=== PATIENT | female | born 1975 | race American Indian/Alaskan Native ===

== ENCOUNTER 2018-01-22 17:11 | Emergency (ER) | payer OTHER ==
[2018-01-22 17:11] VITALS: BMI 31.7
[2018-01-22 17:34] VITALS: TEMP 98.1
--- NOTE | 2018-01-22 18:21 | ED PDOC ---
Arrival/HPI - General Chief Complaint: Cough, Cold, Congestion Time Seen by Provider: 01/22/18 17:33 Historian: Patient - History of Present Illness Narrative History of Present Illness (Text): 01/22/18 18:14 42yo female with PMHx of hypertension, anxiety and depression present with 5days history of yellowish productive cough. States she started having chest pain with the cough few days ago. Did not take any medication for her symptoms. States her finance was treated for URI last week. Denies fever, chills, SOB, diaphoresis, travel, any other complaint. Past Medical History - Provider Review Nursing Documentation Reviewed: Yes - Infectious Disease Hx of Infectious Diseases: None - Tetanus Immunization Tetanus Immunization: Unknown - Cardiac Hx Hypertension: Yes - Pulmonary Hx Respiratory Disorders: No - Neurological Hx Neurological Disorder: No - HEENT Hx HEENT Disorder: No - Renal Hx Renal Disorder: No - Endocrine/Metabolic Hx Endocrine Disorders: No - Hematological/Oncological Hx Blood Disorders: No - Integumentary Hx Dermatological Disorder: No - Musculoskeletal/Rheumatological Hx Musculoskeletal Disorders: No - Gastrointestinal Hx Gastrointestinal Disorders: No - Genitourinary/Gynecological Hx Genitourinary Disorders: No - Psychiatric Hx Psychophysiologic Disorder: Yes Hx Anxiety: Yes Hx Depression: Yes Hx Substance Use: No - Surgical History Hx Section: Yes (x3) Family/Social History - Physician Review Nursing Documentation Reviewed: Yes Family/Social History: Unknown Family HX Smoking Status: Current Some Days Smoker Hx Alcohol Use: Yes Hx Substance Use: No Allergies/Home Meds Allergies/Adverse Reactions: Allergies shellfisf Allergy (Uncoded 01/22/18 17:18) ANAPHYLAXIS Home Medications: Home Meds Medication Instructions Recorded Confirmed clonazePAM [Klonopin] 0.5 mg PO PRN PRN 12/14/15 01/22/18 Review of Systems - Physician Review All systems were reviewed & negative as marked: Yes - Review of Systems Constitutional: Normal Eyes: Normal ENT: Normal Respiratory: Cough, Sputum. absent: SOB, Wheezing Cardiovascular: Normal Gastrointestinal: Normal Genitourinary Female: Normal Musculoskeletal: Normal Skin: Normal Neurological: Normal Endocrine: Normal Hemo/Lymphatic: Normal Psychiatric: Normal Physical Exam Vital Signs Reviewed: Yes Vital Signs Temp Pulse Resp BP Pulse Ox 01/22/18 17:13 98.1 F 128 H 17 154/110 H 100 Temperature: Afebrile Blood Pressure: Hypertensive Pulse: Tachycardic Respiratory Rate: Normal Appearance: Positive for: Well-Appearing, Non-Toxic, Comfortable Pain Distress: None Mental Status: Positive for: Alert and Oriented X 3 - Systems Exam Head: Present: Atraumatic, Normocephalic Pupils: Present: PERRL Extroacular Muscles: Present: EOMI Conjunctiva: Present: Normal Mouth: Present: Moist Mucous Membranes Neck: Present: Normal Range of Motion Respiratory/Chest: Present: Clear to Auscultation, Good Air Exchange. No: Respiratory Distress, Accessory Muscle Use, Wheezes, Decreased Breath Sounds, Rales, Retracting, Rhonchi, Tachypneic Cardiovascular: Present: Regular Rate and Rhythm, Normal S1, S2. No: Murmurs Abdomen: Present: Normal Bowel Sounds. No: Tenderness, Distention, Peritoneal Signs Back: Present: Normal Inspection Upper Extremity: Present: Normal Inspection. No: Cyanosis, Edema Lower Extremity: Present: Normal Inspection. No: Edema Neurological: Present: GCS=15, CN II-XII Intact, Speech Normal Skin: Present: Warm, Dry, Normal Color. No: Rashes Psychiatric: Present: Alert, Oriented x 3, Normal Insight, Normal Concentration Medical Decision Making - Lab Interpretations Lab Results: 01/22/18 17:59 01/22/18 17:59 Lab Results 01/22/18 18:14: Urine Color Light yellow, Urine Appearance Clear, Urine pH 6.0, Ur Specific [place] <= 1.005, Urine Protein Negative, Urine Glucose (UA) Negative, Urine Ketones Negative, Urine Blood Negative, Urine Nitrate Negative, Urine Bilirubin Negative, Urine Urobilinogen 0.2, Ur Leukocyte Esterase Negative 01/22/18 17:59: Influenza Typ A,B (EIA) Negative for flu a/b 01/22/18 17:59: Sodium 141, Potassium 4.0, Chloride 101, Carbon Dioxide 25, Anion Gap 19, BUN 8, Creatinine 0.7, Est GFR ( Amer) > 60, Est GFR (Non- Af Amer) > 60, Random Glucose 115 H, Calcium 10.0, Magnesium 2.0, Total Bilirubin 1.8 H, AST 152 H, ALT 151 H, Alkaline Phosphatase 133 H, Lactate Dehydrogenase 694, Total Creatine Kinase 69, Troponin I < 0.01, NT-Pro-B Natriuret Pep 13.9, Total Protein 8.8 H, Albumin 4.3, Globulin 4.5, Albumin/ Globulin Ratio 1.0 L 01/22/18 17:59: PT 12.1, INR 1.06, APTT 27.6, D-Dimer, Quantitative < 200 01/22/18 17:59: WBC 8.2, RBC 3.76, Hgb 13.1, Hct 39.0, MCV 103.7, MCH 34.8, MCHC 33.6, RDW 12.3, Plt Count 202, MPV 10.3, Gran % 69.0 H, Lymph % (Auto) 23.4 , [place] % (Auto) 7.2 H, Eos % (Auto) 0.2 L, Baso % (Auto) 0.2, Gran # 5.64, Lymph # (Auto) 1.9, [place] # (Auto) 0.6, Eos # (Auto) 0.0, Baso # (Auto) 0.02 - RAD Interpretation Radiology Orders: 01/22/18 17:33 CHEST TWO VIEWS (PA/LAT) [RAD] Stat - Medication Orders Current Medication Orders: Azithromycin (Zithromax) 500 mg PO STAT STA PRN Reason: Protocol Stop: 01/22/18 19:18 Guaifenesin (Robitussin) 200 mg PO Q4H STA Stop: 01/22/18 19:18 Disposition/Present on Arrival - Present on Arrival Any Indicators Present on Arrival: No History of DVT/PE: No History of Uncontrolled Diabetes: No Urinary Catheter: No History of Decub. Ulcer: No History Surgical Site Infection Following: None - Disposition Have Diagnosis and Disposition been Completed?: Yes Diagnosis: URI (upper respiratory infection) Disposition: HOME/ ROUTINE Disposition Time: 19:20 Patient Plan: Discharge Condition: STABLE Discharge Instructions (ExitCare): Viral Upper Respiratory Infection, Adult (DC ) Additional Instructions: Follow up with your doctor Return to ED for any new symptoms Prescriptions: Albuterol HFA [Ventolin HFA 90 mcg/actuation (8 g)] 2 puff IH Q3BIRCP #1 puff Azithromycin [Zithromax] 250 mg PO DAILY #4 tab Benzonatate [Tessalon Perles] 100 mg PO TID #30 sgl Referrals: Yvonne RAMÍREZ,MD Kaley [Primary Care Provider] - Follow up with primary Forms: [facility] (Malay)
[2018-01-22 18:22] LABS: BASO # 0.02 K/mm3 (0.0-2.0); BASO % 0.2 % (0.0-3.0); EOS % 0.2 % (1.5-5.0); GRAN # 5.64 (1.4-6.5); HEMOGLOBIN 13.1 g/dL (12.0-16.0); LYMPH # 1.9 (1.2-3.4); LYMPH % 23.4 % (22.0-35.0); MEAN CELL VOLUME 103.7 fl (80.0-105.0); MEAN CORPUSCULAR HEMOGLOBIN 34.8 pg (25.0-35.0); MEAN CORPUSCULAR HGB CONC 33.6 g/dl (31.0-37.0); MEAN PLATELET VOLUME 10.3 fl (7.0-11.0); MONO # 0.6 (0.1-0.6); MONO % 7.2 % (1.0-6.0); RBC 3.76 10^6/uL (3.5-6.1); RED CELL DISTRIBUTION WIDTH 12.3 % (11.5-14.5); WHITE BLOOD COUNT 8.2 10^3/ul (4.5-11.0)
[2018-01-22 18:24] LABS: URINE BILIRUBIN NEGATIVE (NEGATIVE); URINE BLOOD NEGATIVE (NEGATIVE); URINE GLUCOSE (UA) NEGATIVE (NEGATIVE); URINE LEUKOCYTE ESTERASE NEGATIVE Leu/uL (NEGATIVE); URINE NITRATE NEGATIVE (NEGATIVE); URINE PROTEIN NEGATIVE mg/dL (<30 mg/dL); URINE UROBILINOGEN 0.2 E.U./dL (<1 E.U./dL)
[2018-01-22 18:26] LABS: URINE APPEARANCE CLEAR (CLEAR); URINE COLOR LIGHT YELLOW (YELLOW)
[2018-01-22 18:35] LABS: D DIMER < 200 ng/mL (0-243); INR 1.06 (0.93-1.08); PARTIAL THROMBOPLASTIN TIME 27.6 Seconds (25.1-36.5); PROTHROMBIN TIME 12.1 SECONDS (9.4-12.5)
[2018-01-22 18:42] LABS: ALBUMIN 4.3 g/dL (3.0-4.8); GFR AFRICAN-AMERICAN > 60; GFR NON-AFRICAN AMERICAN > 60
[2018-01-22 18:51] LABS: B-TYPE NATRIURETIC PEPTIDE 13.9 pg/mL (0-450); TROPONIN I < 0.01 ng/mL
[2018-01-22 19:10] LABS: ALT/SGPT 151 U/L (7-56); AST/SGOT 152 U/L (14-36); BLOOD UREA NITROGEN 8 mg/dL (7-21)
[2018-01-22] MEDS ORDERED: guaiFENesin 200 mg/10 ml Syrup UD PO STA (19:17)
[2018-01-22 19:38] VITALS: BP 145/87; PULSE 85; RESP 16; O2SAT 99
--- NOTE | 2018-01-23 08:42 | RAD ---
HISTORY: cough/chest pain COMPARISON: No prior. TECHNIQUE: Chest PA and lateral FINDINGS: LUNGS: No active pulmonary disease. PLEURA: No significant pleural effusion identified. No pneumothorax apparent. CARDIOVASCULAR: Normal. OSSEOUS STRUCTURES: No significant abnormalities. VISUALIZED UPPER ABDOMEN: Normal. OTHER FINDINGS: None. IMPRESSION: No active disease.
--- NOTE | 2018-01-23 17:22 | CARD ---
APPROVED REPORT EKG Measurement Heart [id number] ID [id number] <Conclusion> Sinus tachycardia Possible Left atrial enlargement Cannot rule out Anterior infarct, age undetermined ST & T wave abnormality, nonspecific Abnormal ECG
== END 2018-01-22 19:35 | disposition home or self-care (01) ==
LOC: ED 17:11
DX: J06.9 Acute upper respiratory infection, unspecified (principal); I10 Essential (primary) hypertension

== ENCOUNTER 2018-01-26 01:22 | Emergency (ER) | payer OTHER ==
[2018-01-26 01:24] VITALS: BMI 31.7
[2018-01-26 01:50] VITALS: TEMP 98.8; O2SAT 100
[2018-01-26] MEDS ORDERED: Sodium Chloride 0.9% 1,000 ML IV STA (02:03)
[2018-01-26 02:25] LABS: BASO # 0.01 K/mm3 (0.0-2.0); BASO % 0.1 % (0.0-3.0); GRAN # 6.49 (1.4-6.5); GRAN % 77.4 % (50.0-68.0); HEMOGLOBIN 12.9 g/dL (12.0-16.0); LYMPH # 1.2 (1.2-3.4); LYMPH % 14.4 % (22.0-35.0); MEAN CELL VOLUME 104.1 fl (80.0-105.0); MEAN CORPUSCULAR HEMOGLOBIN 35.2 pg (25.0-35.0); MEAN CORPUSCULAR HGB CONC 33.9 g/dl (31.0-37.0); MEAN PLATELET VOLUME 9.9 fl (7.0-11.0); MONO # 0.7 (0.1-0.6); MONO % 8.1 % (1.0-6.0); RBC 3.66 10^6/uL (3.5-6.1); RED CELL DISTRIBUTION WIDTH 12.1 % (11.5-14.5); WHITE BLOOD COUNT 8.4 10^3/ul (4.5-11.0)
[2018-01-26 02:33] LABS: ALB/GLOB RATIO 1.1 (1.1-1.8); ALBUMIN 4.7 g/dL (3.0-4.8); ALT/SGPT 104 U/L (7-56); AST/SGOT 86 U/L (14-36); BLOOD UREA NITROGEN 3 mg/dL (7-21); CALCIUM 10.5 mg/dL (8.4-10.5); GFR AFRICAN-AMERICAN > 60; GFR NON-AFRICAN AMERICAN > 60
[2018-01-26] MEDS ORDERED: Potassium Chloride 20 mEq ER Tab PO STA (02:41)
[2018-01-26 02:44] LABS: TROPONIN I < 0.01 ng/mL
--- NOTE | 2018-01-26 03:16 | ED PDOC ---
Arrival/HPI - General Chief Complaint: Chest Pain Time Seen by Provider: 01/26/18 01:44 Historian: Patient - History of Present Illness Narrative History of Present Illness (Text): 01/26/18 01:50 42 year old female, whose past medical history includes hypertension, anxiety, and depression, presents to the emergency department complaining of cough and sore throat for the past couple of weeks. Patient reports chest pain with cough. Positive for sick contact, but denies any recent travel. She reports she was here 3 days ago for the same symptoms. Patient also reports abdominal pain, but denies any fever, chills, shortness of breath, nausea, vomiting, diarrhea, urinary symptoms, back pain, neck pain, headache, dizziness, or any other complaints. PMD: Dr. Courtney Russell Time/Duration: Other (couple weeks) Symptom Onset: Gradual Symptom Course: Unchanged Activities at Onset: Light Context: Home Past Medical History - Provider Review Nursing Documentation Reviewed: Yes - Infectious Disease Hx of Infectious Diseases: None - Tetanus Immunization Tetanus Immunization: Unknown - Cardiac Hx Hypertension: Yes - Pulmonary Hx Respiratory Disorders: No - Neurological Hx Neurological Disorder: No - HEENT Hx HEENT Disorder: No - Renal Hx Renal Disorder: No - Endocrine/Metabolic Hx Endocrine Disorders: No - Hematological/Oncological Hx Blood Disorders: No - Integumentary Hx Dermatological Disorder: No - Musculoskeletal/Rheumatological Hx Musculoskeletal Disorders: No - Gastrointestinal Hx Gastrointestinal Disorders: No - Genitourinary/Gynecological Hx Genitourinary Disorders: No - Psychiatric Hx Psychophysiologic Disorder: Yes Hx Anxiety: Yes Hx Depression: Yes Hx Substance Use: No - Surgical History Hx Section: Yes (x3) Family/Social History - Physician Review Nursing Documentation Reviewed: Yes Family/Social History: No Known Family HX Smoking Status: Current Some Days Smoker Hx Alcohol Use: Yes Hx Substance Use: No Allergies/Home Meds Allergies/Adverse Reactions: Allergies shellfisf Allergy (Uncoded 01/22/18 17:18) ANAPHYLAXIS Home Medications: Home Meds Medication Instructions Recorded Confirmed clonazePAM [Klonopin] 0.5 mg PO PRN PRN 12/14/15 01/22/18 Review of Systems - Physician Review All systems were reviewed & negative as marked: Yes - Review of Systems Constitutional: absent: Fevers, Other (Chills) Respiratory: Cough. absent: SOB Cardiovascular: Other (Chest pain when coughing ) Gastrointestinal: Abdominal Pain. absent: Diarrhea, Nausea, Vomiting Genitourinary Female: absent: Dysuria, Frequency, Hematuria Musculoskeletal: absent: Back Pain, Neck Pain Neurological: absent: Headache, Dizziness Physical Exam Vital Signs Reviewed: Yes Vital Signs Temp Pulse Resp BP Pulse Ox 01/26/18 05:20 86 18 137/85 100 01/26/18 01:45 98.8 F 113 H 20 147/102 H 100 Temperature: Afebrile Blood Pressure: Normal Pulse: Tachycardic Respiratory Rate: Normal Appearance: Positive for: Well-Appearing, Non-Toxic, Comfortable Pain Distress: None Mental Status: Positive for: Alert and Oriented X 3 - Systems Exam Head: Present: Atraumatic, Normocephalic Pupils: Present: PERRL Extroacular Muscles: Present: EOMI Conjunctiva: Present: Normal Mouth: Present: Moist Mucous Membranes Neck: Present: Normal Range of Motion Respiratory/Chest: Present: Clear to Auscultation, Good Air Exchange. No: Respiratory Distress, Accessory Muscle Use Cardiovascular: Present: Regular Rate and Rhythm, Normal S1, S2. No: Murmurs Abdomen: Present: Tenderness (Epigastric tenderness ), Normal Bowel Sounds. No : Distention, Peritoneal Signs Back: Present: Normal Inspection Upper Extremity: Present: Normal Inspection. No: Cyanosis, Edema Lower Extremity: Present: Normal Inspection. No: Edema Neurological: Present: GCS=15, CN II-XII Intact, Speech Normal Skin: Present: Warm, Dry, Normal Color. No: Rashes Psychiatric: Present: Alert, Oriented x 3, Normal Insight, Normal Concentration Medical Decision Making ED Course and Treatment: 01/26/18 01:50 Impression: 42 year old female presents complaining of chest pain associated with the cough , sore throat, that began a few weeks ago. Pt also reports epigastric abdominal pain. Plan: -- CT Abd & Pelvis IV Contrast -- EKG -- Labs -- Chest X-ray -- Potassium Chloride, IV Fluids, Zofran Inj -- POC Urine Preg Test. -- Reassess and disposition Prior Visits: Notes and results from previous visits were reviewed. Patient was last seen in the emergency department on 01/22/18 presents complaining yellow productive cough that began 5 days ago and chest pains with the cough that began a few days ago. Patient was discharged Progress Notes: EKG shows Sinus tachycardia at 135 BPM. Interpreted by me. 01/26/18 03:53 CXR Impression: As read by me, NAD EXAM: CT Abdomen and Pelvis Without Intravenous Contrast Dictated and Authenticated by: Stephania Rader MD 01/26/2018 4:31 AM IMPRESSION: No acute findings. 01/26/18 04:53 On re-evaluation, patient feels better and is in no acute distress. I have discussed the results and plan with the patient, who expresses understanding. Patient in agreement with plan to be discharged home. Patient is stable for discharge. Patient was instructed to follow up with physician or return if symptoms worsen or new concerning symptoms arise. - Lab Interpretations Lab Results: 01/26/18 02:16 01/26/18 02:16 Lab Results 01/26/18 02:16: Sodium 142, Potassium 3.0 L, Chloride 102, Carbon Dioxide 24, Anion Gap 20, BUN 3 L, Creatinine 0.7, Est GFR ( Amer) > 60, Est GFR (Non -Af Amer) > 60, Random Glucose 131 H, Calcium 10.5, Magnesium 1.9, Total Bilirubin 2.0 H, AST 86 H D, ALT 104 H, Alkaline Phosphatase 102, Lactate Dehydrogenase 502, Total Creatine Kinase 55, Troponin I < 0.01, Total Protein 9.1 H, Albumin 4.7, Globulin 4.4, Albumin/Globulin Ratio 1.1 01/26/18 02:16: WBC 8.4, RBC 3.66, Hgb 12.9, Hct 38.1, MCV 104.1, MCH 35.2 H, MCHC 33.9, RDW 12.1, Plt Count 223, MPV 9.9, Gran % 77.4 H, Lymph % (Auto) 14.4 L, [place] % (Auto) 8.1 H, Eos % (Auto) 0.0 L, Baso % (Auto) 0.1, Gran # 6.49, Lymph # (Auto) 1.2, [place] # (Auto) 0.7 H, Eos # (Auto) 0.0, Baso # (Auto) 0.01 I have reviewed the lab results: Yes - RAD Interpretation Radiology Orders: 01/26/18 02:02 CHEST PORTABLE [RAD] Stat 01/26/18 03:20 ABD & PELVIS W/O PO OR IV CONT [CT] Stat - EKG Interpretation Interpreted by ED Physician: Yes Type: 12 lead EKG - Medication Orders Current Medication Orders: Discontinued Medications Sodium Chloride (Sodium Chloride 0.9%) 1,000 mls @ 999 mls/hr IV .Q1H1M STA Stop: 01/26/18 03:03 Last Admin: 01/26/18 02:10 Dose: 999 mls/hr eMAR Start Stop Document 01/26/18 02:10 RD (Rec: 01/26/18 02:22 RD [id number]) Intravenous Solution Start Date 01/26/18 Start Time 02:10 End Date 01/26/18 End time 03:10 Total Infusion Time 60 Potassium Chloride (Potassium Chloride 10 Meq/100 Ml) 10 meq in 100 mls @ 50 mls/hr IVPB ONCE ONE Stop: 01/26/18 04:40 Last Admin: 01/26/18 03:52 Dose: 50 mls/hr eMAR Start Stop Document 01/26/18 03:52 RD (Rec: 01/26/18 03:52 RD [id number]) Intravenous Solution Start Date 01/26/18 Start Time 03:52 End Date 01/26/18 End time 05:52 Total Infusion Time 120 Ondansetron HCl (Zofran Inj) 4 mg IVP STAT STA Stop: 01/26/18 02:04 Last Admin: 01/26/18 02:22 Dose: 4 mg IVP Administration Document 01/26/18 02:22 RD (Rec: 01/26/18 02:22 RD [id number]) Charges for Administration # of IVP Administrations 1 Potassium Chloride (K-Dur 20 Meq Er Tab) 40 meq PO STAT STA Stop: 01/26/18 02:42 Last Admin: 01/26/18 03:03 Dose: 40 meq - Scribe Statement The provider has reviewed the documentation as recorded by the Elaine Hernandez Provider Scribe Attestation: All medical record entries made by the Elaine were at my direction and personally dictated by me. I have reviewed the chart and agree that the record accurately reflects my personal performance of the history, physical exam, medical decision making, and the department course for this patient. I have also personally directed, reviewed, and agree with the discharge instructions and disposition. Disposition/Present on Arrival - Present on Arrival Any Indicators Present on Arrival: No History of DVT/PE: No History of Uncontrolled Diabetes: No Urinary Catheter: No History of Decub. Ulcer: No History Surgical Site Infection Following: None - Disposition Have Diagnosis and Disposition been Completed?: Yes Diagnosis: Upper respiratory disease, Hypokalemia Disposition: HOME/ ROUTINE Disposition Time: 04:30 Condition: IMPROVED Discharge Instructions (ExitCare): Hypokalemia (DC) Additional Instructions: Thank you for letting us take care of you today. The emergency medical care you received today was directed at your acute symptoms. If you were prescribed any medication, please fill it and take as directed. It may take several days for your symptoms to resolve. Return to the Emergency Department if your symptoms worsen, do not improve, or if you have any other problems. Please contact your doctor or call one of the physicians/clinics you have been referred to that are listed on the Patient Visit Information form that is included in your discharge packet. Bring any paperwork you were given at discharge with you along with any medications you are taking to your follow up visit. Our treatment cannot replace ongoing medical care by a primary care provider (PCP) outside of the emergency department. Thank you for allowing the [facility] team to be part of your care today. Follow up with your doctor in 2-3 days for re-evaluation and further management. Prescriptions: levoFLOXacin [Levaquin] 750 mg PO DAILY #5 tab Referrals: Yvonne RAMÍREZ,MD Kaley [Primary Care Provider] - Follow up with primary Forms: [facility] (Beninese)
--- NOTE | 2018-01-26 04:31 | CT ---
EXAM: CT Abdomen and Pelvis Without Intravenous Contrast EXAM DATE/TIME: 01/26/2018 3:20 AM CLINICAL HISTORY: 42 years old, female; Pain; Abdominal pain; Generalized; Additional info: Upper abdominal pain TECHNIQUE: Axial computed tomography images of the abdomen and pelvis without intravenous contrast. All CT scans at this facility use one or more dose reduction techniques, viz.: automated exposure control; ma/kV adjustment per patient size (including targeted exams where dose is matched to indication; i.e. head); or iterative reconstruction technique. Coronal and sagittal reformatted images were created and reviewed. COMPARISON: No relevant prior studies available. FINDINGS: The liver is prominent and is decreased in attenuation consistent with fatty infiltration. The gallbladder, spleen, and pancreas appear grossly normal on this non-contrast study. No perinephric stranding. No hydronephrosis. Hyperdense material within the gastric lumen. Presumably a small amount of oral contrast was administered. The bowel appears grossly normal. A normal appendix is identified coronal images 42 through 47. The uterus and ovaries appear grossly normal. Small calcifications in the deep right pelvis that likely represent phleboliths. No aortic aneurysm. IMPRESSION: No acute findings.
[2018-01-26 05:23] VITALS: BP 137/85; PULSE 86; RESP 18
--- NOTE | 2018-01-26 09:58 | RAD ---
HISTORY: Cough. COMPARISON: 01/22/2018 FINDINGS: LUNGS: No active pulmonary disease. PLEURA: No significant pleural effusion identified, no pneumothorax apparent. CARDIOVASCULAR: Normal. OSSEOUS STRUCTURES: No significant abnormalities. VISUALIZED UPPER ABDOMEN: Normal. OTHER FINDINGS: None. IMPRESSION: No active disease. No significant interval change compared to the prior examination(s).
--- NOTE | 2018-01-26 16:49 | CARD ---
APPROVED REPORT EKG Measurement Heart [id number] <Conclusion> Sinus tachycardia Left atrial enlargement Abnormal ECG
== END 2018-01-26 05:20 | disposition home or self-care (01) ==
LOC: ED 01:22
DX: J39.9 Disease of upper respiratory tract, unspecified (principal); E87.6 Hypokalemia; I10 Essential (primary) hypertension; F17.210 Nicotine dependence, cigarettes, uncomplicated
CPT/HCPCS: 71045; 74176; 80053; 82550; 83615; 83735; 84484; 85025; 93005; 96361; 96374; 99283; J2405; J3480; J7040

== ENCOUNTER 2018-02-09 23:22 | Emergency (ER) | payer OTHER ==
[2018-02-09 23:25] VITALS: BMI 29.5
[2018-02-09 23:34] VITALS: TEMP 97.6; O2SAT 100
--- NOTE | 2018-02-09 23:52 | ED PDOC ---
Arrival/HPI <Yohan Valentine - Last Filed: 02/10/18 00:47> - General Historian: Patient <Randee Parham - Last Filed: 02/12/18 00:45> - General Chief Complaint: Chest Pain Time Seen by Provider: 02/09/18 23:24 - History of Present Illness Narrative History of Present Illness (Text): 02/09/18 23:58 42yo female with PMhx of hypertension, anxiety and depression bib BLS with complaint of persistent cough, chest pain with cough and dyspepsia. PAtient has been seen here twice this month for same complaint. States she came back because she is still having productive cough and chest pain with the cough. Also report burning epigastric pain with dyspepsia for days now. She states she have not seen her PMD since coming to this ED. She denies fever, chills, SOB, diaphoresis, calf pain, sick contact, travel, nausea, vomiting, diarrhea, constipation, any other complaint. (Randee Parham A) Past Medical History - Provider Review Nursing Documentation Reviewed: Yes - Infectious Disease Hx of Infectious Diseases: None - Tetanus Immunization Tetanus Immunization: Unknown - Cardiac Hx Hypertension: Yes - Pulmonary Hx Respiratory Disorders: No - Neurological Hx Neurological Disorder: No - HEENT Hx HEENT Disorder: No - Renal Hx Renal Disorder: No - Endocrine/Metabolic Hx Endocrine Disorders: No - Hematological/Oncological Hx Blood Disorders: No - Integumentary Hx Dermatological Disorder: No - Musculoskeletal/Rheumatological Hx Musculoskeletal Disorders: No - Gastrointestinal Hx Gastrointestinal Disorders: No - Genitourinary/Gynecological Hx Genitourinary Disorders: No - Psychiatric Hx Psychophysiologic Disorder: Yes Hx Anxiety: Yes Hx Depression: Yes Hx Substance Use: No - Surgical History Hx Section: Yes (x3) - Anesthesia Hx Anesthesia: No Hx Anesthesia Reactions: No Hx Malignant Hyperthermia: No <Randee Parham A - Last Filed: 02/12/18 00:45> Family/Social History - Physician Review Nursing Documentation Reviewed: Yes Family/Social History: Unknown Family HX Smoking Status: Current Some Days Smoker Hx Alcohol Use: Yes Hx Substance Use: No <Randee Parham A - Last Filed: 02/12/18 00:45> Allergies/Home Meds <Yohan Valentine - Last Filed: 02/10/18 00:47> <Randee Parham A - Last Filed: 02/12/18 00:45> Allergies/Adverse Reactions: Allergies shellfisf Allergy (Uncoded 02/09/18 23:31) ANAPHYLAXIS Home Medications: Home Meds Medication Instructions Recorded Confirmed clonazePAM [Klonopin] 0.5 mg PO PRN PRN 12/14/15 02/09/18 Review of Systems - Physician Review All systems were reviewed & negative as marked: Yes - Review of Systems Constitutional: Normal Eyes: Normal ENT: Normal Respiratory: Cough, Sputum. absent: SOB, Wheezing Cardiovascular: Chest Pain Gastrointestinal: Abdominal Pain (Dyspepsia) Genitourinary Female: Normal Musculoskeletal: Normal Skin: Normal Neurological: Normal Endocrine: Normal Hemo/Lymphatic: Normal Psychiatric: Normal <Randee Parham A - Last Filed: 02/12/18 00:45> Physical Exam Vital Signs Reviewed: Yes Temperature: Afebrile Blood Pressure: Hypertensive Pulse: Tachycardic Respiratory Rate: Normal Appearance: Positive for: Well-Appearing, Non-Toxic, Comfortable Pain Distress: None Mental Status: Positive for: Alert and Oriented X 3 - Systems Exam Head: Present: Atraumatic, Normocephalic Pupils: Present: PERRL Extroacular Muscles: Present: EOMI Conjunctiva: Present: Normal Mouth: Present: Moist Mucous Membranes Neck: Present: Normal Range of Motion Respiratory/Chest: Present: Clear to Auscultation, Good Air Exchange, Tender to Palpation (Left sternal wall). No: Respiratory Distress, Accessory Muscle Use, Wheezes, Decreased Breath Sounds, Rales, Retracting, Rhonchi Cardiovascular: Present: Regular Rate and Rhythm, Normal S1, S2. No: Murmurs Abdomen: Present: Normal Bowel Sounds, Other (Soft). No: Tenderness, Distention , Peritoneal Signs, Rebound, Guarding, McBurney's Point Tender, Rovsing's Sign Present Back: Present: Normal Inspection Upper Extremity: Present: Normal Inspection. No: Cyanosis, Edema Lower Extremity: Present: Normal Inspection. No: Edema Neurological: Present: GCS=15, CN II-XII Intact, Speech Normal Skin: Present: Warm, Dry, Normal Color. No: Rashes Psychiatric: Present: Alert, Oriented x 3, Normal Insight, Normal Concentration <Randee Parham A - Last Filed: 02/12/18 00:45> Vital Signs Temp Pulse Resp BP Pulse Ox 02/10/18 02:28 105 H 19 135/92 H 100 02/10/18 00:38 109 H 144/98 H 02/09/18 23:34 97.6 F 02/09/18 23:33 121 H 21 172/119 H 100 Medical Decision Making <Yohan Valentine - Last Filed: 02/10/18 00:47> <Randee Parham - Last Filed: 02/12/18 00:45> ED Course and Treatment: 02/10/18 01:28 PT in ED for cough, chest pain with cough and dyspepsia. Pt was hypertensive and tachy on presentation. She have history of hypertension and she alleged that she is complaint with her antihypertensive. Notes that she took it this morning. Her BP improved in ED with medication. EKG Sinus tacty @ 121bpm. this is comparable to pt's previous EKG. No ST changes Her CE was again negative. Her chart from 01/22 and 01/26 was reviewed. Pt was in ED for same complaint and labs unchanged. she noted that her symptoms improved in ED all result was DW the pt. she was strongly advised to f/u with a Cemetery Laborer and a GI Pepcid, Augmentin, promethazine rx was given. (Randee Parham) - Lab Interpretations Lab Results: 02/10/18 00:05 02/10/18 00:30 Lab Results 02/10/18 01:04: Urine Color Yellow, Urine Appearance Clear, Urine pH 6.0, Ur Specific [place] <= 1.005, Urine Protein Negative, Urine Glucose (UA) Negative, Urine Ketones Negative, Urine Blood Moderate H, Urine Nitrate Negative, Urine Bilirubin Negative, Urine Urobilinogen 0.2, Ur Leukocyte Esterase Negative, Urine RBC 1 - 3, Urine WBC 0 - 2, Ur Epithelial Cells 1 - 3, Urine Bacteria Few 02/10/18 00:30: Sodium 140, Potassium 4.5, Chloride 103, Carbon Dioxide 25, Anion Gap 17, BUN 9, Creatinine 0.7, Est GFR ( Amer) > 60, Est GFR (Non- Af Amer) > 60, Random Glucose 87, Calcium 10.1, Magnesium 2.0, Total Bilirubin 0.8, AST 111 H D, ALT 68 H, Alkaline Phosphatase 83, Lactate Dehydrogenase 894 H , Total Creatine Kinase 75, Troponin I < 0.01, NT-Pro-B Natriuret Pep 21.4, Total Protein 9.1 H, Albumin 4.6, Globulin 4.5, Albumin/Globulin Ratio 1.0 L, Lipase 186 02/10/18 00:05: PT 11.3, INR 0.99, APTT 28.0, D-Dimer, Quantitative TNP 02/10/18 00:05: WBC 6.3 D, RBC 3.68, Hgb 12.8, Hct 37.6, MCV 102.2, MCH 34.8, MCHC 34.0, RDW 12.6, Plt Count 435, MPV 10.0, Gran % 58.1, Lymph % (Auto) 31.6, Archer % (Auto) 8.4 H, Eos % (Auto) 1.4 L, Baso % (Auto) 0.5, Gran # 3.68, Lymph # (Auto) 2.0, Archer # (Auto) 0.5, Eos # (Auto) 0.1, Baso # (Auto) 0.03 - RAD Interpretation Radiology Orders: 02/09/18 23:51 CHEST PORTABLE [RAD] Stat - Medication Orders Current Medication Orders: Discontinued Medications Amoxicillin/Clavulanate Potassium (Augmentin 875 Mg-125 Mg Tab) 1 tab PO STAT STA PRN Reason: Protocol Stop: 02/10/18 01:42 Last Admin: 02/10/18 02:04 Dose: 1 tab Famotidine (Pepcid) 20 mg IVP STAT STA Stop: 02/09/18 23:58 Last Admin: 02/10/18 00:36 Dose: 20 mg IVP Administration Document 02/10/18 00:36 RD (Rec: 02/10/18 00:39 RD [id number]) Charges for Administration # of IVP Administrations 1 Hydralazine HCl (Apresoline) 10 mg IVP STAT STA Stop: 02/09/18 23:57 Last Admin: 02/10/18 00:38 Dose: 10 mg IVP Administration Document 02/10/18 00:38 RD (Rec: 02/10/18 00:39 RD [id number]) Charges for Administration # of IVP Administrations 1 JAN Pulse and Blood Pressure Document 02/10/18 00:38 RD (Rec: 02/10/18 00:39 RD [id number]) Pulse Pulse Rate (60-90) 109 Blood Pressure Blood Pressure (100/60-150/90) 144/98 Promethazine HCl/Dextromethorphan (Phenergan Dm Syrup) 5 ml PO STAT STA Stop: 02/10/18 01:17 Last Admin: 02/10/18 02:04 Dose: 5 ml - PA / [employer] / Resident Statement / has reviewed & agrees with the documentation as recorded. <Yohan Valentine - Last Filed: 02/10/18 00:47> Disposition/Present on Arrival <Yohan Valentine - Last Filed: 02/10/18 00:47> - Present on Arrival Any Indicators Present on Arrival: No History of DVT/PE: No History of Uncontrolled Diabetes: No Urinary Catheter: No History of Decub. Ulcer: No History Surgical Site Infection Following: None - Disposition Have Diagnosis and Disposition been Completed?: Yes Disposition Time: 02:15 Patient Plan: Discharge <Randee Parham - Last Filed: 02/12/18 00:45> - Disposition Diagnosis: Cough, Chest pain in adult, GERD (gastroesophageal reflux disease) Disposition: HOME/ ROUTINE Condition: STABLE Discharge Instructions (ExitCare): Cough in Adults, Acid Reflux ( Gastroesophageal Reflux Disease), Adult (DC), Chest Pain (ED) Additional Instructions: Follow up with a Cemetery Laborer/Sleeping Car Porter Return to ED for new symptoms Prescriptions: Amoxicillin/Clavulanate [Augmentin 875 MG-125 MG] 1 tab PO BID #14 tab Famotidine [Pepcid] 40 mg PO DAILY #15 tab Promethazine [Phenergan Syrup] 6.25 mg PO Q6 #100 ml Referrals: Kalpana Tee MD [Staff Provider] - Follow up with primary Joni Sebastian DO [Staff Provider] - Follow up with primary Forms: [employer] (Samoan)
[2018-02-10 00:16] LABS: BASO # 0.03 K/mm3 (0.0-2.0); BASO % 0.5 % (0.0-3.0); EOS # 0.1 (0.0-0.7); EOS % 1.4 % (1.5-5.0); GRAN # 3.68 (1.4-6.5); GRAN % 58.1 % (50.0-68.0); HEMOGLOBIN 12.8 g/dL (12.0-16.0); LYMPH % 31.6 % (22.0-35.0); MEAN CELL VOLUME 102.2 fl (80.0-105.0); MEAN CORPUSCULAR HEMOGLOBIN 34.8 pg (25.0-35.0); MONO # 0.5 (0.1-0.6); MONO % 8.4 % (1.0-6.0); RBC 3.68 10^6/uL (3.5-6.1); RED CELL DISTRIBUTION WIDTH 12.6 % (11.5-14.5); WHITE BLOOD COUNT 6.3 10^3/ul (4.5-11.0)
[2018-02-10 00:54] LABS: ALBUMIN 4.6 g/dL (3.0-4.8); ALT/SGPT 68 U/L (7-56); AST/SGOT 111 U/L (14-36); BLOOD UREA NITROGEN 9 mg/dL (7-21); CALCIUM 10.1 mg/dL (8.4-10.5); GFR AFRICAN-AMERICAN > 60; GFR NON-AFRICAN AMERICAN > 60; LIPASE 186 U/L (23-300)
[2018-02-10 01:01] LABS: INR 0.99 (0.93-1.08); PROTHROMBIN TIME 11.3 SECONDS (9.4-12.5)
[2018-02-10 01:02] LABS: B-TYPE NATRIURETIC PEPTIDE 21.4 pg/mL (0-450); TROPONIN I < 0.01 ng/mL
[2018-02-10] MEDS ORDERED: Promethazine DM 6.25 mg-15 mg/5 ml Syrup PO STA (01:16)
[2018-02-10 01:21] LABS: URINE BILIRUBIN NEGATIVE (NEGATIVE); URINE BLOOD MODERATE (NEGATIVE); URINE GLUCOSE (UA) NEGATIVE (NEGATIVE); URINE LEUKOCYTE ESTERASE NEGATIVE Leu/uL (NEGATIVE); URINE PROTEIN NEGATIVE mg/dL (<30 mg/dL); URINE UROBILINOGEN 0.2 E.U./dL (<1 E.U./dL)
[2018-02-10 01:37] LABS: URINE APPEARANCE CLEAR (CLEAR); URINE COLOR YELLOW (YELLOW); URINE WBC 0 - 2 /hpf (0-6)
[2018-02-10 01:38] LABS: URINE BACTERIA FEW (NEG)
[2018-02-10] MEDS ORDERED: Amoxicillin-Clav 875-125 mg Tab PO STA (01:41)
[2018-02-10 02:30] VITALS: BP 135/92; PULSE 105; RESP 19
--- NOTE | 2018-02-10 09:42 | RAD ---
HISTORY: chest pain COMPARISON: Frontal chest radiograph 01/26/2018. FINDINGS: LUNGS: No active pulmonary disease. PLEURA: No significant pleural effusion identified, no pneumothorax apparent. CARDIOVASCULAR: Normal. OSSEOUS STRUCTURES: No significant abnormalities. VISUALIZED UPPER ABDOMEN: Normal. OTHER FINDINGS: None. IMPRESSION: No interval acute cardiopulmonary disease appreciated.
== END 2018-02-10 02:46 | disposition home or self-care (01) ==
LOC: ED 23:22
DX: R05 Cough (principal); R07.9 Chest pain, unspecified; K21.9 Gastro-esophageal reflux disease without esophagitis; I10 Essential (primary) hypertension; F17.210 Nicotine dependence, cigarettes, uncomplicated
CPT/HCPCS: 71045; 80053; 81001; 82550; 83615; 83690; 83735; 83880; 84484; 85025; 85610; 85730; 96374; 96375; 99284; J0360

== ENCOUNTER 2018-02-21 10:56 | Emergency (ER) | payer MEDICAID, OTHER ==
[2018-02-21 10:56] VITALS: BMI 29.5
[2018-02-21 11:05] VITALS: TEMP 98.6
[2018-02-21 11:14] VITALS: RESP 18; O2SAT 99
--- NOTE | 2018-02-21 12:18 | ED PDOC ---
Arrival/HPI - General Chief Complaint: Cough, Cold, Congestion Time Seen by Provider: 02/21/18 11:15 Historian: Patient - History of Present Illness Narrative History of Present Illness (Text): 02/21/18 12:12 A 42 year old female, whose past medical history includes hypertension on norvasc and anxiety on ativan, presents to the emergency department complaining of a cough for the past 3 months. Patient reports she was diagnosed with an upper respiratory infection 3 months ago and her cough as not improved since. Patient notes white thick sputum with cough, but denies any fever, chills, nausea, vomiting, abdominal pain, chest pain, shortness of breath or any other complaints. Patient reports she quit smoking 3 months ago. Time/Duration: Other (3 months) Symptom Course: Unchanged Past Medical History - Provider Review Nursing Documentation Reviewed: Yes - Infectious Disease Hx of Infectious Diseases: None - Tetanus Immunization Tetanus Immunization: Unknown - Cardiac Hx Cardiac Disorders: Yes Hx Hypertension: Yes - Pulmonary Hx Respiratory Disorders: Yes Other/Comment: URI - Neurological Hx Neurological Disorder: No - HEENT Hx HEENT Disorder: No - Renal Hx Renal Disorder: No - Endocrine/Metabolic Hx Endocrine Disorders: No - Hematological/Oncological Hx Blood Disorders: No - Integumentary Hx Dermatological Disorder: No - Musculoskeletal/Rheumatological Hx Musculoskeletal Disorders: No - Gastrointestinal Hx Gastrointestinal Disorders: No - Genitourinary/Gynecological Hx Genitourinary Disorders: No - Psychiatric Hx Psychophysiologic Disorder: Yes Hx Anxiety: Yes Hx Depression: Yes Hx Substance Use: No - Surgical History Hx Section: Yes (x3) Hx Tubal Ligation: Yes - Anesthesia Hx Anesthesia: No Hx Anesthesia Reactions: No Hx Malignant Hyperthermia: No Family/Social History - Physician Review Nursing Documentation Reviewed: Yes Family/Social History: No Known Family HX Smoking Status: Current Some Days Smoker Hx Alcohol Use: Yes Hx Substance Use: No Allergies/Home Meds Allergies/Adverse Reactions: Allergies shellfisf Allergy (Uncoded 02/21/18 11:00) ANAPHYLAXIS Home Medications: Home Meds Medication Instructions Recorded Confirmed LORazepam [Ativan] 1 mg PO Q6 PRN 02/21/18 02/21/18 Review of Systems - Physician Review All systems were reviewed & negative as marked: Yes - Review of Systems Constitutional: absent: Fevers, Night Sweats Respiratory: Cough, Sputum. absent: SOB Cardiovascular: absent: Chest Pain Gastrointestinal: absent: Abdominal Pain, Nausea, Vomiting Physical Exam Vital Signs Reviewed: Yes Vital Signs Temp Pulse Resp BP Pulse Ox 02/21/18 13:49 79 18 126/71 99 02/21/18 12:17 81 18 128/76 99 02/21/18 11:14 98.6 F 89 18 132/87 99 02/21/18 11:01 98.6 F 89 16 132/87 100 Temperature: Afebrile Blood Pressure: Normal Pulse: Regular Respiratory Rate: Normal Appearance: Positive for: Well-Appearing, Non-Toxic, Comfortable Pain Distress: None Mental Status: Positive for: Alert and Oriented X 3 - Systems Exam Head: Present: Atraumatic, Normocephalic Pupils: Present: PERRL Extroacular Muscles: Present: EOMI Conjunctiva: Present: Normal Mouth: Present: Moist Mucous Membranes Neck: Present: Normal Range of Motion Respiratory/Chest: Present: Clear to Auscultation, Good Air Exchange. No: Respiratory Distress, Accessory Muscle Use Cardiovascular: Present: Regular Rate and Rhythm, Normal S1, S2. No: Murmurs Abdomen: No: Tenderness, Distention, Peritoneal Signs Back: Present: Normal Inspection Upper Extremity: Present: Normal Inspection. No: Cyanosis, Edema Lower Extremity: Present: Normal Inspection. No: Edema Neurological: Present: GCS=15, CN II-XII Intact, Speech Normal Skin: Present: Warm, Dry, Normal Color. No: Rashes Psychiatric: Present: Alert, Oriented x 3, Normal Insight, Normal Concentration Medical Decision Making ED Course and Treatment: 02/21/18 12:12 Impression: A 42 year old female with a productive cough for 3 months Plan: -- Urine test -- Chest xray -- Reassess and disposition Progress Notes: Report Date : 02/21/2018 13:19:44 Procedure: Chest xray Dictator : Amarjit Odonnell MD IMPRESSION: No active disease. - RAD Interpretation Radiology Orders: 02/21/18 12:22 CXR [CHEST TWO VIEWS (PA/LAT)] [RAD] Stat - Scribe Statement The provider has reviewed the documentation as recorded by the Scribe Jenelle Feliciano Provider Scribe Attestation: All medical record entries made by the Scribe were at my direction and personally dictated by me. I have reviewed the chart and agree that the record accurately reflects my personal performance of the history, physical exam, medical decision making, and the department course for this patient. I have also personally directed, reviewed, and agree with the discharge instructions and disposition. Disposition/Present on Arrival - Present on Arrival Any Indicators Present on Arrival: No History of DVT/PE: No History of Uncontrolled Diabetes: No Urinary Catheter: No History of Decub. Ulcer: No History Surgical Site Infection Following: None - Disposition Have Diagnosis and Disposition been Completed?: Yes Diagnosis: Chronic coughing Disposition: HOME/ ROUTINE Disposition Time: 13:58 Patient Plan: Discharge Condition: GOOD Discharge Instructions (ExitCare): Cough in Adults Additional Instructions: Anesha - Sorry that you are going through this. Your CXR is normal. Follow up with your regular physician. Return to us if worse or new symptoms. Quoc- Dr. Juanito Contreras Forms: [employer] (Chinese)
--- NOTE | 2018-02-21 13:21 | RAD ---
HISTORY: Cough for three months COMPARISON: 02/10/2018 TECHNIQUE: Chest PA and lateral FINDINGS: LUNGS: No active pulmonary disease. PLEURA: No significant pleural effusion identified. No pneumothorax apparent. CARDIOVASCULAR: Normal. OSSEOUS STRUCTURES: No significant abnormalities. VISUALIZED UPPER ABDOMEN: Normal. OTHER FINDINGS: None. IMPRESSION: No active disease.
[2018-02-21 14:31] VITALS: BP 124/69; PULSE 75
== END 2018-02-21 14:31 | disposition home or self-care (01) ==
LOC: ED 10:56
DX: R05 Cough (principal); I10 Essential (primary) hypertension; F17.210 Nicotine dependence, cigarettes, uncomplicated

== ENCOUNTER 2018-03-04 01:43 | Inpatient (IN) | payer MEDICAID ==
[2018-03-04 02:03] VITALS: BMI 30.2
[2018-03-04 03:13] LABS: BASO # 0.02 K/mm3 (0.0-2.0); BASO % 0.2 % (0.0-3.0); EOS # 0.1 (0.0-0.7); EOS % 1.2 % (1.5-5.0); GRAN # 5.58 (1.4-6.5); GRAN % 60.6 % (50.0-68.0); HEMOGLOBIN 13.1 g/dL (12.0-16.0); LYMPH # 3.1 (1.2-3.4); LYMPH % 33.9 % (22.0-35.0); MEAN CELL VOLUME 101.9 fl (80.0-105.0); MEAN CORPUSCULAR HEMOGLOBIN 34.7 pg (25.0-35.0); MEAN CORPUSCULAR HGB CONC 34.1 g/dl (31.0-37.0); MEAN PLATELET VOLUME 9.5 fl (7.0-11.0); MONO # 0.4 (0.1-0.6); MONO % 4.1 % (1.0-6.0); RBC 3.77 10^6/uL (3.5-6.1); RED CELL DISTRIBUTION WIDTH 11.9 % (11.5-14.5); WHITE BLOOD COUNT 9.2 10^3/ul (4.5-11.0)
[2018-03-04 03:15] LABS: URINE BILIRUBIN NEGATIVE (NEGATIVE); URINE BLOOD TRACE-LYSED (NEGATIVE); URINE GLUCOSE (UA) NEGATIVE (NEGATIVE); URINE LEUKOCYTE ESTERASE NEGATIVE Leu/uL (NEGATIVE); URINE PROTEIN NEGATIVE mg/dL (<30 mg/dL); URINE UROBILINOGEN 0.2 E.U./dL (<1 E.U./dL)
[2018-03-04 03:23] LABS: ACETAMINOPHEN < 10.0 ug/ml (10.0-20.0); SALICYLATE < 1 mg/dL (2.0-20.0)
[2018-03-04 03:24] LABS: INR 0.99 (0.93-1.08); PARTIAL THROMBOPLASTIN TIME 29.4 Seconds (25.1-36.5); PROTHROMBIN TIME 11.3 SECONDS (9.4-12.5)
[2018-03-04 03:25] LABS: URINE APPEARANCE CLEAR (CLEAR); URINE COLOR YELLOW (YELLOW)
--- NOTE | 2018-03-04 03:25 | ED PDOC ---
Arrival/HPI <Alexis Mckeon - Last Filed: 03/04/18 04:59> - General Historian: Patient - History of Present Illness Time/Duration: 1-3 hours (nausea/vomiting), < week (eye pain), > month (anxiety) Symptom Course: Unchanged (anxiety), Improving (eye pain) Quality: Aching, Burning <Ross Ybarra - Last Filed: 03/04/18 06:40> - General Chief Complaint: Anxiety Time Seen by Provider: 03/04/18 01:58 - History of Present Illness Narrative History of Present Illness (Text): 03/04/18 03:39 42 yo F with PMH of hypertension, anxiety, depression, and alcohol abuse presents to emergency department complaining of bilateral eye pain for the past 2 days, and nausea and vomiting for the past 3 hours. Patient is also complaining of uncontrolled anxiety and depression, difficulty sleeping, and admits to thoughts of suicide (passive, "I sometimes wish I won't wake up"), she denies any specific plan, or prior attempt. She also admits to occasional shortness of breath. She denies chest pain, fever, chills, abdominal pain, dysruria, hematuria, diarrhea, constipation. She admits to drinking alcohol daily. When prompted, she reports 2 glasses of wine daily, sometimes more. Patient takes klonopin for her anxiety, but has not taken it for over one month. She was recently hospitalized at [facility] for "anxiety, depression, and alcohol" two weeks ago. Regarding her nausea, vomiting, and tachycardia, she denies recent illness, recent travel, recent immobilization, sick contacts, chest pain, leg pain/ swelling. Regarding her eye pain, she reports that it started two days ago in her right eye, then in her left eye, and has since been improving on its own. She denies vision changes, blurry vision, hearing loss, facial pain/pressure, headache. (Ross Ybarra) Past Medical History <Alexis Mckeon - Last Filed: 03/04/18 04:59> - Provider Review Nursing Documentation Reviewed: Yes - Travel History Have you recently traveled outside [place] w/in the past 3 mons?: No - Infectious Disease Hx of Infectious Diseases: None - Tetanus Immunization Tetanus Immunization: Unknown - Reproductive Currently : No - Cardiac Hx Cardiac Disorders: Yes Hx Hypertension: Yes - Pulmonary Hx Respiratory Disorders: No Other/Comment: URI - Neurological Hx Neurological Disorder: No - HEENT Hx HEENT Disorder: No - Renal Hx Renal Disorder: No - Endocrine/Metabolic Hx Endocrine Disorders: No - Hematological/Oncological Hx Blood Disorders: No - Integumentary Hx Dermatological Disorder: No - Musculoskeletal/Rheumatological Hx Musculoskeletal Disorders: No - Gastrointestinal Hx Gastrointestinal Disorders: No - Genitourinary/Gynecological Hx Genitourinary Disorders: No - Psychiatric Hx Psychophysiologic Disorder: Yes Hx Anxiety: Yes Hx Depression: Yes Hx Substance Use: Yes (alcohol) - Past Surgical History Past Surgical History: Non-Contributing - Surgical History Hx Section: Yes (x3) Hx Tubal Ligation: Yes - Anesthesia Hx Anesthesia: No Hx Anesthesia Reactions: No Hx Malignant Hyperthermia: No - Suicidal Assessment Suicidal Thoughts: Yes Plan: No Suicide Risk Precautions: Close Observation <Ross Ybarra - Last Filed: 03/04/18 06:40> - Patient History Narrative Patient History: Anxiety, depression, hypertension, alcohol use (Ross Ybarra) Family/Social History - Physician Review Nursing Documentation Reviewed: Yes <Alexis Mckeon - Last Filed: 03/04/18 04:59> Family/Social History: Unknown Family HX Smoking Status: Former Smoker Hx Alcohol Use: Yes Frequency of alcohol use: Daily Hx Substance Use: No <Ross Ybarra - Last Filed: 03/04/18 06:40> Allergies/Home Meds <Alexis Mckeon - Last Filed: 03/04/18 04:59> <Ross Ybarra - Last Filed: 03/04/18 06:40> Allergies/Adverse Reactions: Allergies shellfish derived Allergy (Verified 03/04/18 02:03) ANAPHYLAXIS Home Medications: Home Meds Medication Instructions Recorded Confirmed LORazepam [Ativan] 1 mg PO Q6 PRN 02/21/18 03/04/18 Review of Systems - Review of Systems Constitutional: Normal Eyes: Eye Pain (improving) ENT: Normal Respiratory: SOB Cardiovascular: Normal. absent: Chest Pain, Palpitations, Edema, Calf Pain, MUNIZ , Orthopnea Gastrointestinal: Normal Genitourinary Female: Normal Musculoskeletal: Normal Skin: Normal Neurological: Disequilibrium. absent: Headache, Dizziness, Focal Weakness Endocrine: Normal Hemo/Lymphatic: Normal Psychiatric: Anxiety, Depression, Suicidal Ideation <Ross Ybarra - Last Filed: 03/04/18 06:40> Physical Exam Vital Signs Reviewed: Yes Temperature: Afebrile Blood Pressure: Normal Pulse: Tachycardic Respiratory Rate: Normal Appearance: Positive for: Well-Appearing, Non-Toxic, Comfortable Pain Distress: None Mental Status: Positive for: Alert and Oriented X 3 - Systems Exam Head: Present: Atraumatic, Normocephalic Pupils: Present: PERRL Extroacular Muscles: Present: EOMI Conjunctiva: Present: Normal Mouth: Present: Moist Mucous Membranes Neck: Present: Normal Range of Motion Respiratory/Chest: Present: Clear to Auscultation, Good Air Exchange. No: Respiratory Distress, Accessory Muscle Use, Wheezes, Decreased Breath Sounds, Rales, Rhonchi Cardiovascular: Present: Regular Rate and Rhythm, Normal S1, S2, Tachycardic. No: Murmurs Abdomen: Present: Normal Bowel Sounds. No: Tenderness, Distention, Peritoneal Signs Upper Extremity: Present: Normal Inspection. No: Cyanosis, Edema Lower Extremity: Present: Normal Inspection. No: Edema, CALF TENDERNESS Neurological: Present: GCS=15, CN II-XII Intact, Speech Normal, Other (faint tremor with hands outstretched, symmetric. 5/5 strength in all four extremities. [id number] with mild tremor near end point) Skin: Present: Warm, Dry, Normal Color. No: Rashes Psychiatric: Present: Alert, Oriented x 3, Normal Insight, Normal Concentration , Anxious, Depressed Mood, Suicidal Ideation, Other (Tearful). No: Homicidal Ideation, Delusional, Hallucinations, Intoxicated, Lethargic <Tate,Alphonsekarram - Last Filed: 03/04/18 06:40> Vital Signs Temp Pulse Resp BP Pulse Ox 03/04/18 05:51 98.0 F 86 18 122/74 99 03/04/18 03:33 98.2 F 112 H 16 126/95 H 98 03/04/18 02:04 98.2 F 123 H 16 140/99 H 98 Medical Decision Making <Alexis Mckeon - Last Filed: 03/04/18 04:59> <AmineFaithram - Last Filed: 03/04/18 06:40> ED Course and Treatment: 03/04/18 04:56 42 year old female, with past medical history of anxiety and depression, presents to the emergency department for eye discomfort and alcohol intoxication. In agreement with resident's note, which includes further details in HPI, ROS, PE and MDM. Patient was seen in the emergency department today, came up with treatment and plan of care together. (Alexis Mckeon) 03/04/18 03:32 Impression: Tachycardia, Anxiety, depression, eye pain (improving), nausea/ vomiting, suicidal ideation, alcohol abuse Plan: -- Labs (CBC, CMP, TSH, Urinalysis, UDS, serum Alcohol, acetaminophen level, salicilate level, cardiac ISO, BNP, lipase) -- EKG -- CXR -- PES evaluation -- Reassess and disposition Prior Visits: Notes and results from previous visits were reviewed. Patient was last seen in the emergency department on 02/21 for cough Progress Notes: 03/04/18 04:35 -- Labs significant for transaminemia, better than baseline, elevated serum alcohol level, positive benzodiazepines on UDS, otherwise unremarkable -- Chest X-ray unremarkable, as read by me -- EKG similar to previous, no acute ST-T wave changes, as read by me -- Intermittent tachycardia; ordered 1L IVF -- Per PES evaluation, patient may require admission for depression; patient is agreeable 03/04/18 06:35 -- Tachycardia resolved after 1L IVF bolus, HR now in 80's -- Patient accepted by Dr. Hurley for admission to inpatient psych [facility]. Patient signed for voluntary admission for depression. -- Patient medically cleared for psychiatric admission (Ross Ybarra) - Lab Interpretations Lab Results: 03/04/18 02:56 03/04/18 02:56 Lab Results 03/04/18 02:59: Urine Color Yellow, Urine Appearance Clear, Urine pH 6.0, Ur Specific [place] 1.020, Urine Protein Negative, Urine Glucose (UA) Negative, Urine Ketones 15 H, Urine Blood Trace-lysed H, Urine Nitrate Negative, Urine Bilirubin Negative, Urine Urobilinogen 0.2, Ur Leukocyte Esterase Negative, Urine RBC 0 - 2, Urine WBC 0 - 2, Ur Epithelial Cells 1 - 3, Urine Bacteria Rare 03/04/18 02:59: Urine Opiates Screen Negative, Urine Methadone Screen Negative, Ur Barbiturates Screen Negative, Ur Phencyclidine Scrn Negative, Ur Amphetamines Screen Negative, U Benzodiazepines Scrn Positive, U Oth Cocaine Metabols Negative, U Cannabinoids Screen Negative 03/04/18 02:56: TSH 3rd Generation 0.99, Alcohol, Quantitative 122 H 03/04/18 02:56: Sodium 146, Potassium 4.0, Chloride 108 H, Carbon Dioxide 23, Anion Gap 20, BUN 19, Creatinine 1.0, Est GFR ( Amer) > 60, Est GFR (Non- Af Amer) > 60, Random Glucose 90, Calcium 9.7, Total Bilirubin 0.4, AST 69 H D, ALT 63 H, Alkaline Phosphatase 69, Lactate Dehydrogenase 607, Total Creatine Kinase 85, Troponin I < 0.01, NT-Pro-B Natriuret Pep < 11.1, Total Protein 8.0, Albumin 4.4, Globulin 3.6, Albumin/Globulin Ratio 1.2, Lipase 139 03/04/18 02:56: PT 11.3, INR 0.99, APTT 29.4 03/04/18 02:56: WBC 9.2 D, RBC 3.77, Hgb 13.1, Hct 38.4, MCV 101.9, MCH 34.7, MCHC 34.1, RDW 11.9, Plt Count 414, MPV 9.5, Gran % 60.6, Lymph % (Auto) 33.9, [place] % (Auto) 4.1, Eos % (Auto) 1.2 L, Baso % (Auto) 0.2, Gran # 5.58, Lymph # ( Auto) 3.1, [place] # (Auto) 0.4, Eos # (Auto) 0.1, Baso # (Auto) 0.02 03/04/18 02:55: Salicylates < 1 L, Acetaminophen < 10.0 L - RAD Interpretation Radiology Orders: 03/04/18 02:46 CHEST TWO VIEWS (PA/LAT) [RAD] Stat - Medication Orders Current Medication Orders: Sodium Chloride (Sodium Chloride 0.9%) 1,000 mls @ 200 mls/hr IV .Q5H MILAD Stop: 03/04/18 08:44 Last Admin: 03/04/18 03:57 Dose: 200 mls/hr eMAR Start Stop Document 03/04/18 03:57 RD (Rec: 03/04/18 03:57 RD [id number]) Intravenous Solution Start Date 03/04/18 Start Time 03:57 Discontinued Medications Ondansetron HCl (Zofran Odt) 4 mg PO STAT STA Stop: 03/04/18 04:58 Last Admin: 03/04/18 05:18 Dose: 4 mg - PA / INSTALLATION AND REPAIR TECHNICIAN / Resident Statement MD/DO has reviewed & agrees with the documentation as recorded. MD/DO has examined the patient and agrees with the treatment plan. - Scribe Statement The provider has reviewed the documentation as recorded by the Scribe <Alexis Mckeon - Last Filed: 03/04/18 04:59> <Ross Ybarra - Last Filed: 03/04/18 06:40> - Scribe Statement Snehal Rice. All medical record entries made by the Scribe were at my direction and personally dictated by me. I have reviewed the chart and agree that the record accurately reflects my personal performance of the history, physical exam, medical decision making, and the department course for this patient. I have also personally directed, reviewed, and agree with the discharge instructions and disposition. (Alexis Mckeon) Disposition/Present on Arrival <Alexis Mckeon - Last Filed: 03/04/18 04:59> - Present on Arrival Any Indicators Present on Arrival: No History of DVT/PE: No History of Uncontrolled Diabetes: No Urinary Catheter: No History of Decub. Ulcer: No History Surgical Site Infection Following: None - Disposition Have Diagnosis and Disposition been Completed?: Yes Disposition Time: 06:37 Patient Plan: Admission <Ross Ybarra - Last Filed: 03/04/18 06:40> - Disposition Diagnosis: Depression, Alcohol use Disposition: HOSPITALIZED Patient Problems: Current Active Problems Problem Status Onset Alcohol use Acute Depression Acute Suicidal ideation Acute Condition: STABLE Forms: [place] ([place]ronesian)
[2018-03-04 03:27] LABS: URINE BACTERIA RARE (NEG); URINE RBC 0 - 2 /hpf (0-2); URINE WBC 0 - 2 /hpf (0-6)
[2018-03-04] MEDS ORDERED: Sodium Chloride 0.9% 1,000 ML IV SCH (03:45)
[2018-03-04 03:47] LABS: BARBITURATES, UR NEGATIVE (NEGATIVE); BENZODIAZEPINES, UR POSITIVE (NEGATIVE); OPIATES, UR NEGATIVE (NEGATIVE); PHENCYCLIDINE, UR NEGATIVE (NEGATIVE)
[2018-03-04 03:47] LABS: ALB/GLOB RATIO 1.2 (1.1-1.8); ALBUMIN 4.4 g/dL (3.0-4.8); ALT/SGPT 63 U/L (7-56); AST/SGOT 69 U/L (14-36); BLOOD UREA NITROGEN 19 mg/dL (7-21); CALCIUM 9.7 mg/dL (8.4-10.5); GFR AFRICAN-AMERICAN > 60; GFR NON-AFRICAN AMERICAN > 60; LIPASE 139 U/L (23-300)
[2018-03-04 03:48] LABS: TROPONIN I < 0.01 ng/mL
[2018-03-04 04:01] LABS: B-TYPE NATRIURETIC PEPTIDE < 11.1 pg/mL (0-450)
[2018-03-04] MEDS ORDERED: Magnesium Hydroxide Susp 30 ml UD PO PRN (07:09)
[2018-03-04 08:07] LABS: GLUCOSE,FASTING 70 mg/dL (65-110)
[2018-03-04 08:16] LABS: HDL CHOLESTEROL 117 mg/dL (29-60)
[2018-03-04 08:18] LABS: LDL CHOLESTEROL 36 mg/dL (0-129)
--- NOTE | 2018-03-04 08:24 | RAD ---
HISTORY: COMPARISON: 02/21/2018. TECHNIQUE: Chest PA and lateral FINDINGS: LINES AND TUBES: None. LUNG AND PLEURA: The lungs are well inflated and clear. HEART AND MEDIASTINUM: The heart is not enlarged. The hilar and mediastinal contours are within normal limits. SKELETAL STRUCTURES: The bony structures are within normal limits for the patient's age. VISUALIZED UPPER ABDOMEN: Normal. OTHER FINDINGS: None. IMPRESSION: No active pulmonary disease.
--- NOTE | 2018-03-04 10:35 | PCM.BM ---
<Josse Pineda - Last Filed: 03/04/18 11:51> Treatment Plan Problems - Problems identified on initial assessmt Hopelessness Date Initiated: 03/04/18 Time Initiated: 10:34 Assessment reference: NA Status: Active Priority: 1 Worthlessness Date Initiated: 03/04/18 Time Initiated: 10:34 Assessment reference: NA Status: Active Priority: 2 Depressive Symptoms Date Initiated: 03/04/18 Time Initiated: 10:35 Assessment reference: NA Status: Active Priority: 3 Ineffective Coping Date Initiated: 03/04/18 Time Initiated: 10:35 Assessment reference: NA Status: Active Priority: 4 Knowledge Deficit: Alcohol Use Date Initiated: 03/04/18 Time Initiated: 10:35 Assessment reference: NA Status: Active Priority: 5 Treatment assets and liabiliti Patient Assests: cooperative, self-reliant, ADL independent, physically healthy , negotiates basic needs, cognitively intact Patient Liabilities: financial problems, substance abuse - Milieu Protocol Maintain good personal hygiene: daily Encourage regular showers, daily Remind patient to perform daily oral care, daily Assist patient to perform ADL's Conduct patient checks and document Observation sheet: Q15 minutes Maintain personal safety: every shift Educate patient to report safety concerns to staff, every shift Monitor environment for contraband/sharps Medication safety: Monitor for expected outcome, potential side effects: every shift, Assess barriers to learning: every shift, Assess readiness for medication education: every shift Discharge/Continuing Care - Education Needs Education Needs: Patient Medication, Patient Diagnosis/Disease Process, Patient Coping Skills, Patient Community resources - Discharge Discharge Criteria: Tolerates medication w/o severe side effects, Free of Suicidal thoughts, Normal sleep pattern, Ability to care for self, No longer exhibiting s/s of withdrawal, Reduction of target symptoms Discharge to:: Home <Mary Freeman - Last Filed: 03/04/18 15:12> - Diagnosis (1) MDD (major depressive disorder) Status: Acute Interventions: 03/04/18 15:12 Psychoeducation Psychopharmacology/adjustment of medications as needed/ monitoring possible side effects Evaluate pt on daily basis Compliance with medications and follow up appointments Suicide and homicide risk assessment and prevention Relapse prevention Reduction of symptoms Improve functional status Family involvement As outpatient: cognitive behavioral therapy (2) Alcohol use disorder Status: Acute Interventions: 03/04/18 15:12 Monitoring withdrawal symptoms Medical detoxification Pharmacotherapy for alcohol/benzos/opioid dependence Maintaining sobriety Relapse prevention Possible rehabilitation Motivational interviewing 12-step programs: AA meetings <Brigida Suh - Last Filed: 03/04/18 15:52>
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
[2018-03-04 18:27] VITALS: O2SAT 95
--- NOTE | 2018-03-04 18:59 | CP.PCM.PN ---
<DuaneTena - Last Filed: 03/04/18 21:15> Subjective - Date & Time of Evaluation Date of Evaluation: 03/04/18 Time of Evaluation: 18:50 - Subjective Subjective: PGY-[address] Napier CC: palpitation, 164/113, possible alcohol withdrawal Ms Granger, 42 yo AAF with PMH of hypertension, with not known past psychiatric history, and self reported history of alcohol use disorder, brought herself to the hospital at 3AM this morning looking for help for her depressive symptoms, inability to function. Pt drinks on daily basis. Pt used to drink 1/2 bottle of liquid every day. Last drink yesterday. In the emergency room blood alcohol level was 122. Per psych, patient was not able to contract for safety " I do not want to live anymore, I wish to be ". She was admitted to psych for major depressive disorder to r/o alcohol withdrawal. CIWA 8 at 4:30, then given librium at 4:36pm for the first time. CIWA 3 at 5: 30. CIWA 10 at 6:30pm Pt is seen walking on the hallway, so I accompany the pt to her room for examination Objective - Vital Signs/Intake and Output Vital Signs (last 24 hours): Temp Pulse Resp BP Pulse Ox 98.7 F 130 H 22 164/113 H 95 03/04/18 18:24 03/04/18 18:24 03/04/18 18:24 03/04/18 18:24 03/04/18 18:24 - Medications Medications: Current Medications Acetaminophen (Tylenol 325mg Tab) 325 mg PO Q6H PRN PRN Reason: Pain, Mild (1-3) Al Hydrox/Mg Hydrox/Simethicone (Maalox Plus 30 Ml) 30 ml PO DAILY PRN PRN Reason: Dyspepsia Amlodipine Besylate (Norvasc) 5 mg PO BID MILAD Last Admin: 03/04/18 15:54 Dose: 5 mg Chlordiazepoxide (Librium) 25 mg PO Q6H PRN; Protocol PRN Reason: Symptoms of alcohol withdrawl Last Admin: 03/04/18 16:36 Dose: 25 mg Clonazepam (Klonopin) 2 mg PO 0600,1400,2200 MILAD PRN Reason: Protocol Famotidine (Pepcid) 20 mg PO 1000,2200 MILAD Folic Acid (Folic Acid) 1 mg PO DAILY [facility] Magnesium Hydroxide (Milk Of Magnesia) 30 ml PO DAILY PRN PRN Reason: Constipation Mirtazapine (Remeron) 15 mg PO HS [facility] Multivitamins/Minerals (Therapeutic-M Tab) 1 tab PO 0800 MILAD Sertraline HCl (Zoloft) 50 mg PO DAILY [facility] Thiamine HCl (Vitamin B1 Tab) 100 mg PO DAILY [facility] - Labs Labs: PT 11.3 SECONDS (9.4-12.5) 03/04/18 02:56 INR 0.99 (0.93-1.08) 03/04/18 02:56 APTT 29.4 Seconds (25.1-36.5) 03/04/18 02:56 - Constitutional Appears: No Acute Distress - Head Exam Head Exam: ATRAUMATIC, NORMAL INSPECTION, NORMOCEPHALIC - Eye Exam Eye Exam: EOMI, Normal appearance, PERRL. absent: Scleral icterus Pupil Exam: NORMAL ACCOMODATION - ENT Exam ENT Exam: Mucous Membranes Moist - Neck Exam Additional comments: supple - Respiratory Exam Respiratory Exam: Clear to Ausculation Bilateral, NORMAL BREATHING PATTERN. absent: Rales, Rhonchi, Wheezes - Cardiovascular Exam Cardiovascular Exam: Tachycardia, +S1, +S2. absent: Murmur - GI/Abdominal Exam GI & Abdominal Exam: Soft. absent: Tenderness - Extremities Exam Extremities Exam: absent: Calf Tenderness, Pedal Edema - Neurological Exam Neurological Exam: Alert, Awake, Normal Gait, Oriented x3 Additional comments: Hand tremors - Psychiatric Exam Psychiatric exam: Normal Affect, Normal Mood - Skin Skin Exam: Dry, Warm Assessment and Plan - Assessment and Plan (Free Text) Plan: Alcohol withdrawal - Ativan 2mg PO stat - Contacted Dr Napier: Increase librium to 50q4 PRN - Continue CIWA q2h - If Sx not improve, may consider transfer to tele s/r/d/w Dr. Napier <Samantha Henry - Last Filed: 03/05/18 01:34> Objective - Vital Signs/Intake and Output Vital Signs (last 24 hours): Temp Pulse Resp BP Pulse Ox 98.7 F 107 H 22 128/91 H 95 03/04/18 18:24 03/04/18 23:05 03/04/18 18:24 03/04/18 23:05 03/04/18 18:24 - Medications Medications: Current Medications Acetaminophen (Tylenol 325mg Tab) 325 mg PO Q6H PRN PRN Reason: Pain, Mild (1-3) Al Hydrox/Mg Hydrox/Simethicone (Maalox Plus 30 Ml) 30 ml PO DAILY PRN PRN Reason: Dyspepsia Amlodipine Besylate (Norvasc) 5 mg PO BID [facility] Last Admin: 03/04/18 15:54 Dose: 5 mg Chlordiazepoxide (Librium) 50 mg PO Q4H PRN; Protocol PRN Reason: Symptoms of alcohol withdrawl Clonazepam (Klonopin) 2 mg PO 0600,1400,2200 [facility] PRN Reason: Protocol Last Admin: 03/04/18 22:02 Dose: 2 mg Famotidine (Pepcid) 20 mg PO 1000,2200 [facility] Last Admin: 03/04/18 21:03 Dose: 20 mg Folic Acid (Folic Acid) 1 mg PO DAILY [facility] Magnesium Hydroxide (Milk Of Magnesia) 30 ml PO DAILY PRN PRN Reason: Constipation Mirtazapine (Remeron) 15 mg PO HS [facility] Last Admin: 03/04/18 22:03 Dose: 15 mg Multivitamins/Minerals (Therapeutic-M Tab) 1 tab PO 0800 [facility] Sertraline HCl (Zoloft) 50 mg PO DAILY [facility] Thiamine HCl (Vitamin B1 Tab) 100 mg PO DAILY [facility] - Labs Labs: PT 11.3 SECONDS (9.4-12.5) 03/04/18 02:56 INR 0.99 (0.93-1.08) 03/04/18 02:56 APTT 29.4 Seconds (25.1-36.5) 03/04/18 02:56 Attending/Attestation - Attestation I have personally seen and examined this patient.: Yes I have fully participated in the care of the patient.: Yes I have reviewed all pertinent clinical information, including history, physical exam and plan: Yes Notes (Text): 03/05/18 01:31 Agree with 's note. Patient was seen when she was sitting on a chair in the day room. She was ordered to have Ativan 2 mg PO, Librium 75 mg PO and clonidine 0.1 mg PO , later on, ativan 2mg PO. Las BP was 128/91,HR 104/min, patient comfortable and sleeping.
--- NOTE | 2018-03-04 20:32 | CARD ---
APPROVED REPORT EKG Measurement Heart [id number] <Conclusion> Normal sinus rhythm with sinus arrhythmia Possible Left atrial enlargement Cannot rule out Anterior infarct, age undetermined Abnormal ECG
[2018-03-05 06:42] VITALS: RESP 20
[2018-03-05] MEDS: Multivitamin With Minerals Tab PO SCH (09:06)
--- NOTE | 2018-03-05 13:05 | PCM.PYCHPN ---
Psychiatric Progress Note - Psychiatric Progress Note Patient seen today, length of contact: 30min Patient Chief Complaint: "I was not well yesterday, but today I feel little better" Problems Identified/Issues Discussed: Suicide/ homicide prevention, past psychiatric h/o, current psychiatric symptoms , medical problems, risk/benefits and alternatives of medications, medications compliance, coping strategies, substance abuse h/o, relapse prevention, importance of follow up with psychiatrist and therapist, discharge plan. Medical Problems: Anxiety, depression, hypertension, alcohol use Diagnostic Results: 03/04/18 02:56 03/04/18 02:56 Lab Results 03/04/18 07:40: RPR Nonreactive 03/04/18 07:40: TSH 3rd Generation 1.67 03/04/18 07:40: Hemoglobin A1c 4.9 03/04/18 07:40: Fasting Glucose 70, Triglycerides 122, Cholesterol 166, LDL Cholesterol Direct 36, HDL Cholesterol 117 H 03/04/18 02:59: Urine Color Yellow, Urine Appearance Clear, Urine pH 6.0, Ur Specific [place] 1.020, Urine Protein Negative, Urine Glucose (UA) Negative, Urine Ketones 15 H, Urine Blood Trace-lysed H, Urine Nitrate Negative, Urine Bilirubin Negative, Urine Urobilinogen 0.2, Ur Leukocyte Esterase Negative, Urine RBC 0 - 2, Urine WBC 0 - 2, Ur Epithelial Cells 1 - 3, Urine Bacteria Rare 03/04/18 02:59: Urine Opiates Screen Negative, Urine Methadone Screen Negative, Ur Barbiturates Screen Negative, Ur Phencyclidine Scrn Negative, Ur Amphetamines Screen Negative, U Benzodiazepines Scrn Positive, U Oth Cocaine Metabols Negative, U Cannabinoids Screen Negative 03/04/18 02:56: TSH 3rd Generation 0.99, Alcohol, Quantitative 122 H 03/04/18 02:56: Sodium 146, Potassium 4.0, Chloride 108 H, Carbon Dioxide 23, Anion Gap 20, BUN 19, Creatinine 1.0, Est GFR ( Amer) > 60, Est GFR (Non- Af Amer) > 60, Random Glucose 90, Calcium 9.7, Total Bilirubin 0.4, AST 69 H D, ALT 63 H, Alkaline Phosphatase 69, Lactate Dehydrogenase 607, Total Creatine Kinase 85, Troponin I < 0.01, NT-Pro-B Natriuret Pep < 11.1, Total Protein 8.0, Albumin 4.4, Globulin 3.6, Albumin/Globulin Ratio 1.2, Lipase 139 03/04/18 02:56: PT 11.3, INR 0.99, APTT 29.4 03/04/18 02:56: WBC 9.2 D, RBC 3.77, Hgb 13.1, Hct 38.4, MCV 101.9, MCH 34.7, MCHC 34.1, RDW 11.9, Plt Count 414, MPV 9.5, Gran % 60.6, Lymph % (Auto) 33.9, [place] % (Auto) 4.1, Eos % (Auto) 1.2 L, Baso % (Auto) 0.2, Gran # 5.58, Lymph # ( Auto) 3.1, [place] # (Auto) 0.4, Eos # (Auto) 0.1, Baso # (Auto) 0.02 03/04/18 02:55: Salicylates < 1 L, Acetaminophen < 10.0 L Vital Signs Temp Pulse Resp BP Pulse Ox 03/05/18 09:06 83 116/86 03/05/18 06:41 98.0 F 83 20 116/86 03/04/18 23:05 107 H 128/91 H 03/04/18 22:03 119 H 142/104 H 03/04/18 21:45 119 H 142/104 H 03/04/18 21:09 127 H 160/105 H 03/04/18 20:20 127 H 160/105 H 03/04/18 18:24 98.7 F 130 H 22 164/113 H 95 03/04/18 15:54 96 H 134/100 H 03/04/18 15:00 98 H 134/100 H 03/04/18 08:20 16 03/04/18 08:17 98.9 F 95 H 16 120/83 100 03/04/18 05:51 98.0 F 86 18 122/74 99 03/04/18 03:33 98.2 F 112 H 16 126/95 H 98 03/04/18 02:04 98.2 F 123 H 16 140/99 H 98 DSM 5 Symptoms Update: Shortly patient is 42 year old -[place]oc[place] female, with not known past psychiatric history, self reported history of alcohol use disorder, patient brought herself to the hospital looking for help for her depressive symptoms, inability to function, patient also was drinking on daily basis, was withdrawing from the alcohol, in the emergency room blood alcohol level was 122 , patient was not able to contract for safety "I do not want to live anymore, I wish to be ", pt was losing weight, had no appetite, patient requires further evaluation and stabilization, patient does not have support in the community, patient had multiple losses in her life, 4 deaths in her family, patient requires further evaluation and stabilization, observation in acute psychiatric inpatient unit. as per nursing report, patient was not feeling well yesterday blood pressure was extremely elevated, patient was also tachycardia, required to have medical evaluation, patient got 75 mg of Librium stat yesterday as well as Ativan. Today patient presented with some improvement of her alcohol withdrawal symptoms , shakiness, vitals are better control. Patient reported that she had a good night sleep, reported that she likes Remeron, this gag writer offered patient to discontinue Zoloft because it is more anxiety provoking and patient was not feeling well yesterday on that medication , this gag writer educated patient about Prozac, risk, benefits, alternatives discussed with the patient, patient was willing to try this medication. Patient reported feeling hopeless and helpless, depressed, but physically had some improvement with the presentation. Patient has 3 year old son who is under care of his grandmother, social insurance analyst is aware, possible DYFS should be involved. pt was educated about Naltrexone, pt is willing to try this medication. so far patient had no behavioral issues, pleasant, started to go to groups. Patient tolerates medications well, no side effects observed or reported. Aims 0 , no EPS. Impression: Rule out major depressive disorder History of panic attacks Alcohol use disorder Alcohol withdrawal symptoms which are much better Medication Change: Yes (Zoloft discontinued, Prozac started, Librium increased) Medical Record Reviewed: Yes Consults ordered or reviewed: medical consult appreciated, please see notes for more detailed information. Mental Status Examination - Cognitive Function Orientation: Person, Place Memory: Intact Attention: Poor Concentration: Poor Association: WNL Fund of Knowledge: WNL - Mood Mood: Depressed, Anxious - Affect Affect: Flat - Formal Thought Process Formal Thought Process: No Impairment - Suicidal Ideation Suicidal Ideation: No - Homicidal Ideation Homicidal Ideation: No Goal/Treatment Plan - Goal/Treatment Plan Need for Continued Stay: Remain at risks for inpatient hospitalization, Severe depression anxiety, Discharge may exacerbated symptoms, Severe functional impairment Progress Toward Problem(s) and Goals/Treatment Plan: Milieu/structure/supportive therapy Medical consult appreciated, see medical team note for more detailed info SW consultation for discharge plan and social issues Med management multivitamins, thiamine, folic acid Vital signs need to be monitored Patient wants to be on Klonopin 1 mg 3 times a day scheduled for anxiety as well as possible alcohol withdrawal symptoms Librium 50 mg 4 times a day scheduled for alcohol withdrawals with a plan to taper that down Zoloft will be discontinued Prozac started 10 mg daily for depression and anxiety Remeron 15 mg at the nighttime for depression and insomnia Pepcid and Norvasc resumed Family involvement Follow up on labs Will monitor closely Pt was educated about risk/benefits and alternatives of medications, coping strategies (safety plan, suicide prevention), relapse prevention, importance of follow up with psychiatrist and therapist, stay away from drugs/alcohol/smoking Estimated Date of D/C: 03/08/18
[2018-03-05] MEDS: Alum-Mag Hydrox-Simethicone Susp (30 mL) PO PRN (20:22)
[2018-03-06] MEDS: Multivitamin With Minerals Tab PO SCH (09:27)
--- NOTE | 2018-03-06 14:43 | PCM.PYCHPN ---
Psychiatric Progress Note - Psychiatric Progress Note Patient seen today, length of contact: 30min Patient Chief Complaint: "at times I feel hopeless, I know that I am my worst enemy" Problems Identified/Issues Discussed: Suicide/ homicide prevention, past psychiatric h/o, current psychiatric symptoms , medical problems, risk/benefits and alternatives of medications, medications compliance, coping strategies, substance abuse h/o, relapse prevention, importance of follow up with psychiatrist and therapist, discharge plan. Medical Problems: Anxiety, depression, hypertension, alcohol use Diagnostic Results: 03/04/18 02:56 03/04/18 02:56 Lab Results 03/04/18 07:40: RPR Nonreactive 03/04/18 07:40: TSH 3rd Generation 1.67 03/04/18 07:40: Hemoglobin A1c 4.9 03/04/18 07:40: Fasting Glucose 70, Triglycerides 122, Cholesterol 166, LDL Cholesterol Direct 36, HDL Cholesterol 117 H 03/04/18 02:59: Urine Color Yellow, Urine Appearance Clear, Urine pH 6.0, Ur Specific [place] 1.020, Urine Protein Negative, Urine Glucose (UA) Negative, Urine Ketones 15 H, Urine Blood Trace-lysed H, Urine Nitrate Negative, Urine Bilirubin Negative, Urine Urobilinogen 0.2, Ur Leukocyte Esterase Negative, Urine RBC 0 - 2, Urine WBC 0 - 2, Ur Epithelial Cells 1 - 3, Urine Bacteria Rare 03/04/18 02:59: Urine Opiates Screen Negative, Urine Methadone Screen Negative, Ur Barbiturates Screen Negative, Ur Phencyclidine Scrn Negative, Ur Amphetamines Screen Negative, U Benzodiazepines Scrn Positive, U Oth Cocaine Metabols Negative, U Cannabinoids Screen Negative 03/04/18 02:56: TSH 3rd Generation 0.99, Alcohol, Quantitative 122 H 03/04/18 02:56: Sodium 146, Potassium 4.0, Chloride 108 H, Carbon Dioxide 23, Anion Gap 20, BUN 19, Creatinine 1.0, Est GFR ( Amer) > 60, Est GFR (Non- Af Amer) > 60, Random Glucose 90, Calcium 9.7, Total Bilirubin 0.4, AST 69 H D, ALT 63 H, Alkaline Phosphatase 69, Lactate Dehydrogenase 607, Total Creatine Kinase 85, Troponin I < 0.01, NT-Pro-B Natriuret Pep < 11.1, Total Protein 8.0, Albumin 4.4, Globulin 3.6, Albumin/Globulin Ratio 1.2, Lipase 139 03/04/18 02:56: PT 11.3, INR 0.99, APTT 29.4 03/04/18 02:56: WBC 9.2 D, RBC 3.77, Hgb 13.1, Hct 38.4, MCV 101.9, MCH 34.7, MCHC 34.1, RDW 11.9, Plt Count 414, MPV 9.5, Gran % 60.6, Lymph % (Auto) 33.9, [place] % (Auto) 4.1, Eos % (Auto) 1.2 L, Baso % (Auto) 0.2, Gran # 5.58, Lymph # ( Auto) 3.1, [place] # (Auto) 0.4, Eos # (Auto) 0.1, Baso # (Auto) 0.02 03/04/18 02:55: Salicylates < 1 L, Acetaminophen < 10.0 L Vital Signs Temp Pulse Resp BP Pulse Ox 03/05/18 09:06 83 116/86 03/05/18 06:41 98.0 F 83 20 116/86 03/04/18 23:05 107 H 128/91 H 03/04/18 22:03 119 H 142/104 H 03/04/18 21:45 119 H 142/104 H 03/04/18 21:09 127 H 160/105 H 03/04/18 20:20 127 H 160/105 H 03/04/18 18:24 98.7 F 130 H 22 164/113 H 95 03/04/18 15:54 96 H 134/100 H 03/04/18 15:00 98 H 134/100 H 03/04/18 08:20 16 03/04/18 08:17 98.9 F 95 H 16 120/83 100 03/04/18 05:51 98.0 F 86 18 122/74 99 03/04/18 03:33 98.2 F 112 H 16 126/95 H 98 03/04/18 02:04 98.2 F 123 H 16 140/99 H 98 DSM 5 Symptoms Update: Shortly patient is 42 year old -[place]ian female, with not known past psychiatric history, self reported history of alcohol use disorder, patient brought herself to the hospital looking for help for her depressive symptoms, inability to function, patient also was drinking on daily basis, was withdrawing from the alcohol, in the emergency room blood alcohol level was 122 , patient was not able to contract for safety "I do not want to live anymore, I wish to be ", pt was losing weight, had no appetite, patient requires further evaluation and stabilization, patient does not have support in the community, patient had multiple losses in her life, 4 deaths in her family, patient requires further evaluation and stabilization, observation in acute psychiatric inpatient unit. as per nursing report, patient is guarded, sincerely depressed. Withdrawal symptoms are better, vital signs are within normal limits, we will start tapering down Librium. Patient was seen in her room, patient presented to be depressed but was able to smile back to this designer writer, patient reported that she tolerates medications well , at times patient feels depressed as well as hopeless but has some future oriented plans. so far patient had no behavioral issues, pleasant, started to go to groups. Patient tolerates medications well, no side effects observed or reported. Aims 0 , no EPS. Impression: Rule out major depressive disorder History of panic attacks Alcohol use disorder Alcohol withdrawal symptoms which are much better Medication Change: Yes (librium decreased, prozac increased) Medical Record Reviewed: Yes Mental Status Examination - Cognitive Function Orientation: Person, Place Memory: Intact Attention: Poor Concentration: Poor Association: WNL Fund of Knowledge: WNL - Mood Mood: Depressed, Anxious - Affect Affect: Flat - Formal Thought Process Formal Thought Process: No Impairment - Suicidal Ideation Suicidal Ideation: No - Homicidal Ideation Homicidal Ideation: No Goal/Treatment Plan - Goal/Treatment Plan Need for Continued Stay: Remain at risks for inpatient hospitalization, Severe depression anxiety, Discharge may exacerbated symptoms, Severe functional impairment Progress Toward Problem(s) and Goals/Treatment Plan: Milieu/structure/supportive therapy Medical consult appreciated, see medical team note for more detailed info SW consultation for discharge plan and social issues Med management multivitamins, thiamine, folic acid Vital signs need to be monitored Patient wants to be on Klonopin 1 mg 3 times a day scheduled for anxiety as well as possible alcohol withdrawal symptoms Librium 50 mg 3 times a day scheduled for alcohol withdrawals with a plan to taper that down Prozac 20 mg daily for depression and anxiety Remeron 15 mg at the nighttime for depression and insomnia Pepcid and Norvasc resumed Family involvement Follow up on labs Will monitor closely Pt was educated about risk/benefits and alternatives of medications, coping strategies (safety plan, suicide prevention), relapse prevention, importance of follow up with psychiatrist and therapist, stay away from drugs/alcohol/smoking Estimated Date of D/C: 03/08/18
[2018-03-07] MEDS: Multivitamin With Minerals Tab PO SCH (09:05)
--- NOTE | 2018-03-07 13:47 | PCM.PYCHPN ---
Psychiatric Progress Note - Psychiatric Progress Note Patient seen today, length of contact: 30min Patient Chief Complaint: "I feel little better" Problems Identified/Issues Discussed: Suicide/ homicide prevention, past psychiatric h/o, current psychiatric symptoms , medical problems, risk/benefits and alternatives of medications, medications compliance, coping strategies, substance abuse h/o, relapse prevention, importance of follow up with psychiatrist and therapist, discharge plan. Medical Problems: Anxiety, depression, hypertension, alcohol use Diagnostic Results: 03/04/18 02:56 03/04/18 02:56 Lab Results 03/04/18 07:40: RPR Nonreactive 03/04/18 07:40: TSH 3rd Generation 1.67 03/04/18 07:40: Hemoglobin A1c 4.9 03/04/18 07:40: Fasting Glucose 70, Triglycerides 122, Cholesterol 166, LDL Cholesterol Direct 36, HDL Cholesterol 117 H 03/04/18 02:59: Urine Color Yellow, Urine Appearance Clear, Urine pH 6.0, Ur Specific [place] 1.020, Urine Protein Negative, Urine Glucose (UA) Negative, Urine Ketones 15 H, Urine Blood Trace-lysed H, Urine Nitrate Negative, Urine Bilirubin Negative, Urine Urobilinogen 0.2, Ur Leukocyte Esterase Negative, Urine RBC 0 - 2, Urine WBC 0 - 2, Ur Epithelial Cells 1 - 3, Urine Bacteria Rare 03/04/18 02:59: Urine Opiates Screen Negative, Urine Methadone Screen Negative, Ur Barbiturates Screen Negative, Ur Phencyclidine Scrn Negative, Ur Amphetamines Screen Negative, U Benzodiazepines Scrn Positive, U Oth Cocaine Metabols Negative, U Cannabinoids Screen Negative 03/04/18 02:56: TSH 3rd Generation 0.99, Alcohol, Quantitative 122 H 03/04/18 02:56: Sodium 146, Potassium 4.0, Chloride 108 H, Carbon Dioxide 23, Anion Gap 20, BUN 19, Creatinine 1.0, Est GFR ( Amer) > 60, Est GFR (Non- Af Amer) > 60, Random Glucose 90, Calcium 9.7, Total Bilirubin 0.4, AST 69 H D, ALT 63 H, Alkaline Phosphatase 69, Lactate Dehydrogenase 607, Total Creatine Kinase 85, Troponin I < 0.01, NT-Pro-B Natriuret Pep < 11.1, Total Protein 8.0, Albumin 4.4, Globulin 3.6, Albumin/Globulin Ratio 1.2, Lipase 139 03/04/18 02:56: PT 11.3, INR 0.99, APTT 29.4 03/04/18 02:56: WBC 9.2 D, RBC 3.77, Hgb 13.1, Hct 38.4, MCV 101.9, MCH 34.7, MCHC 34.1, RDW 11.9, Plt Count 414, MPV 9.5, Gran % 60.6, Lymph % (Auto) 33.9, [place] % (Auto) 4.1, Eos % (Auto) 1.2 L, Baso % (Auto) 0.2, Gran # 5.58, Lymph # ( Auto) 3.1, [place] # (Auto) 0.4, Eos # (Auto) 0.1, Baso # (Auto) 0.02 03/04/18 02:55: Salicylates < 1 L, Acetaminophen < 10.0 L Vital Signs Temp Pulse Resp BP Pulse Ox 03/05/18 09:06 83 116/86 03/05/18 06:41 98.0 F 83 20 116/86 03/04/18 23:05 107 H 128/91 H 03/04/18 22:03 119 H 142/104 H 03/04/18 21:45 119 H 142/104 H 03/04/18 21:09 127 H 160/105 H 03/04/18 20:20 127 H 160/105 H 03/04/18 18:24 98.7 F 130 H 22 164/113 H 95 03/04/18 15:54 96 H 134/100 H 03/04/18 15:00 98 H 134/100 H 03/04/18 08:20 16 03/04/18 08:17 98.9 F 95 H 16 120/83 100 03/04/18 05:51 98.0 F 86 18 122/74 99 03/04/18 03:33 98.2 F 112 H 16 126/95 H 98 03/04/18 02:04 98.2 F 123 H 16 140/99 H 98 DSM 5 Symptoms Update: Shortly patient is 42 year old -[place] female, with not known past psychiatric history, self reported history of alcohol use disorder, patient brought herself to the hospital looking for help for her depressive symptoms, inability to function, patient also was drinking on daily basis, was withdrawing from the alcohol, in the emergency room blood alcohol level was 122 , patient was not able to contract for safety "I do not want to live anymore, I wish to be ", pt was losing weight, had no appetite, patient requires further evaluation and stabilization, patient does not have support in the community, patient had multiple losses in her life, 4 deaths in her family, patient requires further evaluation and stabilization, observation in acute psychiatric inpatient unit. as per nursing report, patient is guarded, sincerely depressed. Withdrawal symptoms are better, vital signs are within normal limits, we'll decrease sleep. Further Patient was seen next to the nursing station, patient presented to be depressed but was able to smile back to this movie writer, patient reported that she tolerates medications well, at times patient feels depressed as well as hopeless but has some future oriented plans. so far patient had no behavioral issues, pleasant, started to go to groups. Patient tolerates medications well, no side effects observed or reported. Aims 0 , no EPS. Impression: Rule out major depressive disorder History of panic attacks Alcohol use disorder Alcohol withdrawal symptoms which are much better Medication Change: Yes (librium decreased, prozac increased) Medical Record Reviewed: Yes Mental Status Examination - Cognitive Function Orientation: Person, Place Memory: Intact Attention: Poor Concentration: Poor Association: WNL Fund of Knowledge: WNL - Mood Mood: Depressed ("I feel more hopeful), Anxious - Affect Affect: Flat - Formal Thought Process Formal Thought Process: No Impairment - Suicidal Ideation Suicidal Ideation: No - Homicidal Ideation Homicidal Ideation: No Goal/Treatment Plan - Goal/Treatment Plan Need for Continued Stay: Remain at risks for inpatient hospitalization, Severe depression anxiety, Discharge may exacerbated symptoms, Severe functional impairment Progress Toward Problem(s) and Goals/Treatment Plan: Milieu/structure/supportive therapy Medical consult appreciated, see medical team note for more detailed info SW consultation for discharge plan and social issues Med management multivitamins, thiamine, folic acid Vital signs need to be monitored Patient wants to be on Klonopin 1 mg 3 times a day scheduled for anxiety as well as possible alcohol withdrawal symptoms Librium 25mg 4 times a day scheduled for alcohol withdrawals with a plan to taper that down Prozac 30 mg daily for depression and anxiety Remeron 15 mg at the nighttime for depression and insomnia Pepcid and Norvasc resumed Family involvement Follow up on labs Will monitor closely Pt was educated about risk/benefits and alternatives of medications, coping strategies (safety plan, suicide prevention), relapse prevention, importance of follow up with psychiatrist and therapist, stay away from drugs/alcohol/smoking Estimated Date of D/C: 03/08/18
--- NOTE | 2018-03-08 08:12 | CP.PCM.CON ---
<Karen Childress - Last Filed: 03/08/18 13:48> History of Present Illness - History of Present Illness History of Present Illness: Internal Medicine Consult Note: Patient is a 42 year old female with past medical history of Hypertension, Anxiety/Depression presented to [facility] [place] for depressive symptoms and alcohol withdrawal. Patient states that she has been having worsening depression since her 21 year old son June 2017 due to drug overdose. Patient states that since the of her son she having been drinking 6 shots of vodka and a glass of wine everyday. Medicine was consulted for white plaque on the tongue. Patient states that she has had this for the past few months and it gets worse when she stops drinking. Admits to having intermittent non- productive cough. She denies any sore throat, dysphagia. She denies any recent steroid use, antibiotic use. States that she has been tested for HIV multiple times in the past and it has been negative. Patient is ammendable to being tested for HIV today. Denies suicidal, homicidal ideations. Denies headaches, dizziness, cp, palpitations, sob, abdominal pain, urinary symptoms, changes in bowel habits. Allergies: Shellfish Medications: Norvasc 5mg PO BID, Klonopin 0.5mg PO QID, Pepcid 20mg PO daily Medical History: Hypertension, Anxiety/Depression Surgical History: C section x 3 Social History: Former smoker, quit in November 2017, denies drug use; drinks 6 shots of vodka and wine daily Family History: Mother - Diabetes, Uterine cancer Past Patient History - Infectious Disease Hx of Infectious Diseases: None - Tetanus Immunizations Tetanus Immunization: Unknown - Past Social History Smoking Status: Former Smoker - CARDIAC Hx Cardiac Disorders: Yes Hx Hypertension: Yes - PULMONARY Hx Respiratory Disorders: No Other/Comment: URI - NEUROLOGICAL Hx Neurological Disorder: No - HEENT Hx HEENT Problems: No - RENAL Hx Chronic Kidney Disease: No - ENDOCRINE/METABOLIC Hx Endocrine Disorders: No - HEMATOLOGICAL/ONCOLOGICAL Hx Blood Disorders: No - INTEGUMENTARY Hx Dermatological Problems: No - MUSCULOSKELETAL/RHEUMATOLOGICAL Hx Musculoskeletal Disorders: No - GASTROINTESTINAL Hx Gastrointestinal Disorders: No - GENITOURINARY/GYNECOLOGICAL Hx Genitourinary Disorders: No - PSYCHIATRIC Hx Anxiety: Yes Hx Depression: Yes Hx Substance Use: Yes - SURGICAL HISTORY Hx Section: Yes (x3) Hx Tubal Ligation: Yes - ANESTHESIA Hx Anesthesia: No Hx Anesthesia Reactions: No Hx Malignant Hyperthermia: No Meds Allergies/Adverse Reactions: Allergies Allergy/AdvReac Type Severity Reaction Status Date / Time shellfish derived Allergy ANAPHYLAXIS Verified 03/04/18 02:03 - Medications Medications: Current Medications Acetaminophen (Tylenol 325mg Tab) 325 mg PO Q6H PRN PRN Reason: Pain, Mild (1-3) Last Admin: 03/06/18 09:31 Dose: 325 mg Al Hydrox/Mg Hydrox/Simethicone (Maalox Plus 30 Ml) 30 ml PO DAILY PRN PRN Reason: Dyspepsia Last Admin: 03/05/18 20:22 Dose: 30 ml Amlodipine Besylate (Norvasc) 5 mg PO BID [facility] Last Admin: 03/07/18 15:36 Dose: 5 mg Chlordiazepoxide (Librium) 25 mg PO QID [facility] PRN Reason: Protocol Last Admin: 03/07/18 22:29 Dose: 25 mg Clonazepam (Klonopin) 2 mg PO 0600,1400,2200 [facility] PRN Reason: Protocol Last Admin: 03/08/18 06:33 Dose: 2 mg Famotidine (Pepcid) 20 mg PO 1000,2200 [facility] Last Admin: 03/07/18 22:29 Dose: 20 mg Fluoxetine HCl (Prozac) 30 mg PO DAILY [facility] Folic Acid (Folic Acid) 1 mg PO DAILY [facility] Last Admin: 03/07/18 09:05 Dose: 1 mg Magnesium Hydroxide (Milk Of Magnesia) 30 ml PO DAILY PRN PRN Reason: Constipation Mirtazapine (Remeron) 15 mg PO HS [facility] Last Admin: 03/07/18 22:29 Dose: 15 mg Multivitamins/Minerals (Therapeutic-M Tab) 1 tab PO 0800 [facility] Last Admin: 03/07/18 09:05 Dose: 1 tab Thiamine HCl (Vitamin B1 Tab) 100 mg PO DAILY [facility] Last Admin: 03/07/18 09:04 Dose: 100 mg Physical Exam - Constitutional Appears: Well, No Acute Distress - Head Exam Head Exam: ATRAUMATIC, NORMAL INSPECTION, NORMOCEPHALIC - Eye Exam Eye Exam: EOMI, Normal appearance Pupil Exam: NORMAL ACCOMODATION - ENT Exam ENT Exam: Mucous Membranes Moist Additional comments: +White plaques on anterior aspect of tongue (not scrapable) No tonsilar exudates, no erythema, uvula midline - Respiratory Exam Respiratory Exam: Clear to Auscultation Bilateral, NORMAL BREATHING PATTERN. absent: Rales, Rhonchi, Wheezes - Cardiovascular Exam Cardiovascular Exam: REGULAR RHYTHM, +S1, +S2 - GI/Abdominal Exam GI & Abdominal Exam: Normal Bowel Sounds, Soft. absent: Guarding, Rebound, Rigid, Tenderness - Extremities Exam Extremities exam: Positive for: normal inspection - Back Exam Back exam: NORMAL INSPECTION - Neurological Exam Neurological exam: Alert, CN II-XII Intact, Normal Gait, Oriented x3 - Psychiatric Exam Psychiatric exam: Normal Affect, Normal Mood - Skin Skin Exam: Dry, Normal Color, Warm Results - Vital Signs Recent Vital Signs: Last Vital Signs Temp 97.4 F L 03/08/18 06:48 Pulse 65 03/08/18 06:48 Resp 20 03/08/18 06:48 BP 111/75 03/08/18 06:48 Pulse Ox 95 03/04/18 18:24 - Labs Result Diagrams: 03/04/18 02:56 03/04/18 02:56 Assessment & Plan - Assessment and Plan (Free Text) Assessment: Patient is a 42 year old female with past medication history of HTN, anxiety/ depression who presented with alcohol withdrawal/alcohol abuse and worsening depressive symptoms. Medicine was consulted for white plaque on the tongue. White plaque on tongue -Not scrapable, candidasis is not likely -Will send for HIV -Likely secondary to vitamin deficiency -Continue Multivitamins, Thiamine, Folic acids -Alcohol cessation advised Hypertension -BPs are stable -Continue Norvasc 5mg PO BID Alcohol Withdrawal/Alcohol abuse -Alcohol level on admission 122 -UTOX positive for benzodiazapine -Librium 25mg PO QID -Continue Librium taper -Continue multivitamins, thiamine, folate -Alcohol cessation advised as it can have assistant terminal manager negative effects on your health Depression/Anxiety -Management per Psych team Medicine will sign off at this time, please re-consult if needed Plan discussed with Dr Paulette Childress DO PGY-1 <Kalpana Caldwell - Last Filed: 03/09/18 13:01> Meds - Medications Medications: Current Medications Acetaminophen (Tylenol 325mg Tab) 325 mg PO Q6H PRN PRN Reason: Pain, Mild (1-3) Last Admin: 03/08/18 08:32 Dose: 325 mg Al Hydrox/Mg Hydrox/Simethicone (Maalox Plus 30 Ml) 30 ml PO DAILY PRN PRN Reason: Dyspepsia Last Admin: 03/08/18 20:38 Dose: 30 ml Amlodipine Besylate (Norvasc) 5 mg PO BID [facility] Last Admin: 03/09/18 08:58 Dose: 5 mg Chlordiazepoxide (Librium) 25 mg PO TID [facility] PRN Reason: Protocol Last Admin: 03/09/18 09:00 Dose: 25 mg Clonazepam (Klonopin) 2 mg PO 0900,1400,2200 [facility] PRN Reason: Protocol Last Admin: 03/09/18 09:01 Dose: 2 mg Famotidine (Pepcid) 20 mg PO 1000,2200 [facility] Last Admin: 03/09/18 09:01 Dose: 20 mg Fluoxetine HCl (Prozac) 40 mg PO DAILY [facility] Last Admin: 03/09/18 09:00 Dose: 40 mg Folic Acid (Folic Acid) 1 mg PO DAILY [facility] Last Admin: 03/09/18 09:01 Dose: 1 mg Magnesium Hydroxide (Milk Of Magnesia) 30 ml PO DAILY PRN PRN Reason: Constipation Mirtazapine (Remeron) 15 mg PO HS [facility] Last Admin: 03/08/18 22:39 Dose: 15 mg Multivitamins/Minerals (Therapeutic-M Tab) 1 tab PO 0800 [facility] Last Admin: 03/09/18 08:59 Dose: 1 tab Thiamine HCl (Vitamin B1 Tab) 100 mg PO DAILY [facility] Last Admin: 03/09/18 09:00 Dose: 100 mg Results - Vital Signs Recent Vital Signs: Last Vital Signs Temp 97.9 F 03/09/18 07:10 Pulse 82 03/09/18 08:58 Resp 20 03/09/18 07:10 BP 122/78 03/09/18 08:58 Pulse Ox 95 03/04/18 18:24 - Labs Result Diagrams: 03/04/18 02:56 03/04/18 02:56 Labs: Laboratory Results - last 24 hr 03/08/18 09:45 HIV 1&2 Ag/Ab, 4th Gen Nonreactive Attending/Attestation - Attestation I have personally seen and examined this patient.: Yes I have fully participated in the care of the patient.: Yes I have reviewed all pertinent clinical information: Yes Notes (Text): 03/09/18 13:00 Medical record note made by the resident after discussion with my direction and input after the patient was personally seen and examined by me. I have reviewed the chart and agree that the record accurately reflects by personal performance of the history, physical exam, data review, and medical decision- making, in the course for the patient. I have also personally directed the plan of care.
[2018-03-08] MEDS: Multivitamin With Minerals Tab PO SCH (08:34)
--- NOTE | 2018-03-08 17:03 | PCM.PYCHPN ---
Psychiatric Progress Note - Psychiatric Progress Note Patient seen today, length of contact: 30min Patient Chief Complaint: "I Want to know that I'm not alone" Problems Identified/Issues Discussed: Suicide/ homicide prevention, past psychiatric h/o, current psychiatric symptoms , medical problems, risk/benefits and alternatives of medications, medications compliance, coping strategies, substance abuse h/o, relapse prevention, importance of follow up with psychiatrist and therapist, discharge plan. Medical Problems: Anxiety, depression, hypertension, alcohol use Diagnostic Results: 03/04/18 02:56 03/04/18 02:56 Lab Results 03/04/18 07:40: RPR Nonreactive 03/04/18 07:40: TSH 3rd Generation 1.67 03/04/18 07:40: Hemoglobin A1c 4.9 03/04/18 07:40: Fasting Glucose 70, Triglycerides 122, Cholesterol 166, LDL Cholesterol Direct 36, HDL Cholesterol 117 H 03/04/18 02:59: Urine Color Yellow, Urine Appearance Clear, Urine pH 6.0, Ur Specific [place] 1.020, Urine Protein Negative, Urine Glucose (UA) Negative, Urine Ketones 15 H, Urine Blood Trace-lysed H, Urine Nitrate Negative, Urine Bilirubin Negative, Urine Urobilinogen 0.2, Ur Leukocyte Esterase Negative, Urine RBC 0 - 2, Urine WBC 0 - 2, Ur Epithelial Cells 1 - 3, Urine Bacteria Rare 03/04/18 02:59: Urine Opiates Screen Negative, Urine Methadone Screen Negative, Ur Barbiturates Screen Negative, Ur Phencyclidine Scrn Negative, Ur Amphetamines Screen Negative, U Benzodiazepines Scrn Positive, U Oth Cocaine Metabols Negative, U Cannabinoids Screen Negative 03/04/18 02:56: TSH 3rd Generation 0.99, Alcohol, Quantitative 122 H 03/04/18 02:56: Sodium 146, Potassium 4.0, Chloride 108 H, Carbon Dioxide 23, Anion Gap 20, BUN 19, Creatinine 1.0, Est GFR ( Amer) > 60, Est GFR (Non- Af Amer) > 60, Random Glucose 90, Calcium 9.7, Total Bilirubin 0.4, AST 69 H D, ALT 63 H, Alkaline Phosphatase 69, Lactate Dehydrogenase 607, Total Creatine Kinase 85, Troponin I < 0.01, NT-Pro-B Natriuret Pep < 11.1, Total Protein 8.0, Albumin 4.4, Globulin 3.6, Albumin/Globulin Ratio 1.2, Lipase 139 03/04/18 02:56: PT 11.3, INR 0.99, APTT 29.4 03/04/18 02:56: WBC 9.2 D, RBC 3.77, Hgb 13.1, Hct 38.4, MCV 101.9, MCH 34.7, MCHC 34.1, RDW 11.9, Plt Count 414, MPV 9.5, Gran % 60.6, Lymph % (Auto) 33.9, [place] % (Auto) 4.1, Eos % (Auto) 1.2 L, Baso % (Auto) 0.2, Gran # 5.58, Lymph # ( Auto) 3.1, [place] # (Auto) 0.4, Eos # (Auto) 0.1, Baso # (Auto) 0.02 03/04/18 02:55: Salicylates < 1 L, Acetaminophen < 10.0 L Vital Signs Temp Pulse Resp BP Pulse Ox 03/05/18 09:06 83 116/86 03/05/18 06:41 98.0 F 83 20 116/86 03/04/18 23:05 107 H 128/91 H 03/04/18 22:03 119 H 142/104 H 03/04/18 21:45 119 H 142/104 H 03/04/18 21:09 127 H 160/105 H 03/04/18 20:20 127 H 160/105 H 03/04/18 18:24 98.7 F 130 H 22 164/113 H 95 03/04/18 15:54 96 H 134/100 H 03/04/18 15:00 98 H 134/100 H 03/04/18 08:20 16 03/04/18 08:17 98.9 F 95 H 16 120/83 100 03/04/18 05:51 98.0 F 86 18 122/74 99 03/04/18 03:33 98.2 F 112 H 16 126/95 H 98 03/04/18 02:04 98.2 F 123 H 16 140/99 H 98 Temp Pulse Resp BP Pulse Ox 97.6 F 78 20 131/92 H 95 03/08/18 08:32 03/08/18 16:24 03/08/18 06:48 03/08/18 16:24 03/04/18 18:24 DSM 5 Symptoms Update: Shortly patient is 42 year old -[place] female, with not known past psychiatric history, self reported history of alcohol use disorder, patient brought herself to the hospital looking for help for her depressive symptoms, inability to function, patient also was drinking on daily basis, was withdrawing from the alcohol, in the emergency room blood alcohol level was 122 , patient was not able to contract for safety "I do not want to live anymore, I wish to be ", pt was losing weight, had no appetite, patient requires further evaluation and stabilization, patient does not have support in the community, patient had multiple losses in her life, 4 deaths in her family, patient requires further evaluation and stabilization, observation in acute psychiatric inpatient unit. as per nursing report, patient slowly is getting better, depression is improving. Withdrawal symptoms are better, vital signs are within normal limits, he shouldn 't is on tapering dose of Librium, tolerated well. Patient was seen next to the nursing station, patient presented to be less depressed, affective reactivity. patient reported that she tolerates medications well, at times patient feels depressed but denied feeling of hopelessness, patient wants to follow up with support group for mothers who lost the children, patient said "I want to know that I'm not alone". so far patient had no behavioral issues, pleasant, started to go to groups. Patient tolerates medications well, no side effects observed or reported. Aims 0 , no EPS. Impression: Rule out major depressive disorder History of panic attacks Alcohol use disorder Alcohol withdrawal symptoms which are much better Medication Change: Yes (librium decreased, prozac increased) Medical Record Reviewed: Yes Consults ordered or reviewed: medical consult appreciated, please see notes for more detailed information. patient was followed up by medical team today, HIV testing recommended, patient complain of the plaques on her tongue Mental Status Examination - Cognitive Function Orientation: Person, Place Memory: Intact Attention: Poor (some improvement) Concentration: Poor (some improvement) Association: WNL Fund of Knowledge: WNL - Mood Mood: Depressed ("I feel more hopeful), Anxious - Affect Affect: Constricted (but reactive) - Formal Thought Process Formal Thought Process: No Impairment - Suicidal Ideation Suicidal Ideation: No - Homicidal Ideation Homicidal Ideation: No Goal/Treatment Plan - Goal/Treatment Plan Need for Continued Stay: Remain at risks for inpatient hospitalization, Severe depression anxiety, Discharge may exacerbated symptoms, Severe functional impairment Progress Toward Problem(s) and Goals/Treatment Plan: Milieu/structure/supportive therapy Medical consult appreciated, see medical team note for more detailed info SW consultation for discharge plan and social issues Med management multivitamins, thiamine, folic acid Vital signs need to be monitored Patient wants to be on Klonopin 1 mg 3 times a day scheduled for anxiety as well as possible alcohol withdrawal symptoms Librium 25mg 3 times a day scheduled for alcohol withdrawals with a plan to taper that down over the weekend Prozac 40 mg daily for depression and anxiety Remeron 15 mg at the nighttime for depression and insomnia Pepcid and Norvasc resumed Family involvement Follow up on labs Will monitor closely Pt was educated about risk/benefits and alternatives of medications, coping strategies (safety plan, suicide prevention), relapse prevention, importance of follow up with psychiatrist and therapist, stay away from drugs/alcohol/smoking Estimated Date of D/C: 03/11/18
[2018-03-08] MEDS: Alum-Mag Hydrox-Simethicone Susp (30 mL) PO PRN (20:38)
[2018-03-09] MEDS: Multivitamin With Minerals Tab PO SCH (08:59)
--- NOTE | 2018-03-09 09:26 | PCM.PYCHPN ---
Psychiatric Progress Note - Psychiatric Progress Note Patient seen today, length of contact: 25 min Patient Chief Complaint: better Problems Identified/Issues Discussed: I reviewed assessment and recent notes. Patient has been improving slowly on the unit. Appears brighter and less depressed. Indicates her mood is good better. She is no longer hopeless. Affect still appears constricted. Patient has been oriented x3, visible and more engaged on the unit. Attending more groups. Compliant with medications and denies any discomfort, side effects or pain. Reports that she is sleeping well. There were no behavioral issues overnight Diagnostic Results: Rule out major depressive disorder History of panic attacks Alcohol use disorder Alcohol withdrawal symptoms which are much better Medication Change: No ( ) Medical Record Reviewed: Yes Mental Status Examination - Cognitive Function Orientation: Person, Place Memory: Intact Attention: WNL (some improvement) Concentration: Poor (some improvement) Association: WNL Fund of Knowledge: WNL - Mood Mood: Depressed (better), Anxious - Affect Affect: Constricted ( ) - Speech Speech: Appropriate - Formal Thought Process Formal Thought Process: No Impairment - Suicidal Ideation Suicidal Ideation: No - Homicidal Ideation Homicidal Ideation: No Goal/Treatment Plan - Goal/Treatment Plan Need for Continued Stay: Remain at risks for inpatient hospitalization, Severe depression anxiety, Discharge may exacerbated symptoms, Severe functional impairment Progress Toward Problem(s) and Goals/Treatment Plan: * c/w current tx and plan * Vitals reviewed and noted below; Selected Entries 03/09/18 03/09/18 07:10 08:58 Temperature 97.9 F Pulse Rate 80 82 Respiratory 20 Rate Blood Pressure 114/77 122/78 * No new weekend labs thus far Estimated Date of D/C: 03/11/18
[2018-03-10] MEDS: Multivitamin With Minerals Tab PO SCH (09:09)
--- NOTE | 2018-03-10 09:26 | PCM.PYCHPN ---
Psychiatric Progress Note - Psychiatric Progress Note Patient seen today, length of contact: 25 min Patient Chief Complaint: "good, better" Problems Identified/Issues Discussed: I reviewed assessment and recent notes. Patient has been improving slowly on the unit. Appears brighter and less depressed. Indicates her mood is good. She is no longer hopeless and feels the medications are really helping her. Affect is more related and reactive than yesterday. She smiles during our interaction. Patient has been oriented x3, visible, brighter and more engaged on the unit. Groomed, attending and participating in groups. Compliant with medications and denies any discomfort, side effects or pain. Reports that she is sleeping well. There were no behavioral issues over the weekend. Diagnostic Results: Rule out major depressive disorder History of panic attacks Alcohol use disorder Alcohol withdrawal symptoms which are much better Medication Change: No ( ) Medical Record Reviewed: Yes Mental Status Examination - Cognitive Function Orientation: Person, Place Memory: Intact Attention: WNL (some improvement) Concentration: Poor (some improvement) Association: WNL Fund of Knowledge: WNL - Mood Mood: Depressed (better), Anxious - Affect Affect: Constricted (more reactive and related today) - Speech Speech: Appropriate - Formal Thought Process Formal Thought Process: No Impairment - Suicidal Ideation Suicidal Ideation: No - Homicidal Ideation Homicidal Ideation: No Goal/Treatment Plan - Goal/Treatment Plan Need for Continued Stay: Remain at risks for inpatient hospitalization, Severe depression anxiety, Discharge may exacerbated symptoms, Severe functional impairment Progress Toward Problem(s) and Goals/Treatment Plan: * c/w current tx and plan * Vitals reviewed and noted below: 03/10/18 07:43 Temperature 97.3 F L Pulse Rate 63 Respiratory 20 Rate Blood Pressure 110/76 * No new weekend labs Estimated Date of D/C: 03/11/18
[2018-03-11 07:27] VITALS: BP 101/62; PULSE 71; TEMP 97.5
[2018-03-11] MEDS: Multivitamin With Minerals Tab PO SCH (09:01)
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
== END 2018-03-11 16:18 | disposition home or self-care (01) | DRG 426 ==
LOC: ED 01:43 → ERH 06:40 → PSYC 07:08
PROVIDERS: ADMIT Psychiatry & Neurology Psychiatry; ATTEND Psychiatry & Neurology Psychiatry
DX: F32.9 Major depressive disorder, single episode, unspecified (principal); F10.239 Alcohol dependence with withdrawal, unspecified; I10 Essential (primary) hypertension; Y90.6 Blood alcohol level of 120-199 mg/100 ml; R45.851 Suicidal ideations; F41.0 Panic disorder [episodic paroxysmal anxiety]; H57.13 Ocular pain, bilateral; E56.9 Vitamin deficiency, unspecified; Z87.891 Personal history of nicotine dependence

== ENCOUNTER 2018-03-17 12:29 | Emergency (ER) | payer MEDICAID ==
[2018-03-17 12:30] VITALS: BMI 30.2
--- NOTE | 2018-03-17 13:06 | ED PDOC ---
Arrival/HPI - General Chief Complaint: ENT Problem Time Seen by Provider: 03/17/18 12:51 Historian: Patient - History of Present Illness Narrative History of Present Illness (Text): 03/17/18 13:03 42 year old female present to the Emergency Department complaining of bilateral ear pain and right lower tooth pain that began last night. Patient states she is on Naltrexone and is unsure on whether or not she can take Tylenol/Motrin. Patient denies any fever, chills, chest pain, shortness of breath, nausea, vomiting, diarrhea, urinary symptoms, back pain, neck pain, headache, dizziness , or any other complaints. Time/Duration: Other (less than 1 day) Symptom Onset: Gradual Symptom Course: Unchanged Context: Home Past Medical History - Provider Review Nursing Documentation Reviewed: Yes - Infectious Disease Hx of Infectious Diseases: None - Tetanus Immunization Tetanus Immunization: Unknown - Reproductive Menopause: No - Cardiac Hx Cardiac Disorders: Yes Hx Hypertension: Yes - Pulmonary Hx Respiratory Disorders: No Other/Comment: URI - Neurological Hx Neurological Disorder: No - HEENT Hx HEENT Disorder: No - Renal Hx Renal Disorder: No - Endocrine/Metabolic Hx Endocrine Disorders: No - Hematological/Oncological Hx Blood Disorders: No - Integumentary Hx Dermatological Disorder: No - Musculoskeletal/Rheumatological Hx Musculoskeletal Disorders: No - Gastrointestinal Hx Gastrointestinal Disorders: No - Genitourinary/Gynecological Hx Genitourinary Disorders: No - Psychiatric Hx Anxiety: Yes Hx Depression: Yes Hx Substance Use: Yes - Past Surgical History Past Surgical History: Non-Contributing - Surgical History Hx Section: Yes (x3) Hx Tubal Ligation: Yes - Anesthesia Hx Anesthesia: No Hx Anesthesia Reactions: No Hx Malignant Hyperthermia: No Family/Social History - Physician Review Nursing Documentation Reviewed: Yes Family/Social History: Unknown Family HX Smoking Status: Former Smoker Hx Alcohol Use: Yes Hx Substance Use: Yes Allergies/Home Meds Allergies/Adverse Reactions: Allergies shellfish derived Allergy (Verified 03/11/18 05:05) ANAPHYLAXIS Review of Systems - Physician Review All systems were reviewed & negative as marked: Yes - Review of Systems Constitutional: absent: Fevers, Night Sweats ENT: Other (ear pain, dental pain) Respiratory: absent: SOB Cardiovascular: absent: Chest Pain Gastrointestinal: absent: Diarrhea, Nausea, Vomiting Genitourinary Female: absent: Dysuria Musculoskeletal: absent: Back Pain, Neck Pain Neurological: absent: Headache, Dizziness Physical Exam Vital Signs Reviewed: Yes Vital Signs Temp Pulse Resp BP Pulse Ox 03/17/18 12:41 98.9 F 80 16 124/86 99 Temperature: Afebrile Blood Pressure: Normal Pulse: Regular Respiratory Rate: Normal Appearance: Positive for: Well-Appearing, Non-Toxic, Comfortable Pain Distress: None Mental Status: Positive for: Alert and Oriented X 3 - Systems Exam Head: Present: Atraumatic, Normocephalic Pupils: Present: PERRL Extroacular Muscles: Present: EOMI Conjunctiva: Present: Normal Ears: Present: Other (Otitis Externa on left, Otitis Media on right) Mouth: Present: Other (significant dental decay without abscess) Neck: Present: Normal Range of Motion Respiratory/Chest: Present: Clear to Auscultation, Good Air Exchange. No: Respiratory Distress, Accessory Muscle Use Cardiovascular: Present: Regular Rate and Rhythm, Normal S1, S2. No: Murmurs Abdomen: No: Tenderness, Distention, Peritoneal Signs Back: Present: Normal Inspection Upper Extremity: Present: Normal Inspection. No: Cyanosis, Edema Lower Extremity: Present: Normal Inspection. No: Edema Neurological: Present: GCS=15, CN II-XII Intact, Speech Normal Skin: Present: Warm, Dry, Normal Color. No: Rashes Psychiatric: Present: Alert, Oriented x 3, Normal Insight, Normal Concentration Medical Decision Making ED Course and Treatment: 03/17/18 13:10 Impression: 42 year old female presents to the Emergency Department complaining of bilateral ear pain and dental pain. Plan: -- Amoxicillin, Ciprodex Otic, Ibuprofen -- Reassess and disposition Progress Notes: - Medication Orders Current Medication Orders: Ciprofloxacin/Dexamethasone (Ciprodex Otic) 3 drop BID MILAD Discontinued Medications Amoxicillin (Amoxil 500 Mg Cap) 500 mg PO STAT STA PRN Reason: Protocol Stop: 03/17/18 13:06 Ibuprofen (Motrin Tab) 800 mg PO STAT STA Stop: 03/17/18 13:06 - Scribe Statement The provider has reviewed the documentation as recorded by the Sherrellibrussel Hong Provider Scribe Attestation: All medical record entries made by the Scribe were at my direction and personally dictated by me. I have reviewed the chart and agree that the record accurately reflects my personal performance of the history, physical exam, medical decision making, and the department course for this patient. I have also personally directed, reviewed, and agree with the discharge instructions and disposition. Disposition/Present on Arrival - Present on Arrival Any Indicators Present on Arrival: No History of DVT/PE: No History of Uncontrolled Diabetes: No Urinary Catheter: No History of Decub. Ulcer: No History Surgical Site Infection Following: None - Disposition Have Diagnosis and Disposition been Completed?: Yes Diagnosis: Otitis media, Otitis externa, Dental decay Disposition: HOME/ ROUTINE Disposition Time: 13:20 Patient Plan: Discharge Condition: GOOD Discharge Instructions (ExitCare): Ear Infections (Otitis Media) (DC), Outer Ear Infection (DC), Tooth Decay, Adult (DC), Dental Pain (DC) Additional Instructions: [facility] in [place] can help you with your teeth. Call them tomorrow. Return to us if problems. Follow up you ear infections with your regular doctor later next week. [place]- Dr. Juanito Contreras Prescriptions: Amoxicillin 500 mg PO TID #30 tablet Ciprofloxacin/Hydrocortisone [Cipro Hc Otic Suspension] 10 drop BID #10 ml Ibuprofen [Motrin Tab] 800 mg PO TID #30 tab Forms: [employer] (Greek)
[2018-03-17 13:54] VITALS: BP 138/78; PULSE 68; RESP 18; TEMP 98.7; O2SAT 97
[2018-03-17] MEDS ORDERED: Ciprofloxacin/Dexamethasone OTIC SUSP AS SCH (18:00)
== END 2018-03-17 14:05 | disposition home or self-care (01) ==
LOC: ED 12:29
DX: H60.93 Unspecified otitis externa, bilateral (principal); H66.93 Otitis media, unspecified, bilateral; K02.9 Dental caries, unspecified; I10 Essential (primary) hypertension; Z87.891 Personal history of nicotine dependence

== ENCOUNTER 2018-05-23 11:35 | Emergency (ER) | payer MEDICAID ==
[2018-05-23 11:35] VITALS: BMI 30.2
[2018-05-23 12:41] VITALS: TEMP 98.8; O2SAT 99
[2018-05-23] MEDS ORDERED: Sodium Chloride 0.9% 1,000 ML IV STA (13:39)
--- NOTE | 2018-05-23 13:42 | ED PDOC ---
Arrival/HPI - General Chief Complaint: GI Problem Time Seen by Provider: 05/23/18 13:35 Historian: Patient - History of Present Illness Narrative History of Present Illness (Text): 05/23/18 13:39 43 year old female, whose past medical history includes depression, anxiety, and hypertension, who presents to the emergency department complaining of nausea and diarrhea since yesterday. Patient notes associated epigastric pain. Patient's LMP was 05/08/2018, normal flow and time. Patient denies any fever, chills, chest pain, shortness of breath, vomiting, back pain, neck pain, headache, dizziness, or any other complaints. Time/Duration: 24 hours Symptom Onset: Gradual Symptom Course: Unchanged Activities at Onset: Light Context: Home Past Medical History - Provider Review Nursing Documentation Reviewed: Yes - Infectious Disease Hx of Infectious Diseases: None - Tetanus Immunization Tetanus Immunization: Unknown - Reproductive Menopause: No - Cardiac Hx Cardiac Disorders: Yes Hx Hypertension: Yes - Pulmonary Hx Respiratory Disorders: No Other/Comment: URI - Neurological Hx Neurological Disorder: No - HEENT Hx HEENT Disorder: No - Renal Hx Renal Disorder: No - Endocrine/Metabolic Hx Endocrine Disorders: No - Hematological/Oncological Hx Blood Disorders: No - Integumentary Hx Dermatological Disorder: No - Musculoskeletal/Rheumatological Hx Musculoskeletal Disorders: No - Gastrointestinal Hx Gastrointestinal Disorders: No - Genitourinary/Gynecological Hx Genitourinary Disorders: No - Psychiatric Hx Anxiety: Yes Hx Depression: Yes Hx Substance Use: Yes - Past Surgical History Past Surgical History: Non-Contributing - Surgical History Hx Section: Yes (x3) Hx Tubal Ligation: Yes - Anesthesia Hx Anesthesia: No Hx Anesthesia Reactions: No Hx Malignant Hyperthermia: No Family/Social History - Physician Review Nursing Documentation Reviewed: Yes Family/Social History: Unknown Family HX Smoking Status: Former Smoker Hx Alcohol Use: Yes Hx Substance Use: Yes Allergies/Home Meds Allergies/Adverse Reactions: Allergies shellfish derived Allergy (Verified 03/11/18 05:05) ANAPHYLAXIS Review of Systems - Physician Review All systems were reviewed & negative as marked: Yes - Review of Systems Constitutional: Normal Eyes: Normal ENT: Normal Respiratory: Normal. absent: SOB, Cough Cardiovascular: Normal. absent: Chest Pain Gastrointestinal: Abdominal Pain (epigastric pain), Diarrhea, Nausea. absent: Vomiting Genitourinary Female: Normal. absent: Dysuria, Frequency, Hematuria Musculoskeletal: Normal. absent: Back Pain, Neck Pain Skin: Normal. absent: Rash Neurological: Normal. absent: Headache, Dizziness Endocrine: Normal Hemo/Lymphatic: Normal Psychiatric: Normal Physical Exam - Physical Exam Narrative Physical Exam (Text): 05/23/18 13:43 Constitutional: No acute distress. Head: Normocephalic. Atraumatic. Eyes: PERRL. ENT: Moist mucous membranes. Neck: Supple. Cardiovascular: Regular rate. Chest: No tenderness. Respiratory: Clear to auscultation bilaterally. GI: Epigastric tenderness. No rebound. No guarding. Back: No CVA tenderness. Musculoskeletal: No tenderness or swelling of extremities. Skin: No rash. Neurologic: Alert, no focal deficit. Vital Signs Reviewed: Yes Vital Signs Temp Pulse Resp BP Pulse Ox 05/23/18 12:38 98.8 F 98 H 16 134/85 99 Temperature: Afebrile Blood Pressure: Normal Pulse: Regular Respiratory Rate: Normal Appearance: Positive for: Well-Appearing, Non-Toxic, Comfortable Pain Distress: None Mental Status: Positive for: Alert and Oriented X 3 Medical Decision Making ED Course and Treatment: 05/23/18 13:43 Impression: 43 year old female presents to the emergency department complaining of nausea and diarrhea. Plan: -- Labs -- Urine Culture -- Urinalysis -- Zofran -- Sodium Chloride -- Reassess and disposition Progress Notes: - Lab Interpretations Lab Results: 05/23/18 14:53 05/23/18 14:53 Lab Results 05/23/18 14:53: Sodium 145, Potassium 4.6, Chloride 107, Carbon Dioxide 25, Anion Gap 17, BUN 14, Creatinine 0.7, Est GFR ( Amer) > 60, Est GFR (Non- Af Amer) > 60, Random Glucose 104, Calcium 9.2, Total Bilirubin 0.6, AST 32, ALT 27, Alkaline Phosphatase 62, Total Protein 8.2, Albumin 4.5, Globulin 3.6, Albumin/Globulin Ratio 1.2, Lipase 44 05/23/18 14:53: Urine Color Yellow, Urine Appearance Clear, Urine pH 6.5, Ur Specific [place] 1.020, Urine Protein Negative, Urine Glucose (UA) Negative, Urine Ketones Negative, Urine Blood Negative, Urine Nitrate Negative, Urine Bilirubin Negative, Urine Urobilinogen 0.2, Ur Leukocyte Esterase Negative, Urine HCG, Qual Negative 05/23/18 14:53: WBC 7.2 D, RBC 3.86, Hgb 12.2, Hct 36.7, MCV 95.1 D, MCH 31.6 , MCHC 33.2, RDW 12.4, Plt Count 351, MPV 8.7, Gran % 72.6 H, Lymph % (Auto) 21.8 L, [place] % (Auto) 5.1, Eos % (Auto) 0.1 L, Baso % (Auto) 0.4, Gran # 5.23, Lymph # (Auto) 1.6, [place] # (Auto) 0.4, Eos # (Auto) 0.0, Baso # (Auto) 0.03 - Medication Orders Current Medication Orders: Discontinued Medications Sodium Chloride (Sodium Chloride 0.9%) 1,000 mls @ 999 mls/hr IV .Q1H1M STA Stop: 05/23/18 14:39 Last Admin: 05/23/18 14:35 Dose: 999 mls/hr eMAR Start Stop Document 05/23/18 14:35 EQ (Rec: 05/23/18 14:35 EQ [id number]) Intravenous Solution Start Date 05/23/18 Start Time 14:35 Ondansetron HCl (Zofran Inj) 8 mg IVP STAT STA Stop: 05/23/18 13:40 Last Admin: 05/23/18 14:35 Dose: 8 mg IVP Administration Document 05/23/18 14:35 EQ (Rec: 05/23/18 14:35 EQ [id number]) Charges for Administration # of IVP Administrations 1 - Scribe Statement The provider has reviewed the documentation as recorded by the Scribe Autumn Muniz All medical record entries made by the Scribe were at my direction and personally dictated by me. I have reviewed the chart and agree that the record accurately reflects my personal performance of the history, physical exam, medical decision making, and the department course for this patient. I have also personally directed, reviewed, and agree with the discharge instructions and disposition. Disposition/Present on Arrival - Present on Arrival Any Indicators Present on Arrival: No History of DVT/PE: No History of Uncontrolled Diabetes: No Urinary Catheter: No History of Decub. Ulcer: No History Surgical Site Infection Following: None - Disposition Have Diagnosis and Disposition been Completed?: Yes Diagnosis: Nausea, Diarrhea Disposition: HOME/ ROUTINE Disposition Time: 15:14 Patient Plan: Discharge Condition: STABLE Discharge Instructions (ExitCare): Viral Gastroenteritis, Adult (DC) Prescriptions: Ondansetron ODT [Zofran ODT] 4 mg PO Q8 #12 odt Forms: [facility] (Khmer), WORK NOTE
[2018-05-23 15:01] LABS: BASO # 0.03 K/mm3 (0.0-2.0); BASO % 0.4 % (0.0-3.0); EOS % 0.1 % (1.5-5.0); GRAN # 5.23 (1.4-6.5); GRAN % 72.6 % (50.0-68.0); HEMOGLOBIN 12.2 g/dL (12.0-16.0); LYMPH # 1.6 (1.2-3.4); LYMPH % 21.8 % (22.0-35.0); MEAN CELL VOLUME 95.1 fl (80.0-105.0); MEAN CORPUSCULAR HEMOGLOBIN 31.6 pg (25.0-35.0); MEAN CORPUSCULAR HGB CONC 33.2 g/dl (31.0-37.0); MEAN PLATELET VOLUME 8.7 fl (7.0-11.0); MONO # 0.4 (0.1-0.6); MONO % 5.1 % (1.0-6.0); RBC 3.86 10^6/uL (3.5-6.1); RED CELL DISTRIBUTION WIDTH 12.4 % (11.5-14.5); WHITE BLOOD COUNT 7.2 10^3/ul (4.5-11.0)
[2018-05-23 15:10] LABS: HCG,QUALITATIVE URINE NEGATIVE (NEGATIVE); PH,URINE 6.5 (4.7-8.0); URINE APPEARANCE CLEAR (CLEAR); URINE BILIRUBIN NEGATIVE (NEGATIVE); URINE BLOOD NEGATIVE (NEGATIVE); URINE COLOR YELLOW (YELLOW); URINE GLUCOSE (UA) NEGATIVE (NEGATIVE); URINE LEUKOCYTE ESTERASE NEGATIVE Leu/uL (NEGATIVE); URINE PROTEIN NEGATIVE mg/dL (<30 mg/dL); URINE UROBILINOGEN 0.2 E.U./dL (<1 E.U./dL)
[2018-05-23 15:13] LABS: ALB/GLOB RATIO 1.2 (1.1-1.8); ALBUMIN 4.5 g/dL (3.0-4.8); ALT/SGPT 27 U/L (7-56); AST/SGOT 32 U/L (14-36); BLOOD UREA NITROGEN 14 mg/dL (7-21); CALCIUM 9.2 mg/dL (8.4-10.5); GFR AFRICAN-AMERICAN > 60; GFR NON-AFRICAN AMERICAN > 60; LIPASE 44 U/L (23-300)
[2018-05-23 16:35] VITALS: BP 117/65; PULSE 67; RESP 18
== END 2018-05-23 16:02 | disposition home or self-care (01) ==
LOC: ED 11:35
DX: R11.0 Nausea (principal); R19.7 Diarrhea, unspecified; I10 Essential (primary) hypertension; Z87.891 Personal history of nicotine dependence
CPT/HCPCS: 80053; 81003; 83690; 84703; 85025; 87086; 96374; 99284; J2405; J7030

== ENCOUNTER 2018-06-06 02:40 | Inpatient (IN) | payer MEDICAID ==
[2018-06-06 02:53] VITALS: BMI 32.5
--- NOTE | 2018-06-06 03:53 | ED PDOC ---
Arrival/HPI - General Chief Complaint: Anxiety Time Seen by Provider: 06/06/18 03:06 Historian: Patient - History of Present Illness Narrative History of Present Illness (Text): 06/06/18 03:15 Soumya Granger is a 43 year old female, with history of depression and alcohol abuse disorder, who was brought in to the Emergency Department by EMS for depression. Patient notes her son about a year ago and she has been feeling depressed. Patient presented to Emergency Department on 03/04/18 for depression and possible suicidal ideation and was admitted to the [facility] for further psychiatric treatment. Patient denies suicidal ideation, homicidal ideation, back pain, neck pain, chest pain, nausea, vomiting, diarrhea , fevers, chills, or any other complaints. Time/Duration: Prior to Arrival Symptom Onset: Sudden Symptom Course: Unchanged Activities at Onset: Light Context: Street Past Medical History - Provider Review Nursing Documentation Reviewed: Yes - Travel History Have you recently traveled outside [place] w/in the past 3 mons?: No - Infectious Disease Hx of Infectious Diseases: None - Tetanus Immunization Tetanus Immunization: Unknown - Cardiac Hx Cardiac Disorders: Yes Hx Hypertension: Yes - Pulmonary Hx Respiratory Disorders: No Other/Comment: URI - Neurological Hx Neurological Disorder: No - HEENT Hx HEENT Disorder: No - Renal Hx Renal Disorder: No - Endocrine/Metabolic Hx Endocrine Disorders: No - Hematological/Oncological Hx Blood Disorders: No - Integumentary Hx Dermatological Disorder: No - Musculoskeletal/Rheumatological Hx Musculoskeletal Disorders: No - Gastrointestinal Hx Gastrointestinal Disorders: No - Genitourinary/Gynecological Hx Genitourinary Disorders: No - Psychiatric Hx Psychophysiologic Disorder: Yes Hx Anxiety: Yes Hx Depression: Yes Hx Substance Use: Yes - Past Surgical History Past Surgical History: Non-Contributing - Surgical History Hx Section: Yes (x3) Hx Tubal Ligation: Yes - Anesthesia Hx Anesthesia: No Hx Anesthesia Reactions: No Hx Malignant Hyperthermia: No Family/Social History - Physician Review Nursing Documentation Reviewed: Yes Family/Social History: Unknown Family HX Smoking Status: Former Smoker Hx Alcohol Use: Yes Frequency of alcohol use: Socially Hx Substance Use: Yes Allergies/Home Meds Allergies/Adverse Reactions: Allergies shellfish derived Allergy (Verified 06/06/18 02:57) ANAPHYLAXIS Home Medications: Home Meds Medication Instructions Recorded Confirmed Clonazepam [Klonopin] 1 mg PO TID 06/06/18 06/06/18 Review of Systems - Physician Review All systems were reviewed & negative as marked: Yes - Review of Systems Constitutional: Normal. absent: Fevers Eyes: Normal ENT: Normal Respiratory: Normal. absent: SOB, Cough Cardiovascular: Normal Gastrointestinal: Normal. absent: Diarrhea, Nausea, Vomiting Genitourinary Female: Normal Musculoskeletal: Normal Skin: Normal Neurological: Normal Endocrine: Normal Psychiatric: Depression. absent: Suicidal Ideation Physical Exam Vital Signs Reviewed: Yes Vital Signs Temp Pulse Resp BP Pulse Ox 06/06/18 05:33 85 18 97 06/06/18 02:52 97.7 F 112 H 17 137/87 96 Temperature: Afebrile Blood Pressure: Normal Pulse: Tachycardic Respiratory Rate: Normal Appearance: Positive for: Well-Appearing, Non-Toxic Mental Status: Positive for: Alert and Oriented X 3 - Systems Exam Head: Present: Atraumatic, Normocephalic Pupils: Present: PERRL Extroacular Muscles: Present: EOMI Conjunctiva: Present: Normal Mouth: Present: Moist Mucous Membranes Neck: Present: Normal Range of Motion Respiratory/Chest: Present: Clear to Auscultation, Good Air Exchange. No: Respiratory Distress, Accessory Muscle Use Cardiovascular: Present: Regular Rate and Rhythm, Normal S1, S2. No: Murmurs Back: Present: Normal Inspection Upper Extremity: Present: Normal Inspection. No: Cyanosis, Edema Lower Extremity: Present: Normal Inspection. No: Edema Neurological: Present: GCS=15, CN II-XII Intact, Speech Normal Skin: Present: Warm, Dry, Normal Color. No: Rashes Psychiatric: Present: Alert, Oriented x 3. No: Normal Affect (flat affect) Medical Decision Making ED Course and Treatment: 06/06/18 03:15 Impression: Soumya Granger is a 43 year old female brought in to the emergency room via EMS for depression. Plan: -- EKG -- Labs -- POC Urine test -- Urinalysis -- Reassess and disposition Prior Visits: Notes and results from previous visits were reviewed. Progress Notes: 06/06/18 05:40 EKG reviewed and shows: Normal sinus rhythm at [address] bpm[address] Non-specific ST/T-wave changes. - Lab Interpretations Lab Results: 06/06/18 05:17 Lab Results 06/06/18 05:17: Alcohol, Quantitative 153 H 06/06/18 05:17: Salicylates < 1 L, Acetaminophen < 10.0 L 06/06/18 05:17: WBC 10.8 D, RBC 3.63, Hgb 11.5 L, Hct 34.1 L, MCV 93.9, MCH 31.7, MCHC 33.7, RDW 12.8, Plt Count 296, MPV 8.9, Gran % 80.8 H, Lymph % (Auto ) 14.2 L, [place] % (Auto) 4.5, Eos % (Auto) 0.3 L, Baso % (Auto) 0.2, Gran # 8.70 H, Lymph # (Auto) 1.5, [place] # (Auto) 0.5, Eos # (Auto) 0.0, Baso # (Auto) 0.02 I have reviewed the lab results: Yes - Scribe Statement The provider has reviewed the documentation as recorded by the Scribe Leatha Stone, under the training of Val Xiong. All medical record entries made by the Scribe were at my direction and personally dictated by me. I have reviewed the chart and agree that the record accurately reflects my personal performance of the history, physical exam, medical decision making, and the department course for this patient. I have also personally directed, reviewed, and agree with the discharge instructions and disposition. Disposition/Present on Arrival - Present on Arrival History of DVT/PE: No History of Uncontrolled Diabetes: No Urinary Catheter: No History of Decub. Ulcer: No History Surgical Site Infection Following: None - Disposition Forms: [employer] ([place])
[2018-06-06 05:26] LABS: BASO # 0.02 K/mm3 (0.0-2.0); BASO % 0.2 % (0.0-3.0); EOS % 0.3 % (1.5-5.0); GRAN # 8.7 (1.4-6.5); GRAN % 80.8 % (50.0-68.0); HEMOGLOBIN 11.5 g/dL (12.0-16.0); LYMPH # 1.5 (1.2-3.4); LYMPH % 14.2 % (22.0-35.0); MEAN CELL VOLUME 93.9 fl (80.0-105.0); MEAN CORPUSCULAR HEMOGLOBIN 31.7 pg (25.0-35.0); MEAN CORPUSCULAR HGB CONC 33.7 g/dl (31.0-37.0); MEAN PLATELET VOLUME 8.9 fl (7.0-11.0); MONO # 0.5 (0.1-0.6); MONO % 4.5 % (1.0-6.0); RBC 3.63 10^6/uL (3.5-6.1); RED CELL DISTRIBUTION WIDTH 12.8 % (11.5-14.5)
[2018-06-06 05:32] LABS: WHITE BLOOD COUNT 10.8 10^3/ul (4.5-11.0)
[2018-06-06 05:35] LABS: ACETAMINOPHEN < 10.0 ug/ml (10.0-20.0); SALICYLATE < 1 mg/dL (2.0-20.0)
[2018-06-06 05:49] LABS: ALB/GLOB RATIO 1.2 (1.1-1.8); ALBUMIN 4.3 g/dL (3.0-4.8); ALT/SGPT 30 U/L (7-56); AST/SGOT 34 U/L (14-36); BLOOD UREA NITROGEN 16 mg/dL (7-21); CALCIUM 8.7 mg/dL (8.4-10.5); GFR AFRICAN-AMERICAN > 60; GFR NON-AFRICAN AMERICAN > 60
[2018-06-06 06:46] LABS: URINE BILIRUBIN NEGATIVE (NEGATIVE); URINE BLOOD NEGATIVE (NEGATIVE); URINE GLUCOSE (UA) NEGATIVE (NEGATIVE); URINE LEUKOCYTE ESTERASE NEGATIVE Leu/uL (NEGATIVE); URINE PROTEIN NEGATIVE mg/dL (<30 mg/dL); URINE UROBILINOGEN 0.2 E.U./dL (<1 E.U./dL)
[2018-06-06 07:03] LABS: URINE APPEARANCE CLEAR (CLEAR); URINE COLOR STRAW (YELLOW)
[2018-06-06 07:04] LABS: BENZODIAZEPINES, UR NEGATIVE (NEGATIVE)
[2018-06-06 07:15] LABS: BARBITURATES, UR NEGATIVE (NEGATIVE); OPIATES, UR NEGATIVE (NEGATIVE); PHENCYCLIDINE, UR NEGATIVE (NEGATIVE)
--- NOTE | 2018-06-06 09:39 | CARD ---
APPROVED REPORT Date of service: 06/06/2018 EKG Measurement Heart [id number] <Conclusion> Normal sinus rhythm Possible Left atrial enlargement Borderline ECG
[2018-06-06 10:01] VITALS: O2SAT 98
[2018-06-06] MEDS: Multivitamin Therapeutic Tab PO SCH (12:23)
--- NOTE | 2018-06-06 14:23 | CON ---
DATE: 06/06/2018 HISTORY OF PRESENT ILLNESS: Shortly, the patient is a 43-year-old female with reported history of depression, anxiety, alcohol use disorder. Patient was brought in for evaluation of depressive symptoms. Patient was arguing with her boyfriend, also patient was observed crying outside and police was involved. Police brought patient for evaluation for depressive symptoms. Patient has multiple losses in her life. Five family members were murdered over the past year. Patient's son's anniversary is coming this month and patient was feeling very hopeless, depressed, and guilty. Patient reported that even though she was going to work, she had difficulty to perform, also patient reported that she complies with medication, but still she feels that she might benefit from further evaluation and stabilization and medication management. PHYSICAL EXAMINATION: VITAL SIGNS: Reviewed. Temperature 98.8, pulse 75, blood pressure is 112/72, respirations 16, oxygen saturation 97. MEDICATIONS: Reviewed. There is nothing was given to her. LABORATORY DATA: Labs reviewed. Hematology: Hemoglobin and hematocrit 11.5 and 34.1 respectively. Chemistry reviewed. Urinalysis is reviewed. Alcohol level was 153 at the time of evaluation. Patient reported that she relapsed on alcohol after about 6 weeks of sobriety. Patient reported that she has psychiatrist in the community at [facility], but she would prefer to have psychiatrist here in [place]. MENTAL STATUS EXAMINATION: The patient presented to be sleepy, when she wakes up, she started to cry immediately, flat affect, low volume, underproductive speech. Patient described her mood to be depressed and hopeless. Thought process seems to be goal directed. Thought content; patient denied visual, auditory, or tactile hallucinations. Denied paranoid ideation. Patient denied thoughts of harming herself or others, but functionality is questionable. Patient has a young child, who is under care of her [id number]. At the present moment, patient's son is under her mother-in -law's supervision. Insight and judgment seems to limited. Impulses are well controlled. IMPRESSION: Major depressive disorder, history of posttraumatic stress disorder, alcohol use disorder, recent relapse. PLAN: We will confirm medications from patient's pharmacy. We will observe patient for possible suicidal ideation. Medications will be adjusted. Possible alcohol withdrawal symptoms will be addressed, multivitamins, thiamin, and folic acid. Patient signed consent for voluntary admission. We will see patient in upstairs in the psychiatric inpatient unit. Mary Freeman MD
--- NOTE | 2018-06-06 15:27 | PCM.BM ---
<Baljit Kulkarni - Last Filed: 06/06/18 15:24> Treatment Plan Problems - Problems identified on initial assessmt Hopelessness/Helplessness Date Initiated: 06/06/18 Time Initiated: 12:00 Assessment reference: NA Status: Active Priority: 1 Ineffective coping skill Date Initiated: 06/06/18 Time Initiated: 12:00 Assessment reference: NA Status: Active Priority: 2 Altered sleep pattern Date Initiated: 06/06/18 Time Initiated: 12:00 Assessment reference: NA Status: Active Priority: 3 Alcohol use Date Initiated: 06/06/18 Time Initiated: 12:00 Assessment reference: NA Status: Active Treatment assets and liabiliti Patient Assests: cooperative, educated, insightful, self-reliant, ADL independent, physically healthy, negotiates basic needs, cognitively intact - Milieu Protocol Maintain good personal hygiene: every shift Encourage regular showers, every shift Remind patient to perform daily oral care, every shift Assist patient to perform ADL's Conduct patient checks and document Observation sheet: Q15 minutes Maintain personal safety: every shift Educate patient to report safety concerns to staff, every shift Monitor environment for contraband/sharps Medication safety: Monitor for expected outcome, potential side effects: every shift, Assess barriers to learning: every shift, Assess readiness for medication education: every shift Discharge/Continuing Care - Education Needs Education Needs: Patient Medication, Patient Diagnosis/Disease Process, Patient Coping Skills, Patient Placement options, Patient Community resources, Patient Activities of Daily Living, Patient Nutrition, Patient Health Practices/Safety, Patient Personal Hygiene/Grooming, Patient Aftercare Safety Plan - Discharge Discharge Criteria: Tolerates medication w/o severe side effects, Normal sleep pattern, Reduction of target symptoms Discharge to:: Home <Brigida Suh - Last Filed: 06/07/18 16:15> Family Contact - Outside Agency [facility] [place] [facility] Care involvment: Information-sharing Agency contact name: [facility] Agency contact number: [phone] <Mary Freeman - Last Filed: 06/10/18 09:04> - Diagnosis (1) Alcohol use disorder Status: Chronic Interventions: 06/07/18 09:15 Monitoring withdrawal symptoms Medical detoxification Pharmacotherapy for alcohol/benzos/opioid dependence Maintaining sobriety Relapse prevention Possible rehabilitation Motivational interviewing 12-step programs: AA meetings (2) MDD (major depressive disorder) Status: Chronic Interventions: 06/07/18 09:15 Psychoeducation Psychopharmacology/adjustment of medications as needed/ monitoring possible side effects Evaluate pt on daily basis Compliance with medications and follow up appointments Suicide and homicide risk assessment and prevention Relapse prevention Reduction of symptoms Improve functional status Family involvement As outpatient: cognitive behavioral therapy <Dorcas Argueta Y - Last Filed: 06/10/18 11:59> Family Contact Family involvement: Famliy/SO not involved
[2018-06-06] MEDS ORDERED: Alum-Mag Hydrox-Simethicone Susp (30 mL) PO PRN (19:26)
[2018-06-06] MEDS ORDERED: Magnesium Hydroxide Susp 30 ml UD PO PRN (19:26)
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
[2018-06-07 08:12] LABS: GLUCOSE,FASTING 95 mg/dL (65-110); HDL CHOLESTEROL 93 mg/dL (29-60)
[2018-06-07 08:23] LABS: LDL CHOLESTEROL 41 mg/dL (0-129)
[2018-06-07 08:26] LABS: FREE T4 0.96 ng/dL (0.78-2.19)
[2018-06-07] MEDS: Multivitamin Therapeutic Tab PO SCH (09:00)
--- NOTE | 2018-06-07 17:06 | CP.PCM.CON ---
<Won Allen - Last Filed: 06/07/18 17:06> History of Present Illness - History of Present Illness History of Present Illness: CC: LE swelling HPI: Ms. Granger is a 43 year old female with history of depression and alcohol abuse disorder, who was brought in to the Emergency Department by EMS for depression. Medicine was consulted for lower extremities edema. Patient states that she had mild swelling of her lower extremities yesterday but has now resolved. Patient denies fevers, chills, headaches, shortness of breath, chest pain, nausea, vomiting, diarrhea, or urinary symptoms. 12 point ROS negative except as indicated in HPI Past medical history: depression, alcohol abuse, hypertension Surgical history: 3 x and tubal ligation Allergies: shellfish Social history: denies smoking, denies drug use, used to drink half a bottle of wine and vodka shots everyday Family history: mother had DM-2, HTN, endometrial cancer. Father had depression and heart disease. Review of Systems - Review of Systems Review of Systems: 12 point ROS negative except as indicated in HPI Past Patient History - Infectious Disease Hx of Infectious Diseases: None - Tetanus Immunizations Tetanus Immunization: Unknown - Past Social History Smoking Status: Former Smoker - CARDIAC Hx Cardiac Disorders: Yes Hx Hypertension: Yes - PULMONARY Hx Respiratory Disorders: No Other/Comment: URI - NEUROLOGICAL Hx Neurological Disorder: No - HEENT Hx HEENT Problems: No - RENAL Hx Chronic Kidney Disease: No - ENDOCRINE/METABOLIC Hx Endocrine Disorders: No - HEMATOLOGICAL/ONCOLOGICAL Hx Blood Disorders: No - INTEGUMENTARY Hx Dermatological Problems: No - MUSCULOSKELETAL/RHEUMATOLOGICAL Hx Musculoskeletal Disorders: No - GASTROINTESTINAL Hx Gastrointestinal Disorders: No - GENITOURINARY/GYNECOLOGICAL Hx Genitourinary Disorders: No - PSYCHIATRIC Hx Psychophysiologic Disorder: No Hx Anxiety: No Hx Bipolar Disorder: No Hx Depression: Yes Hx Emotional Abuse: No Hx Schizophrenia: No Hx Sexual Abuse: No Hx Substance Use: No - SURGICAL HISTORY Hx Surgeries: Yes Hx Section: Yes (x3) Hx Tubal Ligation: Yes - ANESTHESIA Hx Anesthesia: Yes Hx Anesthesia Reactions: No Hx Malignant Hyperthermia: No Meds Allergies/Adverse Reactions: Allergies Allergy/AdvReac Type Severity Reaction Status Date / Time shellfish derived Allergy ANAPHYLAXIS Verified 06/06/18 11:11 - Medications Medications: Current Medications Acetaminophen (Tylenol 325mg Tab) 650 mg PO Q6H PRN PRN Reason: Pain, moderate (4-7) Al Hydrox/Mg Hydrox/Simethicone (Maalox Plus 30 Ml) 30 ml PO DAILY PRN PRN Reason: Indigestion / Heartburn Amlodipine Besylate (Norvasc) 10 mg PO DAILY [facility] Last Admin: 06/07/18 08:59 Dose: 10 mg Chlordiazepoxide (Librium) 25 mg PO TID [facility] PRN Reason: Protocol Last Admin: 06/07/18 13:03 Dose: 25 mg Chlordiazepoxide (Librium) 25 mg PO QID PRN; Protocol PRN Reason: alcohol withdrawals Clonazepam (Klonopin) 1 mg PO BID [facility] PRN Reason: Protocol Last Admin: 06/07/18 09:00 Dose: 1 mg Fluoxetine HCl (Prozac) 40 mg PO DAILY [facility] Last Admin: 06/07/18 08:59 Dose: 40 mg Folic Acid (Folic Acid) 1 mg PO DAILY [facility] Last Admin: 06/07/18 08:59 Dose: 1 mg Magnesium Hydroxide (Milk Of Magnesia) 30 ml PO DAILY PRN PRN Reason: Constipation Mirtazapine (Remeron) 15 mg PO HS [facility] Last Admin: 06/06/18 22:14 Dose: 15 mg Multivitamins (Thera Tab) 1 tab PO 0800 [facility] Last Admin: 06/07/18 09:00 Dose: 1 tab Thiamine HCl (Vitamin B1 Tab) 100 mg PO DAILY [facility] Last Admin: 06/07/18 08:59 Dose: 100 mg Physical Exam - Constitutional Appears: No Acute Distress - Head Exam Head Exam: ATRAUMATIC, NORMAL INSPECTION - Eye Exam Eye Exam: Normal appearance - ENT Exam ENT Exam: Mucous Membranes Moist - Respiratory Exam Respiratory Exam: Clear to Auscultation Bilateral. absent: Rales, Rhonchi, Wheezes - Cardiovascular Exam Cardiovascular Exam: REGULAR RHYTHM, +S1, +S2. absent: Gallop, Rubs, Systolic Murmur - GI/Abdominal Exam GI & Abdominal Exam: Normal Bowel Sounds, Soft. absent: Tenderness - Extremities Exam Extremities exam: Negative for: calf tenderness, pedal edema - Neurological Exam Neurological exam: Alert, Oriented x3 - Psychiatric Exam Psychiatric exam: Normal Affect, Normal Mood - Skin Skin Exam: Dry, Normal Color, Warm Results - Vital Signs Recent Vital Signs: Last Vital Signs Temp 97.7 F 06/07/18 07:18 Pulse 82 06/07/18 15:55 Resp 20 06/07/18 07:18 BP 122/83 06/07/18 15:55 Pulse Ox 98 06/06/18 10:03 - Labs Result Diagrams: 06/06/18 05:17 06/06/18 05:17 Labs: Laboratory Results - last 24 hr 06/07/18 06/07/18 06/07/18 07:30 07:30 07:30 Fasting Glucose 95 Triglycerides 76 Cholesterol 150 LDL Cholesterol Direct 41 HDL Cholesterol 93 H Free T4 0.96 TSH 3rd Generation 2.35 RPR Nonreactive Assessment & Plan - Assessment and Plan (Free Text) Assessment: Ms. Granger is a 43 year old female with history of depression and alcohol abuse disorder, who was brought in to the Emergency Department by EMS for depression. Medicine was consulted for lower extremities edema. Plan: Lower extremity edema - patient is currently asymptomatic - patient is on amlodipine and was instructed to follow up with PMD to possibly switching her medication - patient has an appointment to see her PMD on Sunday History of psychiatric illnesses - management as per psych Patient case reviewed with and plan approved by attending physician, Dr. Bowie. - Date & Time Date: 06/07/18 Time: 17:06 <Mary Jane Bowie R - Last Filed: 06/08/18 11:29> Meds - Medications Medications: Current Medications Acetaminophen (Tylenol 325mg Tab) 650 mg PO Q6H PRN PRN Reason: Pain, moderate (4-7) Al Hydrox/Mg Hydrox/Simethicone (Maalox Plus 30 Ml) 30 ml PO DAILY PRN PRN Reason: Indigestion / Heartburn Amlodipine Besylate (Norvasc) 10 mg PO DAILY [facility] Last Admin: 06/08/18 09:07 Dose: 10 mg Chlordiazepoxide (Librium) 25 mg PO QID PRN; Protocol PRN Reason: alcohol withdrawals Chlordiazepoxide (Librium) 25 mg PO BID [facility] PRN Reason: Protocol Clonazepam (Klonopin) 1 mg PO BID [facility] PRN Reason: Protocol Last Admin: 06/08/18 09:08 Dose: 1 mg Fluoxetine HCl (Prozac) 40 mg PO DAILY [facility] Last Admin: 06/08/18 09:07 Dose: 40 mg Folic Acid (Folic Acid) 1 mg PO DAILY [facility] Last Admin: 06/08/18 09:08 Dose: 1 mg Magnesium Hydroxide (Milk Of Magnesia) 30 ml PO DAILY PRN PRN Reason: Constipation Mirtazapine (Remeron) 15 mg PO HS [facility] Last Admin: 06/07/18 22:26 Dose: 15 mg Multivitamins (Thera Tab) 1 tab PO 0800 [facility] Last Admin: 06/08/18 09:07 Dose: 1 tab Thiamine HCl (Vitamin B1 Tab) 100 mg PO DAILY [facility] Last Admin: 06/08/18 09:07 Dose: 100 mg Results - Vital Signs Recent Vital Signs: Last Vital Signs Temp 97.7 F 06/08/18 07:23 Pulse 58 L 06/08/18 07:23 Resp 20 06/08/18 07:23 BP 114/64 06/08/18 09:07 Pulse Ox 98 06/06/18 10:03 - Labs Result Diagrams: 06/06/18 05:17 06/06/18 05:17 Labs: Laboratory Results - last 24 hr 06/07/18 07:30 RPR Nonreactive Attending/Attestation - Attestation I have personally seen and examined this patient.: Yes I have fully participated in the care of the patient.: Yes I have reviewed all pertinent clinical information: Yes Notes (Text): Patient seen and examined by me at 12:00PM with resident 06/07/18. Case including HPI, physical exam, and physical assessment and plan discussed with resident. Agree with above with following additions/corrections. Patient is a 43-year-old female past medical history significant for depression , alcohol abuse, and hypertension that was admitted for depression. We are consulted for lower extremity edema. Patient states that she had some swelling in her lower extremities below the ankles yesterday. She states that her Norvasc was recently increased. Swelling has resolved. Patient states that she gets this from time to time. No associated pain. No fevers or chills. Patient denies headaches or dizziness. No chest pain or shortness of breath. No dysuria. No neck pain or back pain. No nausea, abdominal pain, or vomiting. 14 point review of systems reviewed by me. See above HPI. All other review of systems negative. Physical exam: Gen: Awake and alert sitting up in bed in no acute distress HEENT: Normocephalic atraumatic. Extraocular muscles intact, pupils equal reactive. No scleral icterus. Oropharynx is pink and moist, no pharyngeal erythema or exudate appreciated. Neck is supple. Hearing grossly intact. Ears and nose externally unremarkable. Cardiovascular: Normal rhythm, normal S1-S2. No murmurs, rubs, or gallops appreciated Pulmonary: Normal respiratory effort. No rhonchi, rales or wheezing appreciated. Gastrointestinal: Soft, nontender, nondistended, positive bowel sounds all 4 quadrants, no guarding Musculoskeletal: Normal range of motion all extremities, no calf tenderness, no CVA tenderness, no edema appreciated Vascular: 2+ peripheral pulses upper and lower extremities Central nervous system: AAO 3. Cranial nerves 2 -12 grossly intact. Dermatologic: Skin warm and dry. Assessment and plan: Patient is a 43-year-old female past medical history significant for depression, alcohol abuse, and hypertension that was admitted for depression. We are consulted for lower extremity edema. 1. Lower extremity edema. Resolved. Patient was advised to follow-up with her primary care doctor for possible change of amlodipine if edema continues to occur. 2. Hypertension. Continue amlodipine 3. History of alcohol abuse. Patient counseled on remaining off alcohol. Continue folic acid, thiamine, and multivitamin. Care as per primary team 4. Depression. Care as per primary team Case was discussed in detail with the patient, psychiatrist resident regarding current diagnosis and treatment plan. Thank you for allowing us to participate in the care of your patient. Patient's edema resolved. We will sign off. Please reconsult if needed.
[2018-06-08] MEDS: Multivitamin Therapeutic Tab PO SCH (09:07)
[2018-06-09 07:05] VITALS: BP 120/80; PULSE 70; RESP 19; TEMP 97.4
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
[2018-06-09] MEDS: Multivitamin Therapeutic Tab PO SCH (10:04)
== END 2018-06-09 14:24 | disposition home or self-care (01) | DRG 426 ==
LOC: ED 02:40 → ERH 09:22 → PSYC 10:19
PROVIDERS: ADMIT Psychiatry & Neurology Psychiatry; ATTEND Psychiatry & Neurology Psychiatry
DX: F32.9 Major depressive disorder, single episode, unspecified (principal); F10.239 Alcohol dependence with withdrawal, unspecified; I10 Essential (primary) hypertension; F43.10 Post-traumatic stress disorder, unspecified; R60.0 Localized edema; Y90.6 Blood alcohol level of 120-199 mg/100 ml; Z87.891 Personal history of nicotine dependence; Z63.4 Disappearance and death of family member

== ENCOUNTER 2018-06-28 12:49 | Emergency (ER) | payer MEDICAID ==
[2018-06-28 13:03] VITALS: BMI 33.7
[2018-06-28 13:11] VITALS: RESP 18; O2SAT 100
--- NOTE | 2018-06-28 13:12 | ED PDOC ---
Arrival/HPI - General Time Seen by Provider: 06/28/18 12:50 Historian: Patient - History of Present Illness Narrative History of Present Illness (Text): 06/28/18 13:10 43 year old female, whose PMH includes hypertension and depression, who presents to the emergency department complaining of feeling fatigue and nauseous since prior to arrival. Patient states she was too tired she could not go to work and decided to come her for further evaluation. Patient denies fever , shortness of breath, chest pain, headache, dizziness, or other complaints. Time/Duration: Prior to Arrival Symptom Onset: Sudden Symptom Course: Unchanged Context: Home Past Medical History - Provider Review Nursing Documentation Reviewed: Yes - Infectious Disease Hx of Infectious Diseases: None - Tetanus Immunization Tetanus Immunization: Unknown - Cardiac Hx Cardiac Disorders: Yes Hx Hypertension: Yes - Pulmonary Hx Respiratory Disorders: No Other/Comment: URI - Neurological Hx Neurological Disorder: No - HEENT Hx HEENT Disorder: No - Renal Hx Renal Disorder: No - Endocrine/Metabolic Hx Endocrine Disorders: No - Hematological/Oncological Hx Blood Disorders: No - Integumentary Hx Dermatological Disorder: No - Musculoskeletal/Rheumatological Hx Musculoskeletal Disorders: No - Gastrointestinal Hx Gastrointestinal Disorders: No - Genitourinary/Gynecological Hx Genitourinary Disorders: No - Psychiatric Hx Psychophysiologic Disorder: Yes Hx Anxiety: Yes Hx Depression: Yes Hx Substance Use: Yes - Past Surgical History Past Surgical History: Non-Contributing - Surgical History Hx Section: Yes (x3) Hx Tubal Ligation: Yes - Anesthesia Hx Anesthesia: No Hx Anesthesia Reactions: No Hx Malignant Hyperthermia: No Family/Social History - Physician Review Nursing Documentation Reviewed: Yes Family/Social History: Unknown Family HX Smoking Status: Former Smoker Hx Alcohol Use: Yes Hx Substance Use: Yes Allergies/Home Meds Allergies/Adverse Reactions: Allergies shellfish derived Allergy (Verified 06/28/18 13:11) ANAPHYLAXIS Review of Systems - Physician Review All systems were reviewed & negative as marked: Yes - Review of Systems Constitutional: Fatigue. absent: Fevers Respiratory: absent: SOB Cardiovascular: absent: Chest Pain Gastrointestinal: Nausea Physical Exam Vital Signs Reviewed: Yes Vital Signs Temp Pulse Resp BP Pulse Ox 06/28/18 14:50 98.2 F 84 18 120/83 100 06/28/18 13:03 98.7 F 86 18 125/86 100 Temperature: Afebrile Blood Pressure: Normal Pulse: Regular Respiratory Rate: Normal Appearance: Positive for: Well-Appearing, Non-Toxic, Comfortable Pain Distress: None Mental Status: Positive for: Alert and Oriented X 3 - Systems Exam Head: Present: Atraumatic, Normocephalic Pupils: Present: PERRL Extroacular Muscles: Present: EOMI Conjunctiva: Present: Normal Respiratory/Chest: Present: Clear to Auscultation, Good Air Exchange. No: Respiratory Distress, Accessory Muscle Use, Wheezes, Decreased Breath Sounds, Rales, Retracting, Rhonchi Cardiovascular: Present: Regular Rate and Rhythm, Normal S1, S2. No: Murmurs Abdomen: Present: Normal Bowel Sounds. No: Tenderness, Distention, Peritoneal Signs, Rebound, Guarding Neurological: Present: GCS=15, CN II-XII Intact, Speech Normal Skin: Present: Warm, Dry, Normal Color. No: Rashes Psychiatric: Present: Alert, Oriented x 3, Normal Insight, Normal Concentration Medical Decision Making ED Course and Treatment: Impression: 43 year old female with unremarkable physical exam complaining of fatigue and nausea. r/o metaboic infectious etiology Plan: -- EKG -- Labs -- Urinalysis -- Reassess and disposition Progress Notes: 06/28/18 14:11 EKG: Ordered, reviewed, and independently interpreted the EKG. Rate : 67 BPM Rhythm : NSR Interpretation : No ST-segment elevations or depressions, no T-wave inversions, normal intervals. Comparison : No previous EKG for comparison. 06/28/18 16:18 labs neg. no ekg changes no cp, no other complaints. advise outpt fu - Lab Interpretations Lab Results: 06/28/18 13:25 06/28/18 13:25 Lab Results 06/28/18 13:25: Urine Color Yellow, Urine Appearance Sl cloudy, Urine pH 7.5, Ur Specific [place] 1.010, Urine Protein Negative, Urine Glucose (UA) Negative, Urine Ketones Negative, Urine Blood Negative, Urine Nitrate Negative, Urine Bilirubin Negative, Urine Urobilinogen 0.2, Ur Leukocyte Esterase Negative, Urine HCG, Qual Negative 06/28/18 13:25: Sodium 140, Potassium 4.5, Chloride 104, Carbon Dioxide 26, Anion Gap 14, BUN 15, Creatinine 0.7, Est GFR ( Amer) > 60, Est GFR (Non- Af Amer) > 60, Random Glucose 89, Calcium 8.9, Total Bilirubin 0.9, AST 33, ALT 16, Alkaline Phosphatase 67, Total Protein 7.8, Albumin 4.1, Globulin 3.6, Albumin/Globulin Ratio 1.1 06/28/18 13:25: PT 11.6, INR 1.02, APTT 29.0 06/28/18 13:25: WBC 7.5 D, RBC 3.76, Hgb 12.0, Hct 35.8 L, MCV 95.2, MCH 31.9, MCHC 33.5, RDW 13.2, Plt Count 340, MPV 9.0, Gran % 67.6, Lymph % (Auto) 24.1, [place] % (Auto) 6.7 H, Eos % (Auto) 1.2 L, Baso % (Auto) 0.4, Gran # 5.06, Lymph # (Auto) 1.8, [place] # (Auto) 0.5, Eos # (Auto) 0.1, Baso # (Auto) 0.03 I have reviewed the lab results: Yes - Scribe Statement The provider has reviewed the documentation as recorded by the Elaine Jackson Provider Scribe Attestation: All medical record entries made by the Scribe were at my direction and personally dictated by me. I have reviewed the chart and agree that the record accurately reflects my personal performance of the history, physical exam, medical decision making, and the department course for this patient. I have also personally directed, reviewed, and agree with the discharge instructions and disposition. Disposition/Present on Arrival - Present on Arrival Any Indicators Present on Arrival: No History of DVT/PE: No History of Uncontrolled Diabetes: No Urinary Catheter: No History Surgical Site Infection Following: None - Disposition Have Diagnosis and Disposition been Completed?: Yes Diagnosis: Tired Disposition: HOME/ ROUTINE Disposition Time: 02:00 Condition: STABLE Discharge Instructions (ExitCare): Fatigue (DC) Additional Instructions: follow up in clinic. return to er with worsening symptoms or concerns. Referrals: [employer] [Outside] - Follow up with primary [facility] [Outside] - [facility] - Follow up with primary Forms: [employer] ([place]), WORK NOTE
[2018-06-28 13:48] LABS: BASO # 0.03 K/mm3 (0.0-2.0); BASO % 0.4 % (0.0-3.0); EOS # 0.1 (0.0-0.7); EOS % 1.2 % (1.5-5.0); GRAN # 5.06 (1.4-6.5); GRAN % 67.6 % (50.0-68.0); LYMPH # 1.8 (1.2-3.4); LYMPH % 24.1 % (22.0-35.0); MEAN CELL VOLUME 95.2 fl (80.0-105.0); MEAN CORPUSCULAR HEMOGLOBIN 31.9 pg (25.0-35.0); MEAN CORPUSCULAR HGB CONC 33.5 g/dl (31.0-37.0); MONO # 0.5 (0.1-0.6); MONO % 6.7 % (1.0-6.0); PH,URINE 7.5 (4.7-8.0); RBC 3.76 10^6/uL (3.5-6.1); RED CELL DISTRIBUTION WIDTH 13.2 % (11.5-14.5); URINE BILIRUBIN NEGATIVE (NEGATIVE); URINE BLOOD NEGATIVE (NEGATIVE); URINE GLUCOSE (UA) NEGATIVE (NEGATIVE); URINE LEUKOCYTE ESTERASE NEGATIVE Leu/uL (NEGATIVE); URINE PROTEIN NEGATIVE mg/dL (<30 mg/dL); URINE UROBILINOGEN 0.2 E.U./dL (<1 E.U./dL); WHITE BLOOD COUNT 7.5 10^3/ul (4.5-11.0)
[2018-06-28 13:50] LABS: URINE APPEARANCE SL CLOUDY (CLEAR); URINE COLOR YELLOW (YELLOW)
[2018-06-28 13:51] LABS: HCG,QUALITATIVE URINE NEGATIVE (NEGATIVE)
[2018-06-28 13:56] LABS: INR 1.02; PROTHROMBIN TIME 11.6 SECONDS (9.4-12.5)
[2018-06-28 14:04] LABS: ALB/GLOB RATIO 1.1 (1.1-1.8); ALBUMIN 4.1 g/dL (3.0-4.8); ALT/SGPT 16 U/L (7-56); AST/SGOT 33 U/L (14-36); BLOOD UREA NITROGEN 15 mg/dL (7-21); CALCIUM 8.9 mg/dL (8.4-10.5); GFR AFRICAN-AMERICAN > 60; GFR NON-AFRICAN AMERICAN > 60
--- NOTE | 2018-06-28 14:41 | CARD ---
APPROVED REPORT Date of service: 06/28/2018 EKG Measurement Heart [id number] <Conclusion> Normal sinus rhythm Cannot rule out Anterior infarct, age undetermined Abnormal ECG
[2018-06-28 15:43] VITALS: BP 120/83; PULSE 84; TEMP 98.2
== END 2018-06-28 14:50 | disposition home or self-care (01) ==
LOC: ED 12:49
DX: R53.83 Other fatigue (principal); I10 Essential (primary) hypertension; Z87.891 Personal history of nicotine dependence

== ENCOUNTER 2018-07-07 20:10 | Emergency (ER) | payer MEDICAID ==
[2018-07-07 20:10] VITALS: BMI 33.7
== END 2018-07-07 21:40 | disposition left against medical advice (07) ==
LOC: ED 20:10
DX: Z02.89 Encounter for other administrative examinations (principal); T14.90XA Injury, unspecified, initial encounter

== ENCOUNTER 2018-08-20 17:00 | Emergency (ER) | payer MEDICAID ==
[2018-08-20 18:01] VITALS: BP 125/88; PULSE 72; RESP 17; TEMP 98.3; O2SAT 100; BMI 33.5
--- NOTE | 2018-08-20 18:12 | ED PDOC ---
Arrival/HPI - General Time Seen by Provider: 08/20/18 18:03 Historian: Patient - History of Present Illness Narrative History of Present Illness (Text): 08/20/18 18:09 Patient is a 43-year-old female with past medical history of hypertension complains of 5 day history of sore throat, dry cough, headache, nausea and L upper chest pain, worse with movement and with palpation. Otherwise: (-) fever, (-) chills, (-) SOB, (-) dyspnea, (-) hemoptysis, (-) upper back pain, (-) associated with exertion, (-) diaphoresis, (-) travel, (-) recent prolonged immobility, (-) leg pain / swelling, (-) smoke, (-) OCP use. PMD Yvonne Past Medical History - Infectious Disease Hx of Infectious Diseases: None - Tetanus Immunization Tetanus Immunization: Unknown - Cardiac Hx Cardiac Disorders: Yes Hx Hypertension: Yes - Pulmonary Hx Respiratory Disorders: No Other/Comment: URI - Neurological Hx Neurological Disorder: No - HEENT Hx HEENT Disorder: No - Renal Hx Renal Disorder: No - Endocrine/Metabolic Hx Endocrine Disorders: No - Hematological/Oncological Hx Blood Disorders: No - Integumentary Hx Dermatological Disorder: No - Musculoskeletal/Rheumatological Hx Musculoskeletal Disorders: No - Gastrointestinal Hx Gastrointestinal Disorders: No - Genitourinary/Gynecological Hx Genitourinary Disorders: No - Psychiatric Hx Psychophysiologic Disorder: Yes Hx Anxiety: Yes Hx Depression: Yes Hx Substance Use: Yes - Past Surgical History Past Surgical History: Non-Contributing - Surgical History Hx Section: Yes (x3) Hx Tubal Ligation: Yes - Anesthesia Hx Anesthesia: No Hx Anesthesia Reactions: No Hx Malignant Hyperthermia: No Family/Social History Family/Social History: No Known Family HX Smoking Status: Former Smoker Hx Alcohol Use: Yes Hx Substance Use: Yes Allergies/Home Meds Allergies/Adverse Reactions: Allergies shellfish derived Allergy (Verified 06/28/18 13:11) ANAPHYLAXIS Review of Systems - Review of Systems Constitutional: absent: Fatigue, Fevers ENT: Sore Throat. absent: Rhinorrhea, Sinus Congestion Respiratory: Cough. absent: SOB, Sputum, Wheezing Cardiovascular: Chest Pain. absent: Palpitations Gastrointestinal: Nausea. absent: Abdominal Pain, Diarrhea, Vomiting Genitourinary Female: absent: Dysuria, Frequency, Hematuria Musculoskeletal: absent: Arthralgias, Back Pain, Neck Pain Skin: absent: Rash, Pruritis, Skin Lesions Neurological: absent: Headache, Dizziness Physical Exam Vital Signs Temp Pulse Resp BP Pulse Ox 08/20/18 18:01 98.3 F 72 17 125/88 100 Temperature: Afebrile Blood Pressure: Normal Pulse: Regular Respiratory Rate: Normal Appearance: Positive for: Well-Appearing, Non-Toxic, Comfortable Pain Distress: None Mental Status: Positive for: Alert and Oriented X 3 - Systems Exam Head: Present: Atraumatic, Normocephalic Pupils: Present: PERRL Extroacular Muscles: Present: EOMI Conjunctiva: Present: Normal Ears: Present: Normal, NORMAL TM, Normal Canal. No: Erythema Mouth: Present: Moist Mucous Membranes Neck: Present: Normal Range of Motion. No: Meningeal Signs, Lymphadenopathy Respiratory/Chest: Present: Clear to Auscultation, Good Air Exchange, Tender to Palpation (+tenderness to palpation to the L upper chest). No: Respiratory Distress, Accessory Muscle Use Cardiovascular: Present: Regular Rate and Rhythm, Normal S1, S2. No: Murmurs Abdomen: No: Tenderness, Distention, Peritoneal Signs Back: Present: Normal Inspection Upper Extremity: Present: Normal Inspection. No: Cyanosis, Edema Lower Extremity: Present: Normal Inspection. No: Edema Neurological: Present: GCS=15, CN II-XII Intact, Speech Normal, Motor Func Grossly Intact, Normal Sensory Function Skin: Present: Warm, Dry, Normal Color. No: Rashes Psychiatric: Present: Alert, Oriented x 3, Normal Insight, Normal Concentration Medical Decision Making ED Course and Treatment: 08/20/18 18:11 Plan : - EKG - CXR EKG : NSR at 62 bpm, (-) acute ST changes, as read by PA. CXR : NAD, as read by PA. Diagnostic results d/w the patient. Dx of viral illness with musculoskeletal chest pain d/w the patient. Advised to follow up with primary care physician in 1-2 days without fail. Advised to take medication as prescribed. Return to the emergency room at any time for any new or worsening symptoms. Patient states she fully agrees with and understands discharge instructions. States that she agrees with the plan and disposition. Verbalized and repeated discharge instructions and plan. I have given the patient opportunity to ask any additional questions. - RAD Interpretation Radiology Orders: 08/20/18 18:03 CHEST TWO VIEWS (PA/LAT) [RAD] Stat - PA / [employer] / Resident Statement MD/DO has reviewed & agrees with the documentation as recorded. Disposition/Present on Arrival - Present on Arrival Any Indicators Present on Arrival: No History of DVT/PE: No History of Uncontrolled Diabetes: No Urinary Catheter: No History Surgical Site Infection Following: None - Disposition Have Diagnosis and Disposition been Completed?: Yes Diagnosis: Viral upper respiratory illness, Musculoskeletal chest pain Disposition: HOME/ ROUTINE Disposition Time: 18:30 Patient Plan: Discharge Patient Problems: Current Active Problems Problem Status Onset Viral upper respiratory illness Acute Musculoskeletal chest pain Acute Condition: STABLE Discharge Instructions (ExitCare): Viral Upper Respiratory Infection, Adult (DC), Costochondritis (DC) Additional Instructions: Thank you for letting us take care of you today. You were treated for viral illness, musculoskeletal chest pain. The emergency medical care you received today was directed at your acute symptoms. If you were prescribed any medication, please fill it and take as directed. It may take several days for your symptoms to resolve. Return to the Emergency Department if your symptoms worsen, do not improve, or if you have any other problems. Please contact your doctor in 2 days for re-evaluation and follow up. Bring any paperwork you were given at discharge with you along with any medications you are taking to your follow up visit. Our treatment cannot replace ongoing medical care by a primary care provider (PCP) outside of the emergency department. Thank you for allowing the [facility] team to be part of your care today. If you had an X-Ray : A Radiologist will review the ED reading if any change in treatment is needed we will contact you. Prescriptions: Guaifenesin [Adult Tussin Chest Congestion] 200 mg PO Q6H PRN #200 ml PRN Reason: Cough Naproxen 500 mg PO BID PRN #20 tablet PRN Reason: Pain, Moderate (4-7) Referrals: Yvonne RAMÍREZ,MD Kaley [Primary Care Provider] - Follow up with primary Forms: WORK NOTE
--- NOTE | 2018-08-20 18:54 | RAD ---
HISTORY: pain COMPARISON: Chest x-ray performed 03/04/18 TECHNIQUE: Chest PA and lateral FINDINGS: LUNGS: No focal consolidation. Please note that chest x-ray has limited sensitivity for the detection of pulmonary masses. PLEURA: No significant pleural effusion identified. No definite pneumothorax . CARDIOVASCULAR: The cardiomediastinal silhouette appears within normal limits of size. OSSEOUS STRUCTURES: Degenerative changes. VISUALIZED UPPER ABDOMEN: Unremarkable. OTHER FINDINGS: None. IMPRESSION: No focal consolidation, significant pleural effusion, or definite pneumothorax identified.
--- NOTE | 2018-08-21 16:41 | CARD ---
APPROVED REPORT Date of service: 08/20/2018 EKG Measurement Heart [id number] <Conclusion> Normal sinus rhythm Normal ECG
== END 2018-08-20 18:40 | disposition home or self-care (01) ==
LOC: ED 17:00
DX: B34.9 Viral infection, unspecified (principal); R07.89 Other chest pain

== ENCOUNTER 2018-09-11 22:54 | Inpatient (IN) | payer MEDICAID ==
[2018-09-11 23:02] VITALS: BMI 32.9
--- NOTE | 2018-09-11 23:31 | ED PDOC ---
Arrival/HPI - General Chief Complaint: Psychiatric Evaluation Time Seen by Provider: 09/11/18 23:12 Historian: Patient - History of Present Illness Narrative History of Present Illness (Text): 09/11/18 23:29 Soumya Granger is a 43 year old female, whose past medical history includes depression, alcohol abuse, and hypertension, who presents to the Emergency department brought in for depression. As per triage, patient reported she has been feeling depressed but upon questioning patient refuses to answer any questions. When asked is she does not want to talk, patient nodded yes. Patient admits to drinking alcohol tonight. Patient denies any chest pain, shortness of breath, abdominal pain, back pain, headache, dizziness, or any other complaints. Symptom Onset: Gradual Symptom Course: Unchanged Activities at Onset: Light Context: Home Past Medical History - Provider Review Nursing Documentation Reviewed: Yes - Infectious Disease Hx of Infectious Diseases: None - Tetanus Immunization Tetanus Immunization: Unknown - Cardiac Hx Cardiac Disorders: Yes Hx Hypertension: Yes - Pulmonary Hx Respiratory Disorders: No Other/Comment: URI - Neurological Hx Neurological Disorder: No - HEENT Hx HEENT Disorder: No - Renal Hx Renal Disorder: No - Endocrine/Metabolic Hx Endocrine Disorders: No - Hematological/Oncological Hx Blood Disorders: No - Integumentary Hx Dermatological Disorder: No - Musculoskeletal/Rheumatological Hx Musculoskeletal Disorders: No - Gastrointestinal Hx Gastrointestinal Disorders: No - Genitourinary/Gynecological Hx Genitourinary Disorders: No - Psychiatric Hx Psychophysiologic Disorder: Yes Hx Anxiety: Yes Hx Depression: Yes Hx Substance Use: Yes - Past Surgical History Past Surgical History: Non-Contributing - Surgical History Hx Section: Yes (x3) Hx Tubal Ligation: Yes - Anesthesia Hx Anesthesia: No Hx Anesthesia Reactions: No Hx Malignant Hyperthermia: No Family/Social History - Physician Review Nursing Documentation Reviewed: Yes Family/Social History: Unknown Family HX Smoking Status: Former Smoker Hx Alcohol Use: Yes Frequency of alcohol use: Socially Hx Substance Use: Yes Allergies/Home Meds Allergies/Adverse Reactions: Allergies shellfish derived Allergy (Verified 09/12/18 15:14) ANAPHYLAXIS Home Medications: Home Meds Medication Instructions Recorded Confirmed Unobtainable 09/12/18 09/12/18 Review of Systems - Physician Review All systems were reviewed & negative as marked: Yes - Review of Systems Constitutional: Normal. absent: Fevers Eyes: Normal ENT: Normal Respiratory: Normal. absent: SOB, Cough Cardiovascular: Normal. absent: Chest Pain Gastrointestinal: Normal. absent: Abdominal Pain, Diarrhea, Nausea, Vomiting Genitourinary Female: Normal. absent: Dysuria, Frequency, Hematuria, Urine Output Changes Musculoskeletal: Normal. absent: Back Pain, Neck Pain Skin: Normal. absent: Rash Neurological: Normal. absent: Headache, Dizziness Endocrine: Normal Hemo/Lymphatic: Normal Psychiatric: Depression Physical Exam Vital Signs Reviewed: Yes Vital Signs Temp Pulse Resp BP Pulse Ox 09/11/18 23:04 98.9 F 100 H 20 134/78 100 Temperature: Afebrile Blood Pressure: Normal Pulse: Regular Respiratory Rate: Normal Appearance: Positive for: Well-Appearing, Non-Toxic, Comfortable Pain Distress: None Mental Status: Positive for: other (Alert, refusing to answer questions) - Systems Exam Head: Present: Atraumatic, Normocephalic Pupils: Present: PERRL Extroacular Muscles: Present: EOMI Conjunctiva: Present: Normal Mouth: Present: Moist Mucous Membranes Neck: Present: Normal Range of Motion Respiratory/Chest: Present: Clear to Auscultation, Good Air Exchange. No: Respiratory Distress, Accessory Muscle Use Cardiovascular: Present: Regular Rate and Rhythm, Normal S1, S2. No: Murmurs Abdomen: No: Tenderness, Distention, Peritoneal Signs Back: Present: Normal Inspection Upper Extremity: Present: Normal Inspection. No: Cyanosis, Edema Lower Extremity: Present: Normal Inspection. No: Edema Neurological: Present: GCS=15, CN II-XII Intact, Speech Normal Skin: Present: Warm, Dry, Normal Color. No: Rashes Psychiatric: Present: Alert, Other (Refusing to answer questions) Medical Decision Making ED Course and Treatment: 09/11/18 23:29 Impression: 43 year old female complaining of depression. Plan: -- EKG -- Labs, alcohol level -- Urinalysis, urine drug screen -- Reassess and disposition Prior Visits: Notes and results from previous visits were reviewed. Progress Notes: 09/12/18 05:27 Pt seen and evaluated by LAILA Allred, who discussed case with psychiatrist immersion metal cleaner. Pt will be admitted to [facility] for depression under Dr. Miguel ferguson's service. 09/12/18 05:32 Reviewed EKG, NSR at [address]-segment elevations or depressions, no T-wave inversions, normal intervals. - Lab Interpretations I have reviewed the lab results: Yes - EKG Interpretation Interpreted by ED Physician: Yes Type: 12 lead EKG - Scribe Statement The provider has reviewed the documentation as recorded by the Elaine Xiong Provider Scribe Attestation: All medical record entries made by the Scribe were at my direction and personally dictated by me. I have reviewed the chart and agree that the record accurately reflects my personal performance of the history, physical exam, medical decision making, and the department course for this patient. I have also personally directed, reviewed, and agree with the discharge instructions and disposition. Disposition/Present on Arrival - Present on Arrival Any Indicators Present on Arrival: No History of DVT/PE: No History of Uncontrolled Diabetes: No Urinary Catheter: No History of Decub. Ulcer: No History Surgical Site Infection Following: None - Disposition Have Diagnosis and Disposition been Completed?: Yes Diagnosis: Depression, Alcohol use Disposition: HOSPITALIZED Disposition Time: 05:30 Condition: GOOD
[2018-09-12 01:34] LABS: BASO # 0.02 K/mm3 (0.0-2.0); BASO % 0.4 % (0.0-3.0); EOS % 0.4 % (1.5-5.0); GRAN # 2.28 (1.4-6.5); GRAN % 48.8 % (50.0-68.0); HEMOGLOBIN 12.3 g/dL (12.0-16.0); LYMPH % 42.9 % (22.0-35.0); MEAN CORPUSCULAR HEMOGLOBIN 33.1 pg (25.0-35.0); MEAN CORPUSCULAR HGB CONC 33.4 g/dl (31.0-37.0); MEAN PLATELET VOLUME 9.2 fl (7.0-11.0); MONO # 0.4 (0.1-0.6); MONO % 7.5 % (1.0-6.0); RBC 3.72 10^6/uL (3.5-6.1); RED CELL DISTRIBUTION WIDTH 13.2 % (11.5-14.5); WHITE BLOOD COUNT 4.7 10^3/ul (4.5-11.0)
[2018-09-12 01:35] LABS: MEAN CELL VOLUME 98.9 fl (80.0-105.0)
[2018-09-12 01:38] LABS: PH,URINE 6.5 (4.7-8.0); URINE BILIRUBIN NEGATIVE (NEGATIVE); URINE BLOOD NEGATIVE (NEGATIVE); URINE GLUCOSE (UA) NEGATIVE (NEGATIVE); URINE LEUKOCYTE ESTERASE NEGATIVE Leu/uL (NEGATIVE); URINE PROTEIN NEGATIVE mg/dL (<30 mg/dL); URINE UROBILINOGEN 0.2 E.U./dL (<1 E.U./dL)
[2018-09-12 01:40] LABS: ACETAMINOPHEN < 10.0 ug/ml (10.0-20.0); SALICYLATE < 1 mg/dL (2.0-20.0); URINE APPEARANCE CLEAR (CLEAR); URINE COLOR YELLOW (YELLOW)
[2018-09-12 01:46] LABS: BLOOD UREA NITROGEN 13 mg/dL (7-21); CALCIUM 8.6 mg/dL (8.4-10.5); GFR NON-AFRICAN AMERICAN > 60
[2018-09-12 01:51] LABS: BARBITURATES, UR NEGATIVE (NEGATIVE); BENZODIAZEPINES, UR NEGATIVE (NEGATIVE); OPIATES, UR NEGATIVE (NEGATIVE); PHENCYCLIDINE, UR NEGATIVE (NEGATIVE)
[2018-09-12 01:52] LABS: ALB/GLOB RATIO 0.9 (1.1-1.8); ALBUMIN 3.5 g/dL (3.0-4.8); ALT/SGPT 90 U/L (7-56); AST/SGOT 94 U/L (14-36)
[2018-09-12 08:50] VITALS: O2SAT 99
--- NOTE | 2018-09-12 11:02 | CARD ---
APPROVED REPORT Date of service: 09/12/2018 EKG Measurement Heart [id number] <Conclusion> Normal sinus rhythm Normal ECG No change
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
--- NOTE | 2018-09-12 15:39 | PCM.BM ---
<Svetlana Crenshaw - Last Filed: 09/12/18 15:35> Treatment Plan Problems - Problems identified on initial assessmt high risk:suicide Date Initiated: 09/12/18 Time Initiated: 15:36 Assessment reference: NA Status: Active hopelessness/helplessness Date Initiated: 09/12/18 Time Initiated: 15:37 Assessment reference: NA Status: Active feelings of worthlessness Date Initiated: 09/12/18 Time Initiated: 15:39 Assessment reference: NA Status: Active ineffective coping Date Initiated: 09/12/18 Time Initiated: 15:43 Assessment reference: NA Status: Active altered sleep patern Date Initiated: 09/12/18 Time Initiated: 15:45 Assessment reference: NA Status: Active Treatment assets and liabiliti Patient Assests: cooperative, educated, insightful, self-reliant, ADL independent, physically healthy, negotiates basic needs, cognitively intact Patient Liabilities: relationship conflicts - Milieu Protocol Maintain good personal hygiene: every shift Encourage regular showers, every shift Remind patient to perform daily oral care, every shift Assist patient to perform ADL's Conduct patient checks and document Observation sheet: Q15 minutes Maintain personal safety: every shift Educate patient to report safety concerns to staff, every shift Monitor environment for contraband/sharps Medication safety: Monitor for expected outcome, potential side effects: every shift, Assess barriers to learning: every shift, Assess readiness for medication education: every shift Milieu Narrative: Prozac 40 mg daily for depression Remeron 15 mg qhs for depression, sleep, appetite Ativan 2mg po qid scheduled and PRN for withdrawal symptoms Folic acid, thiamine, multivitamin daily for chronic alcohol use Medicine consult will be called, pt was on Amlodipine 10 mg daily Milieu and group therapy SW consult for social issues and discharge planning [place] [facility] [place] Pt was educated about risk/benefits and alternatives of medications, coping strategies (safety plan, suicide prevention), relapse prevention, importance of follow up with psychiatrist and therapist, stay away from drugs/alcohol/smoking. Discharge/Continuing Care - Education Needs Education Needs: Patient Medication, Patient Diagnosis/Disease Process, Patient Coping Skills, Patient Community resources, Patient Personal Hygiene/Grooming - Discharge Discharge Criteria: Tolerates medication w/o severe side effects, Free of Suicidal thoughts, Free of Homicidal thoughts, Normal sleep pattern, Ability to care for self - Treatment Team Participation Patient/Family/SO Statement: Prozac 40 mg daily for depression Remeron 15 mg qhs for depression, sleep, appetite Ativan 2mg po qid scheduled and PRN for withdrawal symptoms Folic acid, thiamine, multivitamin daily for chronic alcohol use Medicine consult will be called, pt was on Amlodipine 10 mg daily Milieu and group therapy SW consult for social issues and discharge planning Outpatient follow[place]up at [facility] [place] Pt was educated about risk/benefits and alternatives of medications, coping strategies (safety plan, suicide prevention), relapse prevention, importance of follow up with psychiatrist and therapist, stay away from drugs/alcohol/smoking. <Dorcas Argueta - Last Filed: 09/13/18 15:22> Family Contact Family involvement: Family/SO is involved Family contact: Patient agrees to contact <Brigida Suh - Last Filed: 09/13/18 16:25>
[2018-09-13 07:08] VITALS: RESP 20
[2018-09-13] MEDS ORDERED: Magnesium Hydroxide Susp 30 ml UD PO PRN (08:20)
[2018-09-13] MEDS ORDERED: Alum-Mag Hydrox-Simethicone Susp (30 mL) PO PRN (08:23)
[2018-09-13] MEDS: Multivitamin Therapeutic Tab PO SCH (13:29)
--- NOTE | 2018-09-13 15:24 | PCM.PYCHPN ---
Psychiatric Progress Note - Psychiatric Progress Note Patient seen today, length of contact: 30min Patient Chief Complaint: "I feel little bit better, I think that I want to have a referral to grief counseling" Problems Identified/Issues Discussed: Suicide/ homicide prevention, past psychiatric h/o, current psychiatric symptoms, medical problems, risk/benefits and alternatives of medications, medications compliance, coping strategies, substance abuse h/o, relapse preven tion, importance of follow up with psychiatrist and therapist, discharge plan. Medical Problems: history of hypertension, alcohol withdrawal symptoms much better Diagnostic Results: 09/12/18 01:00 09/12/18 01:00 Lab Results 09/12/18 01:00: Alcohol, Quantitative 190 H 09/12/18 01:00: Salicylates < 1 L, Acetaminophen < 10.0 L 09/12/18 01:00: Urine Opiates Screen Negative, Urine Methadone Screen Negative, Ur Barbiturates Screen Negative, Ur Phencyclidine Scrn Negative, Ur Amphetamines Screen Negative, U Benzodiazepines Scrn Negative, U Oth Cocaine Metabols Negative, U Cannabinoids Screen Negative 09/12/18 01:00: Sodium 142, Potassium 4.3, Chloride 111 H, Carbon Dioxide 23, Anion Gap 13, BUN 13, Creatinine 0.8, Est GFR ( Amer) > 60, Est GFR (Non- Af Amer) > 60, Random Glucose 99, Calcium 8.6, Magnesium 2.1, Total Bilirubin 1.2, AST 94 H D, ALT 90 H, Alkaline Phosphatase 77, Total Protein 7.4, Albumin 3.5, Globulin 4.0, Albumin/Globulin Ratio 0.9 L 09/12/18 01:00: Urine Color Yellow, Urine Appearance Clear, Urine pH 6.5, Ur Specific [place] <= 1.005, Urine Protein Negative, Urine Glucose (UA) Negative, Urine Ketones Negative, Urine Blood Negative, Urine Nitrate Negative, Urine Bilirubin Negative, Urine Urobilinogen 0.2, Ur Leukocyte Esterase Negative 09/12/18 01:00: WBC 4.7 D, RBC 3.72, Hgb 12.3, Hct 36.8, MCV 98.9 D, MCH 33.1, MCHC 33.4, RDW 13.2, Plt Count 282, MPV 9.2, Gran % 48.8 L, Lymph % (Auto) 42.9 H, [place] % (Auto) 7.5 H, Eos % (Auto) 0.4 L, Baso % (Auto) 0.4, Gran # 2.28, Lymph # (Auto) 2.0, Bell # (Auto) 0.4, Eos # (Auto) 0.0, Baso # (Auto) 0.02 Vital Signs Temp Pulse Pulse Resp BP Pulse Ox 09/13/18 07:07 97.9 F 72 20 126/82 09/12/18 16:00 105 H 124/78 09/12/18 13:58 88 17 09/12/18 08:57 98.8 F 78 18 123/80 99 09/12/18 07:45 73 18 119/77 99 09/12/18 06:58 62 18 123/87 100 09/12/18 04:02 86 18 132/70 99 09/12/18 01:15 88 18 130/76 99 09/11/18 23:04 98.9 F 100 H 20 134/78 100 DSM 5 Symptoms Update: Soumya Granger is a 43 yo female with a history of depression and alcohol abuse with two prior psych hospitalizations who brought herself to the hospital looking for help for her depression/suicidal ideation to join her diseased son, pt lost her job, was drinking daily, pt was not able to function, despite being compliant with medications and follow up appointments with at [facility] pt requires further evaluation and stabilization, meds adjustment. patient was seen today at the treatment team meeting, patient presented with some improvement with her hygiene, shakes are better, patient was tearful, was receptive for supportive therapy. patient was to have referral for grief counseling, patient reported that she was feeling hopeless, helpless, worthless, blaming herself for the loss of her son. As per staff patient isnot aggressive or agitated, pleasant, willing to get better has episodes of crying. pt denied v/a/t hallucinations, denied paranoia, pt does not appear to be psychotic. so far patient tolerates medications well, no side effects observed or reported, aims 0, no EPS. DSM 5 Diagnosis: MDD Bereavement/grief r/o persistent complex bereavement disorder r/o trauma/stressor-related disorder unspecified r/o alcohol use disorder r/o adjustment disorder r/o bipolar disorder Medication Change: Yes (Ativan was started, multivitamins thiamine and folic acid) Medical Record Reviewed: Yes Consults ordered or reviewed: patient was seen by medical team and the emergency room, no acute issues Mental Status Examination - Cognitive Function Orientation: Person, Place, Situation Memory: Intact Attention: Poor (some improvement) Concentration: Poor (ssome improvement) Association: WNL Fund of Knowledge: WNL - Mood Mood: Depressed, Anxious - Affect Affect: Flat - Formal Thought Process Formal Thought Process: No Impairment - Suicidal Ideation Suicidal Ideation: No - Homicidal Ideation Homicidal Ideation: No Goal/Treatment Plan - Goal/Treatment Plan Need for Continued Stay: Remain at risks for inpatient hospitalization, Severe depression anxiety, Discharge may exacerbated symptoms, Severe functional impairment Progress Toward Problem(s) and Goals/Treatment Plan: Prozac 40 mg daily for depression Remeron 15 mg qhs for depression, sleep, appetite Ativan 2mg po qid scheduled and PRN for withdrawal symptoms, patient had episodes of Ps 105, will continue ativan. Folic acid, thiamine, multivitamin daily for chronic alcohol use Medical consult would be considered, pt was on Amlodipine 10 mg daily,so far pt is doing well Milieu and group therapy SW consult for social issues and discharge planning [place] [facility] [place] Pt was educated about risk/benefits and alternatives of medications, coping strategies (safety plan, suicide prevention), relapse prevention, importance of follow up with psychiatrist and therapist, stay away from drugs/alcohol/smoking. Estimated Date of D/C: 09/18/18
--- NOTE | 2018-09-13 15:24 | PCM.BM ---
Treatment Plan Problems - Problems identified on initial assessmt high risk:suicide Date Initiated: 09/12/18 Time Initiated: 15:36 Assessment reference: NA Status: Active hopelessness/helplessness Date Initiated: 09/12/18 Time Initiated: 15:37 Assessment reference: NA Status: Active feelings of worthlessness Date Initiated: 09/12/18 Time Initiated: 15:39 Assessment reference: NA Status: Active ineffective coping Date Initiated: 09/12/18 Time Initiated: 15:43 Assessment reference: NA Status: Active altered sleep patern Date Initiated: 09/12/18 Time Initiated: 15:45 Assessment reference: NA Status: Active Treatment assets and liabiliti Patient Assests: cooperative, educated, insightful, self-reliant, ADL independent, physically healthy, negotiates basic needs, cognitively intact - Diagnosis (1) Alcohol use Status: Acute Interventions: 09/12/18 12:24 Monitoring withdrawal symptoms Medical detoxification Pharmacotherapy for alcohol/benzos/opioid dependence Maintaining sobriety Relapse prevention Possible rehabilitation Motivational interviewing 12-step programs: AA meetings (2) MDD (major depressive disorder) Status: Chronic Interventions: 09/12/18 12:24 Psychoeducation Psychopharmacology/adjustment of medications as needed/ monitoring possible side effects Evaluate pt on daily basis Compliance with medications and follow up appointments Suicide and homicide risk assessment and prevention Relapse prevention Reduction of symptoms Improve functional status Family involvement As outpatient: cognitive behavioral therapy - Milieu Protocol Milieu Narrative: Prozac 40 mg daily for depression Remeron 15 mg qhs for depression, sleep, appetite Ativan 2mg po qid scheduled and PRN for withdrawal symptoms Folic acid, thiamine, multivitamin daily for chronic alcohol use Medicine consult will be called, pt was on Amlodipine 10 mg daily Milieu and group therapy SW consult for social issues and discharge planning [place] [facility] [place] Pt was educated about risk/benefits and alternatives of medications, coping strategies (safety plan, suicide prevention), relapse prevention, importance of follow up with psychiatrist and therapist, stay away from drugs/alcohol/smoking. Discharge/Continuing Care - Treatment Team Participation Patient/Family/SO Statement: Prozac 40 mg daily for depression Remeron 15 mg qhs for depression, sleep, appetite Ativan 2mg po qid scheduled and PRN for withdrawal symptoms Folic acid, thiamine, multivitamin daily for chronic alcohol use Medicine consult will be called, pt was on Amlodipine 10 mg daily Milieu and group therapy SW consult for social issues and discharge planning [place] [facility] Pt was educated about risk/benefits and alternatives of medications, coping strategies (safety plan, suicide prevention), relapse prevention, importance of follow up with psychiatrist and therapist, stay away from drugs/alcohol/smoking.
[2018-09-14] MEDS: Multivitamin Therapeutic Tab PO SCH (08:25)
--- NOTE | 2018-09-14 09:37 | PCM.PYCHPN ---
Psychiatric Progress Note - Psychiatric Progress Note Patient seen today, length of contact: 30min Problems Identified/Issues Discussed: I reviewed assessment and recent notes. I met with patient at bedside. She is known to me from the outpatient clinic. Apparently depression has been worsening and patient was drinking daily [employer]. Presently she still reports depression without much improvement on the unit. Affect is constricted without much reactivity. Patient still feels hopeless. Denies perceptual disturbance. Patient has been visible but still demonstrates minimal interaction with other patients. Seems motivated for improvement and compliant with medications as well as staff requests. There were no behavioral issues overnight. Diagnostic Results: MDD Bereavement/grief r/o persistent complex bereavement disorder r/o trauma/stressor-related disorder unspecified r/o alcohol use disorder r/o adjustment disorder r/o bipolar disorder Medication Change: Yes (ativan decreased) Medical Record Reviewed: Yes Mental Status Examination - Cognitive Function Orientation: Person, Place, Situation Memory: Intact Attention: Poor (some improvement) Concentration: Poor (ssome improvement) Association: WNL Fund of Knowledge: WNL - Mood Mood: Depressed, Anxious - Affect Affect: Flat - Formal Thought Process Formal Thought Process: No Impairment - Suicidal Ideation Suicidal Ideation: No - Homicidal Ideation Homicidal Ideation: No Goal/Treatment Plan - Goal/Treatment Plan Need for Continued Stay: Remain at risks for inpatient hospitalization, Severe depression anxiety, Discharge may exacerbated symptoms, Severe functional impairment Progress Toward Problem(s) and Goals/Treatment Plan: * c/w current treatment and plan * No new weekend lab results thus far * Ativan decreased from 2 mg q6 to 2 mg q8, plan to taper as tolerated. * Vitals reviewed and noted below: Selected Entries 09/13/18 09/13/18 07:07 16:41 Temperature 97.9 F Pulse Rate 72 82 Respiratory 20 Rate Blood Pressure 126/82 142/92 H Estimated Date of D/C: 09/18/18
[2018-09-14] MEDS ORDERED: Influenza Vaccine 60 mcg/0.5 mL SYR (4YR UP) IM ONE (13:04)
[2018-09-14] MEDS ORDERED: Home Med 1 UNIT SC PRN ×2 (15:24→15:36)
[2018-09-14] MEDS ORDERED: Alum-Mag Hydrox-Simethicone Susp (30 mL) PO ONE (15:38)
--- NOTE | 2018-09-14 17:07 | CP.PCM.CON ---
<Neftali Vincent - Last Filed: 09/14/18 17:15> History of Present Illness - History of Present Illness History of Present Illness: Neftali Vincent DO, PGY-1 Hospitalist Consult Note for Dr. Krista Bowie Ms. Granger is a 43 yo F with PMH of HTN who presented to ED with depressive symptoms requesting psychiatric evaluation. She was subsequently admitted to psychiatric unit for monitoring/treatment. Currently she offers no complaints and states she is normally compliant with BP medicines. She states that she has a long history of depression that has been refractory to treatment, but that her BP is normally well controlled. She denies fever/chills, CP, SOB, nausea/vomiting, STALLWORTH, or blurred vision. PMH: HTN, anxiety, depression PSH: c/s x 2 All: shellfish Home medications: Lisinopril 2.5 daily, Prozac 40, Remeron 30, klonopin 1 as needed, buspar (cannot recall dose) Fam Hx: mother is alive and has HTN, DM2 father is alive and has had pacemaker placed Soc Hx: denies tobacco, illicit drug use, reports drinking 2 glasses of wine every other day Review of Systems - Constitutional Constitutional: absent: Chills, Fever - EENT Eyes: absent: Change in Vision - Cardiovascular Cardiovascular: absent: Chest Pain, Dyspnea - Respiratory Respiratory: absent: Cough, Dyspnea - Gastrointestinal Gastrointestinal: absent: Abdominal Pain, Nausea, Vomiting - Genitourinary Genitourinary: absent: Change in Urinary Stream - Musculoskeletal Musculoskeletal: absent: Numbness Past Patient History - Infectious Disease Hx of Infectious Diseases: None - Tetanus Immunizations Tetanus Immunization: Unknown - Past Social History Smoking Status: Former Smoker - CARDIAC Hx Cardiac Disorders: Yes Hx Hypertension: Yes - PULMONARY Hx Respiratory Disorders: No Other/Comment: URI - NEUROLOGICAL Hx Neurological Disorder: No - HEENT Hx HEENT Problems: No - RENAL Hx Chronic Kidney Disease: No - ENDOCRINE/METABOLIC Hx Endocrine Disorders: No - HEMATOLOGICAL/ONCOLOGICAL Hx Blood Disorders: No - INTEGUMENTARY Hx Dermatological Problems: No - MUSCULOSKELETAL/RHEUMATOLOGICAL Hx Musculoskeletal Disorders: No - GASTROINTESTINAL Hx Gastrointestinal Disorders: No - GENITOURINARY/GYNECOLOGICAL Hx Genitourinary Disorders: No - PSYCHIATRIC Hx Substance Use: No - SURGICAL HISTORY Hx Section: Yes (x3) Hx Tubal Ligation: Yes - ANESTHESIA Hx Anesthesia: No Hx Anesthesia Reactions: No Hx Malignant Hyperthermia: No Meds Allergies/Adverse Reactions: Allergies Allergy/AdvReac Type Severity Reaction Status Date / Time shellfish derived Allergy ANAPHYLAXIS Verified 09/12/18 15:14 - Medications Medications: Current Medications Acetaminophen (Tylenol 325mg Tab) 650 mg PO Q6H PRN PRN Reason: Pain, moderate (4-7) Last Admin: 09/14/18 08:25 Dose: 650 mg Fluoxetine HCl (Prozac) 40 mg PO DAILY [facility] Last Admin: 09/14/18 08:24 Dose: 40 mg Folic Acid (Folic Acid) 1 mg PO DAILY [facility] Last Admin: 09/14/18 08:25 Dose: 1 mg Lorazepam (Ativan) 2 mg PO Q8 [facility]; Protocol Last Admin: 09/14/18 13:14 Dose: 2 mg Magnesium Hydroxide (Milk Of Magnesia) 30 ml PO DAILY PRN PRN Reason: Constipation Last Admin: 09/14/18 08:25 Dose: 30 ml Mirtazapine (Remeron) 30 mg PO HS [facility] Last Admin: 09/13/18 21:45 Dose: 30 mg Multivitamins (Thera Tab) 1 tab PO 0800 [facility] Last Admin: 09/14/18 08:25 Dose: 1 tab Thiamine HCl (Vitamin B1 Tab) 100 mg PO DAILY [facility] Last Admin: 09/14/18 08:25 Dose: 100 mg Physical Exam - Constitutional Appears: Non-toxic, No Acute Distress - Head Exam Head Exam: ATRAUMATIC, NORMOCEPHALIC - Eye Exam Eye Exam: EOMI, Normal appearance, PERRL - ENT Exam ENT Exam: Mucous Membranes Moist - Neck Exam Neck exam: Positive for: Full Rom, Normal Inspection - Respiratory Exam Respiratory Exam: Clear to Auscultation Bilateral, NORMAL BREATHING PATTERN. absent: Rales, Rhonchi, Wheezes - Cardiovascular Exam Cardiovascular Exam: REGULAR RHYTHM, RRR, +S1, +S2. absent: Diastolic murmur, Gallop, Rubs, Systolic Murmur - GI/Abdominal Exam GI & Abdominal Exam: Normal Bowel Sounds, Soft. absent: Guarding, Tenderness - Extremities Exam Extremities exam: Positive for: normal inspection. Negative for: pedal edema - Back Exam Back exam: NORMAL INSPECTION - Neurological Exam Neurological exam: Alert, Oriented x3 - Psychiatric Exam Psychiatric exam: Depressed - Skin Skin Exam: Dry, Intact, Warm Results - Vital Signs Recent Vital Signs: Last Vital Signs Temp 98.0 F 09/14/18 07:12 Pulse 82 09/14/18 16:00 Resp 20 09/14/18 07:12 BP 129/91 H 09/14/18 16:00 Pulse Ox 99 09/12/18 08:57 - Labs Result Diagrams: 09/12/18 01:00 09/12/18 01:00 Assessment & Plan - Assessment and Plan (Free Text) Assessment: 43 year old female with PMH of HTN, anxiety, and depression admitted to psychiatry [facility] for treatment of depression requesting medical clearance. Plan: 1. Hx HTN BP currently well controlled while in hospital Continue home lisinopril 2.5 mg Patient is otherwise asymptomatic Medically clear for psychiatric treatment Thank you for the opportunity to participate in the care of Ms. Granger. Please re-consult as needed. Case and plan reviewed and discussed with my attending Dr. Krista Vincent, Resident PGY-1 Pager: [phone] <Mary Jane Bowie R - Last Filed: 09/17/18 11:24> Meds - Medications Medications: Current Medications Acetaminophen (Tylenol 325mg Tab) 650 mg PO Q6H PRN PRN Reason: Pain, moderate (4-7) Last Admin: 09/16/18 21:39 Dose: 650 mg Fluoxetine HCl (Prozac) 40 mg PO DAILY [facility] Last Admin: 09/17/18 09:15 Dose: 40 mg Folic Acid (Folic Acid) 1 mg PO DAILY [facility] Last Admin: 09/17/18 09:21 Dose: 1 mg Lisinopril (Zestril) 2.5 mg PO DAILY [facility] Lorazepam (Ativan) 1 mg PO Q8 [facility]; Protocol Last Admin: 09/17/18 06:20 Dose: 1 mg Magnesium Hydroxide (Milk Of Magnesia) 30 ml PO DAILY PRN PRN Reason: Constipation Last Admin: 09/14/18 08:25 Dose: 30 ml Mirtazapine (Remeron) 15 mg PO HS [facility] Last Admin: 09/16/18 21:39 Dose: 15 mg Multivitamins (Thera Tab) 1 tab PO 0800 [facility] Last Admin: 09/17/18 09:15 Dose: 1 tab Naltrexone HCl (Revia) 50 mg PO DAILY [facility] Last Admin: 09/17/18 09:21 Dose: 50 mg Thiamine HCl (Vitamin B1 Tab) 100 mg PO DAILY [facility] Last Admin: 09/17/18 09:22 Dose: 100 mg Results - Vital Signs Recent Vital Signs: Last Vital Signs Temp 97.9 F 09/17/18 07:21 Pulse 78 09/17/18 07:21 Resp 20 09/17/18 07:21 BP 128/89 09/17/18 07:21 Pulse Ox 99 09/12/18 08:57 - Labs Result Diagrams: 09/12/18 01:00 09/12/18 01:00 Attending/Attestation - Attestation I have personally seen and examined this patient.: Yes I have fully participated in the care of the patient.: Yes I have reviewed all pertinent clinical information: Yes Notes (Text): Patient seen and examined by me with resident at 11:45AM with resident 09/14/18. Case including HPI, physical exam, andassessment and plan discussed with resident. Agree with above with following additions/corrections. Patient is a 43 year old female with past medical history significant for hypertension, depression, and anxiety that presented to the hospital with worsening depression. We are consulted for history of hypertension. Patient states she is feeling ok. Patient states that she used to take Norvasc. However, she was getting edema in her legs and she was switched to Lisinopril. Patient believes she takes Lisinopril 2.5mg daily. She denies any headaches or dizziness. No change in vision. No chest pain or shortness of breath. No nausea, vomiting, or abdominal pain. No dysuria. No diarrhea or constipation. No fevers or chills. Patient denies any suicidal ideations. 12 point review of systems reviewed by me. See above HPI, all other systems are negative. Physical exam: General: Awake and alert sitting up in bed in no distress HEENT: Normocephalic atraumatic. Extraocular muscles intact. Pupils equal and reactive. No scleral icterus. Oropharynx is pink and moist. No pharyngeal erythema or exudate appreciated. Neck is supple.Hearing grossly intact. Cardiovascular: Normal rhythm. Normal S1, S2. No murmurs, rubs, or gallops appreciated Pulmonary: Normal respiratory effort. No rhonchi, rales, or wheezing appreciated Gastrointestinal: Soft, nondistended.Nontender. Positive bowel sounds all 4 quadrants, no guarding. Musculoskeletal: Moves all extremities, no calf tenderness. No edema appreciated Central nervous system: AAOx3. CN2-12 grossly intact. 5/5 muscle strength all extremities Dermatologic: Skin warm and dry. Assessment and plan: Patient is a 43 year old female with past medical history significant for hypertension, depression, and anxiety that presented to the hospital with worsening depression. We are consulted for history of hypertension. 1. Hypertension. Will restart patients Lisinopril with hold parameters. 2. Depression and possible suicidal ideations. Care as per primary team. Thank you for allowing us to participate in the care of your patient. We'll sign off. Please reconsult if needed.
[2018-09-15] MEDS ORDERED: Home Med 1 UNIT PO SCH (08:00)
[2018-09-15] MEDS: Multivitamin Therapeutic Tab PO SCH (08:24)
--- NOTE | 2018-09-15 10:06 | PCM.PYCHPN ---
Psychiatric Progress Note - Psychiatric Progress Note Patient seen today, length of contact: 30min Problems Identified/Issues Discussed: I reviewed recent notes and met with patient at bedside. She is known to me from the outpatient clinic. Apparently depression has been worsening and patient was drinking [employer]. Presently she still reports depression without much improvement on the unit. Affect is constricted though she is friendlier and more reactive during my visit this morning. Patient denies any recent stressors causing this decompensation, indicates she has periods of intense grief and sadness related to the of her son. Her affect is constricted and appropriate in consideration of though content. She continues to deny perceptual disturbance. Patient indicates she didn't sleep well last night. Feels the higher dose of remeron was less effective for sleep "it took me 4 hours to get to sleep!" and requests that dose be reduced back down to 15 mg. Patient has been visible but still demonstrates minimal interaction with other patients. Seems motivated for improvement and compliant with medications as well as staff requests. There were no behavioral issues over the weekend. Diagnostic Results: MDD Bereavement/grief r/o persistent complex bereavement disorder r/o trauma/stressor-related disorder unspecified r/o alcohol use disorder r/o adjustment disorder r/o bipolar disorder Medication Change: Yes (reduced remeron) Medical Record Reviewed: Yes Mental Status Examination - Cognitive Function Orientation: Person, Place, Situation Memory: Intact Attention: Poor (some improvement) Concentration: Poor (ssome improvement) Association: WNL Fund of Knowledge: WNL - Mood Mood: Depressed, Anxious - Affect Affect: Flat - Formal Thought Process Formal Thought Process: No Impairment - Suicidal Ideation Suicidal Ideation: No - Homicidal Ideation Homicidal Ideation: No Goal/Treatment Plan - Goal/Treatment Plan Need for Continued Stay: Remain at risks for inpatient hospitalization, Severe depression anxiety, Discharge may exacerbated symptoms, Severe functional impairment Progress Toward Problem(s) and Goals/Treatment Plan: * c/w current treatment and plan * Appreciate f/u by Dr. Vincent on 09/14/18~Medically clear for psychiatric treatment * No new weekend lab results thus far * Ativan decreased from 2 mg q6 to 2 mg q8 on 09/14/18, plan to taper as tolerated. * Remeron decreased to 15 mg on 09/15/18 per patient request * Vitals reviewed and noted below: 09/14/18 09/14/18 07:12 16:00 Temperature 98.0 F Pulse Rate 65 82 Respiratory 20 Rate Blood Pressure 100/62 129/91 H Estimated Date of D/C: 09/18/18
[2018-09-16] MEDS: Multivitamin Therapeutic Tab PO SCH (08:47)
--- NOTE | 2018-09-16 16:23 | PCM.PYCHPN ---
Psychiatric Progress Note - Psychiatric Progress Note Patient seen today, length of contact: 30min Patient Chief Complaint: "I feel little bit better." Problems Identified/Issues Discussed: Suicide/ homicide prevention, past psychiatric h/o, current psychiatric symptoms, medical problems, risk/benefits and alternatives of medications, medications compliance, coping strategies, substance abuse h/o, relapse prevention, importance of follow up with psychiatrist and therapist, discharge plan. Medical Problems: history of hypertension, alcohol withdrawal symptoms much better Diagnostic Results: 09/12/18 01:00 09/12/18 01:00 Lab Results 09/12/18 01:00: Alcohol, Quantitative 190 H 09/12/18 01:00: Salicylates < 1 L, Acetaminophen < 10.0 L 09/12/18 01:00: Urine Opiates Screen Negative, Urine Methadone Screen Negative, Ur Barbiturates Screen Negative, Ur Phencyclidine Scrn Negative, Ur Amphetamines Screen Negative, U Benzodiazepines Scrn Negative, U Oth Cocaine Metabols Negative, U Cannabinoids Screen Negative 09/12/18 01:00: Sodium 142, Potassium 4.3, Chloride 111 H, Carbon Dioxide 23, Anion Gap 13, BUN 13, Creatinine 0.8, Est GFR ( Amer) > 60, Est GFR (Non- Af Amer) > 60, Random Glucose 99, Calcium 8.6, Magnesium 2.1, Total Bilirubin 1.2, AST 94 H D, ALT 90 H, Alkaline Phosphatase 77, Total Protein 7.4, Albumin 3.5, Globulin 4.0, Albumin/Globulin Ratio 0.9 L 09/12/18 01:00: Urine Color Yellow, Urine Appearance Clear, Urine pH 6.5, Ur Specific [place] <= 1.005, Urine Protein Negative, Urine Glucose (UA) Negative, Urine Ketones Negative, Urine Blood Negative, Urine Nitrate Negative, Urine Bilirubin Negative, Urine Urobilinogen 0.2, Ur Leukocyte Esterase Negative 09/12/18 01:00: WBC 4.7 D, RBC 3.72, Hgb 12.3, Hct 36.8, MCV 98.9 D, MCH 33.1, MCHC 33.4, RDW 13.2, Plt Count 282, MPV 9.2, Gran % 48.8 L, Lymph % (Auto) 42.9 H, [place] % (Auto) 7.5 H, Eos % (Auto) 0.4 L, Baso % (Auto) 0.4, Gran # 2.28, Lymph # (Auto) 2.0, [place] # (Auto) 0.4, Eos # (Auto) 0.0, Baso # (Auto) 0.02 Vital Signs Temp Pulse Pulse Resp BP Pulse Ox 09/13/18 07:07 97.9 F 72 20 126/82 09/12/18 16:00 105 H 124/78 09/12/18 13:58 88 17 09/12/18 08:57 98.8 F 78 18 123/80 99 09/12/18 07:45 73 18 119/77 99 09/12/18 06:58 62 18 123/87 100 09/12/18 04:02 86 18 132/70 99 09/12/18 01:15 88 18 130/76 99 09/11/18 23:04 98.9 F 100 H 20 134/78 100 DSM 5 Symptoms Update: Soumya Granger is a 43 yo female with a history of depression and alcohol abuse with two prior psych hospitalizations who brought herself to the hospital looking for help for her depression/suicidal ideation to join her diseased son, pt lost her job, was drinking daily, pt was not able to function, despite being compliant with medications and follow up appointments with at [facility] pt requires further evaluation and stabilization, meds adjustment. patient was seen today at the treatment team meeting, patient presented with some improvement with her hygiene, shakes are better, patient was not tearful today patient reports that that she has future plans to stop drinking, patient reported that she wants to follow up with bereavement counseling, patient wants to go to [facility] for follow up treatment. patient is willing to try naltrexone for alcohol cravings Risk, benefits, alternatives discussed with the patient As per staff patient is not aggressive or agitated, pleasant, willing to get better has episodes of crying. pt denied v/a/t hallucinations, denied paranoia, pt does not appear to be psychotic. so far patient tolerates medications well, no side effects observed or reported, aims 0, no EPS. DSM 5 Diagnosis: MDD Bereavement/grief r/o persistent complex bereavement disorder r/o trauma/stressor-related disorder unspecified r/o alcohol use disorder r/o adjustment disorder r/o bipolar disorder Medication Change: Yes (ecreased Ativan) Medical Record Reviewed: Yes Mental Status Examination - Cognitive Function Orientation: Person, Place, Situation Memory: Intact Attention: Poor (some improvement) Concentration: Poor (ssome improvement) Association: WNL Fund of Knowledge: WNL - Mood Mood: Depressed, Anxious - Affect Affect: Flat - Formal Thought Process Formal Thought Process: No Impairment - Suicidal Ideation Suicidal Ideation: No - Homicidal Ideation Homicidal Ideation: No Goal/Treatment Plan - Goal/Treatment Plan Need for Continued Stay: Remain at risks for inpatient hospitalization, Severe depression anxiety, Discharge may exacerbated symptoms, Severe functional impairment Progress Toward Problem(s) and Goals/Treatment Plan: Prozac 40 mg daily for depression Remeron 15 mg qhs for depression, sleep, appetite Ativan 1mg po tid scheduled and PRN for withdrawal symptoms Folic acid, thiamine, multivitamin daily for chronic alcohol use naltrexone grams daily for alcohol cravings Medicine consult will be called, pt was on Amlodipine 10 mg daily Milieu and group therapy SW consult for social issues and discharge planning [place] [facility] [place] Pt was educated about risk/benefits and alternatives of medications, coping strategies (safety plan, suicide prevention), relapse prevention, importance of follow up with psychiatrist and therapist, stay away from drugs/alcohol/smoking. Estimated Date of D/C: 09/18/18
[2018-09-17 07:22] VITALS: BP 128/89; PULSE 78; TEMP 97.9
[2018-09-17] MEDS: Multivitamin Therapeutic Tab PO SCH (09:15)
--- NOTE | 2018-09-17 16:49 | PCM.PYCHDC ---
Mental Status Examination - Mental Status Examination Orientation: Person, Place, Situation, Time Memory: Intact Mood: Neutral Affect: Constricted (But more reactive and mood congruent) Speech: Appropriate Attention: WNL Concentration: WNL Association: WNL Fund of Knowledge: WNL Formal Thought Process: No Impairment Description of patient's judgement and insight: Pt has improved insight into mental and medical illness, pt was compliant with medications and unit rules and regulations, pt was going to groups, was calm, cooperative, socially appropriate, no behavioral incidents, no agitation, no aggression. Psychotic Thoughts and Behaviors: Pt denied v/a/t hallucinations, denied paranoid ideations, pt does not appear to be psychotic, and thought process is goal directed. Suicidal Ideation: No Current Homicidal Ideation?: No Plan: pt adamantly denied thoughts of harming self or others denied intent or plan. Discharge Summary - Discharge Note Reason for Hospitalization: pt was admitted to the psychiatric inpatient unit for evaluation and sta bilization of worsening of depression/possible suicidal ideation, inability to function. Psychiatric History (includes Medical, Family, Personal Hx): see HPI Laboratory Data: 09/12/18 01:00 09/12/18 01:00 Lab Results 09/12/18 01:00: Alcohol, Quantitative 190 H 09/12/18 01:00: Salicylates < 1 L, Acetaminophen < 10.0 L 09/12/18 01:00: Urine Opiates Screen Negative, Urine Methadone Screen Negative, Ur Barbiturates Screen Negative, Ur Phencyclidine Scrn Negative, Ur Amphetamines Screen Negative, U Benzodiazepines Scrn Negative, U Oth Cocaine Metabols Negative, U Cannabinoids Screen Negative 09/12/18 01:00: Sodium 142, Potassium 4.3, Chloride 111 H, Carbon Dioxide 23, Anion Gap 13, BUN 13, Creatinine 0.8, Est GFR ( Amer) > 60, Est GFR (Non- Af Amer) > 60, Random Glucose 99, Calcium 8.6, Magnesium 2.1, Total Bilirubin 1.2, AST 94 H D, ALT 90 H, Alkaline Phosphatase 77, Total Protein 7.4, Albumin 3.5, Globulin 4.0, Albumin/Globulin Ratio 0.9 L 09/12/18 01:00: Urine Color Yellow, Urine Appearance Clear, Urine pH 6.5, Ur Specific Shelton <= 1.005, Urine Protein Negative, Urine Glucose (UA) Negative, Urine Ketones Negative, Urine Blood Negative, Urine Nitrate Negative, Urine Bilirubin Negative, Urine Urobilinogen 0.2, Ur Leukocyte Esterase Negative 09/12/18 01:00: WBC 4.7 D, RBC 3.72, Hgb 12.3, Hct 36.8, MCV 98.9 D, MCH 33.1, MCHC 33.4, RDW 13.2, Plt Count 282, MPV 9.2, Gran % 48.8 L, Lymph % (Auto) 42.9 H, [place] % (Auto) 7.5 H, Eos % (Auto) 0.4 L, Baso % (Auto) 0.4, Gran # 2.28, Lymph # (Auto) 2.0, [place] # (Auto) 0.4, Eos # (Auto) 0.0, Baso # (Auto) 0.02 Vital Signs Temp Pulse Pulse Resp BP Pulse Ox 09/17/18 07:21 97.9 F 78 20 128/89 09/16/18 15:17 81 112/77 09/16/18 06:56 97.7 F 67 20 99/59 L 09/15/18 16:00 87 126/87 09/15/18 07:00 98.1 F 78 20 101/59 L 09/14/18 16:00 82 129/91 H 09/14/18 07:12 98.0 F 65 20 100/62 09/13/18 16:41 82 142/92 H 09/13/18 07:07 97.9 F 72 20 126/82 09/12/18 16:00 105 H 124/78 09/12/18 13:58 88 17 09/12/18 08:57 98.8 F 78 18 123/80 99 09/12/18 07:45 73 18 119/77 99 09/12/18 06:58 62 18 123/87 100 09/12/18 04:02 86 18 132/70 99 09/12/18 01:15 88 18 130/76 99 09/11/18 23:04 98.9 F 100 H 20 134/78 100 Consultations:: List each consultation separately and include: 1. Reason for request. 2. Findings. 3. Follow-up Consultations: patient was seen by medical team and the emergency room, no acute issues Summary of Hospital Course include:: 1. Description of specific treatment plan utilized for patients during their course of treatmen. 2. Summarize the time- course for resolution of acute symptoms and/or regressed behaviors. 3. Describe issues identified and worked on during hospitalization. 4. Describe medication utilized. 5. Describe medical problems identified and treated. 6. Reassessment of suicide risk Summary of Hospital Course: Soumya Granger is a 43 yo female with a history of depression and alcohol abuse with two prior psych hospitalizations who brought herself to the hospital looking for help for her depression/suicidal ideation to join her diseased son, pt lost her job, was drinking daily, pt was not able to function, despite being compliant with medications and follow up appointments with at [facility] pt required further evaluation and stabilization, meds adjustment. at the time of admission patient presented to be depressed, please see notes for more detailed information 09/12/18 01:00 09/12/18 01:00 Lab Results 09/12/18 01:00: Alcohol, Quantitative 190 H 09/12/18 01:00: Salicylates < 1 L, Acetaminophen < 10.0 L 09/12/18 01:00: Urine Opiates Screen Negative, Urine Methadone Screen Negative, Ur Barbiturates Screen Negative, Ur Phencyclidine Scrn Negative, Ur Amphetamines Screen Negative, U Benzodiazepines Scrn Negative, U Oth Cocaine Metabols Negative, U Cannabinoids Screen Negative 09/12/18 01:00: Sodium 142, Potassium 4.3, Chloride 111 H, Carbon Dioxide 23, Anion Gap 13, BUN 13, Creatinine 0.8, Est GFR ( Amer) > 60, Est GFR (Non- Af Amer) > 60, Random Glucose 99, Calcium 8.6, Magnesium 2.1, Total Bilirubin 1.2, AST 94 H D, ALT 90 H, Alkaline Phosphatase 77, Total Protein 7.4, Albumin 3.5, Globulin 4.0, Albumin/Globulin Ratio 0.9 L 09/12/18 01:00: Urine Color Yellow, Urine Appearance Clear, Urine pH 6.5, Ur Specific Shelton <= 1.005, Urine Protein Negative, Urine Glucose (UA) Negative, Urine Ketones Negative, Urine Blood Negative, Urine Nitrate Negative, Urine Bilirubin Negative, Urine Urobilinogen 0.2, Ur Leukocyte Esterase Negative 09/12/18 01:00: WBC 4.7 D, RBC 3.72, Hgb 12.3, Hct 36.8, MCV 98.9 D, MCH 33.1, MCHC 33.4, RDW 13.2, Plt Count 282, MPV 9.2, Gran % 48.8 L, Lymph % (Auto) 42.9 H, [place] % (Auto) 7.5 H, Eos % (Auto) 0.4 L, Baso % (Auto) 0.4, Gran # 2.28, Lymph # (Auto) 2.0, [place] # (Auto) 0.4, Eos # (Auto) 0.0, Baso # (Auto) 0.02 Vital Signs Temp Pulse Resp BP Pulse Ox 09/12/18 08:57 98.8 F 78 18 123/80 99 09/12/18 07:45 73 18 119/77 99 09/12/18 06:58 62 18 123/87 100 09/12/18 04:02 86 18 132/70 99 09/12/18 01:15 88 18 130/76 99 09/11/18 23:04 98.9 F 100 H 20 134/78 100 patient was stabilized on the following medications: Prozac 40 mg daily for depression Remeron 15 mg qhs for depression, sleep, appetite Ativan was tapered down Folic acid, thiamine, multivitamin daily for chronic alcohol use naltrexone 50mg daily for alcohol cravings patient tolerated medications well, no side effects observed or reported,Aims 0, no EPS. Patient improved significantly, patient wanted to have grief counseling services after discharge, nephrology social worker provided information about outpatient clinics. Patient wanted to be followed up at [facility] IOP program. Over the course of this hospitalization pt was attending groups, pt also had medication management, had therapeutic milieu. Overall pt improved , pt's affect became brighter, pt was less depressed, has realistic future oriented plans, pt also does not appear to be psychotic, or anxious, pt was socially appropriate, no behavioral issues, pts insight improved as well and soon pt deemed to be ready for discharge. At the time of the discharge pt denied been depressed "I still feel sad because I miss my son", denied thoughts of harming self or others, denied psychotic symptoms, and pt does not appeared to be psychotic, denied been anxious, pt is not in imminent danger to self or others, pt will be f/u with grieving employee counselor ing and IOP at [facility], information about follow up appointment, time and address provided to the pt, it is patient responsibility to follow up with outpatient clinic, PMD as well as specialists (see note for more detailed information). In case pt will need to obtain results of studies pending at discharge pt was provided with contact information of Psychiatric Inpatient unit [phone] as well as Medical Record Department [phone]. Naltrexone prescribed Counseling about alcohol cessation provided AA meetings as well as smoking cessation treatment program information was provided by the pt was provided with prescriptions for all of medications (please see medication reconciliation form) Pt was educated about safety plan in case of worsening of symptoms or in case of suicidal or homicidal ideation call 911 or go to the nearest ER, also was educated to take meds as prescribed and stay away from drugs, pt verbalized understanding. - Diagnosis (1) Alcohol use Status: Chronic Priority: High (2) MDD (major depressive disorder) Status: Chronic Priority: High - Final Diagnosis (DSM 5) Condition upon Discharge: GOOD Disposition: HOME/ ROUTINE Follow-up Treatment Plan: n case pt will need to obtain results of studies pending at discharge pt was provided with contact information of Psychiatric Inpatient unit [phone] as well as Medical Record Department [phone]. Naltrexone prescribed Counseling about alcohol cessation provided AA meetings as well as smoking cessation treatment program information was provided by the pt was provided with prescriptions for all of medications (please see medication reconciliation form) Pt was educated about safety plan in case of worsening of symptoms or in case of suicidal or homicidal ideation call 911 or go to the nearest ER, also was educated to take meds as prescribed and stay away from drugs, pt verbalized understanding. Prescriptions/Medication Reconciliation: Fluoxetine HCl [Prozac] 40 mg PO DAILY #14 cap Folic Acid 1 mg PO DAILY #14 tab Mirtazapine [Remeron Soltab] 15 mg PO HS #14 odt Multivitamin Therapeutic Tab [Thera Tab] 1 tab PO 0800 #14 tab Naltrexone [Revia] 50 mg PO DAILY #14 tab Thiamine [Vitamin B1 Tab] 100 mg PO DAILY #14 tab - Smoking Cessation Smoking Cessation Medication prescribed: No Reason for not providing: atient denied smoking - Antipsychotic Medications Pt discharged on 2 or more routine antipsychotic medications: No
== END 2018-09-17 13:44 | disposition home or self-care (01) | DRG 426 ==
LOC: ED 22:54 → ERH 09-12 05:26 → PSYC 09-12 09:47
PROVIDERS: ADMIT Psychiatry & Neurology Psychiatry; ATTEND Psychiatry & Neurology Psychiatry
DX: F32.9 Major depressive disorder, single episode, unspecified (principal); F10.239 Alcohol dependence with withdrawal, unspecified; Y90.6 Blood alcohol level of 120-199 mg/100 ml; I10 Essential (primary) hypertension; F41.9 Anxiety disorder, unspecified; Z63.4 Disappearance and death of family member; Z23 Encounter for immunization

== ENCOUNTER 2018-09-18 22:19 | Inpatient (IN) | payer MEDICAID ==
[2018-09-18 22:33] VITALS: BMI 33.6
--- NOTE | 2018-09-18 23:49 | ED PDOC ---
Arrival/HPI - General Chief Complaint: Anxiety Time Seen by Provider: 09/18/18 23:09 Historian: Patient - History of Present Illness Narrative History of Present Illness (Text): 09/18/18 23:49 Soumya Granger is a 43 year old female, whose past medical history includes depression, alcohol abuse, and hypertension, who presents to the Emergency department complaining of depression. Patient states she has been feeling depression and reports it has been 7 days since she last had an alcoholic drink. Patient reports she has also been experiencing palpitations and dizziness. Patient notes she was recently discharged from [facility] yesterday. Patient denies any suicidal ideation, homicidal ideation, fever, chills, cough, shortness of breath, abdominal pain, or any other complaint. Symptom Onset: Gradual Symptom Course: Unchanged Activities at Onset: Light Context: Home Past Medical History - Provider Review Nursing Documentation Reviewed: Yes - Infectious Disease Hx of Infectious Diseases: None - Tetanus Immunization Tetanus Immunization: Unknown - Reproductive Menopause: No - Cardiac Hx Cardiac Disorders: Yes Hx Hypertension: Yes - Pulmonary Hx Respiratory Disorders: No Other/Comment: URI - Neurological Hx Neurological Disorder: No - HEENT Hx HEENT Disorder: No - Renal Hx Renal Disorder: No - Endocrine/Metabolic Hx Endocrine Disorders: No - Hematological/Oncological Hx Blood Disorders: No - Integumentary Hx Dermatological Disorder: No - Musculoskeletal/Rheumatological Hx Musculoskeletal Disorders: No - Gastrointestinal Hx Gastrointestinal Disorders: No - Genitourinary/Gynecological Hx Genitourinary Disorders: No - Psychiatric Hx Substance Use: No - Past Surgical History Past Surgical History: Non-Contributing - Surgical History Hx Section: Yes (x3) Hx Tubal Ligation: Yes - Anesthesia Hx Anesthesia: No Hx Anesthesia Reactions: No Hx Malignant Hyperthermia: No Family/Social History - Physician Review Nursing Documentation Reviewed: Yes Family/Social History: Unknown Family HX Smoking Status: Former Smoker Hx Alcohol Use: Yes Hx Substance Use: No Allergies/Home Meds Allergies/Adverse Reactions: Allergies shellfish derived Allergy (Mild, Verified 09/18/18 22:40) ANAPHYLAXIS Review of Systems - Physician Review All systems were reviewed & negative as marked: Yes - Review of Systems Constitutional: Normal. absent: Fevers Eyes: Normal ENT: Normal Respiratory: Normal. absent: SOB, Cough Cardiovascular: Normal, Palpitations Gastrointestinal: Normal. absent: Abdominal Pain, Diarrhea, Nausea, Vomiting Genitourinary Female: Normal Musculoskeletal: Normal. absent: Back Pain, Neck Pain Skin: Normal Neurological: Dizziness. absent: Headache Endocrine: Normal Hemo/Lymphatic: Normal Psychiatric: Depression. absent: Suicidal Ideation Physical Exam Vital Signs Reviewed: Yes Vital Signs Temp Pulse Resp BP Pulse Ox 09/18/18 22:33 98.0 F 97 H 18 157/110 H 97 Temperature: Afebrile Blood Pressure: Hypertensive Pulse: Tachycardic Respiratory Rate: Normal Appearance: Positive for: Well-Appearing, Non-Toxic, Comfortable Pain Distress: None Mental Status: Positive for: Alert and Oriented X 3 - Systems Exam Head: Present: Atraumatic, Normocephalic Pupils: Present: PERRL Extroacular Muscles: Present: EOMI Conjunctiva: Present: Normal Mouth: Present: Moist Mucous Membranes Neck: Present: Normal Range of Motion Respiratory/Chest: Present: Clear to Auscultation, Good Air Exchange. No: Respiratory Distress, Accessory Muscle Use Cardiovascular: Present: Regular Rate and Rhythm, Normal S1, S2. No: Murmurs Abdomen: No: Tenderness, Distention, Peritoneal Signs Back: Present: Normal Inspection Upper Extremity: Present: Normal Inspection. No: Cyanosis, Edema Lower Extremity: Present: Normal Inspection. No: Edema Neurological: Present: GCS=15, CN II-XII Intact, Speech Normal Skin: Present: Warm, Dry, Normal Color. No: Rashes Psychiatric: Present: Alert, Oriented x 3, Depressed Mood. No: Normal Affect (flat affect) Medical Decision Making ED Course and Treatment: 09/18/18 23:49 Impression: 43 year old female who presents to the ED complaining of depression. Plan: -- EKG -- Labs, alcohol level -- Chest X-ray -- Urine drug screen -- reassess and disposition Progress notes: Reviewed EKG, NSR at [address] bpm[address] Non-specific ST/T wave changes. 09/19/18 01:35 Chest X-ray reviewed, shows no acute processes. 09/19/18 03:36 Pt seen and evaluated by LAILA Allred, who discussed case with psychiatrist web operations lead. Pt to be admitted to Behavioral [facility] for depression under Dr. Mike agarwal's service. Pt agreeable with plan. 09/19/18 04:[address] reviewed, shows: FINDINGS: Normal size of the ventricles and extra-axial spaces for the patient's age. Nor mal white matter tracts of the supratentorial brain. Normal basal ganglia and thalami. Normal brainstem. Normal cerebellum. There is no demonstrated extra-axial, intraparenchymal, or intraventricular hemorrhage. There are no findings of an acute ischemic infarction. Normal calvarium. There is no demonstrated fracture. Normal soft tissue structures. Normal visualized paranasal sinuses. IMPRESSION: Normal unenhanced CT scan of the brain. Electronically signed on Sep 19, 2018 4:00:33 AM EDT by: Malinda Rivera M.D., Certified by ABR, MSK, Neuroradiology - Lab Interpretations I have reviewed the lab results: Yes - RAD Interpretation Area Relief Pilot: ED Physician - EKG Interpretation Interpreted by ED Physician: Yes Type: 12 lead EKG - Scribe Statement The provider has reviewed the documentation as recorded by the Scribe La Nena Dietrich training with Val Xiong All medical record entries made by the Scribe were at my direction and personally dictated by me. I have reviewed the chart and agree that the record accurately reflects my personal performance of the history, physical exam, medical decision making, and the department course for this patient. I have also personally directed, reviewed, and agree with the discharge instructions and disposition. Disposition/Present on Arrival - Present on Arrival Any Indicators Present on Arrival: No History of DVT/PE: No History of Uncontrolled Diabetes: No Urinary Catheter: No History of Decub. Ulcer: No History Surgical Site Infection Following: None - Disposition Have Diagnosis and Disposition been Completed?: Yes Diagnosis: Depression Disposition: HOSPITALIZED Disposition Time: 03:41 Patient Plan: Admission Patient Problems: Current Active Problems Problem Status Onset Depression Acute Condition: STABLE
[2018-09-19 00:53] LABS: HEMOGLOBIN 11.6 g/dL (12.0-16.0); MEAN CORPUSCULAR HEMOGLOBIN 34.2 pg (25.0-35.0); MEAN CORPUSCULAR HGB CONC 33.2 g/dl (31.0-37.0); MEAN PLATELET VOLUME 9.5 fl (7.0-11.0); RBC 3.39 10^6/uL (3.5-6.1); RED CELL DISTRIBUTION WIDTH 13.2 % (11.5-14.5); WHITE BLOOD COUNT 9.6 10^3/uL (4.5-11.0)
[2018-09-19 00:58] LABS: ALB/GLOB RATIO 1.1 (1.1-1.8); ALBUMIN 4.1 g/dL (3.0-4.8); ALT/SGPT 107 U/L (7-56); AST/SGOT 68 U/L (14-36); BLOOD UREA NITROGEN 9 mg/dL (7-21); CALCIUM 9.5 mg/dL (8.4-10.5); GFR NON-AFRICAN AMERICAN > 60; MEAN CELL VOLUME 102.9 fl (80.0-105.0)
[2018-09-19 02:41] LABS: BARBITURATES, UR NEGATIVE (NEGATIVE); BENZODIAZEPINES, UR POSITIVE (NEGATIVE); OPIATES, UR NEGATIVE (NEGATIVE); PHENCYCLIDINE, UR NEGATIVE (NEGATIVE)
[2018-09-19 04:07] VITALS: O2SAT 98
--- NOTE | 2018-09-19 06:00 | PCM.BM ---
<Alejandro Oseguera O - Last Filed: 09/19/18 05:57> Treatment Plan Problems - Problems identified on initial assessmt hopelesness Date Initiated: 09/19/18 Time Initiated: 05:50 Assessment reference: NA Status: Active Altered sleep patter Date Initiated: 09/19/18 Time Initiated: 05:50 Assessment reference: NA Status: Active Ineffective coping Date Initiated: 09/19/18 Time Initiated: 05:55 Assessment reference: NA Status: Active Treatment assets and liabiliti Patient Assests: cooperative, educated, insightful, self-reliant, ADL independent, physically healthy, negotiates basic needs, cognitively intact Patient Liabilities: poor support system, substance abuse - Milieu Protocol Maintain good personal hygiene: daily Encourage regular showers, daily Remind patient to perform daily oral care, daily Assist patient to perform ADL's Maintain personal safety: daily Educate patient to report safety concerns to staff, daily Monitor environment for contraband/sharps Medication safety: Monitor for expected outcome, potential side effects: daily, Assess barriers to learning: daily, Assess readiness for medication education: daily Family Contact Family involvement: Family/SO is involved Family contact: Family has been contacted by patient Family contact name: Vidya [phone] Family contacted how many times per week?: 2 - Goals for Treatment Patient goals for treatment: I want to get better Discharge/Continuing Care - Education Needs Education Needs: Patient Medication, Patient Coping Skills, Patient Anger Management skills - Discharge Discharge Criteria: Normal sleep pattern, Ability to care for self <Dorcas Arugeta Y - Last Filed: 09/20/18 13:57> Family Contact Family contact: Patient agrees to contact
--- NOTE | 2018-09-19 07:21 | RAD ---
Date of service: 09/18/2018 HISTORY: medical clearance COMPARISON: 08/20/2018 FINDINGS: LUNGS: No active pulmonary disease. PLEURA: No significant pleural effusion identified, no pneumothorax apparent. CARDIOVASCULAR: No aortic atherosclerotic calcification present. Normal cardiac size. No pulmonary vascular congestion. OSSEOUS STRUCTURES: No significant abnormalities. VISUALIZED UPPER ABDOMEN: Normal. OTHER FINDINGS: None. IMPRESSION: No active disease.
--- NOTE | 2018-09-19 07:50 | CT ---
Date of service: 09/19/2018 PROCEDURE: CT HEAD WITHOUT CONTRAST. HISTORY: headache COMPARISON: None available. TECHNIQUE: Axial computed tomography images were obtained through the head/brain without intravenous contrast. Radiation dose: Total exam DLP = 833.02 mGy-cm. This CT exam was performed using one or more of the following dose reduction techniques: Automated exposure control, adjustment of the mA and/or kV according to patient size, and/or use of iterative reconstruction technique. FINDINGS: HEMORRHAGE: No intracranial hemorrhage. BRAIN: No mass effect or edema. No atrophy or chronic microvascular ischemic changes. VENTRICLES: Unremarkable. No hydrocephalus. CALVARIUM: Unremarkable. PARANASAL SINUSES: Unremarkable as visualized. No significant inflammatory changes. MASTOID AIR CELLS: Unremarkable as visualized. No inflammatory changes. OTHER FINDINGS: The report concurs with the preliminary [facility] report IMPRESSION: No acute findings
[2018-09-19 08:05] LABS: GLUCOSE,FASTING 96 mg/dL (65-110); HDL CHOLESTEROL 81 mg/dL (29-60)
[2018-09-19 08:15] LABS: LDL CHOLESTEROL 79 mg/dL (0-129)
--- NOTE | 2018-09-19 13:49 | PCM.PYCHPN ---
Psychiatric Progress Note - Psychiatric Progress Note Patient seen today, length of contact: 35min Patient Chief Complaint: "I don't know what have happened, I was feeling very anxious, I came to the hospital for help, I was not able to sleep, my heart was pounding, my blood pressure went up" Problems Identified/Issues Discussed: Suicide/ homicide prevention, past psychiatric h/o, current psychiatric symptoms, medical problems, risk/benefits and alternatives of medications, medications compliance, coping strategies, substance abuse h/o, relapse prevention, importance of follow up with psychiatrist and therapist, discharge plan. Medical Problems: h/o HTN h/o withdrawal from alcohol Diagnostic Results: 09/18/18 23:55 09/18/18 23:55 Lab Results 09/19/18 07:30: TSH 3rd Generation 1.04 09/19/18 07:30: Fasting Glucose 96, Triglycerides 47, Cholesterol 177, LDL Cholesterol Direct 79, HDL Cholesterol 81 H 09/19/18 01:30: Urine Opiates Screen Negative, Urine Methadone Screen Negative, Ur Barbiturates Screen Negative, Ur Phencyclidine Scrn Negative, Ur Amphetamines Screen Negative, U Benzodiazepines Scrn Positive H, U Oth Cocaine Metabols Negative, U Cannabinoids Screen Negative 09/18/18 23:55: WBC 9.6, RBC 3.39 L, Hgb 11.6 L, Hct 34.9 L, MCV 102.9 D, MCH 34.2, MCHC 33.2, RDW 13.2, Plt Count 287, MPV 9.5 09/18/18 23:55: Alcohol, Quantitative < 10 09/18/18 23:55: Sodium 139, Potassium 3.7, Chloride 104, Carbon Dioxide 25, Anion Gap 13, BUN 9, Creatinine 0.7, Est GFR ( Amer) > 60, Est GFR (Non- Af Amer) > 60, Random Glucose 128 H, Calcium 9.5, Total Bilirubin 0.5, AST 68 H D, ALT 107 H, Alkaline Phosphatase 79, Total Protein 7.9, Albumin 4.1, Globulin 3.8, Albumin/Globulin Ratio 1.1 Vital Signs Temp Pulse Resp BP Pulse Ox 09/19/18 07:18 97.9 F 68 20 136/99 H 09/19/18 06:09 18 09/19/18 04:07 68 18 136/88 98 09/19/18 01:05 96 H 15 147/99 H 95 09/18/18 22:33 98.0 F 97 H 18 157/110 H 97 DSM 5 Symptoms Update: Refer to the Psychiatric Assess & History-Initial dated 09/12/18 for this H & P. Reviewed, no changes shortly pt is Soumya Granger is a 43 yo female with a history of depression and alcohol abuse with recent psych admission psychiatric inpatient unit, pt was discharged 09/17/18, last admission pt was here for depression/suicidal ideation to join her diseased son, multiple stressors, pt lost her job, was drinking daily, pt was not able to function, prior to discharge pt presented very well, pt was not depressed, not anxious, pt also did not express any thoughts of harming self or others, pt had future oriented plans to to go to [facility] [place] outpatient [place], pt also wanted to have grieving therapy/counseling. pt came 09/18/18 to ED, complaining of uncontrolled anxiety, heart palpitation, inability to sleep, please see ED notes for more detailed information. pt is very familiar to this specification writer from two previous psychiatric admissions. most recent was 09/12/18. pt was seen in her room, presented to be tearful, disengaged, said that yesterday she was not feeling well, tried to take left over of klonopin "usually I take once a day 1mg", pt said she took two doses "it was not helpful", pt was weaned off from the benzos last admission, pt tolerated it well. pt reported that she tried to relax, tried to sleep, but "my blood pressure was going up, I had anxiety, I had a heart palpitations, I knew that something is not right", pt said that the rushed into the hospital. pt denied drinking alcohol, reported being compliant with meds. pt said that she does not feel good, did not sleep last night in the hospital, pt denied any thoughts of harming self or others. pt denied any hallucinations, denied paranoid ideation, denied visual hallucinations, pt does not appeared to be psychotic. As per staff patient is not aggressive or agitated, pleasant, willing to get better has episodes of crying. klonopin resumed, stat dose was given 2mg, all meds resumed. DSM 5 Diagnosis: possible withdrawals from benzos, pt was weaned off from benzos, most likely it was fast for the pt MDD Bereavement/grief r/o persistent complex bereavement disorder r/o trauma/stressor-related disorder unspecified r/o alcohol use disorder r/o adjustment disorder r/o bipolar disorder Medication Change: Yes (kloonopin resumed) Medical Record Reviewed: Yes Consults ordered or reviewed: medical consult Mental Status Examination - Cognitive Function Orientation: Person, Place Memory: Intact Attention: Poor Concentration: Poor Association: WNL Fund of Knowledge: WNL - Mood Mood: Depressed, Anxious - Affect Affect: Constricted (and tearful) - Speech Speech: Soft (underproductive) - Formal Thought Process Formal Thought Process: No Impairment - Suicidal Ideation Suicidal Ideation: No - Homicidal Ideation Homicidal Ideation: No Goal/Treatment Plan - Goal/Treatment Plan Need for Continued Stay: Remain at risks for inpatient hospitalization, Severe depression anxiety, Discharge may exacerbated symptoms, Failed transitioning, Severe functional impairment Progress Toward Problem(s) and Goals/Treatment Plan: Milieu/structure/supportive therapy Medical consult appreciated, see medical team note for more detailed info consultation for discharge plan and social issues Prozac 40 mg daily for depression Remeron 15 mg qhs for depression, sleep, appetite Ativan 1mg po tid scheduled and PRN for withdrawal symptoms Folic acid, thiamine, multivitamin daily for chronic alcohol use naltrexone 50mg daily for alcohol cravings Medicine consult will be called Milieu and group therapy SW consult for social issues and discharge planning Pt was educated about risk/benefits and alternatives of medications, coping strategies (safety plan, suicide prevention), relapse prevention, importance of follow up with psychiatrist and therapist, stay away from drugs/alcohol/smoking. Estimated Date of D/C: 09/23/18 - Smoking Cessation Smoking Cessation Initiated: No Reason for not providing: pt denied smoking
[2018-09-19] MEDS: Multivitamin With Minerals Tab PO SCH (14:03)
--- NOTE | 2018-09-19 19:06 | CARD ---
APPROVED REPORT Date of service: 09/19/2018 EKG Measurement Heart [id number] <Conclusion> Normal sinus rhythm Minimal voltage criteria for LVH, may be normal variant Borderline ECG
[2018-09-20] MEDS: Multivitamin With Minerals Tab PO SCH (08:57)
--- NOTE | 2018-09-20 13:16 | PCM.PYCHPN ---
Psychiatric Progress Note - Psychiatric Progress Note Patient seen today, length of contact: 30min Patient Chief Complaint: "I feel little better...." Problems Identified/Issues Discussed: Suicide/ homicide prevention, past psychiatric h/o, current psychiatric symptoms, medical problems, risk/benefits and alternatives of medications, medications compliance, coping strategies, substance abuse h/o, relapse prevention, importance of follow up with psychiatrist and therapist, discharge plan. Medical Problems: h/o HTN h/o withdrawal from alcohol Diagnostic Results: 09/18/18 23:55 09/18/18 23:55 Lab Results 09/19/18 07:30: TSH 3rd Generation 1.04 09/19/18 07:30: Fasting Glucose 96, Triglycerides 47, Cholesterol 177, LDL Cholesterol Direct 79, HDL Cholesterol 81 H 09/19/18 01:30: Urine Opiates Screen Negative, Urine Methadone Screen Negative, Ur Barbiturates Screen Negative, Ur Phencyclidine Scrn Negative, Ur Amphetamines Screen Negative, U Benzodiazepines Scrn Positive H, U Oth Cocaine Metabols Negative, U Cannabinoids Screen Negative 09/18/18 23:55: WBC 9.6, RBC 3.39 L, Hgb 11.6 L, Hct 34.9 L, MCV 102.9 D, MCH 34.2, MCHC 33.2, RDW 13.2, Plt Count 287, MPV 9.5 09/18/18 23:55: Alcohol, Quantitative < 10 09/18/18 23:55: Sodium 139, Potassium 3.7, Chloride 104, Carbon Dioxide 25, Anion Gap 13, BUN 9, Creatinine 0.7, Est GFR ( Amer) > 60, Est GFR (Non- Af Amer) > 60, Random Glucose 128 H, Calcium 9.5, Total Bilirubin 0.5, AST 68 H D, ALT 107 H, Alkaline Phosphatase 79, Total Protein 7.9, Albumin 4.1, Globulin 3.8, Albumin/Globulin Ratio 1.1 Vital Signs Temp Pulse Resp BP Pulse Ox 09/19/18 07:18 97.9 F 68 20 136/99 H 09/19/18 06:09 18 09/19/18 04:07 68 18 136/88 98 09/19/18 01:05 96 H 15 147/99 H 95 09/18/18 22:33 98.0 F 97 H 18 157/110 H 97 Temp Pulse Resp BP Pulse Ox 97.9 F 77 18 131/94 H 98 09/20/18 07:03 09/20/18 09:20 09/20/18 09:20 09/20/18 09:20 09/19/18 04:07 DSM 5 Symptoms Update: shortly pt is Soumya Granger is a 43 yo female with a history of depression and alcohol abuse with recent psych admission psychiatric inpatient unit, pt was discharged 09/17/18, last admission pt was here for depression/suicidal ideation to join her diseased son, multiple stressors, pt lost her job, was drinking daily, pt was not able to function, prior to discharge pt presented very well, pt was not depressed, not anxious, pt also did not express any thoughts of harming self or others, pt had future oriented plans to to go to [facility] [place] outpatient program, pt also wanted to have grieving therapy/counseling. pt came 09/18/18 to ED, complaining of uncontrolled anxiety, heart palpitation, inability to sleep, please see ED notes for more detailed information. pt was seen at the treatment team meeting, pt was minimizing all of the symptoms, pt said that she feels "little better", still presented with poor pe rsonal hygiene, no eye contact, smiling anxiously, tremolos. pt reported that she slept well last night. as per RN report pt was tearful last night, reported to feel depressed, anxious, was not participating in unit activities. pt denied any thoughts of harming self or others. pt denied any hallucinations, denied paranoid ideation, denied visual hallucinations, pt does not appeared to be psychotic. As per staff patient is not aggressive or agitated, pleasant, willing to get better has episodes of crying. klonopin will be decreased today 1mg po tid. patient tolerates medications well, no side effects observed or reported, aims 0, no EPS. DSM 5 Diagnosis: possible withdrawals from benzos, pt was weaned off from benzos, most likely it was fast for the pt MDD Bereavement/grief r/o persistent complex bereavement disorder r/o trauma/stressor-related disorder unspecified r/o alcohol use disorder r/o adjustment disorder r/o bipolar disorder Medication Change: Yes (Klonopin decreased) Medical Record Reviewed: Yes Consults ordered or reviewed: medical consult was called for HTN Mental Status Examination - Cognitive Function Orientation: Person, Place Memory: Intact Attention: Poor Concentration: Poor Association: WNL Fund of Knowledge: WNL - Mood Mood: Depressed, Anxious - Affect Affect: Constricted (and tearful) - Speech Speech: Soft (underproductive) - Formal Thought Process Formal Thought Process: No Impairment - Suicidal Ideation Suicidal Ideation: No - Homicidal Ideation Homicidal Ideation: No Goal/Treatment Plan - Goal/Treatment Plan Need for Continued Stay: Remain at risks for inpatient hospitalization, Severe depression anxiety, Discharge may exacerbated symptoms, Failed transitioning, Severe functional impairment Progress Toward Problem(s) and Goals/Treatment Plan: Milieu/structure/supportive therapy Medical consult appreciated, see medical team note for more detailed info SW consultation for discharge plan and social issues Prozac 40 mg daily for depression Remeron 15 mg qhs for depression, sleep, appetite correction to my previous note, not ativan was given but Klonopin stat dose 2mg yesterday klonopin was started 2mg po bid, today 1mg po tid for anxiety Folic acid, thiamine, multivitamin daily for chronic alcohol use naltrexone 50mg daily for alcohol cravings Medicine consult called Milieu and group therapy SW consult for social issues and discharge planning Pt was educated about risk/benefits and alternatives of medications, coping strategies (safety plan, suicide prevention), relapse prevention, importance of follow up with psychiatrist and therapist, stay away from drugs/alcohol/smoking. Estimated Date of D/C: 09/23/18
[2018-09-21] MEDS: Magnesium Hydroxide Susp 30 ml UD PO PRN (03:06)
[2018-09-21 07:30] VITALS: RESP 20
[2018-09-21] MEDS: Multivitamin With Minerals Tab PO SCH (08:40)
--- NOTE | 2018-09-21 09:22 | PCM.PYCHPN ---
Psychiatric Progress Note - Psychiatric Progress Note Patient seen today, length of contact: 30min Problems Identified/Issues Discussed: I reviewed recent notes and met with patient at bedside. She is known to me from the outpatient clinic and recent psychiatric admission on the unit. She was d rinking prior to that admission in context of intense grief and sadness over her son's however alcohol didn't appear to contribute to her re-admission recently. Patient reports that she has been depressed and anxious. Her affect is constricted and appropriate in consideration of though content.Thus far she is tolerating medications however would prefer klonopin to be provided 2/1 schedule instead of 1 mg TID. Sleep has been good with combination of klonopin and remeron. She continues to deny any perceptual disturbance. Patient has been visible at times on the unit but demonstrates minimal interaction with other patients/groups. There were no behavioral issues overnight. Diagnostic Results: possible withdrawals from benzos, pt was weaned off from benzos, most likely it was fast for the pt MDD Bereavement/grief r/o persistent complex bereavement disorder r/o trauma/stressor-related disorder unspecified r/o alcohol use disorder r/o adjustment disorder r/o bipolar disorder Medication Change: Yes (Klonopin changed to 2/1 from 1 tid) Medical Record Reviewed: Yes Mental Status Examination - Cognitive Function Orientation: Person, Place Memory: Intact Attention: Poor Concentration: Poor Association: WNL Fund of Knowledge: WNL - Mood Mood: Depressed, Anxious - Affect Affect: Constricted (and tearful) - Speech Speech: Soft (underproductive) - Formal Thought Process Formal Thought Process: No Impairment - Suicidal Ideation Suicidal Ideation: No - Homicidal Ideation Homicidal Ideation: No Goal/Treatment Plan - Goal/Treatment Plan Need for Continued Stay: Remain at risks for inpatient hospitalization, Severe depression anxiety, Discharge may exacerbated symptoms, Failed transitioning, Severe functional impairment Progress Toward Problem(s) and Goals/Treatment Plan: * c/w current tx and plan * No new weekend lab results noted thus far * Vitals reviewed and noted below: Selected Entries 09/20/18 09/20/18 09/20/18 07:03 09:20 16:00 Temperature 97.9 F Pulse Rate 72 77 66 Respiratory 20 18 Rate Blood Pressure 95/63 L 131/94 H 101/68 * c/w Prozac 40 mg daily, remeron 15 mg HS and naltrexone 50 mg daily. * Will change klonopin from 1 mg po tid to 2 mg po AM and 1 mg HS per patient preference. Will also continue klonopin 1 mg po bid prn. * Plan to c/w klonopin taper, as patient tolerates. Estimated Date of D/C: 09/23/18
--- NOTE | 2018-09-21 10:05 | CP.PCM.CON ---
<Anatoly Christine - Last Filed: 09/21/18 10:02> History of Present Illness - History of Present Illness History of Present Illness: 43 year old female with past medical history of depression, anxiety, and hypertension presented to the hospital for worsening depression. Patient was recently discharged from the behavioral health unit. Patient states she has no homicidal or suicidal ideation. Patient states she is feeling well with no complaints at this time. Patient denies chest pain, shortness of breath, nausea, vomiting, diarrhea, fever, chills, dysuria. PMH: HTN, anxiety, depression PSH: c/s x 2 Allergies: shellfish Medications: Reviewed, As per MAR Family Hx: HTN, DM2 Social Hx: denies tobacco or illicit drug use. Admits to drinking wine daily Review of Systems - Review of Systems Review of Systems: 12 point ROS as per HPI, otherwise negative Past Patient History - Infectious Disease Hx of Infectious Diseases: None - Tetanus Immunizations Tetanus Immunization: Unknown - Past Social History Smoking Status: Former Smoker - CARDIAC Hx Cardiac Disorders: Yes Hx Hypertension: Yes - PULMONARY Hx Respiratory Disorders: No Other/Comment: URI - NEUROLOGICAL Hx Neurological Disorder: No - HEENT Hx HEENT Problems: No - RENAL Hx Chronic Kidney Disease: No - ENDOCRINE/METABOLIC Hx Endocrine Disorders: No - HEMATOLOGICAL/ONCOLOGICAL Hx Blood Disorders: No - INTEGUMENTARY Hx Dermatological Problems: No - MUSCULOSKELETAL/RHEUMATOLOGICAL Hx Musculoskeletal Disorders: No - GASTROINTESTINAL Hx Gastrointestinal Disorders: No - GENITOURINARY/GYNECOLOGICAL Hx Genitourinary Disorders: No - PSYCHIATRIC Hx Depression: Yes Hx Substance Use: No - SURGICAL HISTORY Hx Section: Yes (x3) Hx Tubal Ligation: Yes - ANESTHESIA Hx Anesthesia: No Hx Anesthesia Reactions: No Hx Malignant Hyperthermia: No Meds Allergies/Adverse Reactions: Allergies Allergy/AdvReac Type Severity Reaction Status Date / Time shellfish derived Allergy Mild ANAPHYLAXIS Verified 09/19/18 05:37 - Medications Medications: Current Medications Acetaminophen (Tylenol 325mg Tab) 650 mg PO Q4 PRN PRN Reason: Pain, moderate (4-7) Last Admin: 09/21/18 03:07 Dose: 650 mg Al Hydrox/Mg Hydrox/Simethicone (Maalox Plus 30 Ml) 30 ml PO DAILY PRN PRN Reason: Upset Stomach Clonazepam (Klonopin) 1 mg PO BID PRN; Protocol PRN Reason: Anxiety Last Admin: 09/20/18 22:35 Dose: 1 mg Clonazepam (Klonopin) 2 mg PO QAM [facility]; Protocol Clonazepam (Klonopin) 1 mg PO HS [facility]; Protocol Fluoxetine HCl (Prozac) 40 mg PO DAILY [facility] Last Admin: 09/21/18 08:40 Dose: 40 mg Folic Acid (Folic Acid) 1 mg PO DAILY [facility] Last Admin: 09/21/18 08:41 Dose: 1 mg Magnesium Hydroxide (Milk Of Magnesia) 30 ml PO DAILY PRN PRN Reason: Constipation Last Admin: 09/21/18 03:06 Dose: 30 ml Mirtazapine (Remeron) 15 mg PO HS [facility] Last Admin: 09/20/18 21:38 Dose: 15 mg Multivitamins/Minerals (Therapeutic-M Tab) 1 tab PO DAILY [facility] Last Admin: 09/21/18 08:40 Dose: 1 tab Naltrexone HCl (Revia) 50 mg PO DAILY [facility] Last Admin: 09/21/18 08:40 Dose: 50 mg Thiamine HCl (Vitamin B1 Tab) 100 mg PO DAILY [facility] Last Admin: 09/21/18 08:40 Dose: 100 mg Physical Exam - Constitutional Appears: Non-toxic, No Acute Distress - Head Exam Head Exam: ATRAUMATIC, NORMAL INSPECTION, NORMOCEPHALIC - Eye Exam Eye Exam: EOMI, Normal appearance - ENT Exam ENT Exam: Mucous Membranes Moist, Normal Exam - Respiratory Exam Respiratory Exam: Clear to Auscultation Bilateral, NORMAL BREATHING PATTERN - Cardiovascular Exam Cardiovascular Exam: RRR, +S1, +S2 - GI/Abdominal Exam GI & Abdominal Exam: Normal Bowel Sounds, Soft. absent: Tenderness - Extremities Exam Extremities exam: Positive for: normal inspection. Negative for: calf tenderness, pedal edema - Neurological Exam Neurological exam: Alert, CN II-XII Intact, Oriented x3 - Psychiatric Exam Psychiatric exam: Depressed, Normal Affect - Skin Skin Exam: Intact, Normal Color, Warm Results - Vital Signs Recent Vital Signs: Last Vital Signs Temp 97.9 F 09/21/18 07:29 Pulse 72 09/21/18 07:29 Resp 20 09/21/18 07:29 BP 99/68 L 09/21/18 07:29 Pulse Ox 98 09/19/18 04:07 - Labs Result Diagrams: 09/18/18 23:55 09/18/18 23:55 Assessment & Plan - Assessment and Plan (Free Text) Plan: 43 year old female with past medical history of depression, anxiety, and hypertension presents with worsening depression to psychiatry unit. Medicine consulted for hypertension. Patient is currently normotensive and no further medications will be added at this time. 1. Depression/Anxiety Management as per psychiatry 2. Hx of hypertension Normotensive No additional medications needed 3. Alcohol use Counseled on alcohol cessation Emmett, PGY-3 <Kalpana Caldwell - Last Filed: 09/21/18 13:01> Meds - Medications Medications: Current Medications Acetaminophen (Tylenol 325mg Tab) 650 mg PO Q4 PRN PRN Reason: Pain, moderate (4-7) Last Admin: 09/21/18 03:07 Dose: 650 mg Al Hydrox/Mg Hydrox/Simethicone (Maalox Plus 30 Ml) 30 ml PO DAILY PRN PRN Reason: Upset Stomach Clonazepam (Klonopin) 1 mg PO BID PRN; Protocol PRN Reason: Anxiety Last Admin: 09/20/18 22:35 Dose: 1 mg Clonazepam (Klonopin) 2 mg PO QAM [facility]; Protocol Last Admin: 09/21/18 10:35 Dose: 2 mg Clonazepam (Klonopin) 1 mg PO HS [facility]; Protocol Fluoxetine HCl (Prozac) 40 mg PO DAILY [facility] Last Admin: 09/21/18 08:40 Dose: 40 mg Folic Acid (Folic Acid) 1 mg PO DAILY [facility] Last Admin: 09/21/18 08:41 Dose: 1 mg Magnesium Hydroxide (Milk Of Magnesia) 30 ml PO DAILY PRN PRN Reason: Constipation Last Admin: 09/21/18 03:06 Dose: 30 ml Mirtazapine (Remeron) 15 mg PO HS [facility] Last Admin: 09/20/18 21:38 Dose: 15 mg Multivitamins/Minerals (Therapeutic-M Tab) 1 tab PO DAILY [facility] Last Admin: 09/21/18 08:40 Dose: 1 tab Naltrexone HCl (Revia) 50 mg PO DAILY [facility] Last Admin: 09/21/18 08:40 Dose: 50 mg Thiamine HCl (Vitamin B1 Tab) 100 mg PO DAILY [facility] Last Admin: 09/21/18 08:40 Dose: 100 mg Results - Vital Signs Recent Vital Signs: Last Vital Signs Temp 97.9 F 09/21/18 07:29 Pulse 72 09/21/18 07:29 Resp 20 09/21/18 07:29 BP 99/68 L 09/21/18 07:29 Pulse Ox 98 09/19/18 04:07 - Labs Result Diagrams: 09/18/18 23:55 09/18/18 23:55 Attending/Attestation - Attestation I have personally seen and examined this patient.: Yes I have fully participated in the care of the patient.: Yes I have reviewed all pertinent clinical information: Yes Notes (Text): 09/21/18 13:00 Medical record note made by the resident after discussion with my direction and input after the patient was personally seen and examined by me. I have reviewed the chart and agree that the record accurately reflects by personal performance of the history, physical exam, data review, and medical decision-making, in the course for the patient. I have also personally directed the plan of care. Patient is Normo tensive with out any medication.She was not taking any medication at home. No need for any hypertensive medication at this time. There is no active medical issue at this time.We will sign off. Please call us back if any question. Management plan was discussed in detail with patient. Education was provided.
[2018-09-21] MEDS: Alum-Mag Hydrox-Simethicone Susp (30 mL) PO PRN (17:56)
[2018-09-22] MEDS: Magnesium Hydroxide Susp 30 ml UD PO PRN (00:32)
[2018-09-22] MEDS: Alum-Mag Hydrox-Simethicone Susp (30 mL) PO PRN ×2 (09:00→22:00)
[2018-09-22] MEDS: Multivitamin With Minerals Tab PO SCH (09:01)
--- NOTE | 2018-09-22 09:27 | PCM.PYCHPN ---
Psychiatric Progress Note - Psychiatric Progress Note Patient seen today, length of contact: 30min Problems Identified/Issues Discussed: I reviewed recent notes and met with patient at bedside. She is known to me from the outpatient clinic and recent psychiatric admission on the unit. She was d rinking prior to that admission in context of intense grief and sadness over her son's however alcohol didn't appear to contribute to her recent re- admission. Patient reports that she has been depressed and anxious however has been feeling better over the weekend. Anxiety is improved on the klonopin 2/ schedule (changed from 1 mg TID) yesterday. Sleep has been good with combination of klonopin and remeron. She continues to deny any SI or HI or perceptual disturbance. She denies any new pain but still has abdominal discomfort (unchanged) over the weekend. She seems a little brighter this morning and in NAD. Reported +BM overnight. Patient is future oriented and reports plan to f/u with this provider this coming Sunday. Patient has been more visible on the unit and participated in group therapy on Sunday. There were no behavioral issues over the weekend. Diagnostic Results: possible withdrawals from benzos, pt was weaned off from benzos, most likely it was fast for the pt MDD Bereavement/grief r/o persistent complex bereavement disorder r/o trauma/stressor-related disorder unspecified r/o alcohol use disorder r/o adjustment disorder r/o bipolar disorder Medication Change: Yes (Klonopin changed to 2/ from 1 tid) Medical Record Reviewed: Yes Mental Status Examination - Cognitive Function Orientation: Person, Place Memory: Intact Attention: Poor Concentration: Poor Association: WNL Fund of Knowledge: WNL - Mood Mood: Depressed, Anxious - Affect Affect: Constricted (brighter but still flat/constricted affect) - Speech Speech: Soft (underproductive) - Formal Thought Process Formal Thought Process: No Impairment - Suicidal Ideation Suicidal Ideation: No - Homicidal Ideation Homicidal Ideation: No Goal/Treatment Plan - Goal/Treatment Plan Need for Continued Stay: Remain at risks for inpatient hospitalization, Severe depression anxiety, Discharge may exacerbated symptoms, Failed transitioning, Severe functional impairment Progress Toward Problem(s) and Goals/Treatment Plan: * c/w current tx and plan * Appreciate f/u by Dr. Caldwell/Dr. Christine on 09/21/18~no active issues at this time, signed off * No new weekend lab results noted thus far * Vitals reviewed and noted below: Selected Entries 09/21/18 09/21/18 07:29 15:44 Temperature 97.9 F Pulse Rate 72 72 Respiratory 20 Rate Blood Pressure 99/68 L 120/80 * c/w Prozac 40 mg daily, remeron 15 mg HS and naltrexone 50 mg daily. * Changed klonopin from 1 mg po tid to 2 mg po AM and 1 mg HS on 09/21/18 per patient preference. Will also continue klonopin 1 mg po bid prn. * c/w slow klonopin taper, as patient tolerates. Estimated Date of D/C: 09/23/18
[2018-09-23 07:11] VITALS: BP 112/74; PULSE 75; TEMP 97.8
[2018-09-23 08:56] LABS: HEPATITIS B SURFACE AG Negative (NEGATIVE)
[2018-09-23 09:02] LABS: HEPATITIS A IGM NEGATIVE (NEGATIVE); HEPATITIS B CORE AB NEGATIVE (NEGATIVE)
[2018-09-23 09:14] LABS: HEPATITIS C ANTIBODY NEGATIVE (NEGATIVE)
[2018-09-23] MEDS: Multivitamin With Minerals Tab PO SCH (09:23)
--- NOTE | 2018-09-24 14:12 | PCM.PYCHDC ---
Mental Status Examination - Mental Status Examination Orientation: Person, Place, Situation, Time Memory: Intact Mood: Neutral Affect: Constricted (eactive and mood congruent) Speech: Appropriate Attention: WNL Concentration: WNL Association: WNL Fund of Knowledge: WNL Formal Thought Process: No Impairment Description of patient's judgement and insight: Pt has improved insight into mental and medical illness, pt was compliant with medications and unit rules and regulations, pt was going to groups, was calm, cooperative, socially appropriate, no behavioral incidents, no agitation, no aggression. Psychotic Thoughts and Behaviors: Pt denied v/a/t hallucinations, denied paranoid ideations, pt does not appear to be psychotic, and thought process is goal directed. Suicidal Ideation: No Current Homicidal Ideation?: No Plan: pt adamantly denied thoughts of harming self or others denied intent or plan. Discharge Summary - Discharge Note Reason for Hospitalization: worsening of anxiety inability to function please see admission note for more detailed information Psychiatric History (includes Medical, Family, Personal Hx): history of depression and anxiety, alcohol use disorder Laboratory Data: 09/18/18 23:55 09/18/18 23:55 Lab Results 09/21/18 11:30: Hepatitis A IgM Ab Negative, Hep Bs Antigen Negative, Hep B Core IgM Ab Negative, Hepatitis C Antibody Negative 09/19/18 07:30: RPR Nonreactive 09/19/18 07:30: TSH 3rd Generation 1.04 09/19/18 07:30: Fasting Glucose 96, Triglycerides 47, Cholesterol 177, LDL Cholesterol Direct 79, HDL Cholesterol 81 H 09/19/18 01:30: Urine Opiates Screen Negative, Urine Methadone Screen Negative, Ur Barbiturates Screen Negative, Ur Phencyclidine Scrn Negative, Ur Amphetamines Screen Negative, U Benzodiazepines Scrn Positive H, U Oth Cocaine Metabols Negative, U Cannabinoids Screen Negative 09/18/18 23:55: WBC 9.6, RBC 3.39 L, Hgb 11.6 L, Hct 34.9 L, MCV 102.9 D, MCH 34.2, MCHC 33.2, RDW 13.2, Plt Count 287, MPV 9.5 09/18/18 23:55: Alcohol, Quantitative < 10 09/18/18 23:55: Sodium 139, Potassium 3.7, Chloride 104, Carbon Dioxide 25, Anion Gap 13, BUN 9, Creatinine 0.7, Est GFR ( Amer) > 60, Est GFR (Non- Af Amer) > 60, Random Glucose 128 H, Calcium 9.5, Total Bilirubin 0.5, AST 68 H D, ALT 107 H, Alkaline Phosphatase 79, Total Protein 7.9, Albumin 4.1, Globulin 3.8, Albumin/Globulin Ratio 1.1 Vital Signs Temp Pulse Resp BP Pulse Ox 09/23/18 07:10 97.8 F 75 20 112/74 09/22/18 16:17 83 118/73 09/22/18 07:16 97.6 F 75 20 103/63 09/21/18 15:44 72 120/80 09/21/18 07:29 97.9 F 72 20 99/68 L 09/20/18 16:00 66 101/68 09/20/18 09:20 77 18 131/94 H 09/20/18 07:03 97.9 F 72 20 95/63 L 09/19/18 16:00 82 121/81 09/19/18 07:18 97.9 F 68 20 136/99 H 09/19/18 06:09 18 09/19/18 04:07 68 18 136/88 98 09/19/18 01:05 96 H 15 147/99 H 95 09/18/18 22:33 98.0 F 97 H 18 157/110 H 97 Consultations:: List each consultation separately and include: 1. Reason for request. 2. Findings. 3. Follow-up Consultations: medical consult was called for HTN please see notes for more detailed information Summary of Hospital Course include:: 1. Description of specific treatment plan utilized for patients during their course of treatmen. 2. Summarize the time-c ourse for resolution of acute symptoms and/or regressed behaviors. 3. Describe issues identified and worked on during hospitalization. 4. Describe medication utilized. 5. Describe medical problems identified and treated. 6. Reassessment of suicide risk Summary of Hospital Course: shortly pt is Soumya Granger is a 43 yo female with a history of depression and alcohol abuse with recent psych admission psychiatric inpatient unit, pt was discharged 09/17/18, last admission pt was here for depression/suicidal ideation to join her diseased son, multiple stressors, pt lost her job, was drinking daily, pt was not able to function, prior to discharge pt presented very well, pt was not depressed, not anxious, pt also did not express any thoughts of harming self or others, pt had future oriented plans [place] [facility] [place], pt also wanted to have grieving therapy/counseling. pt came 09/18/18 to ED, complaining of uncontrolled anxiety, heart palpitation, inability to sleep, please see ED notes for more detailed information. 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 most recent was 09/12/18. patient presented to be shaky, depressed, tearful, poor hygiene, please see admission note for more detailed information. Over the course of this hospitalization Klonopin was resumed 2 mg twice a day for anxiety and possible withdrawal symptoms. All other medications were continued.. Patient was stabilized on the following medications: Prozac 40 mg daily for depression Remeron 15 mg qhs for depression, sleep, appetite klonopin was started 2mg po bid, but was tapered down 1mg po tid for anxiety Folic acid, thiamine, multivitamin daily for chronic alcohol use naltrexone 50mg daily for alcohol cravings patient tolerated medications well, no side effects observed or reported, aims 0, no EPS. Over the course of this hospitalization pt was attending groups, pt also had medication management, had therapeutic milieu. Overall pt improved significantly, pt's affect became brighter, pt was less depressed, has realistic future oriented plans to apply for job, to have grieving counseling, pt was socially appropriate, no behavioral issues, pts insight improved as well and soon pt deemed to be ready for discharge. At the time of the discharge pt denied been depressed, denied thoughts of harming self or others, denied psychotic symptoms, and pt does not appeared to be psychotic, denied been anxious, pt is not in imminent danger to self or others, pt was referred to 's office, AA, NA meetings, grieving counseling, information about follow up appointment, time and address provided to the pt, it is patient responsibility to follow up with outpatient clinic, PMD as well as specialists (see note for more detailed information). In case pt will need to obtain results of studies pending at discharge pt was provided with contact information of Psychiatric Inpatient unit [phone] as well as Medical Record Department [phone]. Naltrexone treatment Counseling about alcohol cessation provided AA meetings treatment programs information was provided by the pt was discharged from the unit less than 3 days ago, pt had all of the prescriptions at home Pt was educated about safety plan in case of worsening of symptoms or in case of suicidal or homicidal ideation call 911 or go to the nearest ER, also was educated to take meds as prescribed and stay away from drugs, pt verbalized understanding. - Diagnosis (1) Benzodiazepine withdrawal Status: Acute Priority: Medium (2) MDD (major depressive disorder) Status: Chronic Priority: High - Final Diagnosis (DSM 5) Condition upon Discharge: IMPROVED Disposition: HOME/ ROUTINE Follow-up Treatment Plan: At the time of the discharge pt denied been depressed, denied thoughts of harming self or others, denied psychotic symptoms, and pt does not appeared to be psychotic, denied been anxious, pt is not in imminent danger to self or others, pt was referred to 's office, AA, NA meetings, grieving counseling, information about follow up appointment, time and address provided to the pt, it is patient responsibility to follow up with outpatient clinic, PMD as well as specialists (see note for more detailed information). In case pt will need to obtain results of studies pending at discharge pt was provided with contact information of Psychiatric Inpatient unit [phone] as well as Medical Record Department [phone]. Naltrexone treatment Counseling about alcohol cessation provided AA meetings treatment programs information was provided by the pt was discharged from the unit less than 3 days ago, pt had all of the prescri ptions at home Pt was educated about safety plan in case of worsening of symptoms or in case of suicidal or homicidal ideation call 911 or go to the nearest ER, also was educated to take meds as prescribed and stay away from drugs, pt verbalized understanding. Prescriptions/Medication Reconciliation: clonazePAM [Klonopin] 1 mg PO BID #30 tab - Smoking Cessation Smoking Cessation Medication prescribed: No Reason for not providing: denies smoking - Antipsychotic Medications Pt discharged on 2 or more routine antipsychotic medications: No
== END 2018-09-23 15:56 | disposition home or self-care (01) | DRG 754 ==
LOC: ED 22:19 → ERH 09-19 03:41 → PSYC 09-19 04:49
PROVIDERS: ADMIT Psychiatry & Neurology Psychiatry; ATTEND Psychiatry & Neurology Psychiatry
DX: F32.9 Major depressive disorder, single episode, unspecified (principal); I10 Essential (primary) hypertension; F41.9 Anxiety disorder, unspecified; F10.10 Alcohol abuse, uncomplicated; Z87.891 Personal history of nicotine dependence; Z63.4 Disappearance and death of family member

== ENCOUNTER 2018-10-26 07:22 | Emergency (ER) | payer MEDICAID ==
[2018-10-26 07:34] VITALS: BMI 34.0
[2018-10-26 07:39] VITALS: TEMP 98
[2018-10-26] MEDS ORDERED: Sodium Chloride 0.9% 1,000 ML IV STA (07:55)
--- NOTE | 2018-10-26 07:59 | ED PDOC ---
Arrival/HPI - General Historian: Patient - History of Present Illness Narrative History of Present Illness (Text): 10/26/18 07:56 43 y o female Past medical history of Hypertension, anxiety, and depression, presents to the emergency department complaining of palpitations. States she felt her heart was racing and it suddenly woke her from sleep several hrs prior this am. Denies any inciting incidents prior to onset of symptoms or recent stressors at home. States she has had palpitations like this in the past but not like this in a while. States that she also had 4 watery diarrhea episodes this am, non-bloody. Also admits to associated dizziness earlier this am also. Also admits to an episode of heartburn earlier this am with nausea. Denies fever or chills. Denies hx sick contacts or recent URI. Denies headaches, chest pain, son, vomiting, constipation, urinary complaints, or other symptoms. Past medical history: Hypertension, anxiety, and depression PSurgHx: C/s x 3 Allergies: shellfish Home meds: Hypertension med (pt unsure of name or dosage), Prozac, Klonipin Fam hx: Heart disease and Diabetes Soc hx: former smoker 1/2 ppd x 18 y (quit Nov 2017); denies EtOH or illicit drug use PMD: Dr. Gamino ([place]) Psych: Dr. Hurley Time/Duration: 1-3 hours Symptom Onset: Sudden Symptom Course: Unchanged Quality: Other (Feels like heart is racing) Severity Level: Moderate Activities at Onset: Sleeping Context: Home <Lyle Soto - Last Filed: 10/26/18 09:12> <Yuniel Elizabeth - Last Filed: 10/26/18 10:19> - General Chief Complaint: Palpitations Time Seen by Provider: 10/26/18 07:25 Past Medical History - Provider Review Nursing Documentation Reviewed: Yes - Travel History Have you recently traveled outside [place] w/in the past 3 mons?: No - Infectious Disease Hx of Infectious Diseases: None - Tetanus Immunization Tetanus Immunization: Unknown - Cardiac Hx Cardiac Disorders: Yes Hx Hypertension: Yes - Pulmonary Hx Respiratory Disorders: No Other/Comment: URI - Neurological Hx Neurological Disorder: No - HEENT Hx HEENT Disorder: No - Renal Hx Renal Disorder: No - Endocrine/Metabolic Hx Endocrine Disorders: No - Hematological/Oncological Hx Blood Disorders: No - Integumentary Hx Dermatological Disorder: No - Musculoskeletal/Rheumatological Hx Musculoskeletal Disorders: No - Gastrointestinal Hx Gastrointestinal Disorders: No - Genitourinary/Gynecological Hx Genitourinary Disorders: No - Psychiatric Hx Depression: Yes Hx Substance Use: No - Past Surgical History Past Surgical History: Non-Contributing - Surgical History Hx Section: Yes (x3) Hx Tubal Ligation: Yes - Anesthesia Hx Anesthesia: No Hx Anesthesia Reactions: No Hx Malignant Hyperthermia: No <Lyle Soto - Last Filed: 10/26/18 09:12> Family/Social History - Physician Review Nursing Documentation Reviewed: Yes Family/Social History: Diabetes, CAD/[place] Smoking Status: Former Smoker Hx Alcohol Use: Yes Hx Substance Use: No <Lyle Soto - Last Filed: 10/26/18 09:12> Allergies/Home Meds <Lyle Soto - Last Filed: 10/26/18 09:12> <Yuniel Elizabeth - Last Filed: 10/26/18 10:19> Allergies/Adverse Reactions: Allergies shellfish derived Allergy (Mild, Verified 09/19/18 05:37) ANAPHYLAXIS Review of Systems - Physician Review All systems were reviewed & negative as marked: Yes - Review of Systems Constitutional: absent: Fatigue, Weight Change, Fevers, Night Sweats Eyes: absent: Vision Changes ENT: absent: Tinnitus Respiratory: absent: SOB, Cough, Wheezing Cardiovascular: Palpitations. absent: Chest Pain, Edema, Calf Pain, MUNIZ Gastrointestinal: Nausea. absent: Abdominal Pain, Stool Changes, Constipation, Diarrhea, Vomiting Genitourinary Female: absent: Dysuria, Frequency, Urine Output Changes Musculoskeletal: absent: Arthralgias, Back Pain, Myalgias Skin: absent: Rash Neurological: Dizziness. absent: Headache Endocrine: absent: Diaphoresis Hemo/Lymphatic: absent: Adenopathy Psychiatric: absent: Anxiety, Depression <Lyle Soto - Last Filed: 10/26/18 09:12> Physical Exam Vital Signs Reviewed: Yes Vital Signs Temp Pulse Resp BP Pulse Ox 10/26/18 07:22 98.0 F 129 H 18 136/96 H 100 Temperature: Afebrile Blood Pressure: Hypertensive Pulse: Tachycardic Respiratory Rate: Normal Appearance: Positive for: Well-Appearing, Non-Toxic, Comfortable Pain Distress: None Mental Status: Positive for: Alert and Oriented X 3 - Systems Exam Head: Present: Atraumatic, Normocephalic Pupils: Present: PERRL Extroacular Muscles: Present: EOMI Conjunctiva: Present: Normal Mouth: Present: Moist Mucous Membranes Neck: Present: Normal Range of Motion. No: MIDLINE TENDERNESS, JVD, Lymphadenopathy Respiratory/Chest: Present: Clear to Auscultation, Good Air Exchange. No: Respiratory Distress, Accessory Muscle Use, Wheezes, Rales, Rhonchi Cardiovascular: Present: Normal S1, S2, Tachycardic. No: Murmurs, Rub, Gallop Abdomen: Present: Tenderness (Mild tenderness to palpation in LUQ and RUQ ), Normal Bowel Sounds. No: Distention, Peritoneal Signs, Rebound, Guarding, Mass/Organomegaly Upper Extremity: Present: Normal Inspection, Normal ROM, NORMAL PULSES, Neurovascularly Intact, Capillary Refill < 2s, Norm 2-Pt Discrimination. No: Cyanosis, Edema, Temperature Abnormalties Lower Extremity: Present: Normal Inspection, NORMAL PULSES, Normal ROM, Neurovascularly Intact, Capillary Refill < 2 s. No: Edema, CALF TENDERNESS Neurological: Present: GCS=15, CN II-XII Intact, Speech Normal, Motor Func Grossly Intact, Normal Sensory Function, Normal Cerebellar Funct, Norm Deep Tendon Reflexes, Gait Normal Skin: Present: Warm, Dry, Normal Color. No: Rashes Psychiatric: Present: Alert, Oriented x 3, Normal Insight, Normal Concentration <Lyle Soto - Last Filed: 10/26/18 09:12> Vital Signs Temp Pulse Resp BP Pulse Ox 10/26/18 07:22 98.0 F 129 H 18 136/96 H 100 <Yuniel Elizabeth - Last Filed: 10/26/18 10:19> Medical Decision Making ED Course and Treatment: 10/26/18 08:08 43 y o female Past medical history Hypertension, Anxiety, and depression, presents with palpitations x several hrs. R/o cardiac etiology. Likely 2/2 to viral gastroenteritis, volume depletion. Plan: -EKG -IVF -Labs Will continue to monitor. 10/26/18 09:06 Reassessed pt. States she is feeling better and wants to go home at this time. NSR at rate of 82 on rhythm strip. No further diarrhea episodes since being monitored in the emergency department. Mg 1.5, repleted with 400 mg Mag Oxide PO. Pt to follow-up with her PMD within 2-3 days of ER discharge. Given script for Pepcid 20 mg bid to take for heartburn symptoms. Instructed pt to call her PMD or report to her nearest emergency department if her symptoms recur or worsen. - EKG Interpretation EKG Interpretation (Text): 10/26/18 08:09 Sinus tachycardia at 121 bpm, no acute St-T wave changes appreciated. Interpreted by ED Physician: Yes Type: 12 lead EKG Comparison: Different from prev. EKG (Prior EKG on 09/19/18 in normal sinus rhythm) <Lyle Soto - Last Filed: 10/26/18 09:12> ED Course and Treatment: 10/26/18 08:29 Soumya Castro is a 43 year old female who presents to the emergency department with a complaint of palpitations. Patient has a history of hypertension, anxiety, and depression. In agreement with resident note, which includes further HPI details. Patient was seen and evaluated with resident, came up with plan and treatment together. EKG: Ordered, reviewed, and independently interpreted the EKG. Rate : 121 BPM Rhythm : Sinus Tachycardia Interpretation : No ST elevations. 10/26/18 10:19 On reevaluation, patient feels much better and is tolerating PO fluids. She will follow up with her PMD. She was advised to return to the ED if symptoms worsen or any other concern. - Medication Orders Current Medication Orders: Sodium Chloride (Sodium Chloride 0.9%) 1,000 mls @ 999 mls/hr IV .Q1H1M STA Stop: 10/26/18 08:55 Last Admin: 10/26/18 08:13 Dose: 999 mls/hr eMAR Start Stop Document 10/26/18 08:13 SRE (Rec: 10/26/18 08:14 SRE [id number]) Intravenous Solution Start Date 10/26/18 Start Time 08:13 End Date 10/26/18 End time 09:15 Total Infusion Time 62 Discontinued Medications Famotidine (Pepcid) 20 mg PO STAT STA Stop: 10/26/18 08:00 Last Admin: 10/26/18 08:14 Dose: 20 mg <Yuniel Elizabeth - Last Filed: 10/26/18 10:19> - Scribe Statement The provider has reviewed the documentation as recorded by the Scribe Chrissy Bocanegra Provider Scribe Attestation: All medical record entries made by the Scribe were at my direction and personally dictated by me. I have reviewed the chart and agree that the record accurately reflects my personal performance of the history, physical exam, medical decision making, and the department course for this patient. I have also personally directed, reviewed, and agree with the discharge instructions and disposition. <Yuniel Elizabeth - Last Filed: 10/26/18 10:19> Disposition/Present on Arrival - Present on Arrival Any Indicators Present on Arrival: No History of DVT/PE: No History of Uncontrolled Diabetes: No Urinary Catheter: No History of Decub. Ulcer: No History Surgical Site Infection Following: None - Disposition Have Diagnosis and Disposition been Completed?: Yes Disposition Time: 09:10 Patient Plan: Discharge <Lyle Soto - Last Filed: 10/26/18 09:12> <Yuniel Elizabeth - Last Filed: 10/26/18 10:19> - Disposition Diagnosis: Viral gastroenteritis Disposition: HOME/ ROUTINE Condition: IMPROVED Discharge Instructions (ExitCare): Viral Gastroenteritis, Adult (DC) Print Language: HEBREW Additional Instructions: Please follow up with your primary care physician within 2-3 days of discharge. Please hydrate with plenty of fluids and adhere to BRAT diet and advance home diet as tolerated. Can take Pepcid twice daily for heartburn symptoms. Should your symptoms recur or worsen, please call your primary care physician or report to your nearest emergency department. SOUMYA CASTRO, thank you for letting us take care of you today. Your provider was Yuniel Elizabeth DO and you were treated for RAPID HEARTBEAT. The emergency medical care you received today was directed at your acute symptoms. If you were prescribed any medication, please fill it and take as directed. It may take several days for your symptoms to resolve. Return to the Emergency Department if your symptoms worsen, do not improve, or if you have any other problems. Please contact your doctor or call one of the physicians/clinics you have been referred to that are listed on the Patient Visit Information form that is in cluded in your discharge packet. Bring any paperwork you were given at discharge with you along with any medications you are taking to your follow up visit. Our treatment cannot replace ongoing medical care by a primary care provider outside of the emergency department. Thank you for allowing the [facility] team to be part of your care today. Prescriptions: Famotidine [Pepcid] 20 mg PO BID #28 tab Referrals: Yvonne RAMÍREZ,MD Kaley [Family Provider] - Follow up with primary Forms: [employer] (Romanian)
[2018-10-26 08:33] LABS: ALB/GLOB RATIO 1.2 (1.1-1.8); ALBUMIN 4.4 g/dL (3.0-4.8); ALT/SGPT 32 U/L (7-56); AST/SGOT 39 U/L (14-36); BASO # 0.03 K/mm3 (0.0-2.0); BASO % 0.3 % (0.0-3.0); BLOOD UREA NITROGEN 26 mg/dL (7-21); CALCIUM 9.5 mg/dL (8.4-10.5); EOS # 0.1 (0.0-0.7); EOS % 1.5 % (1.5-5.0); GFR NON-AFRICAN AMERICAN > 60; GRAN # 5.66 (1.4-6.5); GRAN % 63.6 % (50.0-68.0); HEMOGLOBIN 11.8 g/dL (12.0-16.0); LYMPH # 2.5 (1.2-3.4); LYMPH % 28.3 % (22.0-35.0); MEAN CELL VOLUME 99.2 fl (80.0-105.0); MEAN CORPUSCULAR HEMOGLOBIN 32.5 pg (25.0-35.0); MEAN CORPUSCULAR HGB CONC 32.8 g/dl (31.0-37.0); MONO # 0.6 (0.1-0.6); MONO % 6.3 % (1.0-6.0); RBC 3.63 10^6/uL (3.5-6.1); RED CELL DISTRIBUTION WIDTH 12.4 % (11.5-14.5); WHITE BLOOD COUNT 8.9 10^3/uL (4.5-11.0)
[2018-10-26] MEDS ORDERED: Magnesium Oxide 400 mg Tab UD PO STA (08:37)
[2018-10-26 08:51] VITALS: BP 162/81; PULSE 80; RESP 17; O2SAT 99
--- NOTE | 2018-10-26 15:40 | CARD ---
APPROVED REPORT Date of service: 10/26/2018 EKG Measurement Heart [id number] <Conclusion> Sinus tachycardia Possible Left atrial enlargement
== END 2018-10-26 09:17 | disposition home or self-care (01) ==
LOC: ED 07:22
DX: A08.4 Viral intestinal infection, unspecified (principal); I10 Essential (primary) hypertension; F41.9 Anxiety disorder, unspecified; Z87.891 Personal history of nicotine dependence
CPT/HCPCS: 80053; 83735; 85025; 93005; 96360; 99284; J7030

== ENCOUNTER 2018-11-29 12:35 | Emergency (ER) | payer MEDICAID ==
[2018-11-29 12:36] VITALS: BMI 34.0
[2018-11-29 12:55] VITALS: RESP 18; TEMP 98.5
--- NOTE | 2018-11-29 13:39 | ED PDOC ---
Arrival/HPI - General Chief Complaint: Flu-like Symptoms Time Seen by Provider: 11/29/18 13:00 Historian: Patient - History of Present Illness Narrative History of Present Illness (Text): 11/29/18 13:39 43 year old female, with past medical history of hypertension, anxiety, and depression, presents to emergency department complaining of generalized myalgias, sore throat, and cough since earlier today. Patient reports associated nausea and vomiting for the past 2-3 days. Patient states she has received a flu shot this season. Patient denies any recent sick contact. Patient denies any fevers, chills, headache, dizziness, chest pain, shortness of breath, abdominal pain, diarrhea, back pain, neck pain, or any other complaints. Time/Duration: Other (earlier today) Symptom Onset: Gradual Symptom Course: Unchanged Activities at Onset: Light Context: Home Past Medical History - Provider Review Nursing Documentation Reviewed: Yes - Infectious Disease Hx of Infectious Diseases: None - Tetanus Immunization Tetanus Immunization: Unknown - Cardiac Hx Cardiac Disorders: Yes Hx Hypertension: Yes - Pulmonary Hx Respiratory Disorders: No Other/Comment: URI - Neurological Hx Neurological Disorder: No - HEENT Hx HEENT Disorder: No - Renal Hx Renal Disorder: No - Endocrine/Metabolic Hx Endocrine Disorders: No - Hematological/Oncological Hx Blood Disorders: No - Integumentary Hx Dermatological Disorder: No - Musculoskeletal/Rheumatological Hx Musculoskeletal Disorders: No - Gastrointestinal Hx Gastrointestinal Disorders: No - Genitourinary/Gynecological Hx Genitourinary Disorders: No - Psychiatric Hx Depression: Yes Hx Substance Use: No - Past Surgical History Past Surgical History: Non-Contributing - Surgical History Hx Section: Yes (x3) Hx Tubal Ligation: Yes - Anesthesia Hx Anesthesia: No Hx Anesthesia Reactions: No Hx Malignant Hyperthermia: No Family/Social History - Physician Review Nursing Documentation Reviewed: Yes Family/Social History: Unknown Family HX Smoking Status: Former Smoker Hx Alcohol Use: Yes Hx Substance Use: No Allergies/Home Meds Allergies/Adverse Reactions: Allergies shellfish derived Allergy (Mild, Verified 09/19/18 05:37) ANAPHYLAXIS Review of Systems - Physician Review All systems were reviewed & negative as marked: Yes - Review of Systems Constitutional: absent: Fevers ENT: Sore Throat Respiratory: Cough. absent: SOB Cardiovascular: absent: Chest Pain Gastrointestinal: Nausea, Vomiting. absent: Abdominal Pain Genitourinary Female: absent: Frequency, Hematuria, Urine Output Changes Musculoskeletal: absent: Back Pain, Neck Pain, Myalgias (generalized) Skin: absent: Rash Neurological: absent: Headache, Dizziness Physical Exam Vital Signs Reviewed: Yes Vital Signs Temp Pulse Resp BP Pulse Ox 11/29/18 12:36 98.5 F 82 18 139/92 H 98 Temperature: Afebrile Blood Pressure: Normal Pulse: Regular Respiratory Rate: Normal Appearance: Positive for: Well-Appearing, Non-Toxic, Comfortable Pain Distress: None Mental Status: Positive for: Alert and Oriented X 3 - Systems Exam Head: Present: Atraumatic, Normocephalic Pupils: Present: PERRL Extroacular Muscles: Present: EOMI Conjunctiva: Present: Normal Mouth: Present: Moist Mucous Membranes Neck: Present: Normal Range of Motion Respiratory/Chest: Present: Clear to Auscultation, Good Air Exchange. No: Respiratory Distress, Accessory Muscle Use Cardiovascular: Present: Regular Rate and Rhythm, Normal S1, S2. No: Murmurs Abdomen: No: Tenderness, Distention, Peritoneal Signs Upper Extremity: Present: Normal Inspection. No: Cyanosis, Edema Lower Extremity: Present: Normal Inspection. No: Edema Neurological: Present: GCS=15, CN II-XII Intact, Speech Normal Skin: Present: Warm, Dry, Normal Color. No: Rashes Psychiatric: Present: Alert, Oriented x 3, Normal Insight, Normal Concentration Medical Decision Making ED Course and Treatment: 11/29/18 14:18 Impression: 43 year old female presents to emergency department complaining of generalized myalgias, sore throat, and a cough since earlier today. Differential Diagnosis included but are not limited to: -- influenza -- pneumonia -- bronchitis Plan: -- Labs -- Chest X-ray -- Robitussin -- Urinalysis -- Reassess and disposition Prior Visits: Notes and results from previous visits were reviewed. Progress Notes: - RAD Interpretation Narrative RAD Interpretations (Text): 11/29/18 14:49 Chest X-ray, reviewed by radiologist: IMPRESSION: No active disease. Arcgis Developer: Radiologist - Scribe Statement The provider has reviewed the documentation as recorded by the Scribe Gualberto Kyle All medical record entries made by the Scribe were at my direction and personally dictated by me. I have reviewed the chart and agree that the record accurately reflects my personal performance of the history, physical exam, medical decision making, and the department course for this patient. I have also personally directed, reviewed, and agree with the discharge instructions and di sposition. Disposition/Present on Arrival - Present on Arrival Any Indicators Present on Arrival: No History of DVT/PE: No History of Uncontrolled Diabetes: No Urinary Catheter: No History of Decub. Ulcer: No History Surgical Site Infection Following: None - Disposition Have Diagnosis and Disposition been Completed?: Yes Diagnosis: Viral pharyngitis Disposition: HOME/ ROUTINE Disposition Time: 16:02 Patient Plan: Discharge Condition: STABLE Discharge Instructions (ExitCare): Sore Throat, Adult (DC), Viral Upper Respiratory Infection, Adult (DC) Print Language: BRAZILIAN Additional Instructions: All medical record entries made by the Scribe were at my direction and personally dictated by me. I have reviewed the chart and agree that the record accurately reflects my personal performance of the history, physical exam, medical decision making, and the department course for this patient. I have also personally directed, reviewed, and agree with the discharge instructions and disposition. Please see your PCP in 3-5 days Prescriptions: guaiFENesin [guaifENESIN] 200 mg PO Q6H #2 [facility] [place] Referrals: Adrianna Yang MD [Medical Doctor] - Follow up with primary [facility] [place] [Outside] - Follow up with primary Forms: [facility] (Armenian), WORK NOTE
[2018-11-29] MEDS ORDERED: guaiFENesin 200 mg/10 ml Syrup UD PO STA (13:46)
--- NOTE | 2018-11-29 14:30 | RAD ---
Date of service: 11/29/2018 HISTORY: sob COMPARISON: 09/18/2018 FINDINGS: LUNGS: No active pulmonary disease. PLEURA: No significant pleural effusion identified, no pneumothorax apparent. CARDIOVASCULAR: No aortic atherosclerotic calcification present. Normal cardiac size. No pulmonary vascular congestion. OSSEOUS STRUCTURES: No significant abnormalities. VISUALIZED UPPER ABDOMEN: Normal. OTHER FINDINGS: None. IMPRESSION: No active disease.
[2018-11-29 14:59] LABS: BASO # 0.02 K/mm3 (0.0-2.0); BASO % 0.3 % (0.0-3.0); EOS % 0.2 % (1.5-5.0); GRAN # 3.15 (1.4-6.5); GRAN % 50.2 % (50.0-68.0); HEMOGLOBIN 12.2 g/dL (12.0-16.0); LYMPH # 2.5 (1.2-3.4); LYMPH % 39.4 % (22.0-35.0); MEAN CELL VOLUME 97.8 fl (80.0-105.0); MEAN CORPUSCULAR HEMOGLOBIN 33.2 pg (25.0-35.0); MEAN CORPUSCULAR HGB CONC 33.9 g/dl (31.0-37.0); MEAN PLATELET VOLUME 9.8 fl (7.0-11.0); MONO # 0.6 (0.1-0.6); MONO % 9.9 % (1.0-6.0); RBC 3.68 10^6/uL (3.5-6.1); WHITE BLOOD COUNT 6.3 10^3/uL (4.5-11.0)
[2018-11-29 15:02] LABS: PH,URINE 5.5 (4.7-8.0); URINE BILIRUBIN NEGATIVE (NEGATIVE); URINE BLOOD TRACE-INTACT (NEGATIVE); URINE GLUCOSE (UA) NEGATIVE (NEGATIVE); URINE LEUKOCYTE ESTERASE NEGATIVE Leu/uL (NEGATIVE); URINE PROTEIN NEGATIVE mg/dL (<30 mg/dL); VENOUS BLOOD GAS BASE EXCESS 6.1 mmol/L (0.0-2.0); VENOUS BLOOD GAS PO2 45 mm/Hg (30-55); VENOUS BLOOD PH 7.42 (7.32-7.43)
[2018-11-29 15:06] LABS: URINE APPEARANCE CLEAR (CLEAR); URINE COLOR YELLOW (YELLOW)
[2018-11-29 15:08] LABS: URINE BACTERIA MOD /hpf; URINE EPITHELIAL CELLS MANY /hpf (0-5)
[2018-11-29 15:24] LABS: ALB/GLOB RATIO 0.9 (1.1-1.8); ALBUMIN 3.4 g/dL (3.0-4.8); BLOOD UREA NITROGEN 16 mg/dL (7-21); CALCIUM 8.7 mg/dL (8.4-10.5); GFR NON-AFRICAN AMERICAN > 60
[2018-11-29 15:33] LABS: ALT/SGPT 150 U/L (7-56); AST/SGOT 165 U/L (14-36)
[2018-11-29 16:18] VITALS: BP 128/80; PULSE 83; O2SAT 100
== END 2018-11-29 16:10 | disposition home or self-care (01) ==
LOC: ED 12:35
DX: J02.9 Acute pharyngitis, unspecified (principal); I10 Essential (primary) hypertension; Z87.891 Personal history of nicotine dependence
CPT/HCPCS: 71045; 80053; 81001; 81025; 82803; 83735; 85025; 87804; 96374; 99283; J2405

== ENCOUNTER 2018-12-04 16:34 | Inpatient (IN) | payer MEDICAID ==
[2018-12-04 17:09] VITALS: BMI 34.3
[2018-12-04 18:39] LABS: BASO # 0.01 K/mm3 (0.0-2.0); BASO % 0.3 % (0.0-3.0); GRAN # 1.97 (1.4-6.5); GRAN % 49.5 % (50.0-68.0); HEMOGLOBIN 12.6 g/dL (12.0-16.0); LYMPH # 1.5 (1.2-3.4); LYMPH % 36.8 % (22.0-35.0); MEAN CELL VOLUME 99.7 fl (80.0-105.0); MEAN CORPUSCULAR HEMOGLOBIN 36.6 pg (25.0-35.0); MEAN CORPUSCULAR HGB CONC 36.7 g/dl (31.0-37.0); MEAN PLATELET VOLUME 10.4 fl (7.0-11.0); MONO # 0.5 (0.1-0.6); MONO % 13.4 % (1.0-6.0); RBC 3.44 10^6/uL (3.5-6.1); RED CELL DISTRIBUTION WIDTH 14.9 % (11.5-14.5)
[2018-12-04 18:45] LABS: ACETAMINOPHEN < 10.0 ug/ml (10.0-20.0); SALICYLATE < 1 mg/dL (2.0-20.0)
[2018-12-04 18:55] LABS: BENZODIAZEPINES, UR NEGATIVE (NEGATIVE)
--- NOTE | 2018-12-04 18:55 | ED PDOC ---
Arrival/HPI - General Chief Complaint: Psychiatric Evaluation Time Seen by Provider: 12/04/18 16:36 Historian: Patient - History of Present Illness Narrative History of Present Illness (Text): 12/04/18 18:52 43-year-old female with a history of depression presents today with depression and suicidal ideation. Patient states that she just wants to go to sleep and . Patient admits to drinking today. Patient states his been about 1 year since her son has and she wants to join him. She denies headache dizziness or weakness no chest pain or shortness of breath. She denies abdominal pain. She denies back pain. Patient states that time she's been making herself vomit. No other complaints Past Medical History - Provider Review Nursing Documentation Reviewed: Yes - Travel History Have you recently traveled outside [place] w/in the past 3 mons?: No - Infectious Disease Hx of Infectious Diseases: None - Tetanus Immunization Tetanus Immunization: Unknown - Cardiac Hx Cardiac Disorders: Yes Hx Hypertension: Yes - Pulmonary Hx Respiratory Disorders: No Other/Comment: URI - Neurological Hx Neurological Disorder: No - HEENT Hx HEENT Disorder: No - Renal Hx Renal Disorder: No - Endocrine/Metabolic Hx Endocrine Disorders: No - Hematological/Oncological Hx Blood Disorders: No - Integumentary Hx Dermatological Disorder: No - Musculoskeletal/Rheumatological Hx Musculoskeletal Disorders: No - Gastrointestinal Hx Gastrointestinal Disorders: No - Genitourinary/Gynecological Hx Genitourinary Disorders: No - Psychiatric Hx Psychophysiologic Disorder: Yes Hx Depression: Yes Hx Substance Use: No - Past Surgical History Past Surgical History: Non-Contributing - Surgical History Hx Section: Yes (x3) Hx Tubal Ligation: Yes - Anesthesia Hx Anesthesia: No Hx Anesthesia Reactions: No Hx Malignant Hyperthermia: No Family/Social History - Physician Review Nursing Documentation Reviewed: Yes Family/Social History: Unknown Family HX Smoking Status: Former Smoker Hx Alcohol Use: Yes Hx Substance Use: No Allergies/Home Meds Allergies/Adverse Reactions: Allergies shellfish derived Allergy (Mild, Verified 09/19/18 05:37) ANAPHYLAXIS Review of Systems - Review of Systems Constitutional: absent: Fatigue, Fevers Respiratory: absent: SOB, Cough Cardiovascular: absent: Chest Pain, Palpitations Gastrointestinal: absent: Abdominal Pain, Constipation, Diarrhea, Nausea Genitourinary Female: absent: Dysuria, Frequency, Hematuria Musculoskeletal: absent: Arthralgias, Back Pain, Neck Pain Skin: absent: Rash, Pruritis Neurological: absent: Headache, Dizziness Psychiatric: absent: Anxiety, Depression Physical Exam Vital Signs Reviewed: Yes Vital Signs Temp Pulse Resp BP Pulse Ox 12/04/18 17:09 97.8 F 77 19 142/93 H 100 Temperature: Afebrile Blood Pressure: Hypertensive Pulse: Regular Respiratory Rate: Normal Appearance: Positive for: Well-Appearing, Non-Toxic, Comfortable Pain Distress: None Mental Status: Positive for: Alert and Oriented X 3, other (intoxicated) - Systems Exam Head: Present: Atraumatic Mouth: Present: Moist Mucous Membranes Neck: Present: Normal Range of Motion Respiratory/Chest: Present: Clear to Auscultation, Good Air Exchange. No: Respiratory Distress, Accessory Muscle Use Cardiovascular: Present: Regular Rate and Rhythm, Normal S1, S2. No: Murmurs Abdomen: No: Tenderness, Distention, Rebound, Guarding Upper Extremity: Present: Normal ROM Lower Extremity: Present: Normal ROM Neurological: Present: GCS=15, Speech Normal Skin: Present: Warm, Dry, Normal Color Psychiatric: Present: Alert, Oriented x 3, Intoxicated Medical Decision Making ED Course and Treatment: 12/04/18 18:55 Patient is nontoxic well-appearing in no distress vital signs are stable. pt with depression and SI. pt placed on 1:1 for SI precautions. CBC WNL CMP: PENDING Tylenol WNL Salicylate WNL Alcohol level: 175 Urine drug screen: Negative UA; + blood cxr: On 11/29/18 no active disease ekg sinus rhythm with fusion complexes a 69 bpm normal axis no ST elevations 12/04/18 19:37 pt resting comfortably ; no distress. case signed out to dr. saenz pending sobriety, medical clearance, PES evaluation and disposition. Disposition/Present on Arrival - Present on Arrival Any Indicators Present on Arrival: No History of DVT/PE: No History of Uncontrolled Diabetes: No Urinary Catheter: No History of Decub. Ulcer: No History Surgical Site Infection Following: None - Disposition Have Diagnosis and Disposition been Completed?: Yes Diagnosis: Alcohol use, Depression Disposition Time: 18:59 Patient Problems: Current Active Problems Problem Status Onset Depression Acute Alcohol use Chronic Forms: [facility] (Urdu)
[2018-12-04 18:56] LABS: URINE BILIRUBIN NEGATIVE (NEGATIVE); URINE BLOOD LARGE (NEGATIVE); URINE GLUCOSE (UA) NEGATIVE (NEGATIVE); URINE LEUKOCYTE ESTERASE NEGATIVE Leu/uL (NEGATIVE); URINE PROTEIN NEGATIVE mg/dL (<30 mg/dL); URINE UROBILINOGEN 0.2 E.U./dL (<1 E.U./dL)
[2018-12-04 19:01] LABS: BARBITURATES, UR NEGATIVE (NEGATIVE); OPIATES, UR NEGATIVE (NEGATIVE); PHENCYCLIDINE, UR NEGATIVE (NEGATIVE)
[2018-12-04 19:06] LABS: URINE APPEARANCE CLEAR (CLEAR); URINE COLOR LIGHT YELLOW (YELLOW)
[2018-12-04 19:49] LABS: URINE BACTERIA MOD /hpf
[2018-12-04] MEDS ORDERED: Magnesium Hydroxide Susp 30 ml UD PO PRN (20:46)
[2018-12-04 21:25] VITALS: O2SAT 98
[2018-12-04] MEDS ORDERED: Alum-Mag Hydrox-Simethicone Susp (30 mL) PO PRN (22:25)
[2018-12-04 22:49] VITALS: RESP 20
--- NOTE | 2018-12-04 23:17 | PCM.BM ---
Treatment Plan Problems - Problems identified on initial assessmt INEFFECTIVE COPING Date Initiated: 12/04/18 Time Initiated: 21:45 Assessment reference: NA Status: Active Priority: 1 SUICIDAL IDEATION Date Initiated: 12/04/18 Time Initiated: 21:45 Assessment reference: NA Status: Active Priority: 2 KNOWLEDGE DEFICIT: ALCOHOL USE Date Initiated: 12/04/18 Time Initiated: 21:45 Assessment reference: NA Status: Active Priority: 3 Treatment assets and liabiliti Patient Assests: cooperative, educated, insightful, self-reliant, ADL independent, physically healthy, negotiates basic needs, cognitively intact Patient Liabilities: financial problems, substance abuse, medical problems - Milieu Protocol Maintain good personal hygiene: every other day Encourage regular showers, every shift Remind patient to perform daily oral care, every shift Assist patient to perform ADL's Maintain personal safety: every shift Educate patient to report safety concerns to staff, every shift Monitor environment for contraband/sharps Medication safety: Monitor for expected outcome, potential side effects: every shift, Assess barriers to learning: every shift, Assess readiness for medication education: every shift Family Contact Family involvement: Family/SO is involved Family contact: Patient agrees to contact Discharge/Continuing Care - Education Needs Education Needs: Patient Medication, Patient Diagnosis/Disease Process, Patient Coping Skills, Patient Nutrition, Patient Health Practices/Safety - Discharge Discharge Criteria: Tolerates medication w/o severe side effects, Free of Suicidal thoughts, Free of agitation, Normal sleep pattern, Ability to care for self
[2018-12-05 07:17] VITALS: BP 134/93; PULSE 64; TEMP 98.3
[2018-12-05 08:11] LABS: ALB/GLOB RATIO 0.8 (1.1-1.8); ALBUMIN 3.4 g/dL (3.0-4.8); ALT/SGPT 147 U/L (7-56); AST/SGOT 253 U/L (14-36); BLOOD UREA NITROGEN 13 mg/dL (7-21); CALCIUM 7.9 mg/dL (8.4-10.5); GFR NON-AFRICAN AMERICAN > 60; GLUCOSE,FASTING 76 mg/dL (65-110); HDL CHOLESTEROL 19 mg/dL (29-60)
[2018-12-05 08:21] LABS: LDL CHOLESTEROL < 30 mg/dL (0-129)
[2018-12-05 08:37] LABS: BASO # 0.02 K/mm3 (0.0-2.0); BASO % 0.4 % (0.0-3.0); EOS # 0.1 (0.0-0.7); EOS % 1.3 % (1.5-5.0); GRAN # 1.27 (1.4-6.5); GRAN % 23.7 % (50.0-68.0); HEMOGLOBIN 12.4 g/dL (12.0-16.0); LYMPH # 3.5 (1.2-3.4); LYMPH % 65.1 % (22.0-35.0); MEAN CELL VOLUME 99.7 fl (80.0-105.0); MEAN CORPUSCULAR HEMOGLOBIN 36.7 pg (25.0-35.0); MEAN CORPUSCULAR HGB CONC 36.8 g/dl (31.0-37.0); MEAN PLATELET VOLUME 11.5 fl (7.0-11.0); MONO # 0.5 (0.1-0.6); MONO % 9.5 % (1.0-6.0); RBC 3.38 10^6/uL (3.5-6.1); RED CELL DISTRIBUTION WIDTH 14.9 % (11.5-14.5); WHITE BLOOD COUNT 5.4 10^3/uL (4.5-11.0)
[2018-12-05] MEDS ORDERED: Multivitamin With Minerals Tab PO SCH (09:00)
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
--- NOTE | 2018-12-05 14:09 | CP.PCM.CON ---
<Tom Varma - Last Filed: 12/05/18 15:26> History of Present Illness - History of Present Illness History of Present Illness: Hospitalist Service Consult Note Tom Varma, PGY-3 Consulted for Medical Management of psych patient This is a 43yo F with PMH of HTN, depression, and anxiety, who presented to [facility] with complaint of depression and suicidal ideation (wants to fall a sleep and never wake up). Reports depression due to loss of a child approx 1 yr ago. She was admitted to the psych unit, and the medicine team called for medical management. At time of exam, patient was resting comfortable in bed in the Psych unit. Confirms hx of HTN, reports previously on Norvasc but developed LE edema from it, so was placed on Lisinopril 3 months ago, which she tolerated well. Current complaints are dry cough x3 weeks, mild abdominal pain/discomfort, and intermittent episodes of nausea/emesis daily for approx 1 month. Denies any specific triggering or exacerbating factors for the emesis, and is able to tolerate PO intake (food and fluids) daily, although she admits she has poor appetite due to her depression; denies bilious or bloody emesis. Admits to excessive alcohol intake, 5+ shots of liquor daily for at least the last 4 weeks, and admits to shakiness/tremors when she doesn't drink. Denies ever having seizures with drinking or after not drinking alcohol for at least a day. Denies fevers, chills, chest pain, shortness of breath, headache, vision changes , dizziness, lightheadedness, emesis since admission, dysuria, hematuria, diarrhea, focal or generalized weakness. Admits to intermittent nausea since admission, abdominal discomfort, and continued depression. Not currently tremulous on exam, but has gotten 2 doses of Ativan (2mg PO) since admission, so it may be masking the symptoms. 12-system ROS reviewed and negative, except as above. PMH: as above PSH: denies Fam Hx: DM (Mother, one brother and one sister), Unspecified cardiac conditions (Mother and Father), unspecified gynecological cancer (Mother) Soc Hx: admits tobacco (1/2 ppd for 3-4 months, last smoked 1-2 weeks prior), alcohol (5+ shots of liquor/day for 4+ weeks); denies illicits/IVDA PMD: Dr. Russell Review of Systems - Review of Systems All systems: reviewed and no additional remarkable complaints except (as per HPI) Past Patient History - Infectious Disease Hx of Infectious Diseases: None - Tetanus Immunizations Tetanus Immunization: Unknown - Past Social History Smoking Status: Former Smoker - CARDIAC Hx Cardiac Disorders: Yes Hx Hypertension: Yes - PULMONARY Hx Respiratory Disorders: No Other/Comment: URI - NEUROLOGICAL Hx Neurological Disorder: No - HEENT Hx HEENT Problems: No - RENAL Hx Chronic Kidney Disease: No - ENDOCRINE/METABOLIC Hx Endocrine Disorders: No - HEMATOLOGICAL/ONCOLOGICAL Hx Blood Disorders: No - INTEGUMENTARY Hx Dermatological Problems: No - MUSCULOSKELETAL/RHEUMATOLOGICAL Hx Musculoskeletal Disorders: No - GASTROINTESTINAL Hx Gastrointestinal Disorders: No - GENITOURINARY/GYNECOLOGICAL Hx Genitourinary Disorders: No - PSYCHIATRIC Hx Psychophysiologic Disorder: Yes Hx Depression: Yes Hx Physical Abuse: No Hx Sexual Abuse: No Hx Substance Use: No - SURGICAL HISTORY Hx Section: Yes (x3) Hx Tubal Ligation: Yes - ANESTHESIA Hx Anesthesia: No Hx Anesthesia Reactions: No Hx Malignant Hyperthermia: No Meds Allergies/Adverse Reactions: Allergies Allergy/AdvReac Type Severity Reaction Status Date / Time shellfish derived Allergy Mild ANAPHYLAXIS Verified 12/04/18 23:08 - Medications Medications: Current Medications Acetaminophen (Tylenol 325mg Tab) 650 mg PO Q4H PRN PRN Reason: Pain, Mild (1-3) Last Admin: 12/05/18 06:41 Dose: 650 mg Al Hydrox/Mg Hydrox/Simethicone (Maalox Plus 30 Ml) 30 ml PO DAILY PRN PRN Reason: Upset Stomach Famotidine (Pepcid) 20 mg PO 0730 [facility] Last Admin: 12/05/18 06:42 Dose: 20 mg Fluoxetine HCl (Prozac) 40 mg PO DAILY [facility] Last Admin: 12/05/18 09:51 Dose: 40 mg Folic Acid (Folic Acid) 1 mg PO DAILY [facility] Last Admin: 12/05/18 09:54 Dose: 1 mg Gabapentin (Neurontin) 300 mg PO TID [facility]; Protocol Lorazepam (Ativan) 2 mg PO Q6H PRN; Protocol PRN Reason: Anxiety Last Admin: 12/05/18 10:20 Dose: 2 mg Lorazepam (Ativan) 2 mg PO QID [facility]; Protocol Last Admin: 12/05/18 13:52 Dose: Not Given Magnesium Hydroxide (Milk Of Magnesia) 30 ml PO DAILY PRN PRN Reason: Constipation Multivitamins/Minerals (Therapeutic-M Tab) 1 tab PO DAILY [facility] Last Admin: 12/05/18 09:50 Dose: 1 tab Thiamine HCl (Vitamin B1 Tab) 100 mg PO DAILY [facility] Last Admin: 12/05/18 09:50 Dose: 100 mg Zaleplon (Sonata) 5 mg PO HS PRN PRN Reason: Insomnia Last Admin: 12/04/18 21:59 Dose: 5 mg Physical Exam - Constitutional Appears: Non-toxic, No Acute Distress - Head Exam Head Exam: ATRAUMATIC, NORMAL INSPECTION, NORMOCEPHALIC - Eye Exam Eye Exam: EOMI, Normal appearance. absent: Conjunctival injection, Scleral icterus Pupil Exam: absent: Fixed, Irregular - ENT Exam ENT Exam: Mucous Membranes Moist - Neck Exam Neck exam: Positive for: Full Rom, Normal Inspection. Negative for: Lymphadenopathy - Respiratory Exam Respiratory Exam: Clear to Auscultation Bilateral, NORMAL BREATHING PATTERN. absent: Accessory Muscle Use, Chest Wall Tenderness, Decreased Breath Sounds, Rales, Rhonchi, Wheezes - Cardiovascular Exam Cardiovascular Exam: REGULAR RHYTHM, RRR, +S1, +S2. absent: Bradycardia, T achycardia, Diastolic murmur, Irregular Rhythm, JVD, +S4, Systolic Murmur - GI/Abdominal Exam GI & Abdominal Exam: Normal Bowel Sounds, Soft, Tenderness (mild diffuse discomfort, most prominent epigastrically but is present in all quadrants, no radiation to flanks or back). absent: Diminished Bowel Sounds, Distended, Firm, Guarding, Hyperactive Bowel Sounds, Hypoactive Bowel Sounds, Rigid - Extremities Exam Extremities exam: Positive for: normal capillary refill, normal inspection, pedal pulses present. Negative for: calf tenderness, joint swelling, tenderness - Back Exam Back exam: absent: CVA tenderness (L), CVA tenderness (R) - Neurological Exam Additional comments: awake and alert, oriented to self/location/year moving all extremities spontaneously and on command Normal gait observed Motor grossly intact and equal bilaterally No appreciable tremulousness at rest or with movement - Psychiatric Exam Psychiatric exam: Depressed Additional comments: passive suicidal ideation (wants to sleep and never wake up), but denies active desire or attempt to self harm - Skin Skin Exam: Dry, Intact, Normal Color, Warm Results - Vital Signs Recent Vital Signs: Last Vital Signs Temp 98.3 F 12/05/18 07:16 Pulse 64 12/05/18 07:16 Resp 20 12/05/18 07:16 BP 134/93 H 12/05/18 07:16 Pulse Ox 98 12/04/18 21:24 - Labs Result Diagrams: 12/05/18 07:30 12/05/18 07:30 Labs: Laboratory Results - last 24 hr 12/04/18 12/04/18 12/04/18 18:20 18:20 18:20 WBC 4.0 L D RBC 3.44 L Hgb 12.6 Hct 34.3 L MCV 99.7 MCH 36.6 H MCHC 36.7 RDW 14.9 H Plt Count 262 MPV 10.4 Gran % 49.5 L Lymph % (Auto) 36.8 H [place] % (Auto) 13.4 H Eos % (Auto) 0.0 L Baso % (Auto) 0.3 Gran # 1.97 Lymph # (Auto) 1.5 [place] # (Auto) 0.5 Eos # (Auto) 0.0 Baso # (Auto) 0.01 Sodium Potassium Chloride Carbon Dioxide Anion Gap BUN Creatinine Est GFR ( Amer) Est GFR (Non-Af Amer) Random Glucose Fasting Glucose Calcium Total Bilirubin AST ALT Alkaline Phosphatase Total Protein Albumin Globulin Albumin/Globulin Ratio Triglycerides Cholesterol LDL Cholesterol Direct HDL Cholesterol Lipase TSH 3rd Generation Urine Color Urine Appearance Urine pH Ur Specific [place] Urine Protein Urine Glucose (UA) Urine Ketones Urine Blood Urine Nitrate Urine Bilirubin Urine Urobilinogen Ur Leukocyte Esterase Urine RBC Urine WBC Ur Epithelial Cells Urine Bacteria Salicylates < 1 L Urine Opiates Screen Negative Urine Methadone Screen Negative Acetaminophen < 10.0 L Ur Barbiturates Screen Negative Ur Phencyclidine Scrn Negative Ur Amphetamines Screen Negative U Benzodiazepines Scrn Negative U Oth Cocaine Metabols Negative U Cannabinoids Screen Negative Alcohol, Quantitative 12/04/18 12/04/18 12/05/18 18:20 18:40 07:30 WBC RBC Hgb Hct MCV MCH MCHC RDW Plt Count MPV Gran % Lymph % (Auto) [place] % (Auto) Eos % (Auto) Baso % (Auto) Gran # Lymph # (Auto) [place] # (Auto) Eos # (Auto) Baso # (Auto) Sodium 136 Potassium 5.2 H Chloride 102 Carbon Dioxide 25 Anion Gap 14 BUN 13 Creatinine 0.9 Est GFR ( Amer) > 60 Est GFR (Non-Af Amer) > 60 Random Glucose 76 Fasting Glucose 76 Calcium 7.9 L Total Bilirubin 2.2 H AST 253 H D ALT 147 H Alkaline Phosphatase 113 Total Protein 7.7 Albumin 3.4 Globulin 4.3 Albumin/Globulin Ratio 0.8 L Triglycerides 3930 H Cholesterol 235 H LDL Cholesterol Direct < 30 HDL Cholesterol 19 L Lipase TSH 3rd Generation Urine Color Light yellow Urine Appearance Clear Urine pH 6.0 Ur Specific [place] 1.010 Urine Protein Negative Urine Glucose (UA) Negative Urine Ketones Negative Urine Blood Large H Urine Nitrate Negative Urine Bilirubin Negative Urine Urobilinogen 0.2 Ur Leukocyte Esterase Negative Urine RBC 5 - 10 H Urine WBC 1 - 3 Ur Epithelial Cells 1 - 3 Urine Bacteria Mod Salicylates Urine Opiates Screen Urine Methadone Screen Acetaminophen Ur Barbiturates Screen Ur Phencyclidine Scrn Ur Amphetamines Screen U Benzodiazepines Scrn U Oth Cocaine Metabols U Cannabinoids Screen Alcohol, Quantitative 175 H 12/05/18 12/05/18 12/05/18 07:30 07:30 12:00 WBC 5.4 D RBC 3.38 L Hgb 12.4 Hct 33.7 L MCV 99.7 MCH 36.7 H MCHC 36.8 RDW 14.9 H Plt Count 300 MPV 11.5 H Gran % 23.7 L Lymph % (Auto) 65.1 H [place] % (Auto) 9.5 H Eos % (Auto) 1.3 L Baso % (Auto) 0.4 Gran # 1.27 L Lymph # (Auto) 3.5 H [place] # (Auto) 0.5 Eos # (Auto) 0.1 Baso # (Auto) 0.02 Sodium Potassium Chloride Carbon Dioxide Anion Gap BUN Creatinine Est GFR ( Amer) Est GFR (Non-Af Amer) Random Glucose Fasting Glucose Calcium Total Bilirubin AST ALT Alkaline Phosphatase Total Protein Albumin Globulin Albumin/Globulin Ratio Triglycerides Cholesterol LDL Cholesterol Direct HDL Cholesterol Lipase 59 TSH 3rd Generation 2.43 Urine Color Urine Appearance Urine pH Ur Specific [place] Urine Protein Urine Glucose (UA) Urine Ketones Urine Blood Urine Nitrate Urine Bilirubin Urine Urobilinogen Ur Leukocyte Esterase Urine RBC Urine WBC Ur Epithelial Cells Urine Bacteria Salicylates Urine Opiates Screen Urine Methadone Screen Acetaminophen Ur Barbiturates Screen Ur Phencyclidine Scrn Ur Amphetamines Screen U Benzodiazepines Scrn U Oth Cocaine Metabols U Cannabinoids Screen Alcohol, Quantitative 12/05/18 12:30 WBC RBC Hgb Hct MCV MCH MCHC RDW Plt Count MPV Gran % Lymph % (Auto) [place] % (Auto) Eos % (Auto) Baso % (Auto) Gran # Lymph # (Auto) [place] # (Auto) Eos # (Auto) Baso # (Auto) Sodium Potassium Chloride Carbon Dioxide Anion Gap BUN Creatinine Est GFR ( Amer) Est GFR (Non-Af Amer) Random Glucose Fasting Glucose Calcium Total Bilirubin AST ALT Alkaline Phosphatase Total Protein Albumin Globulin Albumin/Globulin Ratio Triglycerides 2991 H Cholesterol LDL Cholesterol Direct HDL Cholesterol Lipase TSH 3rd Generation Urine Color Urine Appearance Urine pH Ur Specific [place] Urine Protein Urine Glucose (UA) Urine Ketones Urine Blood Urine Nitrate Urine Bilirubin Urine Urobilinogen Ur Leukocyte Esterase Urine RBC Urine WBC Ur Epithelial Cells Urine Bacteria Salicylates Urine Opiates Screen Urine Methadone Screen Acetaminophen Ur Barbiturates Screen Ur Phencyclidine Scrn Ur Amphetamines Screen U Benzodiazepines Scrn U Oth Cocaine Metabols U Cannabinoids Screen Alcohol, Quantitative Assessment & Plan - Assessment and Plan (Free Text) Assessment: This is a 43yo F with PMH of HTN, depression, and anxiety, who presented to [facility] with complaint of depression and suicidal ideation (wants to fall asleep and never wake up). Reports depression due to loss of a child approx 1 yr ago. She was admitted to the psych unit, and the medicine team called for medical management. Plan: Labs obtained overnight and this AM reviewed, and were acutely concerning for severe hypertriglyceridemia (3930). Due to this acute/severe finding, patient will require inpatient admission and insulin drip, so patient will likely require ICU admission. Patient headed for CT abd/pelvis, then will be transferred to the ED. Psych attending (Dr. Freeman) aware and agrees with need for medical admission, will follow patient on floors as success[employer] consultant. I ntensivist notified regarding patient and will evaluate when patient arrives in the ED. Patient seen, reviewed, and discussed with attending, Dr. Bowie. <Mary Jane Bowie - Last Filed: 12/05/18 16:48> Meds - Medications Medications: Current Medications Acetaminophen (Tylenol 325mg Tab) 650 mg PO Q4H PRN PRN Reason: Pain, Mild (1-3) Last Admin: 12/05/18 06:41 Dose: 650 mg Al Hydrox/Mg Hydrox/Simethicone (Maalox Plus 30 Ml) 30 ml PO DAILY PRN PRN Reason: Upset Stomach Famotidine (Pepcid) 20 mg PO 0730 [facility] Last Admin: 12/05/18 06:42 Dose: 20 mg Fluoxetine HCl (Prozac) 40 mg PO DAILY [facility] Last Admin: 12/05/18 09:51 Dose: 40 mg Folic Acid (Folic Acid) 1 mg PO DAILY [facility] Last Admin: 12/05/18 09:54 Dose: 1 mg Gabapentin (Neurontin) 300 mg PO TID [facility]; Protocol Last Admin: 12/05/18 13:00 Dose: Not Given Lorazepam (Ativan) 2 mg PO Q6H PRN; Protocol PRN Reason: Anxiety Last Admin: 12/05/18 10:20 Dose: 2 mg Lorazepam (Ativan) 2 mg PO QID [facility]; Protocol Last Admin: 12/05/18 13:52 Dose: Not Given Magnesium Hydroxide (Milk Of Magnesia) 30 ml PO DAILY PRN PRN Reason: Constipation Multivitamins/Minerals (Therapeutic-M Tab) 1 tab PO DAILY [facility] Last Admin: 12/05/18 09:50 Dose: 1 tab Thiamine HCl (Vitamin B1 Tab) 100 mg PO DAILY [facility] Last Admin: 12/05/18 09:50 Dose: 100 mg Zaleplon (Sonata) 5 mg PO HS PRN PRN Reason: Insomnia Last Admin: 12/04/18 21:59 Dose: 5 mg Results - Vital Signs Recent Vital Signs: Last Vital Signs Temp 98.3 F 12/05/18 07:16 Pulse 64 12/05/18 07:16 Resp 20 12/05/18 07:16 BP 134/93 H 12/05/18 07:16 Pulse Ox 98 12/04/18 21:24 - Labs Result Diagrams: 12/05/18 07:30 12/05/18 07:30 Labs: Laboratory Results - last 24 hr 12/04/18 12/04/18 12/04/18 18:20 18:20 18:20 WBC 4.0 L D RBC 3.44 L Hgb 12.6 Hct 34.3 L MCV 99.7 MCH 36.6 H MCHC 36.7 RDW 14.9 H Plt Count 262 MPV 10.4 Gran % 49.5 L Lymph % (Auto) 36.8 H [place] % (Auto) 13.4 H Eos % (Auto) 0.0 L Baso % (Auto) 0.3 Gran # 1.97 Lymph # (Auto) 1.5 [place] # (Auto) 0.5 Eos # (Auto) 0.0 Baso # (Auto) 0.01 Sodium Potassium Chloride Carbon Dioxide Anion Gap BUN Creatinine Est GFR ( Amer) Est GFR (Non-Af Amer) Random Glucose Fasting Glucose Calcium Total Bilirubin AST ALT Alkaline Phosphatase Total Protein Albumin Globulin Albumin/Globulin Ratio Triglycerides Cholesterol LDL Cholesterol Direct HDL Cholesterol Lipase TSH 3rd Generation Urine Color Urine Appearance Urine pH Ur Specific [place] Urine Protein Urine Glucose (UA) Urine Ketones Urine Blood Urine Nitrate Urine Bilirubin Urine Urobilinogen Ur Leukocyte Esterase Urine RBC Urine WBC Ur Epithelial Cells Urine Bacteria Salicylates < 1 L Urine Opiates Screen Negative Urine Methadone Screen Negative Acetaminophen < 10.0 L Ur Barbiturates Screen Negative Ur Phencyclidine Scrn Negative Ur Amphetamines Screen Negative U Benzodiazepines Scrn Negative U Oth Cocaine Metabols Negative U Cannabinoids Screen Negative Alcohol, Quantitative 12/04/18 12/04/18 12/05/18 18:20 18:40 07:30 WBC RBC Hgb Hct MCV MCH MCHC RDW Plt Count MPV Gran % Lymph % (Auto) [place] % (Auto) Eos % (Auto) Baso % (Auto) Gran # Lymph # (Auto) [place] # (Auto) Eos # (Auto) Baso # (Auto) Sodium 136 Potassium 5.2 H Chloride 102 Carbon Dioxide 25 Anion Gap 14 BUN 13 Creatinine 0.9 Est GFR ( Amer) > 60 Est GFR (Non-Af Amer) > 60 Random Glucose 76 Fasting Glucose 76 Calcium 7.9 L Total Bilirubin 2.2 H AST 253 H D ALT 147 H Alkaline Phosphatase 113 Total Protein 7.7 Albumin 3.4 Globulin 4.3 Albumin/Globulin Ratio 0.8 L Triglycerides 3930 H Cholesterol 235 H LDL Cholesterol Direct < 30 HDL Cholesterol 19 L Lipase TSH 3rd Generation Urine Color Light yellow Urine Appearance Clear Urine pH 6.0 Ur Specific [place] 1.010 Urine Protein Negative Urine Glucose (UA) Negative Urine Ketones Negative Urine Blood Large H Urine Nitrate Negative Urine Bilirubin Negative Urine Urobilinogen 0.2 Ur Leukocyte Esterase Negative Urine RBC 5 - 10 H Urine WBC 1 - 3 Ur Epithelial Cells 1 - 3 Urine Bacteria Mod Salicylates Urine Opiates Screen Urine Methadone Screen Acetaminophen Ur Barbiturates Screen Ur Phencyclidine Scrn Ur Amphetamines Screen U Benzodiazepines Scrn U Oth Cocaine Metabols U Cannabinoids Screen Alcohol, Quantitative 175 H 12/05/18 12/05/18 12/05/18 07:30 07:30 12:00 WBC 5.4 D RBC 3.38 L Hgb 12.4 Hct 33.7 L MCV 99.7 MCH 36.7 H MCHC 36.8 RDW 14.9 H Plt Count 300 MPV 11.5 H Gran % 23.7 L Lymph % (Auto) 65.1 H [place] % (Auto) 9.5 H Eos % (Auto) 1.3 L Baso % (Auto) 0.4 Gran # 1.27 L Lymph # (Auto) 3.5 H [place] # (Auto) 0.5 Eos # (Auto) 0.1 Baso # (Auto) 0.02 Sodium Potassium Chloride Carbon Dioxide Anion Gap BUN Creatinine Est GFR ( Amer) Est GFR (Non-Af Amer) Random Glucose Fasting Glucose Calcium Total Bilirubin AST ALT Alkaline Phosphatase Total Protein Albumin Globulin Albumin/Globulin Ratio Triglycerides Cholesterol LDL Cholesterol Direct HDL Cholesterol Lipase 59 TSH 3rd Generation 2.43 Urine Color Urine Appearance Urine pH Ur Specific [place] Urine Protein Urine Glucose (UA) Urine Ketones Urine Blood Urine Nitrate Urine Bilirubin Urine Urobilinogen Ur Leukocyte Esterase Urine RBC Urine WBC Ur Epithelial Cells Urine Bacteria Salicylates Urine Opiates Screen Urine Methadone Screen Acetaminophen Ur Barbiturates Screen Ur Phencyclidine Scrn Ur Amphetamines Screen U Benzodiazepines Scrn U Oth Cocaine Metabols U Cannabinoids Screen Alcohol, Quantitative 12/05/18 12:30 WBC RBC Hgb Hct MCV MCH MCHC RDW Plt Count MPV Gran % Lymph % (Auto) [place] % (Auto) Eos % (Auto) Baso % (Auto) Gran # Lymph # (Auto) [place] # (Auto) Eos # (Auto) Baso # (Auto) Sodium Potassium Chloride Carbon Dioxide Anion Gap BUN Creatinine Est GFR ( Amer) Est GFR (Non-Af Amer) Random Glucose Fasting Glucose Calcium Total Bilirubin AST ALT Alkaline Phosphatase Total Protein Albumin Globulin Albumin/Globulin Ratio Triglycerides 2991 H Cholesterol LDL Cholesterol Direct HDL Cholesterol Lipase TSH 3rd Generation Urine Color Urine Appearance Urine pH Ur Specific [place] Urine Protein Urine Glucose (UA) Urine Ketones Urine Blood Urine Nitrate Urine Bilirubin Urine Urobilinogen Ur Leukocyte Esterase Urine RBC Urine WBC Ur Epithelial Cells Urine Bacteria Salicylates Urine Opiates Screen Urine Methadone Screen Acetaminophen Ur Barbiturates Screen Ur Phencyclidine Scrn Ur Amphetamines Screen U Benzodiazepines Scrn U Oth Cocaine Metabols U Cannabinoids Screen Alcohol, Quantitative Attending/Attestation - Attestation I have personally seen and examined this patient.: Yes I have fully participated in the care of the patient.: Yes I have reviewed all pertinent clinical information: Yes Notes (Text): Patient seen and examined by me with resident at 12PM on 12/05/18 in the emergency room. Case including HPI, physical exam, and assessment and plan discussed with resident. Agree with above with following additions/corrections. Patient is a 43-year-old female past medical history significant for hypertension, depression and anxiety that presented to the emergency room on 12/04/2018 with depression and suicidal ideations. Patient was admitted to psychiatric unit. Medicine team consulted for medical management. Patient states that she has been drinking for approximately a month. She states that she drinks approximately 6 shots of whiskey daily. She has been feeling depressed that she lost her son in 2017. Patient states that she has also been having epigastric pain, nausea, and vomiting for approximately 2-3 weeks. She states that she has not been able to eat much. The epigastric pain is sharp and comes and goes. Patient did not try anything at home for this. No radiation of the pain. She states that she also has a history of constipation for which she drinks prune juice with improvement. Patient denies any headaches or dizziness. No lightheadedness. No fevers or chills. No dysuria. No chest pain or shortness of breath. No palpitations. Patient had bowel movement earlier. 12 point review of systems reviewed by me. Please see above HPI, all other systems negative. Family history. The and had a history of a gynecologic cancer. Father and had cardiac disease. Surgical history. 3. Patient had throat surgery at the age of 7. The patient is unsure why. Allergies: Shellfish, reaction: Anaphylaxis Medications at home. Prozac, Remeron, Klonopin, lisinopril, and Pepcid Physical exam: General: Awake and alert lying in bed in no acute distress HEENT: Normocephalic, atraumatic. Extraocular muscles intact, pupils equal and reactive, no scleral icterus. Oropharynx is pink and moist. No pharyngeal erythema or exudate appreciated. Ears and nose externally unremarkable. Neck is supple. Cardiovascular: Normal rhythm. Normal S1-S2. No murmurs, rubs, or gallops appreciated Pulmonary: Normal respiratory effort. No rhonchi, rales, or wheezing ap preciated. Gastrointestinal: Soft, nondistended. Positive epigastric tenderness. Positive bowel sounds all 4 quadrants. No guarding. Obese abdomen Musculoskeletal: Moves all extremities. No calf tenderness. No edema appreciated. Central nervous system: AAO 3. CN 2-12 grossly intact. Dermatologic: Skin warm and dry. Assessment and plan: Patient is a 43-year-old female past medical history si gnificant for hypertension, depression and anxiety that presented to the emergency room on 12/04/2018 with depression and suicidal ideations. Patient was admitted to psychiatric unit. Medicine team consulted for medical management. 1. Severe Hypertriglyceridemia. Epigastric pain. Follow-up CT abdomen and pelvis. Patient to be discharged to emergency room for admission to medical floors. 2. Elevated LFTs. Likely secondary to alcohol abuse. Follow-up CT abdomen and pelvis. Patient counseled at length on alcohol cessation. Continue to monitor LFTs. 3. Hypertension. We'll hold home lisinopril for now as patient has a little bit of hyperkalemia. Continue to monitor 4. Suicidal ideations/depression/anxiety. Care as per primary team. Case was discussed in detail with the patient regarding current diagnosis and treatment plan. All questions answered. Thank you for allowing us to participate in the care of your patient.
--- NOTE | 2018-12-05 14:16 | CT ---
Date of service: 12/05/2018 PROCEDURE: CT Abdomen and Pelvis without intravenous contrast HISTORY: severe hypertriglyceridemia, evalutate pancreas COMPARISON: None. TECHNIQUE: Without contrast. Contrast dose: Radiation dose: Total exam DLP = 1026.67 mGy-cm. This CT exam was performed using one or more of the following dose reduction techniques: Automated exposure control, adjustment of the mA and/or kV according to patient size, and/or use of iterative reconstruction technique. FINDINGS: LOWER THORAX: Unremarkable. LIVER: There is fatty infiltration of the liver and hepatomegaly. The liver measures 24 cm transversely and 22 cm in height.. GALLBLADDER AND BILE DUCTS: Unremarkable. PANCREAS: Unremarkable. No gross lesion or ductal dilatation. SPLEEN: Unremarkable. ADRENALS: Unremarkable. No mass. KIDNEYS AND URETERS: Unremarkable. No hydronephrosis. No solid mass. VASCULATURE: Unremarkable. No aortic aneurysm. No aortic atherosclerotic calcification or mural plaque present. BOWEL: Unremarkable. No obstruction. No gross mural thickening. APPENDIX: Unremarkable. Normal appendix. PERITONEUM: Unremarkable. No free fluid. No free air. LYMPH NODES: Unremarkable. No enlarged lymph nodes. BLADDER: Unremarkable. REPRODUCTIVE: Unremarkable. BONES: No acute fracture. OTHER FINDINGS: None. IMPRESSION: Severe fatty infiltration of the liver and hepatomegaly. No acute intra-abdominal findings
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
--- NOTE | 2018-12-05 15:48 | CARD ---
APPROVED REPORT Date of service: 12/04/2018 EKG Measurement Heart [id number] <Conclusion> Sinus rhythm Peaked T waves 1, V 2
== END 2018-12-05 14:26 | disposition short-term general hospital (02) | DRG 426 ==
LOC: ED 16:34 → ERH 20:16 → PSYC 21:43
PROVIDERS: ADMIT Psychiatry & Neurology Psychiatry; ATTEND Psychiatry & Neurology Psychiatry
DX: F32.9 Major depressive disorder, single episode, unspecified (principal); F10.239 Alcohol dependence with withdrawal, unspecified; E87.5 Hyperkalemia; R45.851 Suicidal ideations; I10 Essential (primary) hypertension; E78.1 Pure hyperglyceridemia; F17.210 Nicotine dependence, cigarettes, uncomplicated; F41.9 Anxiety disorder, unspecified; Y90.6 Blood alcohol level of 120-199 mg/100 ml; Z56.0 Unemployment, unspecified

== ENCOUNTER 2018-12-05 13:57 | Inpatient (IN) | payer MEDICAID ==
[2018-12-05] MEDS ORDERED: Insulin Regular 100 UNITS in Sodium Chloride 0.9% 99 ML IV PRN (14:38)
[2018-12-05] MEDS ORDERED: Dextrose 50% SYRINGE Inj (50 ml) IV PRN (14:38)
--- NOTE | 2018-12-05 14:45 | ED PDOC ---
Arrival/HPI - General Chief Complaint: Abnormal Labs Time Seen by Provider: 12/05/18 13:59 Historian: Patient - History of Present Illness Narrative History of Present Illness (Text): 12/05/18 14:30 43 y/o F, with past medical history of hypertension, depression and alcohol abuse, presents to the ED for evaluation of hypertrigylceridemia today. Patient was previously admitted to the psychiatric unit, where routine labs showed elevated triglyceride level. Patient informs family history of diabetes and admits to drinking large quantity of alcohol. Patient denies any somatic complaints. Patient denies any fever, chills, nausea, vomiting, abdominal pain, chest pain, shortness of breath, headache, dizziness or any other complaints. Patient was evaluated by hospitalist team prior to arrival and had ICU consult placed. Time/Duration: Prior to Arrival Symptom Onset: Gradual Symptom Course: Unchanged Activities at Onset: Light Context: Other (Transferred from psychiatric unit) Past Medical History - Provider Review Nursing Documentation Reviewed: Yes - Infectious Disease Hx of Infectious Diseases: None - Tetanus Immunization Tetanus Immunization: Unknown - Cardiac Hx Cardiac Disorders: Yes Hx Hypertension: Yes - Pulmonary Hx Respiratory Disorders: No Other/Comment: URI - Neurological Hx Neurological Disorder: No - HEENT Hx HEENT Disorder: No - Renal Hx Renal Disorder: No - Endocrine/Metabolic Hx Endocrine Disorders: No - Hematological/Oncological Hx Blood Disorders: No - Integumentary Hx Dermatological Disorder: No - Musculoskeletal/Rheumatological Hx Musculoskeletal Disorders: No - Gastrointestinal Hx Gastrointestinal Disorders: No - Genitourinary/Gynecological Hx Genitourinary Disorders: No - Psychiatric Hx Psychophysiologic Disorder: Yes Hx Depression: Yes Hx Physical Abuse: No Hx Sexual Abuse: No Hx Substance Use: No - Past Surgical History Past Surgical History: Non-Contributing - Surgical History Hx Section: Yes (x3) Hx Tubal Ligation: Yes - Anesthesia Hx Anesthesia: No Hx Anesthesia Reactions: No Hx Malignant Hyperthermia: No Family/Social History - Physician Review Nursing Documentation Reviewed: Yes Family/Social History: No Known Family HX Smoking Status: Former Smoker Hx Alcohol Use: Yes Hx Substance Use: No Allergies/Home Meds Allergies/Adverse Reactions: Allergies shellfish derived Allergy (Mild, Verified 12/04/18 23:08) ANAPHYLAXIS Review of Systems - Physician Review All systems were reviewed & negative as marked: Yes - Review of Systems Constitutional: absent: Fevers Respiratory: absent: SOB, Cough Cardiovascular: absent: Chest Pain Gastrointestinal: absent: Abdominal Pain, Diarrhea, Nausea, Vomiting Genitourinary Female: absent: Dysuria, Urine Output Changes Musculoskeletal: absent: Back Pain, Neck Pain Skin: absent: Rash Neurological: absent: Headache, Dizziness Psychiatric: absent: Anxiety Physical Exam Appearance: Positive for: Well-Appearing, Non-Toxic, Comfortable Pain Distress: None Mental Status: Positive for: Alert and Oriented X 3 - Systems Exam Head: Present: Atraumatic, Normocephalic Pupils: Present: PERRL Extroacular Muscles: Present: EOMI Conjunctiva: Present: Normal Respiratory/Chest: Present: Clear to Auscultation, Good Air Exchange. No: Respiratory Distress, Accessory Muscle Use Cardiovascular: Present: Regular Rate and Rhythm, Normal S1, S2. No: Murmurs Abdomen: No: Tenderness, Distention, Peritoneal Signs Upper Extremity: Present: Normal Inspection. No: Cyanosis, Edema Lower Extremity: Present: Normal Inspection. No: Edema Neurological: Present: GCS=15, CN II-XII Intact, Speech Normal Skin: Present: Warm, Dry, Normal Color. No: Rashes Psychiatric: Present: Alert, Oriented x 3, Normal Insight, Normal Concentration Medical Decision Making ED Course and Treatment: 12/05/18 14:28 Impression: 43 year old female presents to the ED for evaluation of hypertrigylceridemia. Differential Diagnosis included but are not limited to: -- Hypertrigylceridemia Plan: -- Reassess and disposition Prior Visits: Notes and results from previous visits were reviewed. Progress Notes: - Medication Orders Current Medication Orders: Dextrose (Dextrose 50% Inj) 0 ml IV STAT PRN; Protocol PRN Reason: Hypoglycemia Protocol Fluoxetine HCl (Prozac) 40 mg PO DAILY [facility] Folic Acid (Folic Acid) 1 mg PO DAILY [facility] Gemfibrozil (Lopid) 600 mg PO BID [facility] Dextrose (Dextrose 5% In Water 1000 Ml) 1,000 mls @ 0 mls/hr IV .Q0M PRN; Protocol PRN Reason: Hypoglycemia Protocol Dextrose/Lactated Ringer's (Dextrose 5%/Lactated Ringer's) 1,000 mls @ 150 mls /hr IV .Q6H40M [facility] Insulin Human Regular 100 (units/ Sodium Chloride) 100 mls @ 5 mls/hr IV .Q20H PRN; Protocol PRN Reason: TITRATE PER MD ORDER - Scribe Statement The provider has reviewed the documentation as recorded by the Scribe Snehal Rice. All medical record entries made by the Scribe were at my direction and personally dictated by me. I have reviewed the chart and agree that the record accurately reflects my personal performance of the history, physical exam, medical decision making, and the department course for this patient. I have also personally directed, reviewed, and agree with the discharge instructions and disposition. Disposition/Present on Arrival - Present on Arrival History of DVT/PE: No History of Uncontrolled Diabetes: No Urinary Catheter: No History of Decub. Ulcer: No History Surgical Site Infection Following: None - Disposition Patient Problems: Current Active Problems Problem Status Onset Depression Acute Alcohol use Chronic Referrals: Yvonne RAMÍREZ,MD Kaley [Primary Care Provider] - Follow up with primary Forms: [employer] (Guinean)
--- NOTE | 2018-12-05 14:56 | CP.PCM.CON ---
History of Present Illness - History of Present Illness History of Present Illness: 43 year old female with a history of HTN, alcohol abuse, anxiety/depression, presenting from psychiatry with elevated triglyceride level, with requested evaluation for plasmapheresis. The patient reports to some abdominal pain but no N/V. She dose admit to drinking several shots of liquor daily since losing her son last year. Past medical history: HTN, alcohol abuse, anxiety/depression Past surgical history: Family history: Mother had endometrial cancer Social history: Denies tobacco, drinks 4-5 shots daily, denies illicit drug use. Allergies: NKDA Review of systems: All remaining review of systems including HEENT, cardiovascular, respiratory, gastrointestinal, genitourinary, musculoskeletal, dermatologic, neurologic, and psychiatric are negative unless mentioned in the HPI. Past Patient History - Infectious Disease Hx of Infectious Diseases: None - Tetanus Immunizations Tetanus Immunization: Unknown - Past Social History Smoking Status: Former Smoker - CARDIAC Hx Cardiac Disorders: Yes Hx Hypertension: Yes - PULMONARY Hx Respiratory Disorders: No Other/Comment: URI - NEUROLOGICAL Hx Neurological Disorder: No - HEENT Hx HEENT Problems: No - RENAL Hx Chronic Kidney Disease: No - ENDOCRINE/METABOLIC Hx Endocrine Disorders: No - HEMATOLOGICAL/ONCOLOGICAL Hx Blood Disorders: No - INTEGUMENTARY Hx Dermatological Problems: No - MUSCULOSKELETAL/RHEUMATOLOGICAL Hx Musculoskeletal Disorders: No - GASTROINTESTINAL Hx Gastrointestinal Disorders: No - GENITOURINARY/GYNECOLOGICAL Hx Genitourinary Disorders: No - PSYCHIATRIC Hx Psychophysiologic Disorder: Yes Hx Depression: Yes Hx Physical Abuse: No Hx Sexual Abuse: No Hx Substance Use: No - SURGICAL HISTORY Hx Section: Yes (x3) Hx Tubal Ligation: Yes - ANESTHESIA Hx Anesthesia: No Hx Anesthesia Reactions: No Hx Malignant Hyperthermia: No Meds Allergies/Adverse Reactions: Allergies Allergy/AdvReac Type Severity Reaction Status Date / Time shellfish derived Allergy Mild ANAPHYLAXIS Verified 12/04/18 23:08 - Medications Medications: Current Medications Dextrose (Dextrose 50% Inj) 0 ml IV STAT PRN; Protocol PRN Reason: Hypoglycemia Protocol Fluoxetine HCl (Prozac) 40 mg PO DAILY [facility] Folic Acid (Folic Acid) 1 mg PO DAILY [facility] Gemfibrozil (Lopid) 600 mg PO BID [facility] Dextrose (Dextrose 5% In Water 1000 Ml) 1,000 mls @ 0 mls/hr IV .Q0M PRN; Protocol PRN Reason: Hypoglycemia Protocol Dextrose/Lactated Ringer's (Dextrose 5%/Lactated Ringer's) 1,000 mls @ 150 mls/hr IV .Q6H40M [facility] Insulin Human Regular 100 (units/ Sodium Chloride) 100 mls @ 5 mls/hr IV .Q20H PRN; Protocol PRN Reason: TITRATE PER MD ORDER Lorazepam (Ativan) 1 mg IVP Q6H [facility]; Protocol Lorazepam (Ativan) 1 mg IVP Q3H PRN; Protocol PRN Reason: Symptoms of alcohol withdrawl Multivitamins (Thera Tab) 1 tab PO 0800 [facility] Thiamine HCl (Vitamin B1 Tab) 100 mg PO DAILY [facility] Physical Exam - Head Exam Head Exam: ATRAUMATIC - Eye Exam Eye Exam: Normal appearance - ENT Exam ENT Exam: Mucous Membranes Dry - Respiratory Exam Respiratory Exam: NORMAL BREATHING PATTERN - Cardiovascular Exam Cardiovascular Exam: +S1, +S2 - Extremities Exam Extremities exam: Positive for: normal inspection - Neurological Exam Neurological exam: Oriented x3 - Psychiatric Exam Psychiatric exam: Anxious - Skin Skin Exam: Warm Assessment & Plan (1) Hypertriglyceridemia Assessment and Plan: no current hemodynamic instability, hypocalcemia, or pancreatitis does not currently require therapeutic plasmapheresis - will monitor with you daily agree with pharmacologic treatment for elevated triglyceride DVT prophylaxis Thank you for this interesting consult. Status: Acute
[2018-12-05] MEDS: Dextrose 5%/Lactated Ringer's 1,000 ML IV SCH ×2 (15:13→22:10)
--- NOTE | 2018-12-05 15:15 | CP.PCM.HP ---
<Tom Varma - Last Filed: 12/05/18 16:07> History of Present Illness - History of Present Illness History of Present Illness: Hospitalist Service H&P Tom Varma, PGY-3 CC: Incidentally discovered severe hypertriglyceridemia This is a 43yo F with PMH of HTN, depression, and anxiety, who presented to [facility] overnight with complaint of depression and suicidal ideation (wants to fall asleep and never wake up). She was originally admitted to the psych unit overnight, and the medicine team called for medical management (please see consult note for further details), however, labs this AM were acutely concerning for severe hypertriglyceridemia of 3930, so patient was transferred to the ED for medical floors admission. Labs/vitals since arrival last night reviewed. Acutely concerning is the hypertriglyceridemia of 3930 (improved to 2991 on recheck) and elevated alcohol level of 175 at time of admit last night. Additionally of note, prior TG levels obtained on prior visits have never been elevated (ranged 40's-120's, last was 47 on 09/19/18). She is only mildly hypocalcemic at 7.9, which corrected for albumin is 8.4. She had mildly elevated LFTs (likely 2/2 alcohol), but normal creatinine, blood counts, and is hemodynamically stable. At time of exam, patient was resting comfortably in bed. Currently, only complaint is mild abdominal discomfort, anxiety (due to revelation of severe hypertriglyceridemia), and the depression that led her to present to [facility] ED last night. Denies fevers, chills, chest pain, shortness of breath, headache, vision changes, dizziness, lightheadedness, emesis since admission, dysuria, hematuria, diarrhea, focal or generalized weakness. Reports sensation of tremulousness, but this has not been observed by med staff or examiner. She does now admit that her episodes of emesis over the last 2 weeks were actually self-induced. 12-system ROS reviewed and negative, except as above. PMH: as above PSH: denies Fam Hx: DM (Mother, one brother and one sister), Unspecified cardiac conditions (Mother and Father), unspecified gynecological cancer (Mother) Soc Hx: admits tobacco (1/2 ppd for 3-4 months, last smoked 1-2 weeks prior), alcohol (5+ shots of liquor/day for 4+ weeks); denies illicits/IVDA PMD: Dr. Russell Present on Admission - Present on Admission Any Indicators Present on Admission: No History of DVT/PE: No History of Uncontrolled Diabetes: No Urinary Catheter: No Review of Systems - Review of Systems All systems: reviewed and no additional remarkable complaints except (as per HPI) Past Patient History - Infectious Disease Hx of Infectious Diseases: None - Tetanus Immunizations Tetanus Immunization: Unknown - Past Social History Smoking Status: Former Smoker - CARDIAC Hx Cardiac Disorders: Yes Hx Hypertension: Yes - PULMONARY Hx Respiratory Disorders: No Other/Comment: URI - NEUROLOGICAL Hx Neurological Disorder: No - HEENT Hx HEENT Problems: No - RENAL Hx Chronic Kidney Disease: No - ENDOCRINE/METABOLIC Hx Endocrine Disorders: No - HEMATOLOGICAL/ONCOLOGICAL Hx Blood Disorders: No - INTEGUMENTARY Hx Dermatological Problems: No - MUSCULOSKELETAL/RHEUMATOLOGICAL Hx Musculoskeletal Disorders: No - GASTROINTESTINAL Hx Gastrointestinal Disorders: No - GENITOURINARY/GYNECOLOGICAL Hx Genitourinary Disorders: No - PSYCHIATRIC Hx Psychophysiologic Disorder: Yes Hx Depression: Yes Hx Physical Abuse: No Hx Sexual Abuse: No Hx Substance Use: No - SURGICAL HISTORY Hx Section: Yes (x3) Hx Tubal Ligation: Yes - ANESTHESIA Hx Anesthesia: No Hx Anesthesia Reactions: No Hx Malignant Hyperthermia: No Meds Allergies/Adverse Reactions: Allergies Allergy/AdvReac Type Severity Reaction Status Date / Time shellfish derived Allergy Mild ANAPHYLAXIS Verified 12/04/18 23:08 amlodipine [From Norvasc] AdvReac ANGIOEDEMA Verified 12/05/18 17:10 Physical Exam - Additional Findings Additional findings: - Constitutional Appears: Non-toxic, No Acute Distress - Head Exam Head Exam: ATRAUMATIC, NORMAL INSPECTION, NORMOCEPHALIC - Eye Exam Eye Exam: EOMI, Normal appearance. absent: Conjunctival injection, Scleral icterus Pupil Exam: absent: Fixed, Irregular - ENT Exam ENT Exam: Mucous Membranes Moist - Neck Exam Neck exam: Positive for: Full Rom, Normal Inspection. Negative for: Lymphadenopathy - Respiratory Exam Respiratory Exam: Clear to Auscultation Bilateral, NORMAL BREATHING PATTERN. absent: Accessory Muscle Use, Chest Wall Tenderness, Decreased Breath Sounds, Rales, Rhonchi, Wheezes - Cardiovascular Exam Cardiovascular Exam: REGULAR RHYTHM, RRR, +S1, +S2. absent: Bradycardia, Tachycardia, Diastolic murmur, Irregular Rhythm, JVD, +S4, Systolic Murmur - GI/Abdominal Exam GI & Abdominal Exam: Normal Bowel Sounds, Soft, Tenderness (mild diffuse discomfort, most prominent epigastrically but is present in all quadrants, no radiation to flanks or back). absent: Diminished Bowel Sounds, Distended, Firm, Guarding, Hyperactive Bowel Sounds, Hypoactive Bowel Sounds, Rigid - Extremities Exam Extremities exam: Positive for: normal capillary refill, normal inspection, pedal pulses present. Negative for: calf tenderness, joint swelling, tenderness - Back Exam Back exam: absent: CVA tenderness (L), CVA tenderness (R) - Neurological Exam awake and alert, oriented to self/location/year moving all extremities spontaneously and on command Normal gait observed on psych floor Motor grossly intact and equal bilaterally No appreciable tremulousness at rest or with movement - Psychiatric Exam Psychiatric exam: Depressed, passive suicidal ideation (wants to sleep and never wake up) without active desire or attempt to self harm - Skin Skin Exam: Dry, Intact, Normal Color, Warm Assessment & Plan - Assessment and Plan (Free Text) Assessment: This is a 43yo F with PMH of HTN, depression, and anxiety, who presented to [facility] overnight with complaint of depression and suicidal ideation (wants to fall asleep and never wake up), who was later found to have severe hypertriglyceridemia. She has been transferred from Psych to ED, and will be admitted to ICU due to need for Insulin drip. Plan: Severe Hypertriglyceridemia HTN Anxiety/Depression Passive Suicidal ideation Alcohol abuse and withdrawal Transaminitis Mild GI distress -Severe hypertriglyceridemia, likely 2/2 alcohol abuse vs undiagnosed familial cholesterol condition -A1c ordered to rule out diabetes given presentation and family history -CT abd/pelvis notable for severe fatty infiltration of liver and hepatomegaly, but no acute intra-abdominal findings -Insulin drip and LR with D5 started, gemfibrozil 600mg BID, avoid statin due to elevated LFTs Discussed case with industrial sweeper cleaner (Dr. Enamorado), who accepts to ICU due to insulin drip and possible need for plasmapheresis Trend lipids daily, q1 fingersticks due to insulin drip -Lipase 25, no inflammation of pancreas on CT abd/pelvis, so less likely acute pancreatitis at this time; abd pain more likely 2/2 alcohol abuse vs induced emesis -Transaminitis likely 2/2 alcohol abuse vs fatty liver, will trend and monitor -No signs of alcohol withdrawal on exams, but alcohol level 175 on admit starting IV ativan 1mg q6 nitin and 1mg q3 prn continue thiamine/folic acid/MV -BP currently well controlled, will hold on on restarting home Lisinopril at this time -Dr. Goncalves (Heme-onc) and Dr. Up (Nephro) consulted, appreciate their recs; no need for plasmapheresis at this time, but will continue to monitor -Dr. Freeman (Psych) consulted, appreciate her recs; patient does not require 1:1 precaution as she only exhibits passive suicidal ideation, will follow patient on floors as remediation consultant Continue home prozac (does not increase lipid or triglyceride levels), will hold klonopin in favor of ativan already on board for alcohol withdrawal Dispo: ICU for insulin drip and pheresis if needed Ppx: Protonix for GI, Heparin SC for DVT Seen, reviewed, and discussed with attending, Dr. Bowie. Decision To Admit - Pt Status Changed To: Hospital Disposition Of: Inpatient Admission - Admit Certification Admit to Inpatient:: After my assessment, the patient will require hospitalization for at least two midnights. This is because of the severity of symptoms shown, intensity of services needed, and/or the medical risk in this patient being treated as an outpatient. - . Bed Request Type: Critical Care <Mary Jane Bowie - Last Filed: 12/05/18 17:43> Results - Vital Signs Recent Vital Signs: Last Vital Signs Temp 98 F 12/05/18 15:16 Pulse 78 12/05/18 16:01 Resp 118 H 12/05/18 16:01 BP 135/78 12/05/18 15:16 Pulse Ox 98 12/05/18 15:16 - Labs Labs: Laboratory Results - last 24 hr 12/05/18 16:12 POC Glucose (mg/dL) 116 H Attending/Attestation - Attestation I have personally seen and examined this patient.: Yes I have fully participated in the care of the patient.: Yes I have reviewed all pertinent clinical information: Yes Notes (Text): Patient seen and examined by me with resident at 2:30PM on 12/05/18 in the e mergency room. Case including HPI, physical exam, and assessment and plan discussed with resident. Agree with above with following additions/corrections. Patient is a 43-year-old female past medical history significant for hypertension, depression and anxiety that presented to the emergency room on 12/04/2018 with depression and suicidal ideations. Patient was admitted to psychiatric unit. Patient seen by medicine team in psychiatric unit and found to have severe hypertriglycerdemia. Patient transferred to emergency room for admission to medical floors. Patient states that she has been drinking for approximately a month. She states that she drinks approximately 6 shots of whiskey daily secondary to depression. She has been feeling depressed since she lost her son approximately one year ag o. Patient states she had been drinking heavily previously and stopped and restarted again approximately one month ago. Patient states that she has also been having epigastric pain, nausea, and vomiting for approximately 2-3 weeks. The epigastric pain is sharp and comes and goes. No radiation of the pain. She states that she has not been able to eat much. Patient did not try anything at home for this. She states that she also has a history of constipation for which she drinks prune juice with improvement. Patient denies any headaches or dizziness. No lightheadedness. No fevers or chills. No dysuria. No chest pain or shortness of breath. No palpitations. Patient had bowel movement earlier. 12 point review of systems reviewed by me. Please see above HPI, all other systems negative. Family history. The and had a history of a gynecologic cancer. Father and had cardiac disease. Surgical history. 3. Patient had throat surgery at the age of 7. The patient is unsure why. Allergies: Shellfish, reaction: Anaphylaxis Medications at home. Prozac, Remeron, Klonopin, lisinopril, and Pepcid Physical exam: General: Awake and alert lying in bed in no acute distress HEENT: Normocephalic, atraumatic. Extraocular muscles intact, pupils equal and reactive, no scleral icterus. Oropharynx is pink and moist. No pharyngeal erythema or exudate appreciated. Ears and nose externally unremarkable. Neck is supple. Cardiovascular: Normal rhythm. Normal S1-S2. No murmurs, rubs, or gallops appreciated Pulmonary: Normal respiratory effort. No rhonchi, rales, or wheezing appreciated. Gastrointestinal: Soft, nondistended. Positive epigastric tenderness. Positive bowel sounds all 4 quadrants. No guarding. Obese abdomen Musculoskeletal: Moves all extremities. No calf tenderness. No edema appreciated. Central nervous system: AAO 3. CN 2-12 grossly intact. Dermatologic: Skin warm and dry. Assessment and plan: Patient is a 43-year-old female past medical history significant for hypertension, depression and anxiety that presented to the emergency room on 12/04/2018 with depression and suicidal ideations. Patient was admitted to psychiatric unit. Patient seen by medicine team in psychiatric unit and found to have severe hypertriglycerdemia. Patient transferred to emergency room for admission to medical floors. 1. Severe Hypertriglyceridemia. Epigastric pain. CT abdomen and pelvis per radiologist showed severe fatty infiltration of the liver and hepatomegaly, no acute intra-abdominal findings. Patient to be admitted to the ICU and placed on insulin drip. Accu-Cheks to be monitored closely. Patient also started on gemfibrozil. Also placed on D5 IV fluids. Nephrology and hem/onc consulted. 2. Elevated LFTs. Likely secondary to alcohol abuse. Patient also with severe fatty infiltration on CT abd/pelvis. Patient counseled on diet and exercise. Patient counseled at length on alcohol cessation. Continue to monitor LFTs. 3. Alcohol abuse. Counseled on cessation. Monitor for withdrawal. Continue thiamine, folic acid, and multivitamin. Placed on Ativan. 4. Hypertension. Hold home lisinopril for now. Monitor blood pressure closely in ICU and add if needed. 5. Suicidal ideations/depression/anxiety. Continue Prozac. Psych consulted. Patient does not need 1:[address] Hernandez. 6. GI/DVT prophylaxis. Protonix/heparin Case was discussed in detail with the patient regarding current diagnosis and treatment plan. All questions answered. Also discussed with Pack Press Operator Dr. Enamorado.
--- NOTE | 2018-12-05 15:23 | CP.PCM.CON ---
<ДмитрийFernandez - Last Filed: 12/05/18 16:54> History of Present Illness - History of Present Illness History of Present Illness: Fernandez Choe, PGY-1, ICU Consult Note for Dr. Enamorado 43 year old female with past medical history of depression, anxiety, and hypertension presents with 2 week history of self-induced vomiting because patient felt like food was not progressing successfully through intestines. Patient reports vomiting 2-3 times daily for the past two weeks and had noticed some blood in the vomit as well. Patient also reports abdominal pain that is relieved when patient has a bowel movement. Patient has no current abdominal pain because patient had a bowel movement earlier today. Patient reports drinking 1 bottle of wine daily. Patient's son 1 year ago and patient has been depressed due to that incident and has had passive but no active thoughts of suicidal ideation. ROS is positive for constipation. Patient denies fever, chills, chest pain, shortness of breath, dysuria, hematuria, numbness/tingling, new skin lesion. 12-point ROS was unremarkable except for what was mentioned above. PMH: as mentioned above PSH: 3 C-sections FMHx: diabetes mellitus type II, hypertension, CAD, endometrial cancer SHx: smoked 1/4 PPD for 2-3 years. Stopped 1 year ago. Currently drinks 1 bottle of wine daily. denies recreational drug use Allergies: shellfish PMD: Dr. Russell Home Rx: prozac, clonipin, pepcid, lisinopril, remeron Review of Systems - Review of Systems Review of Systems: except for what was mentioned in HPI Past Patient History - Infectious Disease Hx of Infectious Diseases: None - Tetanus Immunizations Tetanus Immunization: Unknown - Past Social History Smoking Status: Former Smoker - CARDIAC Hx Cardiac Disorders: Yes Hx Hypertension: Yes - PULMONARY Hx Respiratory Disorders: No Other/Comment: URI - NEUROLOGICAL Hx Neurological Disorder: No - HEENT Hx HEENT Problems: No - RENAL Hx Chronic Kidney Disease: No - ENDOCRINE/METABOLIC Hx Endocrine Disorders: No - HEMATOLOGICAL/ONCOLOGICAL Hx Blood Disorders: No - INTEGUMENTARY Hx Dermatological Problems: No - MUSCULOSKELETAL/RHEUMATOLOGICAL Hx Musculoskeletal Disorders: No - GASTROINTESTINAL Hx Gastrointestinal Disorders: No - GENITOURINARY/GYNECOLOGICAL Hx Genitourinary Disorders: No - PSYCHIATRIC Hx Psychophysiologic Disorder: Yes Hx Depression: Yes Hx Physical Abuse: No Hx Sexual Abuse: No Hx Substance Use: No - SURGICAL HISTORY Hx Section: Yes (x3) Hx Tubal Ligation: Yes - ANESTHESIA Hx Anesthesia: No Hx Anesthesia Reactions: No Hx Malignant Hyperthermia: No Meds Allergies/Adverse Reactions: Allergies Allergy/AdvReac Type Severity Reaction Status Date / Time shellfish derived Allergy Mild ANAPHYLAXIS Verified 12/04/18 23:08 amlodipine [From [facility]] AdvReac ANGIOEDEMA Verified 12/05/18 17:10 - Medications Medications: Current Medications Dextrose (Dextrose 50% Inj) 0 ml IV STAT PRN; Protocol PRN Reason: Hypoglycemia Protocol Fluoxetine HCl (Prozac) 40 mg PO DAILY [facility] Folic Acid (Folic Acid) 1 mg PO DAILY [facility] Gemfibrozil (Lopid) 600 mg PO BID [facility] Dextrose (Dextrose 5% In Water 1000 Ml) 1,000 mls @ 0 mls/hr IV .Q0M PRN; Protocol PRN Reason: Hypoglycemia Protocol Dextrose/Lactated Ringer's (Dextrose 5%/Lactated Ringer's) 1,000 mls @ 150 mls/hr IV .Q6H40M [facility] Insulin Human Regular 100 (units/ Sodium Chloride) 100 mls @ 5 mls/hr IV .Q20H PRN; Protocol PRN Reason: TITRATE PER MD ORDER Lorazepam (Ativan) 1 mg IVP Q6H [facility]; Protocol Lorazepam (Ativan) 1 mg IVP Q3H PRN; Protocol PRN Reason: Symptoms of alcohol withdrawl Multivitamins (Thera Tab) 1 tab PO 0800 [facility] Thiamine HCl (Vitamin B1 Tab) 100 mg PO DAILY [facility] Physical Exam - Constitutional Appears: Well, Non-toxic, No Acute Distress - Head Exam Head Exam: ATRAUMATIC, NORMAL INSPECTION, NORMOCEPHALIC - Eye Exam Eye Exam: EOMI, PERRL - ENT Exam ENT Exam: Mucous Membranes Moist - Respiratory Exam Respiratory Exam: Clear to Auscultation Bilateral, NORMAL BREATHING PATTERN - Cardiovascular Exam Cardiovascular Exam: Tachycardia, REGULAR RHYTHM - GI/Abdominal Exam GI & Abdominal Exam: Normal Bowel Sounds, Soft. absent: Tenderness - Extremities Exam Extremities exam: Positive for: full ROM - Back Exam Back exam: NORMAL INSPECTION - Neurological Exam Neurological exam: Alert, CN II-XII Intact, Oriented x3 - Psychiatric Exam Psychiatric exam: Anxious - Skin Skin Exam: Dry, Intact, Normal Color Assessment & Plan - Assessment and Plan (Free Text) Assessment: 43 year old female with past medical history of depression, anxiety, and hypertension presents with 2 week history of self-induced vomiting because patient felt like food was not progressing successfully through intestines. Patient was found to have elevated triglyceride level in the psychiatry department of 3930. Plan: Neuro: Alcohol withdrawal -AAOx3, no FND, moving extremities past midline. -Patient has extensive history of alcohol abuse -[facility] protocol initiated -Ativan 1 mg Q6, 1 mg Q3PRN -LR+Dextrose 5% at 150 cc/hr -Thiamine 100 mg PO daily, multivitamin 1 tablet daily, and folic acid 1 mg daily. -Monitor neuro status. -Reorient patient as necessary. Cardio: Hypertension -RRR, normotensive, no signs of HD compromise -Maintain MAP>65. -Patient reports lisinopril for hypertension. Confirm with pharmacy. Currently, patient is not hypertensive. -Monitor for S/S, HD compromise. Pulm: -No signs of respiratory distress. CTA B/L -Patient is stating well on room air. -Maintain O2 saturation>95%. -O2 NC PRN -Elevate bed to 30 degrees GI: -NPO diet until triglyceride level<500. -Elevated AST, ALT at 253 and 147 respectively. -Lipase: 59 -No signs of pancreatitis at this time. GI prophylaxis -Protonix 40 mg daily /Nephro: -BUN/Cr stable at 13/0.9 -UA 12/04: large blood, negative nitrite, negative leukocyte esterase, 5-10 RBC, 1-3 WBC, 1-3 epithelial cells, moderate bacteria -Good urine output -Continue monitoring. -Replete electrolytes as needed. -Maintain euvolemia. Endocrinology: Hypertriglyceridemia -Triglyceride level: 3930 on admission. Reduced to 2991. -Insulin IV drip at 5 U/hr -Lopid 600 mg PO daily -Random glucose: 76 -Recheck POC glucose Q1 -Recheck lipid panel daily. Once patient's triglyceride<500, stop insulin drip. -As per Heme/Onc, Dr. Goncalves, no plans for plasmapharesis at this time. -As per Nephrology, Dr. Hollis, no plans for plasmapharesis at this time. -Maintain euglycemia. Heme/Onc: -H/H stable at 12.4/33.7 -No signs of HD compromise. -Continue monitoring H/H DVT prophylaxis -Heparin 5000 U subQ Q8 ID: -Afebrile, no leukocytosis -Monitor for signs and symptoms of infection. Patient seen and examined with Dr. Enamorado - Date & Time Date: 12/05/18 Time: 15:25 <Kenya Enamorado - Last Filed: 12/06/18 13:01> Meds - Medications Medications: Current Medications Dextrose (Dextrose 50% Inj) 0 ml IV STAT PRN; Protocol PRN Reason: Hypoglycemia Protocol Last Admin: 12/05/18 19:13 Dose: 50 ml Fluoxetine HCl (Prozac) 40 mg PO DAILY [facility] Last Admin: 12/06/18 09:42 Dose: 40 mg Folic Acid (Folic Acid) 1 mg PO DAILY [facility] Last Admin: 12/06/18 09:43 Dose: 1 mg Gemfibrozil (Lopid) 600 mg PO BID [facility] Last Admin: 12/06/18 09:42 Dose: 600 mg Heparin Sodium (Porcine) (Heparin) 5,000 units SC Q8 [facility]; Protocol Last Admin: 12/06/18 05:38 Dose: 5,000 units Dextrose (Dextrose 5% In Water 1000 Ml) 1,000 mls @ 0 mls/hr IV .Q0M PRN; Protocol PRN Reason: Hypoglycemia Protocol Insulin Human Regular 100 (units/ Sodium Chloride) 100 mls @ 5 mls/hr IV .Q20H PRN; Protocol PRN Reason: TITRATE PER MD ORDER Last Titration: 12/06/18 08:29 Dose: 0 units/hr, 0 mls/hr Lorazepam (Ativan) 2 mg PO Q6H PRN; Protocol PRN Reason: Anxiety Lorazepam (Ativan) 2 mg PO QID [facility]; Protocol Multivitamins (Thera Tab) 1 tab PO 0800 [facility] Last Admin: 12/06/18 09:42 Dose: 1 tab Pantoprazole Sodium (Protonix Inj) 40 mg IVP DAILY [facility] Last Admin: 12/06/18 09:52 Dose: 40 mg Thiamine HCl (Vitamin B1 Tab) 100 mg PO DAILY [facility] Last Admin: 12/06/18 09:48 Dose: 100 mg Results - Vital Signs Recent Vital Signs: Last Vital Signs Temp 98.1 F 12/06/18 04:00 Pulse 70 12/06/18 06:20 Resp 22 12/06/18 06:20 BP 108/64 12/06/18 06:00 Pulse Ox 100 12/06/18 06:20 - Labs Result Diagrams: 12/06/18 06:15 12/06/18 06:15 Labs: Laboratory Results - last 24 hr 12/05/18 12/05/18 12/05/18 15:00 15:08 16:12 WBC RBC Hgb Hct MCV MCH MCHC RDW Plt Count MPV Gran % Lymph % (Auto) [place] % (Auto) Eos % (Auto) Baso % (Auto) Gran # Lymph # (Auto) [place] # (Auto) Eos # (Auto) Baso # (Auto) Neutrophils % (Manual) Lymphocytes % (Manual) Monocytes % (Manual) Eosinophils % (Manual) Platelet Evaluation Sodium Potassium Chloride Carbon Dioxide Anion Gap BUN Creatinine Est GFR ( Amer) Est GFR (Non-Af Amer) POC Glucose (mg/dL) 109 116 H Random Glucose Hemoglobin A1c 4.8 Calcium Phosphorus Magnesium Total Bilirubin AST ALT Alkaline Phosphatase Total Protein Albumin Globulin Albumin/Globulin Ratio Triglycerides Cholesterol LDL Cholesterol Direct HDL Cholesterol 12/05/18 12/05/18 12/05/18 16:58 18:03 19:02 WBC RBC Hgb Hct MCV MCH MCHC RDW Plt Count MPV Gran % Lymph % (Auto) [place] % (Auto) Eos % (Auto) Baso % (Auto) Gran # Lymph # (Auto) [place] # (Auto) Eos # (Auto) Baso # (Auto) Neutrophils % (Manual) Lymphocytes % (Manual) Monocytes % (Manual) Eosinophils % (Manual) Platelet Evaluation Sodium Potassium Chloride Carbon Dioxide Anion Gap BUN Creatinine Est GFR ( Amer) Est GFR (Non-Af Amer) POC Glucose (mg/dL) 67 94 58 L Random Glucose Hemoglobin A1c Calcium Phosphorus Magnesium Total Bilirubin AST ALT Alkaline Phosphatase Total Protein Albumin Globulin Albumin/Globulin Ratio Triglycerides Cholesterol LDL Cholesterol Direct HDL Cholesterol 12/05/18 12/05/18 12/05/18 20:05 21:06 22:02 WBC RBC Hgb Hct MCV MCH MCHC RDW Plt Count MPV Gran % Lymph % (Auto) [place] % (Auto) Eos % (Auto) Baso % (Auto) Gran # Lymph # (Auto) [place] # (Auto) Eos # (Auto) Baso # (Auto) Neutrophils % (Manual) Lymphocytes % (Manual) Monocytes % (Manual) Eosinophils % (Manual) Platelet Evaluation Sodium Potassium Chloride Carbon Dioxide Anion Gap BUN Creatinine Est GFR ( Amer) Est GFR (Non-Af Amer) POC Glucose (mg/dL) 122 H 89 82 Random Glucose Hemoglobin A1c Calcium Phosphorus Magnesium Total Bilirubin AST ALT Alkaline Phosphatase Total Protein Albumin Globulin Albumin/Globulin Ratio Triglycerides Cholesterol LDL Cholesterol Direct HDL Cholesterol 12/05/18 12/06/18 12/06/18 23:28 00:00 01:13 WBC RBC Hgb Hct MCV MCH MCHC RDW Plt Count MPV Gran % Lymph % (Auto) [place] % (Auto) Eos % (Auto) Baso % (Auto) Gran # Lymph # (Auto) [place] # (Auto) Eos # (Auto) Baso # (Auto) Neutrophils % (Manual) Lymphocytes % (Manual) Monocytes % (Manual) Eosinophils % (Manual) Platelet Evaluation Sodium Potassium Chloride Carbon Dioxide Anion Gap BUN Creatinine Est GFR ( Amer) Est GFR (Non-Af Amer) POC Glucose (mg/dL) 83 98 93 Random Glucose Hemoglobin A1c Calcium Phosphorus Magnesium Total Bilirubin AST ALT Alkaline Phosphatase Total Protein Albumin Globulin Albumin/Globulin Ratio Triglycerides Cholesterol LDL Cholesterol Direct HDL Cholesterol 12/06/18 12/06/18 12/06/18 02:35 03:25 04:05 WBC RBC Hgb Hct MCV MCH MCHC RDW Plt Count MPV Gran % Lymph % (Auto) [place] % (Auto) Eos % (Auto) Baso % (Auto) Gran # Lymph # (Auto) [place] # (Auto) Eos # (Auto) Baso # (Auto) Neutrophils % (Manual) Lymphocytes % (Manual) Monocytes % (Manual) Eosinophils % (Manual) Platelet Evaluation Sodium Potassium Chloride Carbon Dioxide Anion Gap BUN Creatinine Est GFR ( Amer) Est GFR (Non-Af Amer) POC Glucose (mg/dL) 106 103 100 Random Glucose Hemoglobin A1c Calcium Phosphorus Magnesium Total Bilirubin AST ALT Alkaline Phosphatase Total Protein Albumin Globulin Albumin/Globulin Ratio Triglycerides Cholesterol LDL Cholesterol Direct HDL Cholesterol 12/06/18 12/06/18 12/06/18 05:29 06:11 06:15 WBC 4.2 L D RBC 3.30 L Hgb 10.9 L Hct 32.6 L MCV 98.8 MCH 33.0 MCHC 33.4 RDW 15.0 H Plt Count 185 MPV 10.2 Gran % 20.9 L Lymph % (Auto) 71.3 H [place] % (Auto) 5.7 Eos % (Auto) 1.9 Baso % (Auto) 0.2 Gran # 0.88 L Lymph # (Auto) 3.0 [place] # (Auto) 0.2 Eos # (Auto) 0.1 Baso # (Auto) 0.01 Neutrophils % (Manual) 33 L Lymphocytes % (Manual) 63 H Monocytes % (Manual) 2 Eosinophils % (Manual) 2 Platelet Evaluation Normal Sodium Potassium Chloride Carbon Dioxide Anion Gap BUN Creatinine Est GFR ( Amer) Est GFR (Non-Af Amer) POC Glucose (mg/dL) 101 108 Random Glucose Hemoglobin A1c Calcium Phosphorus Magnesium Total Bilirubin AST ALT Alkaline Phosphatase Total Protein Albumin Globulin Albumin/Globulin Ratio Triglycerides Cholesterol LDL Cholesterol Direct HDL Cholesterol 12/06/18 12/06/18 12/06/18 06:15 07:02 08:02 WBC RBC Hgb Hct MCV MCH MCHC RDW Plt Count MPV Gran % Lymph % (Auto) [place] % (Auto) Eos % (Auto) Baso % (Auto) Gran # Lymph # (Auto) [place] # (Auto) Eos # (Auto) Baso # (Auto) Neutrophils % (Manual) Lymphocytes % (Manual) Monocytes % (Manual) Eosinophils % (Manual) Platelet Evaluation Sodium 138 Potassium 4.0 Chloride 106 Carbon Dioxide 27 Anion Gap 8 L BUN 5 L Creatinine 0.8 Est GFR ( Amer) > 60 Est GFR (Non-Af Amer) > 60 POC Glucose (mg/dL) 106 97 Random Glucose 99 Hemoglobin A1c Calcium 8.2 L Phosphorus 3.3 Magnesium 2.0 Total Bilirubin 1.6 H AST 194 H D ALT 131 H Alkaline Phosphatase 98 Total Protein 6.3 Albumin 2.8 L Globulin 3.5 Albumin/Globulin Ratio 0.8 L Triglycerides 467 H Cholesterol 286 H LDL Cholesterol Direct 62 HDL Cholesterol 29 12/06/18 09:29 WBC RBC Hgb Hct MCV MCH MCHC RDW Plt Count MPV Gran % Lymph % (Auto) [place] % (Auto) Eos % (Auto) Baso % (Auto) Gran # Lymph # (Auto) [place] # (Auto) Eos # (Auto) Baso # (Auto) Neutrophils % (Manual) Lymphocytes % (Manual) Monocytes % (Manual) Eosinophils % (Manual) Platelet Evaluation Sodium Potassium Chloride Carbon Dioxide Anion Gap BUN Creatinine Est GFR ( Amer) Est GFR (Non-Af Amer) POC Glucose (mg/dL) 106 Random Glucose Hemoglobin A1c Calcium Phosphorus Magnesium Total Bilirubin AST ALT Alkaline Phosphatase Total Protein Albumin Globulin Albumin/Globulin Ratio Triglycerides Cholesterol LDL Cholesterol Direct HDL Cholesterol Addendum Addendum: 12/05/18 1800 Patient seen and examined with housestaff on 12/05. Agree with note above with the following additins and exceptions: 43 year old female with past medical history of depression, anxiety, and hypertension admitted for hypertriglyceridemia. Etio unclear poss etoh induced although woudl expect some dregree of pancreatitis will f/u CT Abd hold of on apharesis for now agree with insulin drip and D 5 drip check TG in AM NPO excepet meds agree with gemfibrozil Rest of care above Savannah Enamorado MD PCC Attending
--- NOTE | 2018-12-05 17:13 | CP.PCM.CON ---
History of Present Illness - History of Present Illness History of Present Illness: Nephrology Consultation Note: Assessment: Stable Hypertriglyceridemia alcohol abuse anxiety/depression HTN Plan No acute need for renal replacement therapy at this time. TGL levels trending down, likely not need pharesis. pt clinically asymptomatic pt was started on IVF, insulin and gemfibrozil. Maintain hemodynamics stable. Avoid hypotension. HTN control Monitor Input/Output, daily weights and TGL levels continue with IVF supplement lytes as needed start thiamine supplement. watch for alcohol withdrawal. pt educated to abstain from alcohol Dose meds/antibiotics for normal GFR. Glycemic control Further work up/management as per primary team Thanks for allowing me to participate in care of your patient. Will follow patient with you. Please call if any Qs Dr Isaias Hollis Office: [phone] Chief Complaint; anxiety Reason for consult: hypertriglyceridemia HPI: Pt is a 43 F with hx of anxiety and depression, chronic daily etoh abuse presented with complaints of suicidal ideations but admitted to ICU with severe elevated TGL levels. renal consult for eval and consideration of pharesis Denies OTC/herbal meds or NSAIDs pt feels anxious and depressed admits to etoh and want to quit no known hx of elevated TGL in past ROS: Cardiovascular: No chest pain. Pulmonary: No shortness of breath Gastrointestinal: denies abdominal pain No nausea. No vomiting. Genitourinary: No pain while urinating. Denies blood in urine. All other negative except as mentioned in HPI. Physical Examination: General Appearance: Comfortable, in no acute respiratory distress, co-operative . Vitals reviewed and noted as below Head; Atraumatic, normocephalic ENT: no ulcers no thrush. Tongue is midline. Oropharynx: no rash or ulcers. EYES: Pupils are equal, round and reactive to light accommodation. Eye muscles and extraocular movement intact. Sclera is anicteric. Neck; supple no lymphadenopathy, no thyromegaly or bruit Lungs: Normal respiratory rate/effort. Breath sounds bilateral equal and clear Heart: Normal rate. s1s2 normal. No rub or gallop. Extremities: no edema. No varicose veins Neurological: Patient is alert, awake and oriented to person, place and time. No focal deficit. Strength bilateral appropriate and equal Skin: Warm and dry. Normal turgor. No rash. Palpitation: Normal elasticity for age Abdomen: Abdomen is soft. Bowel sounds +. There is no abdominal tenderness, no guarding/rigidity no organomegaly Psych: normal insight and flat affect/mood MSK: no joint tenderness or swelling. Digits and nails normal, no deformity : kidney or bladder not palpable. Labs/imaging reviewed. Past medical history, past surgical history, family history, social history, allergy reviewed and noted as below Family hx: no hx of CKD. Rest non-contributory Past Patient History - Infectious Disease Hx of Infectious Diseases: None - Tetanus Immunizations Tetanus Immunization: Unknown - Past Social History Smoking Status: Former Smoker - CARDIAC Hx Cardiac Disorders: Yes Hx Hypertension: Yes - PULMONARY Hx Respiratory Disorders: No Other/Comment: URI - NEUROLOGICAL Hx Neurological Disorder: No - HEENT Hx HEENT Problems: No - RENAL Hx Chronic Kidney Disease: No - ENDOCRINE/METABOLIC Hx Endocrine Disorders: No - HEMATOLOGICAL/ONCOLOGICAL Hx Blood Disorders: No - INTEGUMENTARY Hx Dermatological Problems: No - MUSCULOSKELETAL/RHEUMATOLOGICAL Hx Musculoskeletal Disorders: No - GASTROINTESTINAL Hx Gastrointestinal Disorders: No - GENITOURINARY/GYNECOLOGICAL Hx Genitourinary Disorders: No - PSYCHIATRIC Hx Psychophysiologic Disorder: Yes Hx Depression: Yes Hx Physical Abuse: No Hx Sexual Abuse: No Hx Substance Use: No - SURGICAL HISTORY Hx Section: Yes (x3) Hx Tubal Ligation: Yes - ANESTHESIA Hx Anesthesia: No Hx Anesthesia Reactions: No Hx Malignant Hyperthermia: No Meds Allergies/Adverse Reactions: Allergies Allergy/AdvReac Type Severity Reaction Status Date / Time shellfish derived Allergy Mild ANAPHYLAXIS Verified 12/04/18 23:08 amlodipine [From [facility][1]] AdvReac ANGIOEDEMA Verified 12/05/18 17:10 - Medications Medications: Current Medications Dextrose (Dextrose 50% Inj) 0 ml IV STAT PRN; Protocol PRN Reason: Hypoglycemia Protocol Fluoxetine HCl (Prozac) 40 mg PO DAILY [facility] Folic Acid (Folic Acid) 1 mg PO DAILY [facility] Gemfibrozil (Lopid) 600 mg PO BID [facility] Heparin Sodium (Porcine) (Heparin) 5,000 units SC Q8 [facility]; Protocol Dextrose (Dextrose 5% In Water 1000 Ml) 1,000 mls @ 0 mls/hr IV .Q0M PRN; Protocol PRN Reason: Hypoglycemia Protocol Dextrose/Lactated Ringer's (Dextrose 5%/Lactated Ringer's) 1,000 mls @ 150 mls/hr IV .Q6H40M [facility] Last Admin: 12/05/18 15:13 Dose: 150 mls/hr Insulin Human Regular 100 (units/ Sodium Chloride) 100 mls @ 5 mls/hr IV .Q20H PRN; Protocol PRN Reason: TITRATE PER MD ORDER Last Admin: 12/05/18 16:21 Dose: 2 units/hr, 2 mls/hr Lorazepam (Ativan) 1 mg IVP Q6H [facility]; Protocol Last Admin: 12/05/18 15:15 Dose: 1 mg Lorazepam (Ativan) 1 mg IVP Q3H PRN; Protocol PRN Reason: Symptoms of alcohol withdrawl Multivitamins (Thera Tab) 1 tab PO 0800 [facility] Pantoprazole Sodium (Protonix Inj) 40 mg IVP DAILY [facility] Thiamine HCl (Vitamin B1 Tab) 100 mg PO DAILY [facility] Results - Vital Signs Recent Vital Signs: Last Vital Signs Temp 98 F 12/05/18 15:16 Pulse 78 12/05/18 16:01 Resp 118 H 12/05/18 16:01 BP 135/78 12/05/18 15:16 Pulse Ox 98 12/05/18 15:16 - Labs Labs: Laboratory Results - last 24 hr 12/05/18 16:12 POC Glucose (mg/dL) 116 H
[2018-12-06 00:28] VITALS: TEMP 98.1
[2018-12-06] MEDS: Dextrose 5%/Lactated Ringer's 1,000 ML IV SCH (04:52)
[2018-12-06 06:58] LABS: BASO # 0.01 K/mm3 (0.0-2.0); BASO % 0.2 % (0.0-3.0); EOS # 0.1 (0.0-0.7); EOS % 1.9 % (1.5-5.0); GRAN # 0.88 (1.4-6.5); GRAN % 20.9 % (50.0-68.0); HEMOGLOBIN 10.9 g/dL (12.0-16.0); LYMPH % 71.3 % (22.0-35.0); MEAN CELL VOLUME 98.8 fl (80.0-105.0); MEAN CORPUSCULAR HGB CONC 33.4 g/dl (31.0-37.0); MEAN PLATELET VOLUME 10.2 fl (7.0-11.0); MONO # 0.2 (0.1-0.6); MONO % 5.7 % (1.0-6.0); PLATELET COUNT 185 10^3/uL (120.0-450.0); WHITE BLOOD COUNT 4.2 10^3/uL (4.5-11.0)
[2018-12-06 07:25] LABS: LDL CHOLESTEROL 62 mg/dL (0-129)
[2018-12-06 07:47] LABS: ALB/GLOB RATIO 0.8 (1.1-1.8); ALBUMIN 2.8 g/dL (3.0-4.8); ALT/SGPT 131 U/L (7-56); AST/SGOT 194 U/L (14-36); BLOOD UREA NITROGEN 5 mg/dL (7-21); CALCIUM 8.2 mg/dL (8.4-10.5); GFR NON-AFRICAN AMERICAN > 60; HDL CHOLESTEROL 29 mg/dL (29-60)
[2018-12-06] MEDS ORDERED: Multivitamin Therapeutic Tab PO SCH (08:00)
[2018-12-06 08:22] LABS: EOSINOPHIL 2 % (0.0-3.0); LYMPHOCYTE 63 % (22.0-35.0); MONOCYTE 2 % (1.0-6.0); NEUTROPHIL 33 % (50.0-70.0)
[2018-12-06 08:23] LABS: PLATELET ESTIMATE NORMAL (NORMAL)
[2018-12-06 08:45] VITALS: BMI 36.6
--- NOTE | 2018-12-06 09:10 | CP.CCUPN ---
CCU Subjective - Physician Review Subjective (Free Text): Fernandez Choe, PGY-1, ICU Progress Note for Dr. Washington Patient seen and evalauted at bedside. No acute overnight events. Patient denies any complaints this AM including abdominal pain, nausea, vomiting, constipation, diarrhea. 12-point ROS was unremarkable except for what was mentioned above. CCU Objective - Vital Signs / Intake & Output Vital Signs (Last 4 hours): Vital Signs Pulse Resp BP Pulse Ox 12/06/18 06:20 70 22 100 12/06/18 06:10 64 26 H 98 12/06/18 06:00 64 32 H 108/64 98 12/06/18 05:50 70 16 98 12/06/18 05:40 68 21 99 12/06/18 05:30 65 13 98 12/06/18 05:20 67 10 L 99 12/06/18 05:10 66 16 99 Intake and Output (Last 8hrs): Intake & Output 12/05/18 12/06/18 12/06/18 22:59 06:59 14:59 Intake Total 2 10 Output Total 400 Balance -398 10 Weight 199 lb 8 oz 213 lb Intake: IV 2 10 Output: Urine 400 Urine, Voided 400 Other: Voiding Method Bedside Commode # Voids Urine, Voided 2 5 - Physical Exam Head: Positive for: Atraumatic, Normocephalic Pupils: Positive for: PERRL Extroacular Muscles: Positive for: EOMI Conjunctiva: Positive for: Normal Respiratory/Chest: Positive for: Clear to Auscultation, Good Air Exchange. Negative for: Respiratory Distress, Accessory Muscle Use Cardiovascular: Positive for: Regular Rate and Rhythm, Normal S1, S2. Negative for: Murmurs Abdomen: Negative for: Tenderness, Distention, Peritoneal Signs Upper Extremity: Positive for: Normal Inspection. Negative for: Cyanosis, Edema Lower Extremity: Positive for: Normal Inspection. Negative for: Edema Neurological: Positive for: GCS=15, CN II-XII Intact, Speech Normal Skin: Positive for: Warm, Dry, Normal Color. Negative for: Rashes Psychiatric: Positive for: Alert, Oriented x 3, Normal Insight, Normal Safia ntration - Medications Active Medications: Active Medications Generic Name Dose Route Start Last Admin Trade Name Freq PRN Reason Stop Dose Admin Dextrose 0 ml 12/05/18 14:38 12/05/18 19:13 Dextrose 50% Inj IV 50 ml STAT PRN Administration Hypoglycemia Protocol Protocol Fluoxetine HCl 40 mg 12/06/18 10:00 Prozac PO DAILY [facility] Folic Acid 1 mg 12/06/18 10:00 Folic Acid PO DAILY [facility] Gemfibrozil 600 mg 12/05/18 18:00 12/05/18 17:49 Lopid PO 600 mg BID [facility] Administration Heparin Sodium (Porcine) 5,000 units 12/05/18 22:00 12/06/18 05:38 Heparin SC 5,000 units Q8 [facility] Administration Protocol Dextrose 1,000 mls @ 0 mls/hr 12/05/18 14:38 Dextrose 5% In Water 1000 Ml IV .Q0M PRN Hypoglycemia Protocol Protocol Per Protocol Dextrose/Lactated Ringer's 1,000 mls @ 150 mls/hr 12/05/18 14:30 12/06/18 04:52 Dextrose 5%/Lactated Ringer's IV 150 mls/hr .Q6H40M [facility] Administration Insulin Human Regular 100 100 mls @ 5 mls/hr 12/05/18 14:38 12/06/18 08:29 units/ Sodium Chloride IV 0 units/hr .Q20H PRN 0 mls/hr TITRATE PER MD ORDER Titration Protocol 5 UNITS/HR Lorazepam 1 mg 12/05/18 14:45 12/06/18 03:15 Ativan IVP 1 mg Q6H [facility] Administration Protocol Lorazepam 1 mg 12/05/18 14:32 12/05/18 20:35 Ativan IVP 1 mg Q3H PRN Administration Symptoms of alcohol withdrawl Protocol Multivitamins 1 tab 12/06/18 08:00 Thera Tab PO 0800 [facility] Pantoprazole Sodium 40 mg 12/06/18 10:00 Protonix Inj IVP DAILY [facility] Thiamine HCl 100 mg 12/06/18 10:00 Vitamin B1 Tab PO DAILY [facility] - Patient Studies Lab Studies: Lab Studies 12/06/18 12/06/18 12/06/18 Range/Units 08:02 07:02 06:15 WBC (4.5-11.0) 10^3/uL RBC (3.5-6.1) 10^6/uL Hgb (12.0-16.0) g/dL Hct (36.0-48.0) % MCV (80.0-105.0) fl MCH (25.0-35.0) pg MCHC (31.0-37.0) g/dl RDW (11.5-14.5) % Plt Count (120.0-450.0) 10^3/uL MPV (7.0-11.0) fl Gran % (50.0-68.0) % Lymph % (Auto) (22.0-35.0) % [place] % (Auto) (1.0-6.0) % Eos % (Auto) (1.5-5.0) % Baso % (Auto) (0.0-3.0) % Gran # (1.4-6.5) Lymph # (Auto) (1.2-3.4) [place] # (Auto) (0.1-0.6) Eos # (Auto) (0.0-0.7) Baso # (Auto) (0.0-2.0) K/mm3 Neutrophils % (Manual) (50.0-70.0) % Lymphocytes % (Manual) (22.0-35.0) % Monocytes % (Manual) (1.0-6.0) % Eosinophils % (Manual) (0.0-3.0) % Platelet Evaluation (NORMAL) Sodium 138 (132-148) mmol/L Potassium 4.0 (3.6-5.0) mmol/L Chloride 106 (98-107) mmol/L Carbon Dioxide 27 (21-33) mmol/L Anion Gap 8 L (10-20) BUN 5 L (7-21) mg/dL Creatinine 0.8 (0.7-1.2) mg/dl Est GFR ( Amer) > 60 Est GFR (Non-Af Amer) > 60 POC Glucose (mg/dL) 97 106 (65-110) mg/dL Random Glucose 99 (70-110) mg/dL Hemoglobin A1c (4.2-6.5) % Calcium 8.2 L (8.4-10.5) mg/dL Phosphorus 3.3 (2.5-4.5) mg/dL Magnesium 2.0 (1.7-2.2) mg/dL Total Bilirubin 1.6 H (0.2-1.3) mg/dL AST 194 H D (14-36) U/L ALT 131 H (7-56) U/L Alkaline Phosphatase 98 (38-126) U/L Total Protein 6.3 (5.8-8.3) g/dL Albumin 2.8 L (3.0-4.8) g/dL Globulin 3.5 gm/dL Albumin/Globulin Ratio 0.8 L (1.1-1.8) Triglycerides 467 H (35-160) mg/dL Cholesterol 286 H (130-200) mg/dL LDL Cholesterol Direct 62 (0-129) mg/dL HDL Cholesterol 29 (29-60) mg/dL 12/06/18 12/06/18 12/06/18 Range/Units 06:15 06:11 05:29 WBC 4.2 L D (4.5-11.0) 10^3/uL RBC 3.30 L (3.5-6.1) 10^6/uL Hgb 10.9 L (12.0-16.0) g/dL Hct 32.6 L (36.0-48.0) % MCV 98.8 (80.0-105.0) fl MCH 33.0 (25.0-35.0) pg MCHC 33.4 (31.0-37.0) g/dl RDW 15.0 H (11.5-14.5) % Plt Count 185 (120.0-450.0) 10^3/uL MPV 10.2 (7.0-11.0) fl Gran % 20.9 L (50.0-68.0) % Lymph % (Auto) 71.3 H (22.0-35.0) % [place] % (Auto) 5.7 (1.0-6.0) % Eos % (Auto) 1.9 (1.5-5.0) % Baso % (Auto) 0.2 (0.0-3.0) % Gran # 0.88 L (1.4-6.5) Lymph # (Auto) 3.0 (1.2-3.4) [place] # (Auto) 0.2 (0.1-0.6) Eos # (Auto) 0.1 (0.0-0.7) Baso # (Auto) 0.01 (0.0-2.0) K/mm3 Neutrophils % (Manual) 33 L (50.0-70.0) % Lymphocytes % (Manual) 63 H (22.0-35.0) % Monocytes % (Manual) 2 (1.0-6.0) % Eosinophils % (Manual) 2 (0.0-3.0) % Platelet Evaluation Normal (NORMAL) Sodium (132-148) mmol/L Potassium (3.6-5.0) mmol/L Chloride (98-107) mmol/L Carbon Dioxide (21-33) mmol/L Anion Gap (10-20) BUN (7-21) mg/dL Creatinine (0.7-1.2) mg/dl Est GFR ( Amer) Est GFR (Non-Af Amer) POC Glucose (mg/dL) 108 101 (65-110) mg/dL Random Glucose (70-110) mg/dL Hemoglobin A1c (4.2-6.5) % Calcium (8.4-10.5) mg/dL Phosphorus (2.5-4.5) mg/dL Magnesium (1.7-2.2) mg/dL Total Bilirubin (0.2-1.3) mg/dL AST (14-36) U/L ALT (7-56) U/L Alkaline Phosphatase (38-126) U/L Total Protein (5.8-8.3) g/dL Albumin (3.0-4.8) g/dL Globulin gm/dL Albumin/Globulin Ratio (1.1-1.8) Triglycerides (35-160) mg/dL Cholesterol (130-200) mg/dL LDL Cholesterol Direct (0-129) mg/dL HDL Cholesterol (29-60) mg/dL 12/06/18 12/06/18 12/06/18 Range/Units 04:05 03:25 02:35 WBC (4.5-11.0) 10^3/uL RBC (3.5-6.1) 10^6/uL Hgb (12.0-16.0) g/dL Hct (36.0-48.0) % MCV (80.0-105.0) fl MCH (25.0-35.0) pg MCHC (31.0-37.0) g/dl RDW (11.5-14.5) % Plt Count (120.0-450.0) 10^3/uL MPV (7.0-11.0) fl Gran % (50.0-68.0) % Lymph % (Auto) (22.0-35.0) % [place] % (Auto) (1.0-6.0) % Eos % (Auto) (1.5-5.0) % Baso % (Auto) (0.0-3.0) % Gran # (1.4-6.5) Lymph # (Auto) (1.2-3.4) [place] # (Auto) (0.1-0.6) Eos # (Auto) (0.0-0.7) Baso # (Auto) (0.0-2.0) K/mm3 Neutrophils % (Manual) (50.0-70.0) % Lymphocytes % (Manual) (22.0-35.0) % Monocytes % (Manual) (1.0-6.0) % Eosinophils % (Manual) (0.0-3.0) % Platelet Evaluation (NORMAL) Sodium (132-148) mmol/L Potassium (3.6-5.0) mmol/L Chloride (98-107) mmol/L Carbon Dioxide (21-33) mmol/L Anion Gap (10-20) BUN (7-21) mg/dL Creatinine (0.7-1.2) mg/dl Est GFR ( Amer) Est GFR (Non-Af Amer) POC Glucose (mg/dL) 100 103 106 (65-110) mg/dL Random Glucose (70-110) mg/dL Hemoglobin A1c (4.2-6.5) % Calcium (8.4-10.5) mg/dL Phosphorus (2.5-4.5) mg/dL Magnesium (1.7-2.2) mg/dL Total Bilirubin (0.2-1.3) mg/dL AST (14-36) U/L ALT (7-56) U/L Alkaline Phosphatase (38-126) U/L Total Protein (5.8-8.3) g/dL Albumin (3.0-4.8) g/dL Globulin gm/dL Albumin/Globulin Ratio (1.1-1.8) Triglycerides (35-160) mg/dL Cholesterol (130-200) mg/dL LDL Cholesterol Direct (0-129) mg/dL HDL Cholesterol (29-60) mg/dL 12/06/18 12/06/18 12/05/18 Range/Units 01:13 00:00 23:28 WBC (4.5-11.0) 10^3/uL RBC (3.5-6.1) 10^6/uL Hgb (12.0-16.0) g/dL Hct (36.0-48.0) % MCV (80.0-105.0) fl MCH (25.0-35.0) pg MCHC (31.0-37.0) g/dl RDW (11.5-14.5) % Plt Count (120.0-450.0) 10^3/uL MPV (7.0-11.0) fl Gran % (50.0-68.0) % Lymph % (Auto) (22.0-35.0) % [place] % (Auto) (1.0-6.0) % Eos % (Auto) (1.5-5.0) % Baso % (Auto) (0.0-3.0) % Gran # (1.4-6.5) Lymph # (Auto) (1.2-3.4) [place] # (Auto) (0.1-0.6) Eos # (Auto) (0.0-0.7) Baso # (Auto) (0.0-2.0) K/mm3 Neutrophils % (Manual) (50.0-70.0) % Lymphocytes % (Manual) (22.0-35.0) % Monocytes % (Manual) (1.0-6.0) % Eosinophils % (Manual) (0.0-3.0) % Platelet Evaluation (NORMAL) Sodium (132-148) mmol/L Potassium (3.6-5.0) mmol/L Chloride (98-107) mmol/L Carbon Dioxide (21-33) mmol/L Anion Gap (10-20) BUN (7-21) mg/dL Creatinine (0.7-1.2) mg/dl Est GFR ( Amer) Est GFR (Non-Af Amer) POC Glucose (mg/dL) 93 98 83 (65-110) mg/dL Random Glucose (70-110) mg/dL Hemoglobin A1c (4.2-6.5) % Calcium (8.4-10.5) mg/dL Phosphorus (2.5-4.5) mg/dL Magnesium (1.7-2.2) mg/dL Total Bilirubin (0.2-1.3) mg/dL AST (14-36) U/L ALT (7-56) U/L Alkaline Phosphatase (38-126) U/L Total Protein (5.8-8.3) g/dL Albumin (3.0-4.8) g/dL Globulin gm/dL Albumin/Globulin Ratio (1.1-1.8) Triglycerides (35-160) mg/dL Cholesterol (130-200) mg/dL LDL Cholesterol Direct (0-129) mg/dL HDL Cholesterol (29-60) mg/dL 12/05/18 12/05/18 12/05/18 Range/Units 22:02 21:06 20:05 WBC (4.5-11.0) 10^3/uL RBC (3.5-6.1) 10^6/uL Hgb (12.0-16.0) g/dL Hct (36.0-48.0) % MCV (80.0-105.0) fl MCH (25.0-35.0) pg MCHC (31.0-37.0) g/dl RDW (11.5-14.5) % Plt Count (120.0-450.0) 10^3/uL MPV (7.0-11.0) fl Gran % (50.0-68.0) % Lymph % (Auto) (22.0-35.0) % [place] % (Auto) (1.0-6.0) % Eos % (Auto) (1.5-5.0) % Baso % (Auto) (0.0-3.0) % Gran # (1.4-6.5) Lymph # (Auto) (1.2-3.4) [place] # (Auto) (0.1-0.6) Eos # (Auto) (0.0-0.7) Baso # (Auto) (0.0-2.0) K/mm3 Neutrophils % (Manual) (50.0-70.0) % Lymphocytes % (Manual) (22.0-35.0) % Monocytes % (Manual) (1.0-6.0) % Eosinophils % (Manual) (0.0-3.0) % Platelet Evaluation (NORMAL) Sodium (132-148) mmol/L Potassium (3.6-5.0) mmol/L Chloride (98-107) mmol/L Carbon Dioxide (21-33) mmol/L Anion Gap (10-20) BUN (7-21) mg/dL Creatinine (0.7-1.2) mg/dl Est GFR ( Amer) Est GFR (Non-Af Amer) POC Glucose (mg/dL) 82 89 122 H (65-110) mg/dL Random Glucose (70-110) mg/dL Hemoglobin A1c (4.2-6.5) % Calcium (8.4-10.5) mg/dL Phosphorus (2.5-4.5) mg/dL Magnesium (1.7-2.2) mg/dL Total Bilirubin (0.2-1.3) mg/dL AST (14-36) U/L ALT (7-56) U/L Alkaline Phosphatase (38-126) U/L Total Protein (5.8-8.3) g/dL Albumin (3.0-4.8) g/dL Globulin gm/dL Albumin/Globulin Ratio (1.1-1.8) Triglycerides (35-160) mg/dL Cholesterol (130-200) mg/dL LDL Cholesterol Direct (0-129) mg/dL HDL Cholesterol (29-60) mg/dL 12/05/18 12/05/18 12/05/18 Range/Units 19:02 18:03 16:58 WBC (4.5-11.0) 10^3/uL RBC (3.5-6.1) 10^6/uL Hgb (12.0-16.0) g/dL Hct (36.0-48.0) % MCV (80.0-105.0) fl MCH (25.0-35.0) pg MCHC (31.0-37.0) g/dl RDW (11.5-14.5) % Plt Count (120.0-450.0) 10^3/uL MPV (7.0-11.0) fl Gran % (50.0-68.0) % Lymph % (Auto) (22.0-35.0) % [place] % (Auto) (1.0-6.0) % Eos % (Auto) (1.5-5.0) % Baso % (Auto) (0.0-3.0) % Gran # (1.4-6.5) Lymph # (Auto) (1.2-3.4) [place] # (Auto) (0.1-0.6) Eos # (Auto) (0.0-0.7) Baso # (Auto) (0.0-2.0) K/mm3 Neutrophils % (Manual) (50.0-70.0) % Lymphocytes % (Manual) (22.0-35.0) % Monocytes % (Manual) (1.0-6.0) % Eosinophils % (Manual) (0.0-3.0) % Platelet Evaluation (NORMAL) Sodium (132-148) mmol/L Potassium (3.6-5.0) mmol/L Chloride (98-107) mmol/L Carbon Dioxide (21-33) mmol/L Anion Gap (10-20) BUN (7-21) mg/dL Creatinine (0.7-1.2) mg/dl Est GFR ( Amer) Est GFR (Non-Af Amer) POC Glucose (mg/dL) 58 L 94 67 (65-110) mg/dL Random Glucose (70-110) mg/dL Hemoglobin A1c (4.2-6.5) % Calcium (8.4-10.5) mg/dL Phosphorus (2.5-4.5) mg/dL Magnesium (1.7-2.2) mg/dL Total Bilirubin (0.2-1.3) mg/dL AST (14-36) U/L ALT (7-56) U/L Alkaline Phosphatase (38-126) U/L Total Protein (5.8-8.3) g/dL Albumin (3.0-4.8) g/dL Globulin gm/dL Albumin/Globulin Ratio (1.1-1.8) Triglycerides (35-160) mg/dL Cholesterol (130-200) mg/dL LDL Cholesterol Direct (0-129) mg/dL HDL Cholesterol (29-60) mg/dL 12/05/18 12/05/18 12/05/18 Range/Units 16:12 15:08 15:00 WBC (4.5-11.0) 10^3/uL RBC (3.5-6.1) 10^6/uL Hgb (12.0-16.0) g/dL Hct (36.0-48.0) % MCV (80.0-105.0) fl MCH (25.0-35.0) pg MCHC (31.0-37.0) g/dl RDW (11.5-14.5) % Plt Count (120.0-450.0) 10^3/uL MPV (7.0-11.0) fl Gran % (50.0-68.0) % Lymph % (Auto) (22.0-35.0) % [place] % (Auto) (1.0-6.0) % Eos % (Auto) (1.5-5.0) % Baso % (Auto) (0.0-3.0) % Gran # (1.4-6.5) Lymph # (Auto) (1.2-3.4) [place] # (Auto) (0.1-0.6) Eos # (Auto) (0.0-0.7) Baso # (Auto) (0.0-2.0) K/mm3 Neutrophils % (Manual) (50.0-70.0) % Lymphocytes % (Manual) (22.0-35.0) % Monocytes % (Manual) (1.0-6.0) % Eosinophils % (Manual) (0.0-3.0) % Platelet Evaluation (NORMAL) Sodium (132-148) mmol/L Potassium (3.6-5.0) mmol/L Chloride (98-107) mmol/L Carbon Dioxide (21-33) mmol/L Anion Gap (10-20) BUN (7-21) mg/dL Creatinine (0.7-1.2) mg/dl Est GFR ( Amer) Est GFR (Non-Af Amer) POC Glucose (mg/dL) 116 H 109 (65-110) mg/dL Random Glucose (70-110) mg/dL Hemoglobin A1c 4.8 (4.2-6.5) % Calcium (8.4-10.5) mg/dL Phosphorus (2.5-4.5) mg/dL Magnesium (1.7-2.2) mg/dL Total Bilirubin (0.2-1.3) mg/dL AST (14-36) U/L ALT (7-56) U/L Alkaline Phosphatase (38-126) U/L Total Protein (5.8-8.3) g/dL Albumin (3.0-4.8) g/dL Globulin gm/dL Albumin/Globulin Ratio (1.1-1.8) Triglycerides (35-160) mg/dL Cholesterol (130-200) mg/dL LDL Cholesterol Direct (0-129) mg/dL HDL Cholesterol (29-60) mg/dL Laboratory Results - last 24 hr 12/05/18 12/05/18 12/05/18 15:00 15:08 16:12 WBC RBC Hgb Hct MCV MCH MCHC RDW Plt Count MPV Gran % Lymph % (Auto) [place] % (Auto) Eos % (Auto) Baso % (Auto) Gran # Lymph # (Auto) [place] # (Auto) Eos # (Auto) Baso # (Auto) Neutrophils % (Manual) Lymphocytes % (Manual) Monocytes % (Manual) Eosinophils % (Manual) Platelet Evaluation Sodium Potassium Chloride Carbon Dioxide Anion Gap BUN Creatinine Est GFR ( Amer) Est GFR (Non-Af Amer) POC Glucose (mg/dL) 109 116 H Random Glucose Hemoglobin A1c 4.8 Calcium Phosphorus Magnesium Total Bilirubin AST ALT Alkaline Phosphatase Total Protein Albumin Globulin Albumin/Globulin Ratio Triglycerides Cholesterol LDL Cholesterol Direct HDL Cholesterol 12/05/18 12/05/18 12/05/18 16:58 18:03 19:02 WBC RBC Hgb Hct MCV MCH MCHC RDW Plt Count MPV Gran % Lymph % (Auto) [place] % (Auto) Eos % (Auto) Baso % (Auto) Gran # Lymph # (Auto) [place] # (Auto) Eos # (Auto) Baso # (Auto) Neutrophils % (Manual) Lymphocytes % (Manual) Monocytes % (Manual) Eosinophils % (Manual) Platelet Evaluation Sodium Potassium Chloride Carbon Dioxide Anion Gap BUN Creatinine Est GFR ( Amer) Est GFR (Non-Af Amer) POC Glucose (mg/dL) 67 94 58 L Random Glucose Hemoglobin A1c Calcium Phosphorus Magnesium Total Bilirubin AST ALT Alkaline Phosphatase Total Protein Albumin Globulin Albumin/Globulin Ratio Triglycerides Cholesterol LDL Cholesterol Direct HDL Cholesterol 12/05/18 12/05/18 12/05/18 20:05 21:06 22:02 WBC RBC Hgb Hct MCV MCH MCHC RDW Plt Count MPV Gran % Lymph % (Auto) [place] % (Auto) Eos % (Auto) Baso % (Auto) Gran # Lymph # (Auto) [place] # (Auto) Eos # (Auto) Baso # (Auto) Neutrophils % (Manual) Lymphocytes % (Manual) Monocytes % (Manual) Eosinophils % (Manual) Platelet Evaluation Sodium Potassium Chloride Carbon Dioxide Anion Gap BUN Creatinine Est GFR ( Amer) Est GFR (Non-Af Amer) POC Glucose (mg/dL) 122 H 89 82 Random Glucose Hemoglobin A1c Calcium Phosphorus Magnesium Total Bilirubin AST ALT Alkaline Phosphatase Total Protein Albumin Globulin Albumin/Globulin Ratio Triglycerides Cholesterol LDL Cholesterol Direct HDL Cholesterol 12/05/18 12/06/18 12/06/18 23:28 00:00 01:13 WBC RBC Hgb Hct MCV MCH MCHC RDW Plt Count MPV Gran % Lymph % (Auto) [place] % (Auto) Eos % (Auto) Baso % (Auto) Gran # Lymph # (Auto) [place] # (Auto) Eos # (Auto) Baso # (Auto) Neutrophils % (Manual) Lymphocytes % (Manual) Monocytes % (Manual) Eosinophils % (Manual) Platelet Evaluation Sodium Potassium Chloride Carbon Dioxide Anion Gap BUN Creatinine Est GFR ( Amer) Est GFR (Non-Af Amer) POC Glucose (mg/dL) 83 98 93 Random Glucose Hemoglobin A1c Calcium Phosphorus Magnesium Total Bilirubin AST ALT Alkaline Phosphatase Total Protein Albumin Globulin Albumin/Globulin Ratio Triglycerides Cholesterol LDL Cholesterol Direct HDL Cholesterol 12/06/18 12/06/18 12/06/18 02:35 03:25 04:05 WBC RBC Hgb Hct MCV MCH MCHC RDW Plt Count MPV Gran % Lymph % (Auto) [place] % (Auto) Eos % (Auto) Baso % (Auto) Gran # Lymph # (Auto) [place] # (Auto) Eos # (Auto) Baso # (Auto) Neutrophils % (Manual) Lymphocytes % (Manual) Monocytes % (Manual) Eosinophils % (Manual) Platelet Evaluation Sodium Potassium Chloride Carbon Dioxide Anion Gap BUN Creatinine Est GFR ( Amer) Est GFR (Non-Af Amer) POC Glucose (mg/dL) 106 103 100 Random Glucose Hemoglobin A1c Calcium Phosphorus Magnesium Total Bilirubin AST ALT Alkaline Phosphatase Total Protein Albumin Globulin Albumin/Globulin Ratio Triglycerides Cholesterol LDL Cholesterol Direct HDL Cholesterol 12/06/18 12/06/18 12/06/18 05:29 06:11 06:15 WBC 4.2 L D RBC 3.30 L Hgb 10.9 L Hct 32.6 L MCV 98.8 MCH 33.0 MCHC 33.4 RDW 15.0 H Plt Count 185 MPV 10.2 Gran % 20.9 L Lymph % (Auto) 71.3 H [place] % (Auto) 5.7 Eos % (Auto) 1.9 Baso % (Auto) 0.2 Gran # 0.88 L Lymph # (Auto) 3.0 [place] # (Auto) 0.2 Eos # (Auto) 0.1 Baso # (Auto) 0.01 Neutrophils % (Manual) 33 L Lymphocytes % (Manual) 63 H Monocytes % (Manual) 2 Eosinophils % (Manual) 2 Platelet Evaluation Normal Sodium Potassium Chloride Carbon Dioxide Anion Gap BUN Creatinine Est GFR ( Amer) Est GFR (Non-Af Amer) POC Glucose (mg/dL) 101 108 Random Glucose Hemoglobin A1c Calcium Phosphorus Magnesium Total Bilirubin AST ALT Alkaline Phosphatase Total Protein Albumin Globulin Albumin/Globulin Ratio Triglycerides Cholesterol LDL Cholesterol Direct HDL Cholesterol 12/06/18 12/06/18 12/06/18 06:15 07:02 08:02 WBC RBC Hgb Hct MCV MCH MCHC RDW Plt Count MPV Gran % Lymph % (Auto) [place] % (Auto) Eos % (Auto) Baso % (Auto) Gran # Lymph # (Auto) [place] # (Auto) Eos # (Auto) Baso # (Auto) Neutrophils % (Manual) Lymphocytes % (Manual) Monocytes % (Manual) Eosinophils % (Manual) Platelet Evaluation Sodium 138 Potassium 4.0 Chloride 106 Carbon Dioxide 27 Anion Gap 8 L BUN 5 L Creatinine 0.8 Est GFR ( Amer) > 60 Est GFR (Non-Af Amer) > 60 POC Glucose (mg/dL) 106 97 Random Glucose 99 Hemoglobin A1c Calcium 8.2 L Phosphorus 3.3 Magnesium 2.0 Total Bilirubin 1.6 H AST 194 H D ALT 131 H Alkaline Phosphatase 98 Total Protein 6.3 Albumin 2.8 L Globulin 3.5 Albumin/Globulin Ratio 0.8 L Triglycerides 467 H Cholesterol 286 H LDL Cholesterol Direct 62 HDL Cholesterol 29 EKG/Cardiology Studies: Cardiology / EKG Studies 12/05/18 15:40 EKG [ELECTROCARDIOGRAM] Stat Comment: Reason For Exam: ABD PAIN Fingerstick Blood Sugar Results: 106 Review of Systems - Review of Systems Review of Systems: except for what was mentioned in HPI Critical Care Progress Note - Ventilator Checklist Head of Bed 30 Degrees: Yes PUD Prophalyxis: Yes DVT Prophylaxis: Yes - Nutrition Nutrition: Nutrition Category Date Time Status NPO Diet [DIET] Diets 12/05/18 Dinner Ordered Assessment/Plan - Assessment and Plan (Free Text) Assessment: 43 year old female with past medical history of depression, anxiety, and hypertension presents with 2 week history of self-induced vomiting because patient felt like food was not progressing successfully through intestines. Patient was found to have elevated triglyceride level in the psychiatry department of 3930. Plan: Neuro: Alcohol withdrawal -AAOx3, no FND, moving extremities past midline. -Patient has extensive history of alcohol abuse -CIWA protocol initiated -Ativan 1 mg Q6, 1 mg Q3PRN -LR+Dextrose 5% at 150 cc/hr -Thiamine 100 mg PO daily, multivitamin 1 tablet daily, and folic acid 1 mg daily. -Monitor neuro status. -Reorient patient as necessary. Cardio: Hypertension -RRR, normotensive, no signs of HD compromise -Maintain MAP>65. -Patient reports lisinopril for hypertension. Confirm with pharmacy. Currently, patient is not hypertensive. -Monitor for S/S, HD compromise. Pulm: -No signs of respiratory distress. CTA B/L -Patient is stating well on room air. -Maintain O2 saturation>95%. -O2 NC PRN -Elevate bed to 30 degrees GI: -Can start heart healthy diet because TG<500 -Elevated AST, ALT at 194 and 131 respectively. -Lipase: 59 on 12/05 -No signs of pancreatitis at this time. GI prophylaxis -Protonix 40 mg daily /Nephro: -BUN/Cr stable at 5/0.8 -UA 12/04: large blood, negative nitrite, negative leukocyte esterase, 5-10 RBC, 1-3 WBC, 1-3 epithelial cells, moderate bacteria -Good urine output -Continue monitoring. -Replete electrolytes as needed. -Maintain euvolemia. Endocrinology: Hypertriglyceridemia -Triglyceride level: 3930 on admission. Reduced to 467 today. -Stopped insulin drip -Lopid 600 mg PO daily -Random glucose: 106 -Start heart healthy diet. -As per Heme/Onc, Dr. Goncalves, no plans for plasmapharesis at this time. -As per Nephrology, Dr. Hollis, no plans for plasmapharesis at this time. -Maintain euglycemia. Heme/Onc: -H/H stable at 10.9/32.6 -No signs of HD compromise. -Continue monitoring H/H DVT prophylaxis -Heparin 5000 U subQ Q8 ID: -Afebrile, no leukocytosis -Monitor for signs and symptoms of infection. Patient seen and examined with Dr. Washington - Date & Time Date: 12/06/18 Time: 09:08
--- NOTE | 2018-12-06 09:29 | CARD ---
APPROVED REPORT Date of service: 12/05/2018 EKG Measurement Heart [id number] <Conclusion> Normal sinus rhythm Possible Left atrial enlargement Borderline criteria for left ventricular hypertrophy Abnormal ECG
--- NOTE | 2018-12-06 13:32 | CP.PCM.PN ---
Subjective - Date & Time of Evaluation Date of Evaluation: 12/06/18 Time of Evaluation: 06:45 - Subjective Subjective: Pt seen and examined this morning in the ICU. Pt has no new complaints at this time. Objective - Vital Signs/Intake and Output Vital Signs (last 24 hours): Temp Pulse Resp BP Pulse Ox 98.1 F 70 22 108/64 100 12/06/18 04:00 12/06/18 06:20 12/06/18 06:20 12/06/18 06:00 12/06/18 06:20 Intake and Output: 12/06/18 12/06/18 06:59 18:59 Intake Total 10 Balance 10 - Medications Medications: Current Medications Dextrose (Dextrose 50% Inj) 0 ml IV STAT PRN; Protocol PRN Reason: Hypoglycemia Protocol Last Admin: 12/05/18 19:13 Dose: 50 ml Fluoxetine HCl (Prozac) 40 mg PO DAILY [facility] Last Admin: 12/06/18 09:42 Dose: 40 mg Folic Acid (Folic Acid) 1 mg PO DAILY [facility] Last Admin: 12/06/18 09:43 Dose: 1 mg Gemfibrozil (Lopid) 600 mg PO BID [facility] Last Admin: 12/06/18 09:42 Dose: 600 mg Heparin Sodium (Porcine) (Heparin) 5,000 units SC Q8 [facility]; Protocol Last Admin: 12/06/18 05:38 Dose: 5,000 units Dextrose (Dextrose 5% In Water 1000 Ml) 1,000 mls @ 0 mls/hr IV .Q0M PRN; Protocol PRN Reason: Hypoglycemia Protocol Insulin Human Regular 100 (units/ Sodium Chloride) 100 mls @ 5 mls/hr IV .Q20H PRN; Protocol PRN Reason: TITRATE PER MD ORDER Last Titration: 12/06/18 08:29 Dose: 0 units/hr, 0 mls/hr Lorazepam (Ativan) 2 mg PO Q6H PRN; Protocol PRN Reason: Anxiety Lorazepam (Ativan) 2 mg PO QID [facility]; Protocol Multivitamins (Thera Tab) 1 tab PO 0800 [facility] Last Admin: 12/06/18 09:42 Dose: 1 tab Pantoprazole Sodium (Protonix Inj) 40 mg IVP DAILY [facility] Last Admin: 12/06/18 09:52 Dose: 40 mg Thiamine HCl (Vitamin B1 Tab) 100 mg PO DAILY [facility] Last Admin: 12/06/18 09:48 Dose: 100 mg - Labs Labs: 12/06/18 06:15 12/06/18 06:15 - Head Exam Head Exam: ATRAUMATIC, NORMOCEPHALIC - Eye Exam Eye Exam: EOMI - ENT Exam ENT Exam: Mucous Membranes Moist - Neck Exam Neck Exam: Full ROM - Respiratory Exam Respiratory Exam: Clear to Ausculation Bilateral, NORMAL BREATHING PATTERN. absent: Respiratory Distress - Cardiovascular Exam Cardiovascular Exam: RRR, +S1, +S2. absent: Diastolic murmur, Murmur - GI/Abdominal Exam GI & Abdominal Exam: Soft, Normal Bowel Sounds - Extremities Exam Extremities Exam: Full ROM. absent: Calf Tenderness, Pedal Edema - Neurological Exam Neurological Exam: Alert, Awake, Oriented x3 - Skin Skin Exam: Dry, Intact, Warm
[2018-12-06 14:19] VITALS: PULSE 90; RESP 23; O2SAT 97
[2018-12-06 14:44] VITALS: BP 127/76
--- NOTE | 2018-12-06 15:02 | CP.PCM.PN ---
Subjective - Date & Time of Evaluation Date of Evaluation: 12/06/18 Time of Evaluation: 15:01 - Subjective Subjective: Nephrology Consultation Note: Assessment: Stable Hypertriglyceridemia improving alcohol abuse anxiety/depression HTN fatty liver Plan No acute need for renal replacement therapy at this time. TGL levels trending down, will not need pharesis. pt clinically asymptomatic Maintain hemodynamics stable. Avoid hypotension. HTN control Monitor Input/Output, daily weights and TGL levels supplement lytes as needed start thiamine supplement. watch for alcohol withdrawal. pt educated to abstain from alcohol defer meds for elevated TGL to primary team Dose meds/antibiotics for normal GFR. Glycemic control Further work up/management as per primary team Thanks for allowing me to participate in care of your patient. Please call if any Qs. had d/w team Dr Isaias Hollis Office: [phone] Chief Complaint; anxiety Reason for consult: hypertriglyceridemia HPI: Pt is a 43 F with hx of anxiety and depression, chronic daily etoh abuse presented with complaints of suicidal ideations but admitted to ICU with severe elevated TGL levels. renal consult for eval and consideration of pharesis Denies OTC/herbal meds or NSAIDs pt feels anxious and depressed admits to etoh and want to quit no known hx of elevated TGL in past ROS: Cardiovascular: No chest pain. Pulmonary: No shortness of breath Gastrointestinal: denies abdominal pain No nausea. No vomiting. Genitourinary: No pain while urinating. Denies blood in urine. All other negative except as mentioned in HPI. Physical Examination: General Appearance: Comfortable, in no acute respiratory distress, co-operative . Vitals reviewed and noted as below Head; Atraumatic, normocephalic ENT: no ulcers no thrush. Tongue is midline. Oropharynx: no rash or ulcers. EYES: Pupils are equal, round and reactive to light accommodation. Eye muscles and extraocular movement intact. Sclera is anicteric. Neck; supple no lymphadenopathy, no thyromegaly or bruit Lungs: Normal respiratory rate/effort. Breath sounds bilateral equal and clear Heart: Normal rate. s1s2 normal. No rub or gallop. Extremities: no edema. No varicose veins Neurological: Patient is alert, awake and oriented to person, place and time. No focal deficit. Strength bilateral appropriate and equal Skin: Warm and dry. Normal turgor. No rash. Palpitation: Normal elasticity for age Abdomen: Abdomen is soft. Bowel sounds +. There is no abdominal tenderness, no guarding/rigidity no organomegaly Psych: normal insight and normal affect/mood MSK: no joint tenderness or swelling. Digits and nails normal, no deformity : kidney or bladder not palpable. Labs/imaging reviewed. Past medical history, past surgical history, family history, social history, allergy reviewed and noted as below Family hx: no hx of CKD. Rest non-contributory Objective - Vital Signs/Intake and Output Vital Signs (last 24 hours): Temp Pulse Resp BP Pulse Ox 98.1 F 90 23 127/76 97 12/06/18 04:00 12/06/18 12:00 12/06/18 12:00 12/06/18 14:30 12/06/18 08:30 Intake and Output: 12/06/18 12/06/18 06:59 18:59 Intake Total 10 Balance 10 - Medications Medications: Current Medications Dextrose (Dextrose 50% Inj) 0 ml IV STAT PRN; Protocol PRN Reason: Hypoglycemia Protocol Last Admin: 12/05/18 19:13 Dose: 50 ml Fluoxetine HCl (Prozac) 40 mg PO DAILY [facility] Last Admin: 12/06/18 09:42 Dose: 40 mg Folic Acid (Folic Acid) 1 mg PO DAILY [facility] Last Admin: 12/06/18 09:43 Dose: 1 mg Gemfibrozil (Lopid) 600 mg PO BID [facility] Last Admin: 12/06/18 09:42 Dose: 600 mg Heparin Sodium (Porcine) (Heparin) 5,000 units SC Q8 [facility]; Protocol Last Admin: 12/06/18 05:38 Dose: 5,000 units Dextrose (Dextrose 5% In Water 1000 Ml) 1,000 mls @ 0 mls/hr IV .Q0M PRN; Protocol PRN Reason: Hypoglycemia Protocol Insulin Human Regular 100 (units/ Sodium Chloride) 100 mls @ 5 mls/hr IV .Q20H PRN; Protocol PRN Reason: TITRATE PER MD ORDER Last Titration: 12/06/18 08:29 Dose: 0 units/hr, 0 mls/hr Lorazepam (Ativan) 2 mg PO Q6H PRN; Protocol PRN Reason: Anxiety Lorazepam (Ativan) 2 mg PO QID [facility]; Protocol Multivitamins (Thera Tab) 1 tab PO 0800 [facility] Last Admin: 12/06/18 09:42 Dose: 1 tab Pantoprazole Sodium (Protonix Inj) 40 mg IVP DAILY [facility] Last Admin: 12/06/18 09:52 Dose: 40 mg Thiamine HCl (Vitamin B1 Tab) 100 mg PO DAILY [facility] Last Admin: 12/06/18 09:48 Dose: 100 mg - Labs Labs: 12/06/18 06:15 12/06/18 06:15
[2018-12-06 15:05] LABS: HDL CHOLESTEROL 37 mg/dL (29-60)
[2018-12-06 15:21] LABS: LDL CHOLESTEROL 78 mg/dL (0-129)
--- NOTE | 2018-12-06 15:53 | CP.PCM.DIS ---
Provider - Provider Date of Admission: 12/05/18 14:26 Attending physician: Mary Jane Bowie DO Primary care physician: Kaley Russell MD Consults: 12/05/18 14:21 Hematology Oncology Consult Stat Comment: Consulting Provider: Colby Goncalves Consulting Physician: Colby Goncalves Reason for Consult: hypertriglyceridemia, may need pheresis Nephrology Consult Stat Comment: Consulting Provider: Eamon Up Consulting Physician: Eamon Up Reason for Consult: hypertriglyceridemia, poss pheresis Physician Consult Stat Comment: Consulting Provider: Kneya Enamorado Consulting Physician: Kenya Enamorado Reason for Consult: hyperTG, insulin drip and poss pheresis Psychiatry Consult Stat Comment: Consulting Provider: Mary Freeman Consulting Physician: Mary Freeman Reason for Consult: SI/depression, patient admitted to floors from psych Time Spent in preparation of Discharge (in minutes): 35 Diagnosis - Discharge Diagnosis (1) Hypertriglyceridemia Status: Acute Priority: High (2) Depression Status: Chronic Priority: High (3) Alcohol use disorder Status: Chronic Priority: High Hospital Course - Lab Results Lab Results: Most Recent Lab Values WBC 4.2 10^3/uL (4.5-11.0) L D 12/06/18 06:15 RBC 3.30 10^6/uL (3.5-6.1) L 12/06/18 06:15 Hgb 10.9 g/dL (12.0-16.0) L 12/06/18 06:15 Hct 32.6 % (36.0-48.0) L 12/06/18 06:15 MCV 98.8 fl (80.0-105.0) 12/06/18 06:15 MCH 33.0 pg (25.0-35.0) 12/06/18 06:15 MCHC 33.4 g/dl (31.0-37.0) 12/06/18 06:15 RDW 15.0 % (11.5-14.5) H 12/06/18 06:15 Plt Count 185 10^3/uL (120.0-450.0) 12/06/18 06:15 MPV 10.2 fl (7.0-11.0) 12/06/18 06:15 Gran % 20.9 % (50.0-68.0) L 12/06/18 06:15 Lymph % (Auto) 71.3 % (22.0-35.0) H 12/06/18 06:15 [place] % (Auto) 5.7 % (1.0-6.0) 12/06/18 06:15 Eos % (Auto) 1.9 % (1.5-5.0) 12/06/18 06:15 Baso % (Auto) 0.2 % (0.0-3.0) 12/06/18 06:15 Gran # 0.88 (1.4-6.5) L 12/06/18 06:15 Lymph # (Auto) 3.0 (1.2-3.4) 12/06/18 06:15 [place] # (Auto) 0.2 (0.1-0.6) 12/06/18 06:15 Eos # (Auto) 0.1 (0.0-0.7) 12/06/18 06:15 Baso # (Auto) 0.01 K/mm3 (0.0-2.0) 12/06/18 06:15 Neutrophils % (Manual) 33 % (50.0-70.0) L 12/06/18 06:15 Lymphocytes % (Manual) 63 % (22.0-35.0) H 12/06/18 06:15 Monocytes % (Manual) 2 % (1.0-6.0) 12/06/18 06:15 Eosinophils % (Manual) 2 % (0.0-3.0) 12/06/18 06:15 Platelet Evaluation Normal (NORMAL) 12/06/18 06:15 Sodium 138 mmol/L (132-148) 12/06/18 06:15 Potassium 4.0 mmol/L (3.6-5.0) 12/06/18 06:15 Chloride 106 mmol/L (98-107) 12/06/18 06:15 Carbon Dioxide 27 mmol/L (21-33) 12/06/18 06:15 Anion Gap 8 (10-20) L 12/06/18 06:15 BUN 5 mg/dL (7-21) L 12/06/18 06:15 Creatinine 0.8 mg/dl (0.7-1.2) 12/06/18 06:15 Est GFR ( Amer) > 60 12/06/18 06:15 Est GFR (Non-Af Amer) > 60 12/06/18 06:15 POC Glucose (mg/dL) 183 mg/dL (65-110) H 12/06/18 13:15 Random Glucose 99 mg/dL (70-110) 12/06/18 06:15 Hemoglobin A1c 4.8 % (4.2-6.5) 12/05/18 15:00 Calcium 8.2 mg/dL (8.4-10.5) L 12/06/18 06:15 Phosphorus 3.3 mg/dL (2.5-4.5) 12/06/18 06:15 Magnesium 2.0 mg/dL (1.7-2.2) 12/06/18 06:15 Total Bilirubin 1.6 mg/dL (0.2-1.3) H 12/06/18 06:15 AST 194 U/L (14-36) H D 12/06/18 06:15 ALT 131 U/L (7-56) H 12/06/18 06:15 Alkaline Phosphatase 98 U/L (38-126) 12/06/18 06:15 Total Protein 6.3 g/dL (5.8-8.3) 12/06/18 06:15 Albumin 2.8 g/dL (3.0-4.8) L 12/06/18 06:15 Globulin 3.5 gm/dL 12/06/18 06:15 Albumin/Globulin Ratio 0.8 (1.1-1.8) L 12/06/18 06:15 Triglycerides 499 mg/dL (35-160) H 12/06/18 14:30 Cholesterol 309 mg/dL (130-200) H 12/06/18 14:30 LDL Cholesterol Direct 78 mg/dL (0-129) 12/06/18 14:30 HDL Cholesterol 37 mg/dL (29-60) 12/06/18 14:30 - Hospital Course Hospital Course: Upon Arrival Pt is a 43yo female with PMH of HTN, depression, and anxiety, who presented to [facility] overnight with complaint of depression and suicidal ideation. She was originally admitted to the psych unit, the medicine team called for medical management, however, labs this AM were acutely concerning for severe hypert riglyceridemia of 3930, so patient was transferred to the ED for medical floors admission. Hospitalization Pt was admitted to the intensive care unit and treated for her severe hypertriglyceridemia which was attributed to alcohol abuse. Pt was placed on an insulin drip, started on gemfibrozil. Dr. Goncalves (Heme-onc) and Dr. Up (Nephro) consulted, no need for plasmapheresis at this time. Psyc was consulted for the pt suicidal ideations. CT abdomen and pelvis showed no signs of acute intra abdominal pathology. Discharge Pt was discharged to the psyc unit. Pt advised to please follow up with your primary care physician within 3-5 days after you are discharged from [facility]. Pt was started ou are being sent on Gemfibrizol 600 BID for your triglycerides. If symptoms return or worsen, please go to the nearest emergency department. - Date & Time of H&P Date of H&P: 12/06/18 Time of H&P: 07:00 Discharge Exam - Head Exam Head Exam: ATRAUMATIC, NORMAL INSPECTION, NORMOCEPHALIC - Eye Exam Eye Exam: EOMI - ENT Exam ENT Exam: Mucous Membranes Moist - Neck Exam Neck exam: Full Rom - Respiratory Exam Respiratory Exam: NORMAL BREATHING PATTERN, UNREMARKABLE. absent: Accessory Muscle Use, Respiratory Distress - Cardiovascular Exam Cardiovascular Exam: RRR, +S1, +S2. absent: Diastolic murmur, Systolic Murmur - GI/Abdominal Exam GI & Abdominal Exam: Normal Bowel Sounds, Soft, Unremarkable. absent: Tenderness - Extremities Exam Extremities exam: full ROM - Neurological Exam Neurological exam: Alert, Oriented x3 - Psychiatric Exam Psychiatric exam: Normal Affect, Normal Mood - Skin Skin Exam: Dry, Intact, Warm Discharge Plan - Discharge Medications Prescriptions: Atorvastatin [Lipitor] 40 mg PO DIN #30 tab - Follow Up Plan Condition: GOOD Disposition: HOME/ ROUTINE Additional Instructions: 1. please follow up with your primary care physician within 3-5 days after you are discharged from [facility] 2. you are being sent on Lipitor 40mg for your cholesterol 3. please follow up with psyc after you are discharged 4. if your symptoms return or worsen, please go to the nearest emergency department Referrals: Yvonne RAMÍREZ,MD Kaley [Primary Care Provider] - Follow up with primary
--- NOTE | 2018-12-09 08:31 | CON ---
DATE: 12/06/2018 HISTORY OF PRIESENT ILLNESS: The patient is a 43-year-old female with depression and history of severe alcohol abuse, who is again admitted to psychiatric unit for relapsing on alcohol contributing to worsening depression and suicidal thoughts, and the patient's outpatient provider, it appears that outpatient treatment ruled out substance abuse services as it is not enough to manage the patient effectively at this time. The patient was seen in the CCU earlier today as she was transferred there yesterday from the psychiatric unit after extremely elevated triglycerides were noted on labs. The patient is forthcoming about her alcohol use, depression. She is no longer suicidal. She is not hallucinating. She is aware that she did not take her medication. She feels out of control. Denies any major precipitants to her alcohol use and it is just difficult for her to abstain from alcohol in general. Right now, she is cooperative and coherent and willing to sign in again to psychiatric unit to help the major behavioral problems, so she wants to restart medications. Labs and vitals were reviewed. RELEVANT PSYCHIATRIC MEDICATIONS: Prozac 40 mg and Ativan 2 mg every 6 hours and 2 mg q.i.d. scheduled. IMPRESSION: Alcohol use disorder, severe; substance induced mood disorder; alcohol withdrawal; depression, not otherwise specified; rule out major depressive disorder. RECOMMENDATIONS: We will continue with Ativan taper for alcohol withdrawal. Continue with Prozac 40 mg daily. Psychiatry will follow up with her until she is medically cleared. She will go back to the psychiatric unit. Estrella Hurley MD
== END 2018-12-06 21:30 | DRG 299 ==
LOC: ED 13:57 → ERH 14:26 → CCU 15:53
PROVIDERS: ADMIT Hospitalist; ATTEND Hospitalist
DX: E78.1 Pure hyperglyceridemia (principal); F06.4 Anxiety disorder due to known physiological condition; F32.9 Major depressive disorder, single episode, unspecified; R45.851 Suicidal ideations; F10.10 Alcohol abuse, uncomplicated; E83.51 Hypocalcemia; I10 Essential (primary) hypertension; K59.00 Constipation, unspecified; K76.0 Fatty (change of) liver, not elsewhere classified; Y90.6 Blood alcohol level of 120-199 mg/100 ml; Z87.891 Personal history of nicotine dependence; Z80.49 Family history of malignant neoplasm of other genital organs; Z83.3 Family history of diabetes mellitus; Z82.49 Family history of ischemic heart disease and other diseases of the circulatory system

== ENCOUNTER 2018-12-06 21:30 | Inpatient (IN) | payer MEDICAID ==
[2018-12-06 22:17] VITALS: BMI 41.5
[2018-12-07] MEDS ORDERED: Magnesium Hydroxide Susp 30 ml UD PO PRN (05:48)
[2018-12-07] MEDS: Pantoprazole 20 mg EC Tab PO SCH (07:20)
[2018-12-07 09:16] LABS: BASO # 0.01 K/mm3 (0.0-2.0); BASO % 0.2 % (0.0-3.0); EOS # 0.1 (0.0-0.7); EOS % 2.3 % (1.5-5.0); GRAN # 3.23 (1.4-6.5); GRAN % 56.3 % (50.0-68.0); HEMOGLOBIN 11.8 g/dL (12.0-16.0); LYMPH % 34.8 % (22.0-35.0); MEAN CELL VOLUME 102.8 fl (80.0-105.0); MEAN CORPUSCULAR HEMOGLOBIN 33.4 pg (25.0-35.0); MEAN CORPUSCULAR HGB CONC 32.5 g/dl (31.0-37.0); MEAN PLATELET VOLUME 10.2 fl (7.0-11.0); MONO # 0.4 (0.1-0.6); MONO % 6.4 % (1.0-6.0); RBC 3.53 10^6/uL (3.5-6.1); RED CELL DISTRIBUTION WIDTH 15.2 % (11.5-14.5); WHITE BLOOD COUNT 5.7 10^3/uL (4.5-11.0)
[2018-12-07] MEDS: Multivitamin Therapeutic Tab PO SCH (09:56)
[2018-12-07 10:08] LABS: ALB/GLOB RATIO 0.9 (1.1-1.8); ALBUMIN 3.7 g/dL (3.0-4.8); ALT/SGPT 167 U/L (7-56); AST/SGOT 211 U/L (14-36); BLOOD UREA NITROGEN 6 mg/dL (7-21); CALCIUM 9.1 mg/dL (8.4-10.5); GFR NON-AFRICAN AMERICAN > 60
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
--- NOTE | 2018-12-07 13:11 | CP.PCM.CON ---
<JarrellJimmie - Last Filed: 12/07/18 13:01> History of Present Illness - History of Present Illness History of Present Illness: Medicine consult note: Jarrell PGY - 2 Reason for consult: Medical management HPI: 43 F with pertinent medical history of HTN and recent Hypertriglyce ridemia (3929) admitted to psychiatry floor for depression and suicidal ideation. Medicine service consulted for management of chronic conditions. Patient was recently admitted to ICU for hypertriglyceridemia, was treated on an insulin drip appropriately until her levels normalized, and then discharged to psychiatry floor with Gemfibrozil. On interview today, patient is doing well and denies any abdominal pain, chest pain, shortness of breath. Patient states she is feeling better. Review of Systems: 12 point ROS obtained and negative except as per HPI Surg Hx: Denies Med Hx: HTN, Depression, Anxiety, Recent Hypertriglyceridemia (3929) Allergies: Shellfish derived, Amlodipine Soc Hx: Admits tobacco (1/2 ppd for 3-4 months, last smoked 1-2 weeks prior), alcohol (5+ shots of liquor/day for 4+ weeks); denies illicits/IVDA Home Meds: Klonopin 1 mg PO BID; Pepcid 20 mg PO BID; Prozac 40 mg PO qD; MV Thera Tab qD; Lopid 600 mg PO BID (started on recent admission to medical floors) Fam Hx: DM (Mother, one brother and one sister), Unspecified cardiac conditions (Mother and Father), unspecified gynecological cancer (Mother) Past Patient History - Infectious Disease Hx of Infectious Diseases: None - Tetanus Immunizations Tetanus Immunization: Unknown - Past Social History Smoking Status: Former Smoker - CARDIAC Hx Cardiac Disorders: Yes Hx Hypertension: Yes - PULMONARY Hx Respiratory Disorders: No Other/Comment: URI - NEUROLOGICAL Hx Neurological Disorder: No - HEENT Hx HEENT Problems: No - RENAL Hx Chronic Kidney Disease: No - ENDOCRINE/METABOLIC Hx Endocrine Disorders: No - HEMATOLOGICAL/ONCOLOGICAL Hx Blood Disorders: No - INTEGUMENTARY Hx Dermatological Problems: No - MUSCULOSKELETAL/RHEUMATOLOGICAL Hx Musculoskeletal Disorders: No - GASTROINTESTINAL Hx Gastrointestinal Disorders: No - GENITOURINARY/GYNECOLOGICAL Hx Genitourinary Disorders: No - PSYCHIATRIC Hx Psychophysiologic Disorder: Yes Hx Depression: Yes Hx Physical Abuse: No Hx Sexual Abuse: No Hx Substance Use: No - SURGICAL HISTORY Hx Section: Yes (x3) Hx Tubal Ligation: Yes - ANESTHESIA Hx Anesthesia: No Hx Anesthesia Reactions: No Hx Malignant Hyperthermia: Yes Meds Allergies/Adverse Reactions: Allergies Allergy/AdvReac Type Severity Reaction Status Date / Time shellfish derived Allergy Mild ANAPHYLAXIS Verified 12/07/18 04:35 amlodipine [From [facility]] AdvReac ANGIOEDEMA Verified 12/07/18 04:35 - Medications Medications: Current Medications Acetaminophen (Tylenol 325mg Tab) 325 mg PO Q6H PRN PRN Reason: Pain, Mild (1-3) Last Admin: 12/07/18 07:20 Dose: 325 mg Al Hydrox/Mg Hydrox/Simethicone (Maalox Plus 30 Ml) 30 ml PO DAILY PRN PRN Reason: Dyspepsia Fluoxetine HCl (Prozac) 40 mg PO DAILY [facility] Folic Acid (Folic Acid) 1 mg PO DAILY [facility] Last Admin: 12/07/18 09:56 Dose: 1 mg Gemfibrozil (Lopid) 600 mg PO BID [facility] Last Admin: 12/07/18 09:56 Dose: 600 mg Lorazepam (Ativan) 2 mg PO Q6 PRN; Protocol PRN Reason: Agitation Last Admin: 12/07/18 07:24 Dose: 2 mg Lorazepam (Ativan) 2 mg PO Q8 [facility]; Protocol Magnesium Hydroxide (Milk Of Magnesia) 30 ml PO DAILY PRN PRN Reason: Constipation Mirtazapine (Remeron) 15 mg PO HS [facility] Multivitamins (Thera Tab) 1 tab PO 0800 [facility] Last Admin: 12/07/18 09:56 Dose: 1 tab Pantoprazole Sodium (Protonix Ec Tab) 40 mg PO 0600 [facility] Last Admin: 12/07/18 07:20 Dose: 40 mg Thiamine HCl (Vitamin B1 Tab) 100 mg PO DAILY [facility] Last Admin: 12/07/18 09:55 Dose: 100 mg Zaleplon (Sonata) 5 mg PO HS PRN PRN Reason: Insomnia Ziprasidone (Geodon Cap) 20 mg PO Q6 PRN; Protocol PRN Reason: Agitation Ziprasidone (Geodon Inj) 20 mg IM Q6 PRN; Protocol PRN Reason: Agitation Physical Exam - Constitutional Appears: Well - Head Exam Head Exam: ATRAUMATIC, NORMAL INSPECTION, NORMOCEPHALIC - Eye Exam Eye Exam: EOMI, Normal appearance, PERRL Pupil Exam: NORMAL ACCOMODATION, PERRL - ENT Exam ENT Exam: Mucous Membranes Moist, Normal Exam - Neck Exam Neck exam: Positive for: Normal Inspection - Respiratory Exam Respiratory Exam: Clear to Auscultation Bilateral, NORMAL BREATHING PATTERN - Cardiovascular Exam Cardiovascular Exam: REGULAR RHYTHM - GI/Abdominal Exam GI & Abdominal Exam: Normal Bowel Sounds, Soft. absent: Tenderness - Extremities Exam Extremities exam: Positive for: normal inspection - Back Exam Back exam: NORMAL INSPECTION - Neurological Exam Neurological exam: Alert, CN II-XII Intact, Normal Gait, Oriented x3, Reflexes Normal - Psychiatric Exam Psychiatric exam: Normal Affect, Normal Mood - Skin Skin Exam: Dry, Intact, Normal Color, Warm Results - Vital Signs Recent Vital Signs: Last Vital Signs Temp 98.4 F 12/07/18 07:29 Pulse 78 12/07/18 07:29 Resp 20 12/07/18 07:29 BP 139/86 12/07/18 07:29 Pulse Ox - Labs Result Diagrams: 12/07/18 08:50 12/07/18 08:50 Labs: Laboratory Results - last 24 hr 12/07/18 12/07/18 08:50 08:50 WBC 5.7 D RBC 3.53 Hgb 11.8 L Hct 36.3 MCV 102.8 D MCH 33.4 MCHC 32.5 RDW 15.2 H Plt Count 188 MPV 10.2 Gran % 56.3 Lymph % (Auto) 34.8 [place] % (Auto) 6.4 H Eos % (Auto) 2.3 Baso % (Auto) 0.2 Gran # 3.23 Lymph # (Auto) 2.0 [place] # (Auto) 0.4 Eos # (Auto) 0.1 Baso # (Auto) 0.01 Sodium 138 Potassium 4.6 Chloride 107 Carbon Dioxide 26 Anion Gap 10 BUN 6 L Creatinine 1.0 Est GFR ( Amer) > 60 Est GFR (Non-Af Amer) > 60 Random Glucose 123 H Calcium 9.1 Phosphorus 3.6 Magnesium 2.0 Total Bilirubin 1.4 H AST 211 H ALT 167 H Alkaline Phosphatase 107 Total Protein 7.6 Albumin 3.7 Globulin 4.0 Albumin/Globulin Ratio 0.9 L Assessment & Plan - Assessment and Plan (Free Text) Assessment: 43 year old female with pertinent medical history of HTN and recent hypertriglyceridemia (3320) admitted to psychiatry floor for suicidal ideation with medicine service on consult for management of chronic medical conditions. Discharge labs from recent ICU admission showed that TG fell to 499, warranting discontinuation of insulin drip. Patient's labs and vitals reviewed today. Plan Depression with Suicidal Ideation - As per psychiatry recommendations Hypertriglyceridemia - Continue Gemfibrozil 600 BID - Instruct patient to get repeat blood work done within 6 weeks Hx HTN - Patient currently normotensive - Continue to monitor vitals Hx Alcohol Abuse - Advised cessation; told patient that this is important also because of her hypertriglyceridemia Hx Tobacco Abuse - Advised cessation <Mary Jane Bowie - Last Filed: 12/08/18 11:23> Meds - Medications Medications: Current Medications Acetaminophen (Tylenol 325mg Tab) 325 mg PO Q6H PRN PRN Reason: Pain, Mild (1-3) Last Admin: 12/07/18 07:20 Dose: 325 mg Al Hydrox/Mg Hydrox/Simethicone (Maalox Plus 30 Ml) 30 ml PO DAILY PRN PRN Reason: Dyspepsia Fluoxetine HCl (Prozac) 40 mg PO DAILY [facility] Last Admin: 12/08/18 09:14 Dose: 40 mg Folic Acid (Folic Acid) 1 mg PO DAILY [facility] Last Admin: 12/08/18 09:14 Dose: 1 mg Gemfibrozil (Lopid) 600 mg PO BID [facility] Last Admin: 12/08/18 09:14 Dose: 600 mg Lorazepam (Ativan) 2 mg PO Q6 PRN; Protocol PRN Reason: Agitation Last Admin: 12/07/18 07:24 Dose: 2 mg Lorazepam (Ativan) 2 mg PO Q8 [facility]; Protocol Last Admin: 12/08/18 06:17 Dose: 2 mg Magnesium Hydroxide (Milk Of Magnesia) 30 ml PO DAILY PRN PRN Reason: Constipation Multivitamins (Thera Tab) 1 tab PO 0800 [facility] Last Admin: 12/08/18 09:14 Dose: 1 tab Pantoprazole Sodium (Protonix Ec Tab) 40 mg PO 0600 [facility] Last Admin: 12/08/18 06:18 Dose: 40 mg Thiamine HCl (Vitamin B1 Tab) 100 mg PO DAILY [facility] Last Admin: 12/08/18 09:14 Dose: 100 mg Zaleplon (Sonata) 5 mg PO HS PRN PRN Reason: Insomnia Ziprasidone (Geodon Cap) 20 mg PO Q6 PRN; Protocol PRN Reason: Agitation Ziprasidone (Geodon Inj) 20 mg IM Q6 PRN; Protocol PRN Reason: Agitation Results - Vital Signs Recent Vital Signs: Last Vital Signs Temp 98.7 F 12/08/18 07:00 Pulse 77 12/08/18 07:00 Resp 20 12/08/18 07:00 BP 111/69 12/08/18 07:00 Pulse Ox - Labs Result Diagrams: 12/07/18 08:50 12/07/18 08:50 Attending/Attestation - Attestation I have personally seen and examined this patient.: Yes I have fully participated in the care of the patient.: Yes I have reviewed all pertinent clinical information: Yes Notes (Text): Patient seen and examined by me with resident at 10AM on 12/07/18 in the emergency room. Case including HPI, physical exam, and assessment and plan discussed with resident. Agree with above with following additions/corrections. Patient is a 43-year-old female past medical history significant for hyperte nsion, depression and anxiety that presented to the emergency room on 12/04/2018 with depression and suicidal ideations. Patient was admitted to psychiatric unit. Patient seen by medicine team in psychiatric unit and found to have severe hypertriglycerdemia. Patient transferred to emergency room for admission to ICU. Patient was treated with insulin drip with improvement and was transferred back to psychiatric unit 12/06/18. Medicine is consulted for medical management. Patient states that she has been drinking for approximately a month. She states that she drinks approximately 6 shots of whiskey daily secondary to depression. She has been feeling depressed since she lost her son approximately one year ago. Patient states she had been drinking heavily previously and stopped and restarted again approximately one month ago. Patient states she is feeling much better today. No nausea, vomiting, or abdominal pain. Patient states epigastric pain has resolved. Patient is tolerating diet. Patient denies any headaches or dizziness. No lightheadedness. No fevers or chills. No dysuria. No chest pain or shortness of breath. No palpitations. Patient states she is also feeling less anxious. Patient understands that she is to stop drinking alcohol and she has to diet and exercise. 12 point review of systems reviewed by me. Please see above HPI, all other systems negative. Family history. The and had a history of a gynecologic cancer. Father and had cardiac disease. Surgical history. 3. Patient had throat surgery at the age of 7. The patient is unsure why. Allergies: Shellfish, reaction: Anaphylaxis Medications at home. Prozac, Remeron, Klonopin, lisinopril, and Pepcid Physical exam: General: Awake and alert lying in bed in no acute distress HEENT: Normocephalic, atraumatic. Extraocular muscles intact, pupils equal and reactive, no scleral icterus. Oropharynx is pink and moist. No pharyngeal erythema or exudate appreciated. Neck is supple. Cardiovascular: Normal rhythm. Normal S1-S2. No murmurs, rubs, or gallops appreciated Pulmonary: Normal respiratory effort. No rhonchi, rales, or wheezing appreciated. Gastrointestinal: Soft, nondistended. Nontender. Positive bowel sounds all 4 quadrants. No guarding. Obese abdomen Musculoskeletal: Moves all extremities. No calf tenderness. No edema appreciated. Central nervous system: AAO 3. CN 2-12 grossly intact. Dermatologic: Skin warm and dry. Assessment and plan: Patient is a 43-year-old female past medical history significant for hypertension, depression and anxiety that presented to the emergency room on 12/04/2018 with depression and suicidal ideations. Patient was admitted to psychiatric unit. Patient seen by medicine team in psychiatric unit and found to have severe hypertriglycerdemia. Patient transferred to emergency room for admission to ICU. Patient was treated with insulin drip with improvement and was transferred back to psychiatric unit 12/06/18. Medicine is consulted for medical management. 1. Hypertriglyceridemia. Epigastric pain. Epigastric pain resolved. Hy pertriglyceridemia improved. Continue Lopid and have repeat blood work done in 6 weeks. Pending labs for today. May need to hold if LFTS are elevated. Discussed in detail with the patient who understands and agrees. Patient to diet and exercise. CT abdomen and pelvis per radiologist showed severe fatty infiltration of the liver and hepatomegaly, no acute intra-abdominal finding 2. Elevated LFTs. Likely secondary to alcohol abuse. Patient also with severe fatty infiltration on CT abd/pelvis. Patient counseled on diet and exercise. Patient counseled at length on alcohol cessation. Please avoid nephrotoxic medications. May need to hold Lopid if continues to be elevated. 3. Alcohol abuse. Counseled on cessation. Continue thiamine, folic acid, and multivitamin. Care as per primary team. 4. Hypertension. Patient is normotensive off medications. 5. Suicidal ideations/depression/anxiety. Continue Prozac. Care as per primary team. Case was discussed in detail with the patient regarding current diagnosis and treatment plan. All questions answered. Patient is feeling much better. Patient to continue gemfibrozil and repeat blood work done as an outpatient in 6 weeks. Will hold Lopid if LFTS are elevated today. Please avoid nephrotoxic medications. Patient will need repeat blood work for resolution of elevated LFTs. We will sign off. Please reconsult at any time if needed.
[2018-12-08] MEDS: Pantoprazole 20 mg EC Tab PO SCH (06:18)
[2018-12-08] MEDS: Multivitamin Therapeutic Tab PO SCH (09:14)
--- NOTE | 2018-12-08 11:10 | PCM.PYCHPN ---
Psychiatric Progress Note - Psychiatric Progress Note Patient seen today, length of contact: 25 min Problems Identified/Issues Discussed: I reviewed recent notes and met with patient at bedside. She is known to me from the outpatient clinic and recent psychiatric admissions on the unit. Patient reports that she has been depressed and anxious however has been feeling better over the weekend. Anxiety is improved with ativan. Sleep has been good with combination of ativan, remeron and sonata however she requests that remeron be discontinued because of the associated weight gain. She continues to deny any SI or HI or perceptual disturbance. She seems a little brighter this morning and in NAD. Patient has been more visible on the unit and interacting with other patients and staff. Generally friendly upon approach. There were no behavioral issues over the weekend. Diagnostic Results: MDD Bereavement/grief r/o persistent complex bereavement disorder r/o trauma/stressor-related disorder unspecified Severe alcohol use disorder r/o adjustment disorder r/o bipolar disorder Medication Change: Yes (d/c remeron) Medical Record Reviewed: Yes Mental Status Examination - Cognitive Function Orientation: Person, Place, Situation Attention: WNL Concentration: WNL Association: WNL Fund of Knowledge: WNL - Mood Mood: Depressed (improving), Anxious (improving) - Affect Affect: Constricted (more reactive and spontaneous) - Speech Speech: Appropriate - Formal Thought Process Formal Thought Process: No Impairment - Suicidal Ideation Suicidal Ideation: No - Homicidal Ideation Homicidal Ideation: No Goal/Treatment Plan - Goal/Treatment Plan Progress Toward Problem(s) and Goals/Treatment Plan: * group, milieu and supportive tx * Appreciate f/u by Dr. Vieyra on 12/07/18~signed off * prozac 40 mg po daily for depression and anxiety * d/c'ed remeron 15 mg po HS on 12/08/18 per patient request * ativan 2 mg q8 for anxiety, taper as tolerated * consider naltrexone to help with alcohol craving however patient has refused in the past * sonata 5 mg HS prn * vitals reviewed and noted below: Selected Entries 12/07/18 12/07/18 12/08/18 07:29 15:44 07:00 Temperature 98.4 F 98.7 F Pulse Rate 78 86 77 Respiratory 20 20 Rate Blood Pressure 139/86 130/90 111/69 * consultation for discharge plan and social issues * Admission labs noted below: Laboratory Tests 12/07/18 12/07/18 08:50 08:50 WBC 5.7 D RBC 3.53 Hgb 11.8 L Hct 36.3 MCV 102.8 D MCH 33.4 MCHC 32.5 RDW 15.2 H Plt Count 188 MPV 10.2 Gran % 56.3 Lymph % (Auto) 34.8 [place] % (Auto) 6.4 H Eos % (Auto) 2.3 Baso % (Auto) 0.2 Gran # 3.23 Lymph # (Auto) 2.0 [place] # (Auto) 0.4 Eos # (Auto) 0.1 Baso # (Auto) 0.01 Sodium 138 Potassium 4.6 Chloride 107 Carbon Dioxide 26 Anion Gap 10 BUN 6 L Creatinine 1.0 Est GFR ( Amer) > 60 Est GFR (Non-Af Amer) > 60 Random Glucose 123 H Calcium 9.1 Phosphorus 3.6 Magnesium 2.0 Total Bilirubin 1.4 H AST 211 H ALT 167 H Alkaline Phosphatase 107 Total Protein 7.6 Albumin 3.7 Globulin 4.0 Albumin/Globulin Ratio 0.9 L
[2018-12-09] MEDS: Pantoprazole 20 mg EC Tab PO SCH (07:14)
[2018-12-09 08:42] LABS: ALB/GLOB RATIO 0.9 (1.1-1.8); ALBUMIN 3.3 g/dL (3.0-4.8); ALT/SGPT 101 U/L (7-56); AST/SGOT 74 U/L (14-36); BLOOD UREA NITROGEN 10 mg/dL (7-21); CALCIUM 8.8 mg/dL (8.4-10.5); GFR NON-AFRICAN AMERICAN > 60; HDL CHOLESTEROL 69 mg/dL (29-60)
[2018-12-09 08:48] LABS: LDL CHOLESTEROL 127 mg/dL (0-129)
[2018-12-09] MEDS: Multivitamin Therapeutic Tab PO SCH (09:04)
--- NOTE | 2018-12-09 12:30 | PCM.BM ---
Treatment Plan Problems - Problems identified on initial assessmt INEFFECTIVE INDV COPING Date Initiated: 12/09/18 Time Initiated: 10:00 Assessment reference: NA Status: Active Priority: 1 NON ADHERENCE TO TX Date Initiated: 12/09/18 Time Initiated: 10:00 Assessment reference: NA Status: Active Priority: 2 Treatment assets and liabiliti Patient Assests: cooperative, educated, insightful, self-reliant, ADL independent, physically healthy, negotiates basic needs, cognitively intact Patient Liabilities: substance abuse - Milieu Protocol Maintain good personal hygiene: every shift Encourage regular showers, every shift Remind patient to perform daily oral care, every shift Assist patient to perform ADL's Maintain personal safety: daily Educate patient to report safety concerns to staff, daily Monitor environment for contraband/sharps Medication safety: Monitor for expected outcome, potential side effects: daily, Assess barriers to learning: daily, Assess readiness for medication education: daily Milieu Narrative: * group, milieu and supportive tx * Appreciate f/u by Dr. Vieyra on 12/07/18~signed off * prozac 40 mg po daily for depression and anxiety * d/c'ed remeron 15 mg po HS on 12/08/18 per patient request * ativan 2 mg q8 for anxiety, taper as tolerated * consider naltrexone to help with alcohol craving however patient has refused in the past * sonata 5 mg HS prn * vitals reviewed and noted below: Selected Entries 12/07/18 12/07/18 12/08/18 07:29 15:44 07:00 Temperature 98.4 F 98.7 F Pulse Rate 78 86 77 Respiratory 20 20 Rate Blood Pressure 139/86 130/90 111/69 * consultation for discharge plan and social issues * Admission labs noted below: Laboratory Tests 12/07/18 12/07/18 08:50 08:50 WBC 5.7 D RBC 3.53 Hgb 11.8 L Hct 36.3 MCV 102.8 D MCH 33.4 MCHC 32.5 RDW 15.2 H Plt Count 188 MPV 10.2 Gran % 56.3 Lymph % (Auto) 34.8 [place] % (Auto) 6.4 H Eos % (Auto) 2.3 Baso % (Auto) 0.2 Gran # 3.23 Lymph # (Auto) 2.0 [place] # (Auto) 0.4 Eos # (Auto) 0.1 Baso # (Auto) 0.01 Sodium 138 Potassium 4.6 Chloride 107 Carbon Dioxide 26 Anion Gap 10 BUN 6 L Creatinine 1.0 Est GFR ( Amer) > 60 Est GFR (Non-Af Amer) > 60 Random Glucose 123 H Calcium 9.1 Phosphorus 3.6 Magnesium 2.0 Total Bilirubin 1.4 H AST 211 H ALT 167 H Alkaline Phosphatase 107 Total Protein 7.6 Albumin 3.7 Globulin 4.0 Albumin/Globulin Ratio 0.9 L Family Contact Family involvement: Family/SO is involved Family contact: Patient agrees to contact Family contact name: Ollie Pnoce(jennifer) Family contacted how many times per week?: 2 Discharge/Continuing Care - Education Needs Education Needs: Patient Medication, Patient Diagnosis/Disease Process, Patient Coping Skills, Patient Community resources, Patient Activities of Daily Living, Patient Pain, Patient Nutrition, Patient Health Practices/Safety, Patient Personal Hygiene/Grooming, Patient Aftercare Safety Plan - Discharge Discharge Criteria: Tolerates medication w/o severe side effects, Free of Suicidal thoughts, Free of agitation, Ability to care for self, No longer exhibiting s/s of withdrawal, Reduction of target symptoms Discharge to:: Home - Treatment Team Participation Patient/Family/SO Statement: * group, milieu and supportive tx * Appreciate f/u by Dr. Vieyra on 12/07/18~signed off * prozac 40 mg po daily for depression and anxiety * d/c'ed remeron 15 mg po HS on 12/08/18 per patient request * ativan 2 mg q8 for anxiety, taper as tolerated * consider naltrexone to help with alcohol craving however patient has refused in the past * sonata 5 mg HS prn * vitals reviewed and noted below: Selected Entries 12/07/18 12/07/18 12/08/18 07:29 15:44 07:00 Temperature 98.4 F 98.7 F Pulse Rate 78 86 77 Respiratory 20 20 Rate Blood Pressure 139/86 130/90 111/69 * consultation for discharge plan and social issues * Admission labs noted below: Laboratory Tests 12/07/18 12/07/18 08:50 08:50 WBC 5.7 D RBC 3.53 Hgb 11.8 L Hct 36.3 MCV 102.8 D MCH 33.4 MCHC 32.5 RDW 15.2 H Plt Count 188 MPV 10.2 Gran % 56.3 Lymph % (Auto) 34.8 [place] % (Auto) 6.4 H Eos % (Auto) 2.3 Baso % (Auto) 0.2 Gran # 3.23 Lymph # (Auto) 2.0 [place] # (Auto) 0.4 Eos # (Auto) 0.1 Baso # (Auto) 0.01 Sodium 138 Potassium 4.6 Chloride 107 Carbon Dioxide 26 Anion Gap 10 BUN 6 L Creatinine 1.0 Est GFR ( Amer) > 60 Est GFR (Non-Af Amer) > 60 Random Glucose 123 H Calcium 9.1 Phosphorus 3.6 Magnesium 2.0 Total Bilirubin 1.4 H AST 211 H ALT 167 H Alkaline Phosphatase 107 Total Protein 7.6 Albumin 3.7 Globulin 4.0 Albumin/Globulin Ratio 0.9 L
--- NOTE | 2018-12-09 14:42 | PCM.PYCHPN ---
Psychiatric Progress Note - Psychiatric Progress Note Patient seen today, length of contact: 30 minutes Patient Chief Complaint: "I am feeling fine, thank you, everything is okay" Problems Identified/Issues Discussed: Suicide/ homicide prevention, past psychiatric h/o, current psychiatric symptoms, medical problems, risk/benefits and alternatives of medications, medications compliance, coping strategies, substance abuse h/o, relapse prevention, importance of follow up with psychiatrist and therapist, discharge plan. Medical Problems: Hypertension Hypertriglyceridemia of 3930, patient required ICU transfer, was downgraded to the medical floor, medically stabilized and then was transferred back to psych unit Please see medical note for more detailed information. Diagnostic Results: 12/07/18 08:50 12/09/18 08:23 Lab Results 12/09/18 08:23: Sodium 138, Potassium 4.5, Chloride 106, Carbon Dioxide 29, Anion Gap 7 L, BUN 10, Creatinine 0.9, Est GFR ( Amer) > 60, Est GFR (Non -Af Amer) > 60, Random Glucose 97, Calcium 8.8, Total Bilirubin 1.0, AST 74 H D, ALT 101 H, Alkaline Phosphatase 77, Total Protein 6.9, Albumin 3.3, Globulin 3.6, Albumin/Globulin Ratio 0.9 L, Triglycerides 72, Cholesterol 228 H, LDL Cholesterol Direct 127, HDL Cholesterol 69 H 12/07/18 08:50: Sodium 138, Potassium 4.6, Chloride 107, Carbon Dioxide 26, Anion Gap 10, BUN 6 L, Creatinine 1.0, Est GFR ( Amer) > 60, Est GFR (Non-Af Amer) > 60, Random Glucose 123 H, Calcium 9.1, Phosphorus 3.6, Magnesium 2.0, Total Bilirubin 1.4 H, AST 211 H, ALT 167 H, Alkaline Phosphatase 107, Total Protein 7.6, Albumin 3.7, Globulin 4.0, Albumin/Globulin Ratio 0.9 L 12/07/18 08:50: WBC 5.7 D, RBC 3.53, Hgb 11.8 L, Hct 36.3, MCV 102.8 D, MCH 33.4, MCHC 32.5, RDW 15.2 H, Plt Count 188, MPV 10.2, Gran % 56.3, Lymph % (Auto) 34.8, [place] % (Auto) 6.4 H, Eos % (Auto) 2.3, Baso % (Auto) 0.2, Gran # 3.23, Lymph # (Auto) 2.0, [place] # (Auto) 0.4, Eos # (Auto) 0.1, Baso # (Auto) 0.01 Vital Signs Temp Pulse Pulse Resp BP 12/09/18 07:00 97.6 F 73 20 115/72 12/08/18 16:00 83 129/86 12/08/18 07:00 98.7 F 77 20 111/69 12/07/18 15:44 86 130/90 12/07/18 07:29 98.4 F 78 20 139/86 12/07/18 04:36 68 16 DSM 5 Symptoms Update: Soumya Granger is a 43 yo female with a history of depression, anxiety and alcohol abuse with 4 prior psych hospitalizations (most recently at [facility] 09/19/18-09/23/18 and 09/12/18-09/17/18), compliant with prescribed medications of Prozac 40 mg daily, Remeron 15 mg HS, klonopin 1 mg po bid (though she only takes it once daily) who was transferred back to the psychiatric unit on 12/06/18 from the ICU where she was treated for extremely elevated triglycerides. Patient was initially admitted to the psychiatric unit on 12/04/18 for depression, alcohol withdrawal and SI, transferred and treated in the ICU on 12/05/17 and 12/06/18 for elevated TG and transferred back to Psychiatry on 11/19 07/07. Over the weekend patient was calm and in good control on the unit. She is tolerating her medications and denies any acute discomfort at this time. She is pleasant and well related without evidence of perceptual disturbance. Patient was seen and examined today at the treatment team meeting, patient presented with poor personal hygiene, appears to be angry and annoyed but this database report writer but her alcohol dependence to pt's attention, pt said that when she was not drinking "I was doing okay, but when I am okay, I feel guilty that I am doing fine because I need to remember my son..." (pt's son about a year ago). pt has 4yo son, and this database report writer address the fact that she has another son to take care of, pt seems understanding. patient reported that her mother is taking care of her son. pt said that her fianc as well as [id number] all concerned about her drinking habits. Most likely DYFS should be involved, SW will call. So far patient tolerates medications well, no side effects observed or reported, aims 0, no EPS. Diagnostic Results: MDD Bereavement/grief r/o persistent complex bereavement disorder r/o trauma/stressor-related disorder unspecified Severe alcohol use disorder r/o adjustment disorder r/o bipolar disorder Medication Change: Yes (d/c remeron) Medical Record Reviewed: Yes Consults ordered or reviewed: Medical follow-up appreciated, see notes for more detailed information. Mental Status Examination - Cognitive Function Orientation: Person, Place, Situation Attention: WNL Concentration: WNL Association: WNL Fund of Knowledge: WNL - Mood Mood: Depressed (improving), Anxious (improving) - Affect Affect: Constricted (more reactive and spontaneous) - Speech Speech: Appropriate - Formal Thought Process Formal Thought Process: No Impairment - Suicidal Ideation Suicidal Ideation: No - Homicidal Ideation Homicidal Ideation: No Goal/Treatment Plan - Goal/Treatment Plan Need for Continued Stay: Remain at risks for inpatient hospitalization, Severe depression anxiety, Discharge may exacerbated symptoms, Severe functional impairment Progress Toward Problem(s) and Goals/Treatment Plan: Milieu/structure/supportive therapy SW consultation for discharge plan and social issues Med management: Prozac 40 mg was continued for depression and anxiety folic acid p.o. daily Lopid 600 mg twice a day Ativan 2 mg p.o. every 8 hours scheduled multivitamins p.o. daily Thiamine 100 mg daily Sonata 5 mg at the nighttime for insomnia We will consider naltrexone for alcohol cravings Family involvement, Patient was offered inpatient rehab but she declined that offer DYFS will be involved Follow up on labs Will monitor closely Pt was educated about risk/benefits and alternatives of medications, coping strategies (safety plan, suicide prevention), relapse prevention, importance of follow up with psychiatrist and therapist, stay away from drugs/alcohol/smoking Estimated Date of D/C: 12/13/18
--- NOTE | 2018-12-09 20:18 | CARD ---
APPROVED REPORT Date of service: 12/09/2018 EKG Measurement Heart [id number] <Conclusion> Normal sinus rhythm Borderline criteria for LVH CPT no significant change Abnormal ECG
[2018-12-10] MEDS: Pantoprazole 20 mg EC Tab PO SCH (05:43)
[2018-12-10] MEDS: Multivitamin Therapeutic Tab PO SCH (09:53)
--- NOTE | 2018-12-10 14:48 | PCM.PYCHPN ---
Psychiatric Progress Note - Psychiatric Progress Note Patient seen today, length of contact: 30 minutes Patient Chief Complaint: "My night was rough, I had my blood pressure elevated" Problems Identified/Issues Discussed: Suicide/ homicide prevention, past psychiatric h/o, current psychiatric symptoms, medical problems, risk/benefits and alternatives of medications, medic ations compliance, coping strategies, substance abuse h/o, relapse prevention, importance of follow up with psychiatrist and therapist, discharge plan. Medical Problems: Hypertension Hypertriglyceridemia of 3930, patient required ICU transfer, was downgraded to the medical floor, medically stabilized and then was transferred back to psych unit Please see medical note for more detailed information. Diagnostic Results: 12/07/18 08:50 12/09/18 08:23 Lab Results 12/09/18 08:23: Sodium 138, Potassium 4.5, Chloride 106, Carbon Dioxide 29, Anion Gap 7 L, BUN 10, Creatinine 0.9, Est GFR ( Amer) > 60, Est GFR (Non-Af Amer) > 60, Random Glucose 97, Calcium 8.8, Total Bilirubin 1.0, AST 74 H D, ALT 101 H, Alkaline Phosphatase 77, Total Protein 6.9, Albumin 3.3, Globulin 3.6, Albumin/Globulin Ratio 0.9 L, Triglycerides 72, Cholesterol 228 H, LDL Cholesterol Direct 127, HDL Cholesterol 69 H 12/07/18 08:50: Sodium 138, Potassium 4.6, Chloride 107, Carbon Dioxide 26, Anion Gap 10, BUN 6 L, Creatinine 1.0, Est GFR ( Amer) > 60, Est GFR (Non-Af Amer) > 60, Random Glucose 123 H, Calcium 9.1, Phosphorus 3.6, Magnesium 2.0, Total Bilirubin 1.4 H, AST 211 H, ALT 167 H, Alkaline Phosphatase 107, Total Protein 7.6, Albumin 3.7, Globulin 4.0, Albumin/Globulin Ratio 0.9 L 12/07/18 08:50: WBC 5.7 D, RBC 3.53, Hgb 11.8 L, Hct 36.3, MCV 102.8 D, MCH 33.4, MCHC 32.5, RDW 15.2 H, Plt Count 188, MPV 10.2, Gran % 56.3, Lymph % (Auto) 34.8, [place] % (Auto) 6.4 H, Eos % (Auto) 2.3, Baso % (Auto) 0.2, Gran # 3.23, Lymph # (Auto) 2.0, [place] # (Auto) 0.4, Eos # (Auto) 0.1, Baso # (Auto) 0.01 Vital Signs Temp Pulse Pulse Resp BP 12/09/18 07:00 97.6 F 73 20 115/72 12/08/18 16:00 83 129/86 12/08/18 07:00 98.7 F 77 20 111/69 12/07/18 15:44 86 130/90 12/07/18 07:29 98.4 F 78 20 139/86 12/07/18 04:36 68 16 DSM 5 Symptoms Update: Soumya Granger is a 43 yo female with a history of depression, anxiety and alcohol abuse with 4 prior psych hospitalizations (most recently at [facility] 09/19/18-09/23/18 and 09/12/18-09/17/18), compliant with prescribed medications of Prozac 40 mg daily, Remeron 15 mg HS, klonopin 1 mg po bid (though she only takes it once daily) who was transferred back to the psychiatric unit on 12/06/18 from the ICU where she was treated for extremely elevated triglycerides. Patient was seen and examined today next to the nursing station, patient presented with some improvement of personal hygiene, appears to be calmer, patient is superficially pleasant, does not like when this field underwriter to address her addiction to alcohol, patient reported that she has blood pressure elevated overnight and she was very anxious, meanwhile patient said that she is doing "little better", patient denied thoughts of harming herself or others, denied intent or plan. As per staff patient is visible in the unit, compliant with her medications, trying to attend groups, but still impulses are unpredictable. Patient reported that her sleep is "not that great", patient has fair appetite, patient reported that she does not have any nausea/vomiting/alcohol withdrawal symptoms are improving. So far patient tolerates medications well, no side effects observed or reported, aims 0, no EPS. Diagnostic Results: MDD Bereavement/grief r/o persistent complex bereavement disorder r/o trauma/stressor-related disorder unspecified Severe alcohol use disorder r/o adjustment disorder r/o bipolar disorder Medication Change: Yes (Ativan decreased) Medical Record Reviewed: Yes Consults ordered or reviewed: Medical follow-up appreciated, see notes for more detailed information. Mental Status Examination - Cognitive Function Orientation: Person, Place, Situation Attention: WNL Concentration: WNL Association: WNL Fund of Knowledge: WNL - Mood Mood: Depressed (improving), Anxious (improving) - Affect Affect: Constricted (more reactive and spontaneous) - Speech Speech: Appropriate - Formal Thought Process Formal Thought Process: No Impairment - Suicidal Ideation Suicidal Ideation: No - Homicidal Ideation Homicidal Ideation: No Goal/Treatment Plan - Goal/Treatment Plan Need for Continued Stay: Remain at risks for inpatient hospitalization, Severe depression anxiety, Discharge may exacerbated symptoms, Severe functional impairment Progress Toward Problem(s) and Goals/Treatment Plan: Milieu/structure/supportive therapy SW consultation for discharge plan and social issues Med management: Prozac 40 mg was continued for depression and anxiety folic acid p.o. daily Lopid 600 mg twice a day Ativan 1mg po qid scheduled for alcohol withdrawal symptoms multivitamins p.o. daily Thiamine 100 mg daily Sonata 5 mg at the nighttime for insomnia We will consider naltrexone for alcohol cravings Family involvement, Patient was offered inpatient rehab but she declined that offer DYFS will be involved Follow up on labs Will monitor closely Pt was educated about risk/benefits and alternatives of medications, coping strategies (safety plan, suicide prevention), relapse prevention, importance of follow up with psychiatrist and therapist, stay away from drugs/alcohol/smoking Estimated Date of D/C: 12/13/18
[2018-12-10] MEDS: Alum-Mag Hydrox-Simethicone Susp (30 mL) PO PRN (22:22)
[2018-12-11] MEDS: Pantoprazole 20 mg EC Tab PO SCH (05:58)
[2018-12-11] MEDS: Multivitamin Therapeutic Tab PO SCH (08:48)
--- NOTE | 2018-12-11 14:48 | PCM.PYCHPN ---
Psychiatric Progress Note - Psychiatric Progress Note Patient seen today, length of contact: 30 minutes Patient Chief Complaint: "I feel better, want to be discharged tomorrow" Problems Identified/Issues Discussed: Suicide/ homicide prevention, past psychiatric h/o, current psychiatric symptoms, medical problems, risk/benefits and alternatives of medications, medications compliance, coping strategies, substance abuse h/o, relapse prevention, importance of follow up with psychiatrist and therapist, discharge plan. Medical Problems: Hypertension Hypertriglyceridemia of 3930, patient required ICU transfer, was downgraded to the medical floor, medically stabilized and then was transferred back to psych unit Please see medical note for more detailed information. Diagnostic Results: 12/07/18 08:50 12/09/18 08:23 Lab Results 12/09/18 08:23: Sodium 138, Potassium 4.5, Chloride 106, Carbon Dioxide 29, Anion Gap 7 L, BUN 10, Creatinine 0.9, Est GFR ( Amer) > 60, Est GFR (Non-Af Amer) > 60, Random Glucose 97, Calcium 8.8, Total Bilirubin 1.0, AST 74 H D, ALT 101 H, Alkaline Phosphatase 77, Total Protein 6.9, Albumin 3.3, Glob ulin 3.6, Albumin/Globulin Ratio 0.9 L, Triglycerides 72, Cholesterol 228 H, LDL Cholesterol Direct 127, HDL Cholesterol 69 H 12/07/18 08:50: Sodium 138, Potassium 4.6, Chloride 107, Carbon Dioxide 26, Anion Gap 10, BUN 6 L, Creatinine 1.0, Est GFR ( Amer) > 60, Est GFR (Non-Af Amer) > 60, Random Glucose 123 H, Calcium 9.1, Phosphorus 3.6, Magnesium 2.0, Total Bilirubin 1.4 H, AST 211 H, ALT 167 H, Alkaline Phosphatase 107, Total Protein 7.6, Albumin 3.7, Globulin 4.0, Albumin/Globulin Ratio 0.9 L 12/07/18 08:50: WBC 5.7 D, RBC 3.53, Hgb 11.8 L, Hct 36.3, MCV 102.8 D, MCH 33.4, MCHC 32.5, RDW 15.2 H, Plt Count 188, MPV 10.2, Gran % 56.3, Lymph % (Auto) 34.8, [place] % (Auto) 6.4 H, Eos % (Auto) 2.3, Baso % (Auto) 0.2, Gran # 3.23, Lymph # (Auto) 2.0, [place] # (Auto) 0.4, Eos # (Auto) 0.1, Baso # (Auto) 0.01 Vital Signs Temp Pulse Pulse Resp BP 12/09/18 07:00 97.6 F 73 20 115/72 12/08/18 16:00 83 129/86 12/08/18 07:00 98.7 F 77 20 111/69 12/07/18 15:44 86 130/90 12/07/18 07:29 98.4 F 78 20 139/86 12/07/18 04:36 68 16 DSM 5 Symptoms Update: Soumya Granger is a 43 yo female with a history of depression, anxiety and alcohol abuse with 4 prior psych hospitalizations (most recently at [facility] 09/19/18-09/23/18 and 09/12/18-09/17/18), compliant with prescribed medications of Prozac 40 mg daily, Remeron 15 mg HS, klonopin 1 mg po bid (though she only takes it once daily) who was transferred back to the psychiatric unit on 12/06/18 from the ICU where she was treated for extremely elevated triglycerides. Patient was seen and examined today at the dinning area, pt presented with acceptable personal hygiene, appears to be calmer, patient is superficially pleasant, does not like when this technical writer to address her addiction to alcohol. in regards of mood, pt reported that she feels "better", pt complaining of insomnia, patient reported that overall she feels better, withdrawal symptoms are under control, patient has future oriented plans, patient wants to follow-up at dual diagnosis program but patient wants to be seen by Dr. Hurley in the clinic as well. , Patient denied any thoughts of harming herself or others, denied intent or plan, patient is not psychotic. So far patient tolerates medications well, no side effects observed or reported, aims 0, no EPS. Diagnostic Results: MDD Bereavement/grief r/o persistent complex bereavement disorder r/o trauma/stressor-related disorder unspecified Severe alcohol use disorder r/o adjustment disorder r/o bipolar disorder Medication Change: Yes (Ativan decreased) Medical Record Reviewed: Yes Mental Status Examination - Cognitive Function Orientation: Person, Place, Situation Attention: WNL Concentration: WNL Association: WNL Fund of Knowledge: WNL - Mood Mood: Depressed (improving), Anxious (improving) - Affect Affect: Constricted (more reactive and spontaneous) - Speech Speech: Appropriate - Formal Thought Process Formal Thought Process: No Impairment - Suicidal Ideation Suicidal Ideation: No - Homicidal Ideation Homicidal Ideation: No Goal/Treatment Plan - Goal/Treatment Plan Need for Continued Stay: Remain at risks for inpatient hospitalization, Severe depression anxiety, Discharge may exacerbated symptoms, Severe functional impairment Progress Toward Problem(s) and Goals/Treatment Plan: Milieu/structure/supportive therapy consultation for discharge plan and social issues Med management: Prozac 40 mg was continued for depression and anxiety folic acid p.o. daily Lopid 600 mg twice a day Ativan 1mg po 3 times daily scheduled for alcohol withdrawal symptoms multivitamins p.o. daily Thiamine 100 mg daily Sonata 10 mg at the nighttime for insomnia We will consider naltrexone for alcohol cravings Family involvement, Patient was offered inpatient rehab but she declined that offer DYFS will be involved Follow up on labs Will monitor closely Pt was educated about risk/benefits and alternatives of medications, coping strategies (safety plan, suicide prevention), relapse prevention, importance of follow up with psychiatrist and therapist, stay away from drugs/alcohol/smoking Estimated Date of D/C: 12/13/18
[2018-12-11] MEDS: Alum-Mag Hydrox-Simethicone Susp (30 mL) PO PRN (22:59)
[2018-12-12] MEDS: Pantoprazole 20 mg EC Tab PO SCH (05:03)
[2018-12-12 07:16] VITALS: BP 84/54; PULSE 75; RESP 18; TEMP 98.4
[2018-12-12 07:59] LABS: BASO # 0.01 K/mm3 (0.0-2.0); BASO % 0.2 % (0.0-3.0); EOS # 0.1 (0.0-0.7); EOS % 1.1 % (1.5-5.0); GRAN # 3.73 (1.4-6.5); GRAN % 56.1 % (50.0-68.0); LYMPH % 30.5 % (22.0-35.0); MEAN CELL VOLUME 103.7 fl (80.0-105.0); MEAN CORPUSCULAR HEMOGLOBIN 33.6 pg (25.0-35.0); MEAN CORPUSCULAR HGB CONC 32.4 g/dl (31.0-37.0); MEAN PLATELET VOLUME 9.9 fl (7.0-11.0); MONO # 0.8 (0.1-0.6); MONO % 12.1 % (1.0-6.0); RBC 2.98 10^6/uL (3.5-6.1); RED CELL DISTRIBUTION WIDTH 14.7 % (11.5-14.5); WHITE BLOOD COUNT 6.6 10^3/uL (4.5-11.0)
[2018-12-12 08:13] LABS: ALBUMIN 3.6 g/dL (3.0-4.8); ALT/SGPT 64 U/L (7-56); AST/SGOT 44 U/L (14-36); BLOOD UREA NITROGEN 12 mg/dL (7-21); CALCIUM 8.9 mg/dL (8.4-10.5); GFR NON-AFRICAN AMERICAN > 60
[2018-12-12] MEDS: Multivitamin Therapeutic Tab PO SCH (09:08)
[2018-12-12 10:27] LABS: HDL CHOLESTEROL 69 mg/dL (29-60)
[2018-12-12 10:46] LABS: LDL CHOLESTEROL 103 mg/dL (0-129)
--- NOTE | 2018-12-12 13:37 | CP.PCM.PN ---
<Jimmie Vieyra - Last Filed: 12/12/18 13:33> Subjective - Date & Time of Evaluation Date of Evaluation: 12/12/18 Time of Evaluation: 13:34 - Subjective Subjective: Medicine progress note - follow up Patient seen and examined at bedside. Patient presents no new complaints and denies any lingering abdominal pain. Patient denies shortness of breath, chest pain. She states she feels happier and is ready to go home. Objective - Vital Signs/Intake and Output Vital Signs (last 24 hours): Temp Pulse Resp BP Pulse Ox 98.4 F 75 18 84/54 L 12/12/18 07:15 12/12/18 07:15 12/12/18 07:15 12/12/18 07:15 - Medications Medications: Current Medications Acetaminophen (Tylenol 325mg Tab) 325 mg PO Q6H PRN PRN Reason: Pain, Mild (1-3) Last Admin: 12/11/18 16:05 Dose: 325 mg Al Hydrox/Mg Hydrox/Simethicone (Maalox Plus 30 Ml) 30 ml PO DAILY PRN PRN Reason: Dyspepsia Last Admin: 12/11/18 22:59 Dose: 30 ml Fluoxetine HCl (Prozac) 40 mg PO DAILY [facility] Last Admin: 12/12/18 09:08 Dose: 40 mg Folic Acid (Folic Acid) 1 mg PO DAILY [facility] Last Admin: 12/12/18 09:08 Dose: 1 mg Gemfibrozil (Lopid) 600 mg PO BID [facility] Last Admin: 12/08/18 09:14 Dose: 600 mg Lorazepam (Ativan) 2 mg PO Q6 PRN; Protocol PRN Reason: Agitation Last Admin: 12/12/18 05:03 Dose: 2 mg Lorazepam (Ativan) 1 mg PO TID [facility]; Protocol Last Admin: 12/12/18 12:35 Dose: 1 mg Magnesium Hydroxide (Milk Of Magnesia) 30 ml PO DAILY PRN PRN Reason: Constipation Multivitamins (Thera Tab) 1 tab PO 0800 [facility] Last Admin: 12/12/18 09:08 Dose: 1 tab Pantoprazole Sodium (Protonix Ec Tab) 40 mg PO 0600 [facility] Last Admin: 12/12/18 05:03 Dose: 40 mg Thiamine HCl (Vitamin B1 Tab) 100 mg PO DAILY [facility] Last Admin: 12/12/18 09:10 Dose: 100 mg Zaleplon (Sonata) 10 mg PO HS PRN PRN Reason: Insomnia Last Admin: 12/11/18 22:22 Dose: 10 mg Ziprasidone (Geodon Cap) 20 mg PO Q6 PRN; Protocol PRN Reason: Agitation Ziprasidone (Geodon Inj) 20 mg IM Q6 PRN; Protocol PRN Reason: Agitation - Labs Labs: 12/12/18 07:45 12/12/18 07:45 - Constitutional Appears: Well - Head Exam Head Exam: ATRAUMATIC, NORMAL INSPECTION, NORMOCEPHALIC - Eye Exam Eye Exam: EOMI, Normal appearance, PERRL Pupil Exam: NORMAL ACCOMODATION, PERRL - ENT Exam ENT Exam: Mucous Membranes Moist, Normal Exam - Neck Exam Neck Exam: Full ROM, Normal Inspection. absent: Lymphadenopathy - Respiratory Exam Respiratory Exam: Clear to Ausculation Bilateral, NORMAL BREATHING PATTERN - Cardiovascular Exam Cardiovascular Exam: REGULAR RHYTHM, +S1, +S2. absent: Murmur - GI/Abdominal Exam GI & Abdominal Exam: Soft, Normal Bowel Sounds. absent: Tenderness - Extremities Exam Extremities Exam: Full ROM, Normal Capillary Refill, Normal Inspection. absent: Joint Swelling, Pedal Edema - Back Exam Back Exam: NORMAL INSPECTION - Neurological Exam Neurological Exam: Alert, Awake, CN II-XII Intact, Normal Gait, Oriented x3 - Psychiatric Exam Psychiatric exam: Normal Affect, Normal Mood - Skin Skin Exam: Dry, Intact, Normal Color, Warm Assessment and Plan - Assessment and Plan (Free Text) Assessment: 43 F presented for SI and depression; medical consult obtained for hypertriglyceridemia and HTN, patient was transferred to ICU from Psychiatry, now back on psych floors and we are following up prior to discharge. Acute Hypertriglyceridemia - resolved Acute Hyperlipidemia Acute Transaminitis, likely 2/2 alcohol abuse Chronic HTN Hx Alcohol Abuse Plan Patient's labs reviewed, acute hypertriglyceridemia resolved. Discussed with patient necessity of alcohol cessation, diet restriction, and exercise. Patie nt's lipid panel showed elevated LDL, will monitor for now, patient should get repeat blood work within 3 months after lifestyle changes. LFT's are mildly elevated, but recent hep panel negative, patient denies promiscuous sexual practices and IVDA, not necessitating repeat hep panel. Patient is amenable to lifestyle changes. Patient reported leg swelling due to norvasc; we advise changing to lisinopril 5 daily. Thank you for consultation, we will sign off. <Gena Christian - Last Filed: 12/12/18 17:50> Objective - Vital Signs/Intake and Output Vital Signs (last 24 hours): Temp Pulse Resp BP Pulse Ox 98.4 F 75 18 84/54 L 12/12/18 07:15 12/12/18 07:15 12/12/18 07:15 12/12/18 07:15 - Labs Labs: 12/12/18 07:45 12/12/18 07:45 Attending/Attestation - Attestation I have personally seen and examined this patient.: Yes I have fully participated in the care of the patient.: Yes I have reviewed all pertinent clinical information, including history, physical exam and plan: Yes Notes (Text): 12/12/18 17:44 Attending note; Patient seen and examined with resident in psychiatric floor. Patient is alert and awake. Denies any abdominal pain. Denies any chest pain, shortness of breath. Denies any fevers, chills. Tolerating diet well. Ambulating fine. Patient is a 43-year-old female past medical history significant for hypertension, depression and anxiety that presented to the emergency room on 12/04/2018 with depression and suicidal ideations. Patient was admitted to psychiatric unit. Patient seen by medicine team in psychiatric unit and found to have severe hypertriglycerdemia. Patient transferred to emergency room for admission to ICU. Patient was treated with insulin drip with improvement and was transferred back to psychiatric unit 12/06/18. Currently patient is getting discharge from psychiatric floor. 1. Hypertriglyceridemia. Resolved . Epigastric pain resolved. CT abdomen and pelvis showed severe fatty infiltration of the liver and hepatomegaly, no acute intra-abdominal finding. Patient was treated with insulin drip. Currently with normal triglyceride level. Mildly elevated total cholesterol. Dietary education given. Repeat blood work after 3 months. Start statin if cholesterol is persistently high. 2. Elevated LFTs. Likely secondary to alcohol abuse. Patient also with severe fatty infiltration on CT abd/pelvis. Patient counseled on diet and exercise. Patient counseled at length on alcohol cessation. Significantly improved. 3. Alcohol abuse. Counseled on cessation. Treated with thiamine, folic acid, and multivitamin. Patient is advised to follow-up with PMD in [place].
--- NOTE | 2018-12-12 14:42 | PCM.PYCHDC ---
Mental Status Examination - Mental Status Examination Orientation: Person, Place, Situation, Time Memory: Intact Mood: Neutral Affect: Constricted (But reactive and mood congruent) Speech: Appropriate Attention: WNL Concentration: WNL Association: WNL Fund of Knowledge: WNL Formal Thought Process: No Impairment Description of patient's judgement and insight: Pt has improved insight into mental and medical illness, pt was compliant with medications and unit rules and regulations, pt was going to groups, was calm, cooperative, socially appropriate, no behavioral incidents, no agitation, no aggression. Psychotic Thoughts and Behaviors: Pt denied v/a/t hallucinations, denied paranoid ideations, pt does not appear to be psychotic, and thought process is goal directed. Suicidal Ideation: No Current Homicidal Ideation?: No Plan: pt adamantly denied thoughts of harming self or others denied intent or plan. Discharge Summary - Discharge Note Reason for Hospitalization: Worsening of depression, possible suicidal ideation Psychiatric History (includes Medical, Family, Personal Hx): history of major depressive disorder as well past use disorder severe Laboratory Data: Abnormal Lab Results 12/12/18 12/12/18 12/12/18 07:45 07:45 07:45 WBC 6.6 RBC 2.98 L Hgb 10.0 L Hct 30.9 L MCV 103.7 MCH 33.6 MCHC 32.4 RDW 14.7 H Plt Count 210 MPV 9.9 Gran % 56.1 Lymph % (Auto) 30.5 [place] % (Auto) 12.1 H Eos % (Auto) 1.1 L Baso % (Auto) 0.2 Gran # 3.73 Lymph # (Auto) 2.0 [place] # (Auto) 0.8 H Eos # (Auto) 0.1 Baso # (Auto) 0.01 Sodium 138 Potassium 4.4 Chloride 104 Carbon Dioxide 29 Anion Gap 9 L BUN 12 Creatinine 0.8 Est GFR ( Amer) > 60 Est GFR (Non-Af Amer) > 60 Random Glucose 99 Calcium 8.9 Total Bilirubin 0.6 AST 44 H D ALT 64 H Alkaline Phosphatase 61 Total Protein 7.1 Albumin 3.6 Globulin 3.5 Albumin/Globulin Ratio 1.0 L Triglycerides 66 Cholesterol 211 H LDL Cholesterol Direct 103 HDL Cholesterol 69 H 12/12/18 07:45 12/12/18 07:45 Lab Results 12/12/18 07:45: Triglycerides 66, Cholesterol 211 H, LDL Cholesterol Direct 103, HDL Cholesterol 69 H 12/12/18 07:45: Sodium 138, Potassium 4.4, Chloride 104, Carbon Dioxide 29, Anion Gap 9 L, BUN 12, Creatinine 0.8, Est GFR ( Amer) > 60, Est GFR (Non-Af Amer) > 60, Random Glucose 99, Calcium 8.9, Total Bilirubin 0.6, AST 44 H D, ALT 64 H, Alkaline Phosphatase 61, Total Protein 7.1, Albumin 3.6, Globulin 3.5, Albumin/Globulin Ratio 1.0 L 12/12/18 07:45: WBC 6.6, RBC 2.98 L, Hgb 10.0 L, Hct 30.9 L, MCV 103.7, MCH 33.6, MCHC 32.4, RDW 14.7 H, Plt Count 210, MPV 9.9, Gran % 56.1, Lymph % (Auto) 30.5, [place] % (Auto) 12.1 H, Eos % (Auto) 1.1 L, Baso % (Auto) 0.2, Gran # 3.73, Lymph # (Auto) 2.0, [place] # (Auto) 0.8 H, Eos # (Auto) 0.1, Baso # (Auto) 0.01 12/09/18 08:23: Sodium 138, Potassium 4.5, Chloride 106, Carbon Dioxide 29, Anion Gap 7 L, BUN 10, Creatinine 0.9, Est GFR ( Amer) > 60, Est GFR (Non-Af Amer) > 60, Random Glucose 97, Calcium 8.8, Total Bilirubin 1.0, AST 74 H D, ALT 101 H, Alkaline Phosphatase 77, Total Protein 6.9, Albumin 3.3, Manju bulin 3.6, Albumin/Globulin Ratio 0.9 L, Triglycerides 72, Cholesterol 228 H, LDL Cholesterol Direct 127, HDL Cholesterol 69 H 12/07/18 08:50: Sodium 138, Potassium 4.6, Chloride 107, Carbon Dioxide 26, Anion Gap 10, BUN 6 L, Creatinine 1.0, Est GFR ( Amer) > 60, Est GFR (Non-Af Amer) > 60, Random Glucose 123 H, Calcium 9.1, Phosphorus 3.6, Magnesium 2.0, Total Bilirubin 1.4 H, AST 211 H, ALT 167 H, Alkaline Phosphatase 107, Total Protein 7.6, Albumin 3.7, Globulin 4.0, Albumin/Globulin Ratio 0.9 L 12/07/18 08:50: WBC 5.7 D, RBC 3.53, Hgb 11.8 L, Hct 36.3, MCV 102.8 D, MCH 33.4, MCHC 32.5, RDW 15.2 H, Plt Count 188, MPV 10.2, Gran % 56.3, Lymph % (Auto) 34.8, [place] % (Auto) 6.4 H, Eos % (Auto) 2.3, Baso % (Auto) 0.2, Gran # 3.23, Lymph # (Auto) 2.0, [place] # (Auto) 0.4, Eos # (Auto) 0.1, Baso # (Auto) 0.01 Vital Signs Temp Pulse Pulse Resp BP 12/12/18 07:15 98.4 F 75 18 84/54 L 12/12/18 01:00 88 20 134/72 12/11/18 16:05 97.2 F L 12/11/18 16:00 110 H 140/95 H 12/11/18 07:15 98.5 F 70 18 81/53 L 12/10/18 15:00 83 127/87 12/10/18 07:21 98.1 F 73 18 100/59 L 12/09/18 21:22 145/91 H 12/09/18 19:00 147/87 12/09/18 17:29 95 H 158/104 H 12/09/18 17:23 97.5 F L 95 H 20 158/104 H 12/09/18 15:00 97.1 F L 109 H 22 173/113 H 12/09/18 07:00 97.6 F 73 20 115/72 12/08/18 16:00 83 129/86 12/08/18 07:00 98.7 F 77 20 111/69 12/07/18 15:44 86 130/90 12/07/18 07:29 98.4 F 78 20 139/86 12/07/18 04:36 68 16 Consultations:: List each consultation separately and include: 1. Reason for request. 2. Findings. 3. Follow-up Consultations: Medical follow-up appreciated, see notes for more detailed information. Patient was also seen by medical team prior to discharge today 12/12/2018 please see notes for more detailed information Summary of Hospital Course include:: 1. Description of specific treatment plan utilized for patients during their course of treatmen. 2. Summarize the time- course for resolution of acute symptoms and/or regressed behaviors. 3. Describe issues identified and worked on during hospitalization. 4. Describe medication utilized. 5. Describe medical problems identified and treated. 6. Reassessment of suicide risk Summary of Hospital Course: Soumya Granger is a 43 yo female with a history of depression, anxiety and alcohol abuse with 4 prior psych hospitalizations (most recently at [facility] [place]-09/23/18 and 09/12/18-09/17/18), compliant with prescribed medications of Prozac 40 mg daily, Remeron 15 mg HS, klonopin 1 mg po bid (though she only takes it once daily) who was transferred back to the psychiatric unit on 12/06/18 from the ICU where she was treated for extremely elevated triglycerides. Patient was initially admitted to the psychiatric unit on 12/04/18 for depression, alcohol withdrawal and SI, transferred and treated in the ICU on 12/05/17 and 12/06/18 for elevated TG and transferred back to Psychiatry on 12/06/18. Patient has been well-oriented, calm and in good control on the unit. She is tolerating her medications and denies any acute discomfort at this time. She is pleasant and well related without evidence of perceptual disturbance. Please see admission note for more detailed. overall patient improved on the following set of the medications: sonata 10 mg at the nighttime for insomnia Thiamine 100 mg daily Protonix daily p.o. daily Folic acid 1 mg p.o. daily Daily for depression and anxiety Lisinopril for hypertension 5 mg daily Lorazepam 1 mg 3 times a day as needed for anxiety Patient tolerated medications well, no side effects observed or reported, aims 0, no EPS. Patient is willing to go to the [facility] program (mental illness and chemical addiction), pt was provided with a formerly [facility] mental health, meanwhile patient was to see Dr. Hurley at [facility]. Over the course of this hospitalization pt was attending groups, pt also had medication management, had therapeutic milieu. Overall pt improved significantly, pt's affect became brighter, pt was less depressed, has realistic future oriented plans, pt also does not appear to be psychotic, or anxious, pt was socially appropriate, no behavioral issues, pts insight improved as well and soon pt deemed to be ready for discharge. At the time of the discharge patient pose no imminent danger to self or others, will be following up at [facility], dual diagnosis program and at [facility], information about follow up appointment, time and address provided to the pt, (see SW note for more detailed information). JULIEN also called DYFS because pt has long h/o alcohol addiction and pt has 4yo son at home. It is a patient responsibility to follow up with outpatient clinic, PMD as well as specialists In case patient will need to obtain results of studies pending at discharge, patient was provided with contact information of Psychiatric Inpatient unit [phone] as well as Medical Record Department [phone], as well as [facility] team [phone]. pt quit smoking last year Naltrexone treatment offered, pt refused Counseling about alcohol cessation provided AA [facility] treatment program information was provided by the JULIEN pt was provided with prescriptions for two weeks and one refill for psychotropic meds and one week for medical meds (see medication reconciliation form) Pt was educated about safety plan in case of worsening of symptoms or in case of suicidal or homicidal ideation call 911 or go to the nearest ER, also was educated to take meds as prescribed and stay away from drugs, pt verbalized understanding. - Diagnosis (1) Alcohol use disorder Status: Chronic Priority: High (2) MDD (major depressive disorder) Status: Chronic Priority: High - Final Diagnosis (DSM 5) Condition upon Discharge: GOOD Disposition: HOME/ ROUTINE Follow-up Treatment Plan: At the time of the discharge patient pose no imminent danger to self or others, will be following up at [facility], dual diagnosis program and at [facility], information about follow up armand ointment, time and address provided to the pt, (see SW note for more detailed information). JULIEN also called DYFS because pt has long h/o alcohol addiction and pt has 4yo son at home. It is a patient responsibility to follow up with outpatient clinic, PMD as well as specialists In case patient will need to obtain results of studies pending at discharge, patient was provided with contact information of Psychiatric Inpatient unit [phone] as well as Medical Record Department [phone], as well as [facility] team [phone]. pt quit smoking last year Naltrexone treatment offered, pt refused Counseling about alcohol cessation provided AA meetings treatment program information was provided by the JULIEN pt was provided with prescriptions for two weeks and one refill for psychotropic meds and one week for medical meds (see medication reconciliation form) Pt was educated about safety plan in case of worsening of symptoms or in case of suicidal or homicidal ideation call 911 or go to the nearest ER, also was educated to take meds as prescribed and stay away from drugs, pt verbalized understanding. Prescriptions/Medication Reconciliation: Fluoxetine HCl [Prozac] 40 mg PO DAILY #14 capsule Folic Acid 1 mg PO DAILY #14 tab Lisinopril [Zestril] 5 mg PO DAILY #30 tablet LORazepam [Ativan] 1 mg PO TID #45 tab Multivitamin Therapeutic Tab [Thera Tab] 1 tab PO 0800 #14 tab Pantoprazole [Protonix EC Tab] 40 mg PO 0600 #7 ect Thiamine [Vitamin B1 Tab] 100 mg PO DAILY #14 tab Zaleplon [Sonata] 10 mg PO HS PRN #14 cap PRN Reason: Insomnia - Smoking Cessation Smoking Cessation Medication prescribed: No Reason for not providing: Denied smoking - Antipsychotic Medications Pt discharged on 2 or more routine antipsychotic medications: No
== END 2018-12-12 14:21 | disposition home or self-care (01) | DRG 426 ==
LOC: PSYC 21:30
PROVIDERS: ADMIT Psychiatry & Neurology Psychiatry; ATTEND Psychiatry & Neurology Psychiatry
DX: F32.9 Major depressive disorder, single episode, unspecified (principal); F19.94 Other psychoactive substance use, unspecified with psychoactive substance-induced mood disorder; E78.1 Pure hyperglyceridemia; F10.20 Alcohol dependence, uncomplicated; F41.9 Anxiety disorder, unspecified; I10 Essential (primary) hypertension; K76.0 Fatty (change of) liver, not elsewhere classified; R45.851 Suicidal ideations; R10.13 Epigastric pain; Z71.3 Dietary counseling and surveillance; Z87.891 Personal history of nicotine dependence

== ENCOUNTER 2018-12-30 00:24 | Emergency (ER) | payer MEDICAID ==
[2018-12-30 00:25] VITALS: BMI 41.5
[2018-12-30 00:32] VITALS: RESP 18
--- NOTE | 2018-12-30 01:09 | ED PDOC ---
Arrival/HPI - General Chief Complaint: Headache Time Seen by Provider: 12/30/18 00:40 Historian: Patient - History of Present Illness Narrative History of Present Illness (Text): 12/30/18 00:53 Soumya Granger is a 43 year old female, whose past medical history includes hypertension, depression, alcohol abuse, and anxiety, who presents to the Emergency department complaining of headache. Patient states she has been experiencing a global headache this evening and notes she has experienced similar headaches in the past when her blood pressure is elevated. Patient notes she did not take her Lisinopril tonight. Patient's blood pressure on arrival to Emergency department was 161/94. Patient denies any fever, chills, chest pain, shortness of breath, nausea, vomiting, diarrhea, urinary symptoms, back pain, neck pain, headache, dizziness, or any other complaints. Symptom Onset: Gradual Symptom Course: Unchanged Activities at Onset: Light Context: Home Past Medical History - Provider Review Nursing Documentation Reviewed: Yes - Infectious Disease Hx of Infectious Diseases: None - Tetanus Immunization Tetanus Immunization: Unknown - Reproductive Currently : No - Cardiac Hx Cardiac Disorders: Yes Hx Hypertension: Yes - Pulmonary Hx Respiratory Disorders: No Other/Comment: URI - Neurological Hx Neurological Disorder: No - HEENT Hx HEENT Disorder: No - Renal Hx Renal Disorder: No - Endocrine/Metabolic Hx Endocrine Disorders: No - Hematological/Oncological Hx Blood Disorders: No - Integumentary Hx Dermatological Disorder: No - Musculoskeletal/Rheumatological Hx Musculoskeletal Disorders: No - Gastrointestinal Hx Gastrointestinal Disorders: No - Genitourinary/Gynecological Hx Genitourinary Disorders: No - Psychiatric Hx Psychophysiologic Disorder: Yes Hx Depression: Yes Hx Substance Use: No - Past Surgical History Past Surgical History: Non-Contributing - Surgical History Hx Section: Yes (x3) Hx Tubal Ligation: Yes - Anesthesia Hx Malignant Hyperthermia: Yes Family/Social History - Physician Review Nursing Documentation Reviewed: Yes Family/Social History: Unknown Family HX Smoking Status: Former Smoker Hx Alcohol Use: Yes Hx Substance Use: No Allergies/Home Meds Allergies/Adverse Reactions: Allergies shellfish derived Allergy (Mild, Verified 12/30/18 00:31) ANAPHYLAXIS amlodipine [From Norvasc] Adverse Reaction (Verified 12/30/18 00:31) ANGIOEDEMA Swelling of bilateral lower extremities Review of Systems - Physician Review All systems were reviewed & negative as marked: Yes - Review of Systems Constitutional: Normal. absent: Fevers Eyes: Normal ENT: Normal Respiratory: Normal. absent: SOB, Cough Cardiovascular: Normal. absent: Chest Pain Gastrointestinal: Normal. absent: Abdominal Pain, Diarrhea, Nausea, Vomiting Genitourinary Female: Normal. absent: Dysuria, Frequency, Hematuria, Urine Output Changes Musculoskeletal: Normal. absent: Back Pain, Neck Pain Skin: Normal. absent: Rash Neurological: Headache. absent: Dizziness Endocrine: Normal Hemo/Lymphatic: Normal Psychiatric: Normal Physical Exam Vital Signs Reviewed: Yes Vital Signs Temp Pulse Resp BP Pulse Ox 12/30/18 00:31 97.6 F 90 18 161/94 H 99 Temperature: Afebrile Blood Pressure: Normal Pulse: Regular Respiratory Rate: Normal Appearance: Positive for: Well-Appearing, Non-Toxic, Comfortable Pain Distress: None Mental Status: Positive for: Alert and Oriented X 3 - Systems Exam Head: Present: Atraumatic, Normocephalic Pupils: Present: PERRL Extroacular Muscles: Present: EOMI Conjunctiva: Present: Normal Ears: Present: Normal, NORMAL TM, Normal Canal. No: Erythema, TM Bulging, Fluid, TM Perf Mouth: Present: Moist Mucous Membranes Pharnyx: Present: Normal. No: ERYTHEMA, EXUDATE, TONSILS ENLARGED, Peritonsilar Swelling, Uvular Deviation, Muffled/Hoarse Voice, Strider, Soft Palate/Uvular Edema Nose (External): Present: Atraumatic Nose (Internal): Present: Normal Inspection Neck: Present: Normal Range of Motion. No: Meningeal Signs, MIDLINE TENDERNESS, Paraspinal Tenderness Respiratory/Chest: Present: Clear to Auscultation, Good Air Exchange. No: Respiratory Distress, Accessory Muscle Use Cardiovascular: Present: Regular Rate and Rhythm, Normal S1, S2. No: Murmurs Abdomen: No: Tenderness, Distention, Peritoneal Signs Back: Present: Normal Inspection. No: CVA Tenderness, Midline Tenderness, Paraspinal Tenderness Upper Extremity: Present: Normal Inspection. No: Cyanosis, Edema Lower Extremity: Present: Normal Inspection. No: Edema Neurological: Present: GCS=15, CN II-XII Intact, Speech Normal, Motor Func Grossly Intact, Normal Sensory Function, Normal Cerebellar Funct, Memory Normal Skin: Present: Warm, Dry, Normal Color. No: Rashes Psychiatric: Present: Alert, Oriented x 3, Normal Insight, Normal Concentration Medical Decision Making ED Course and Treatment: 12/30/18 00:53 Impression: 43 year old female complaining of headache. Plan: -- CT Head w/o contrast -- Lisinopril -- Catapres -- Tylenol -- Reassess and disposition Prior Visits: Notes and results from previous visits were reviewed. Progress Notes: 12/30/18 02:55 CT Head: Normal size of the ventricles and extra-axial spaces for the patient's age. Normal white matter tracts of the supratentorial brain. Normal basal ganglia and thalami. Normal brainstem. Normal cerebellum. There is no demonstrated extra-axial, intraparenchymal, or intraventricular hemorrhage. There are no findings of an acute ischemic infarction. Normal calvarium. There is no demonstrated fracture. Normal soft tissue structures. Normal visualized paranasal sinuses. IMPRESSION: Normal unenhanced CT scan of the brain. Electronically signed on Dec 30, 2018 2:46:38 AM EST by: Malinda Rivera M.D., Certified by [facility], Neuroradiology - Medication Orders Current Medication Orders: Lisinopril (Zestril) 5 mg PO STAT STA Stop: 12/30/18 00:52 - Scribe Statement The provider has reviewed the documentation as recorded by the Elaine Xiong Provider Scribe Attestation: All medical record entries made by the Scribe were at my direction and personally dictated by me. I have reviewed the chart and agree that the record accurately reflects my personal performance of the history, physical exam, medical decision making, and the department course for this patient. I have also personally directed, reviewed, and agree with the discharge instructions and disposition. Disposition/Present on Arrival - Present on Arrival Any Indicators Present on Arrival: No History of DVT/PE: No History of Uncontrolled Diabetes: No Urinary Catheter: No History of Decub. Ulcer: No History Surgical Site Infection Following: None - Disposition Have Diagnosis and Disposition been Completed?: Yes Diagnosis: Headache, Chronic hypertension Disposition: HOME/ ROUTINE Disposition Time: 02:58 Patient Plan: Discharge Condition: STABLE Discharge Instructions (ExitCare): High Blood Pressure (DC), Tension Headache (DC) Additional Instructions: Tylenol as directed/Take your meds as previously prescribed/follow up with your doctor this week Forms: Vyyo (Maori)
[2018-12-30 03:26] VITALS: BP 132/82; PULSE 72; TEMP 97.8; O2SAT 100
--- NOTE | 2018-12-30 09:02 | CT ---
Date of service: 12/30/2018 PROCEDURE: CT HEAD WITHOUT CONTRAST. HISTORY: headache COMPARISON: 09/19/2018 TECHNIQUE: Axial computed tomography images were obtained through the head/brain without intravenous contrast. Radiation dose: Total exam DLP = 829.57 mGy-cm. This CT exam was performed using one or more of the following dose reduction techniques: Automated exposure control, adjustment of the mA and/or kV according to patient size, and/or use of iterative reconstruction technique. FINDINGS: HEMORRHAGE: No intracranial hemorrhage. BRAIN: No mass effect or edema. No atrophy or chronic microvascular ischemic changes. VENTRICLES: Unremarkable. No hydrocephalus. CALVARIUM: Unremarkable. PARANASAL SINUSES: Unremarkable as visualized. No significant inflammatory changes. MASTOID AIR CELLS: Unremarkable as visualized. No inflammatory changes. OTHER FINDINGS: The report concurs with the preliminary [facility] report IMPRESSION: No acute findings
== END 2018-12-30 03:28 | disposition home or self-care (01) ==
LOC: ED 00:24
DX: R51 Headache (principal); I10 Essential (primary) hypertension; Z87.891 Personal history of nicotine dependence

== ENCOUNTER 2019-01-30 17:24 | Emergency (ER) | payer MEDICAID | END 2019-01-30 19:13 | disposition home or self-care (01) | LOC: ED 17:24 ==

== ENCOUNTER 2019-03-20 01:03 | Emergency (ER) | payer MEDICAID ==
[2019-03-20 01:03] VITALS: BMI 33.5
[2019-03-20 01:33] VITALS: RESP 18
--- NOTE | 2019-03-20 01:33 | ED PDOC ---
Arrival/HPI - General Chief Complaint: Flu-like Symptoms Time Seen by Provider: 03/20/19 01:17 Historian: Patient - History of Present Illness Narrative History of Present Illness (Text): 03/20/19 01:33 Soumya Granger is a 43 year old female, whose past medical history includes hypertension, depression, alcohol abuse, and anxiety, who presents to the Emergency department complaining of cold-like symptoms. Patient states she has been experiencing nasal congestion with dry cough for the past couple of days. Patient denies any fever, chills, chest pain, shortness of breath, nausea, vomiting, headache, dizziness, or any other complaints. Symptom Onset: Gradual Symptom Course: Unchanged Activities at Onset: Light Context: Home Past Medical History - Provider Review Nursing Documentation Reviewed: Yes - Infectious Disease Hx of Infectious Diseases: None - Tetanus Immunization Tetanus Immunization: Unknown - Cardiac Hx Cardiac Disorders: Yes Hx Hypertension: Yes - Pulmonary Hx Respiratory Disorders: No Other/Comment: URI - Neurological Hx Neurological Disorder: No - HEENT Hx HEENT Disorder: No - Renal Hx Renal Disorder: No - Endocrine/Metabolic Hx Endocrine Disorders: No - Hematological/Oncological Hx Blood Disorders: No - Integumentary Hx Dermatological Disorder: No - Musculoskeletal/Rheumatological Hx Musculoskeletal Disorders: No - Gastrointestinal Hx Gastrointestinal Disorders: No - Genitourinary/Gynecological Hx Genitourinary Disorders: No - Psychiatric Hx Psychophysiologic Disorder: Yes Hx Anxiety: Yes Hx Depression: Yes Hx Substance Use: No - Past Surgical History Past Surgical History: Non-Contributing - Surgical History Hx Section: Yes (x3) Hx Tubal Ligation: Yes - Anesthesia Hx Anesthesia: Yes Family/Social History - Physician Review Nursing Documentation Reviewed: Yes Family/Social History: Unknown Family HX Smoking Status: Never Smoked Hx Alcohol Use: No Hx Substance Use: No Allergies/Home Meds Allergies/Adverse Reactions: Allergies shellfish derived Allergy (Mild, Verified 01/30/19 17:32) ANAPHYLAXIS amlodipine [From Norvas] Adverse Reaction (Verified 01/30/19 17:32) ANGIOEDEMA Swelling of bilateral lower extremities Home Medications: Home Meds Medication Instructions Recorded Confirmed Mirtazapine [Remeron] 1 tab PO HS 01/30/19 01/30/19 Review of Systems - Physician Review All systems were reviewed & negative as marked: Yes - Review of Systems Constitutional: Normal. absent: Fevers Eyes: Normal ENT: Sinus Congestion Respiratory: Cough. absent: Sputum Cardiovascular: Normal Gastrointestinal: Normal Genitourinary Female: Normal Musculoskeletal: Normal Skin: Normal Neurological: Normal Endocrine: Normal Hemo/Lymphatic: Normal Psychiatric: Normal Physical Exam Vital Signs Reviewed: Yes Vital Signs Temp Pulse Resp BP Pulse Ox 03/20/19 01:29 97.7 F 73 18 136/88 99 Temperature: Afebrile Blood Pressure: Normal Pulse: Regular Respiratory Rate: Normal Appearance: Positive for: Well-Appearing, Non-Toxic, Comfortable Pain Distress: None Mental Status: Positive for: Alert and Oriented X 3 - Systems Exam Head: Present: Atraumatic, Normocephalic Pupils: Present: PERRL Extroacular Muscles: Present: EOMI Conjunctiva: Present: Normal Ears: Present: Normal, NORMAL TM, Normal Canal. No: Erythema, TM Bulging, Fluid, TM Perf Mouth: Present: Moist Mucous Membranes Pharnyx: Present: Normal. No: ERYTHEMA, EXUDATE, TONSILS ENLARGED, Peritonsilar Swelling, Uvular Deviation, Muffled/Hoarse Voice, Strider, Soft Palate/Uvular Edema Nose (External): Present: Atraumatic Nose (Internal): Present: Normal Inspection Neck: Present: Normal Range of Motion. No: Meningeal Signs, MIDLINE TENDERNESS, Paraspinal Tenderness Respiratory/Chest: Present: Clear to Auscultation, Good Air Exchange. No: Respiratory Distress, Accessory Muscle Use Cardiovascular: Present: Regular Rate and Rhythm, Normal S1, S2. No: Murmurs Abdomen: No: Tenderness, Distention, Peritoneal Signs Back: Present: Normal Inspection. No: CVA Tenderness, Midline Tenderness, Paraspinal Tenderness Upper Extremity: Present: Normal Inspection. No: Cyanosis, Edema Lower Extremity: Present: Normal Inspection. No: Edema Neurological: Present: GCS=15, CN II-XII Intact, Speech Normal Skin: Present: Warm, Dry, Normal Color. No: Rashes Psychiatric: Present: Alert, Oriented x 3, Normal Insight, Normal Concentration Medical Decision Making ED Course and Treatment: 03/20/19 01:33 Impression: 43 year old female complaining of cold-like symptoms, nasal congestion, and dry cough. Plan: -- Labs -- Chest X-ray -- Rapid influenza -- Reassess and disposition Prior Visits: Notes and results from previous visits were reviewed. Progress Notes: 03/20/19 03:09 Chest X-ray reviewed, shows no acute processes. Labs reviewed, grossly unremarkable. Negative rapid influenza - Lab Interpretations I have reviewed the lab results: Yes - RAD Interpretation Nursery Hand: ED Physician - Scribe Statement The provider has reviewed the documentation as recorded by the Scribe Val Xiong Provider Scribe Attestation: All medical record entries made by the Scribe were at my direction and personally dictated by me. I have reviewed the chart and agree that the record accurately reflects my personal performance of the history, physical exam, medical decision making, and the department course for this patient. I have also personally directed, reviewed, and agree with the discharge instructions and disposition. Disposition/Present on Arrival - Present on Arrival Any Indicators Present on Arrival: No History of DVT/PE: No History of Uncontrolled Diabetes: No Urinary Catheter: No History of Decub. Ulcer: No History Surgical Site Infection Following: None - Disposition Have Diagnosis and Disposition been Completed?: Yes Diagnosis: Bronchitis, URI (upper respiratory infection) Disposition: HOME/ ROUTINE Disposition Time: 03:28 Patient Plan: Discharge Condition: GOOD Discharge Instructions (ExitCare): Acute Bronchitis, Adult (DC), Viral Upper Respiratory Infection, Adult (DC) Additional Instructions: Take meds as prescribed/follow up with your doctor this week Prescriptions: Benzonatate [Tessalon Perles] 100 mg PO TID PRN #21 sgl PRN Reason: Cough Azithromycin [Zithromax] 250 mg PO DAILY #6 tab Referrals: Yvonne RAMÍREZ,MD Kaley [Primary Care Provider] - Follow up with primary Forms: [employer] (Japanese), WORK NOTE
[2019-03-20 02:09] VITALS: PULSE 88; TEMP 98.1
[2019-03-20 02:38] LABS: HEMOGLOBIN 11.1 g/dL (12.0-16.0); MEAN CORPUSCULAR HEMOGLOBIN 31.6 pg (25.0-35.0); MEAN CORPUSCULAR HGB CONC 32.6 g/dl (31.0-37.0); MEAN PLATELET VOLUME 9.5 fl (7.0-11.0); RBC 3.51 10^6/uL (3.5-6.1); RED CELL DISTRIBUTION WIDTH 13.1 % (11.5-14.5); WHITE BLOOD COUNT 6.3 10^3/uL (4.5-11.0)
[2019-03-20 02:40] LABS: MEAN CELL VOLUME 96.9 fl (80.0-105.0)
[2019-03-20 02:41] LABS: BLOOD UREA NITROGEN 15 mg/dL (7-21); CALCIUM 8.5 mg/dL (8.4-10.5); GFR NON-AFRICAN AMERICAN > 60
[2019-03-20 04:53] VITALS: BP 127/74; O2SAT 100
--- NOTE | 2019-03-20 09:08 | RAD ---
Date of service: 03/20/2019 HISTORY: cough COMPARISON: 11/29/2018 TECHNIQUE: 1 view obtained. FINDINGS: LUNGS: No active pulmonary disease. PLEURA: No significant pleural effusion identified, no pneumothorax apparent. CARDIOVASCULAR: No aortic atherosclerotic calcification present. Normal cardiac size. No pulmonary vascular congestion. OSSEOUS STRUCTURES: No significant abnormalities. VISUALIZED UPPER ABDOMEN: Normal. OTHER FINDINGS: None. IMPRESSION: No active disease.
== END 2019-03-20 03:30 | disposition home or self-care (01) ==
LOC: ED 01:03
DX: J06.9 Acute upper respiratory infection, unspecified (principal); J40 Bronchitis, not specified as acute or chronic; I10 Essential (primary) hypertension; F32.9 Major depressive disorder, single episode, unspecified

== ENCOUNTER 2019-04-15 18:42 | Observation (INO) | payer MEDICAID ==
[2019-04-15] MEDS ORDERED: Sodium Chloride 0.9% 1,000 ML IV STA (20:07)
[2019-04-15 20:33] LABS: HEMOGLOBIN 12.2 g/dL (12.0-16.0); MEAN CELL VOLUME 95.8 fl (80.0-105.0); MEAN CORPUSCULAR HEMOGLOBIN 31.9 pg (25.0-35.0); MEAN CORPUSCULAR HGB CONC 33.3 g/dl (31.0-37.0); MEAN PLATELET VOLUME 9.7 fl (7.0-11.0); RBC 3.82 10^6/uL (3.5-6.1); RED CELL DISTRIBUTION WIDTH 12.5 % (11.5-14.5); WHITE BLOOD COUNT 10.4 10^3/uL (4.5-11.0)
[2019-04-15 20:40] LABS: ALB/GLOB RATIO 1.1 (1.1-1.8); ALBUMIN 4.4 g/dL (3.0-4.8); BLOOD UREA NITROGEN 13 mg/dL (7-21); CALCIUM 9.7 mg/dL (8.4-10.5); GFR NON-AFRICAN AMERICAN > 60
--- NOTE | 2019-04-15 20:41 | ED PDOC ---
Arrival/HPI - General Chief Complaint: Palpitations Time Seen by Provider: 04/15/19 19:16 Historian: Patient - History of Present Illness Narrative History of Present Illness (Text): 04/15/19 20:37 43 year old female, whose past medical history includes hypertension, depression, alcohol abuse, and anxiety, presents to the Emergency department complaining of intermittent episodes rapid heart rate today. Patient informs she has been having some episodes of diarrhea. Patient denies any chest pain but feels vague discomfort when her heart is racing. Patient informs of some intermittent shortness of breath. Patient denies any fevers, chills, nausea, vomiting, headache, dizziness, or any other complaints. Time/Duration: Prior to Arrival Symptom Onset: Gradual Symptom Course: Unchanged Activities at Onset: Light Context: Home Past Medical History - Provider Review Nursing Documentation Reviewed: Yes Primary Care Provider: Non [facility] Provider, - Infectious Disease Hx of Infectious Diseases: None - Tetanus Immunization Tetanus Immunization: Unknown - Cardiac Hx Cardiac Disorders: Yes Hx Hypertension: Yes - Pulmonary Hx Respiratory Disorders: No Other/Comment: URI - Neurological Hx Neurological Disorder: No - HEENT Hx HEENT Disorder: No - Renal Hx Renal Disorder: No - Endocrine/Metabolic Hx Endocrine Disorders: No - Hematological/Oncological Hx Blood Disorders: No - Integumentary Hx Dermatological Disorder: No - Musculoskeletal/Rheumatological Hx Musculoskeletal Disorders: No - Gastrointestinal Hx Gastrointestinal Disorders: No - Genitourinary/Gynecological Hx Genitourinary Disorders: No - Psychiatric Hx Psychophysiologic Disorder: Yes Hx Anxiety: Yes Hx Depression: Yes Hx Substance Use: No - Past Surgical History Past Surgical History: Non-Contributing - Surgical History Hx Section: Yes (x3) Hx Tubal Ligation: Yes - Anesthesia Hx Anesthesia: Yes Hx Anesthesia Reactions: No Hx Malignant Hyperthermia: No Family/Social History - Physician Review Nursing Documentation Reviewed: Yes Family/Social History: No Known Family HX Smoking Status: Never Smoked Hx Alcohol Use: No Hx Substance Use: No Allergies/Home Meds Allergies/Adverse Reactions: Allergies shellfish derived Allergy (Mild, Verified 04/15/19 19:21) ANAPHYLAXIS amlodipine [From Norvasc] Adverse Reaction (Verified 04/15/19 19:21) ANGIOEDEMA Swelling of bilateral lower extremities Home Medications: Home Meds Medication Instructions Recorded Confirmed Mirtazapine [Remeron] 1 tab PO HS 01/30/19 04/15/19 Review of Systems - Physician Review All systems were reviewed & negative as marked: Yes - Review of Systems Constitutional: absent: Fevers, Night Sweats Respiratory: SOB Cardiovascular: Palpitations. absent: Chest Pain Gastrointestinal: Diarrhea. absent: Nausea, Vomiting Neurological: absent: Headache, Dizziness Physical Exam Vital Signs Reviewed: Yes Vital Signs Temp Pulse Resp BP Pulse Ox 04/15/19 19:01 98 F 114 H 20 119/80 98 Temperature: Afebrile Blood Pressure: Normal Pulse: Tachycardic Respiratory Rate: Normal Appearance: Positive for: Well-Appearing, Non-Toxic, Comfortable Pain Distress: None Mental Status: Positive for: Alert and Oriented X 3 - Systems Exam Head: Present: Atraumatic, Normocephalic Pupils: Present: PERRL Extroacular Muscles: Present: EOMI Conjunctiva: Present: Normal Mouth: Present: Moist Mucous Membranes Neck: Present: Normal Range of Motion Respiratory/Chest: Present: Clear to Auscultation, Good Air Exchange. No: Respiratory Distress, Accessory Muscle Use Cardiovascular: Present: Normal S1, S2, Tachycardic. No: Murmurs Abdomen: No: Tenderness, Distention, Peritoneal Signs Back: Present: Normal Inspection Upper Extremity: Present: Normal Inspection. No: Cyanosis, Edema Lower Extremity: Present: Normal Inspection. No: Edema Neurological: Present: GCS=15, CN II-XII Intact, Speech Normal Skin: Present: Warm, Dry, Normal Color. No: Rashes Psychiatric: Present: Alert, Oriented x 3, Normal Insight, Normal Concentration Medical Decision Making ED Course and Treatment: 04/15/19 20:42 Impression: 43 year old female presents with intermittent palpitations. Plan: -- EKG -- Cardiac Iso, CMP -- CBC, Ddimer, Platelets -- Chest X-ray -- Reassess and disposition Prior Visits: Notes and results from previous visits were reviewed. Progress Notes: EKG Reviewed by me, shows: Sinus tachycardia @ 119bpm Nonspecific STT wave changes 04/15/19 23:03 Chest X-ray reviewed by me, shows: No acute process 04/15/19 23:14 Spoke with medical pathologist and house doctor, Dr Yang, who accepts to the hospitalist service. - RAD Interpretation Radiology Orders: 04/15/19 20:04 CHEST PORTABLE [RAD] Stat - Medication Orders Current Medication Orders: Sodium Chloride (Sodium Chloride 0.9%) 1,000 mls @ 999 mls/hr IV .Q1H1M STA Stop: 04/15/19 21:07 Last Admin: 04/15/19 20:30 Dose: 999 mls/hr eMAR Start Stop Document 04/15/19 20:30 KV (Rec: 04/15/19 20:33 KV [id number]) Intravenous Solution Start Date 04/15/19 Start Time 20:30 - Scribe Statement The provider has reviewed the documentation as recorded by the Elaine Mckeon Provider Scribe Attestation: All medical record entries made by the Scribe were at my direction and personally dictated by me. I have reviewed the chart and agree that the record accurately reflects my personal performance of the history, physical exam, medical decision making, and the department course for this patient. I have also personally directed, reviewed, and agree with the discharge instructions and disposition. Disposition/Present on Arrival - Present on Arrival Any Indicators Present on Arrival: No History of DVT/PE: No History of Uncontrolled Diabetes: No Urinary Catheter: No History of Decub. Ulcer: No History Surgical Site Infection Following: None - Disposition Have Diagnosis and Disposition been Completed?: Yes Diagnosis: Paroxysmal tachycardia, Chest pain Disposition: HOSPITALIZED Disposition Time: 23:13 Patient Problems: Current Active Problems Problem Status Onset Paroxysmal tachycardia Acute Condition: STABLE Discharge Instructions (ExitCare): Chest Pain (ED)
[2019-04-15 20:43] LABS: INR 1.09; PROTHROMBIN TIME 12.1 SECONDS (9.4-12.5)
[2019-04-15 20:46] LABS: ALT/SGPT 21 U/L (7-56); AST/SGOT 36 U/L (14-36)
[2019-04-15 20:52] LABS: TROPONIN I < 0.01 ng/mL
[2019-04-15 21:00] LABS: D DIMER < 200 ng/mlDDU (0-243)
[2019-04-15 21:37] VITALS: O2SAT 99
--- NOTE | 2019-04-16 00:30 | CP.PCM.HP ---
<Aamrjit Clay - Last Filed: 04/16/19 02:05> History of Present Illness - History of Present Illness History of Present Illness: Amarjit Clay, H&P for Dr. Yang cc: "palpitations" Patient is a 43 year old female, whose past medical history includes HTN, depression, anxiety, alcohol abuse, Hypertriglyceridemia presents to the Emergency department complaining of intermittent palpitations earlier today. She does not endorse any chest pain with the palpitations. However, she did mention she had some shortness of breath which is resolved. She denies any headache, dizziness, fever, chills, n/v/d, bowel/bladder changes. Denies foaming of mouth, tongue biting, loss of stool/urine. Patient was [place] [facility] for suicidal ideation and depression. However, her stay was com plicated by severe hypertriglyceridemia (3930) secondary to alcohol abuse; she was monitored in the ICU and discharged to the psych unit. A full 12 point ROS was conducted and unremarkable except as stated above. PMD: Dr. Russell PMHx: HTN, depression, anxiety, alcohol abuse, Hypertriglyceridemia PSHx: denies Fam Hx: DM (Mother, one brother and one sister), Unspecified cardiac conditions (Mother and Father), unspecified gynecological cancer (Mother) Soc Hx: former tobacco abuse (1/2 ppd since age 23; quit 2 years ago), denies current EtOH (previously had 5+ shots liquor/day); denies illicits/IVDA Allergies: shellfish, amlodipine Meds: see MAR Present on Admission - Present on Admission Any Indicators Present on Admission: No Review of Systems - Review of Systems All systems: reviewed and no additional remarkable complaints except (as per HPI) Past Patient History - Infectious Disease Hx of Infectious Diseases: None - Tetanus Immunizations Tetanus Immunization: Unknown - Past Social History Smoking Status: Never Smoked - CARDIAC Hx Cardiac Disorders: Yes Hx Hypertension: Yes - PULMONARY Hx Respiratory Disorders: No Other/Comment: URI - NEUROLOGICAL Hx Neurological Disorder: No - HEENT Hx HEENT Problems: No - RENAL Hx Chronic Kidney Disease: No - ENDOCRINE/METABOLIC Hx Endocrine Disorders: No - HEMATOLOGICAL/ONCOLOGICAL Hx Blood Disorders: No - INTEGUMENTARY Hx Dermatological Problems: No - MUSCULOSKELETAL/RHEUMATOLOGICAL Hx Musculoskeletal Disorders: No - GASTROINTESTINAL Hx Gastrointestinal Disorders: No - GENITOURINARY/GYNECOLOGICAL Hx Genitourinary Disorders: No - PSYCHIATRIC Hx Psychophysiologic Disorder: Yes Hx Anxiety: Yes Hx Depression: Yes Hx Substance Use: No - SURGICAL HISTORY Hx Section: Yes (x3) Hx Tubal Ligation: Yes - ANESTHESIA Hx Anesthesia: Yes Hx Anesthesia Reactions: No Hx Malignant Hyperthermia: No Meds Allergies/Adverse Reactions: Allergies Allergy/AdvReac Type Severity Reaction Status Date / Time shellfish derived Allergy Mild ANAPHYLAXIS Verified 04/15/19 19:21 [facility] AdvReac ANGIOEDEMA Verified 04/15/19 19:21 Physical Exam - Constitutional Appears: No Acute Distress - Head Exam Head Exam: ATRAUMATIC, NORMAL INSPECTION, NORMOCEPHALIC - Eye Exam Eye Exam: EOMI, Normal appearance Pupil Exam: NORMAL ACCOMODATION - ENT Exam ENT Exam: Mucous Membranes Moist - Respiratory Exam Respiratory Exam: Clear to Auscultation Bilateral. absent: Accessory Muscle Use, Chest Wall Tenderness, Rales, Rhonchi, Wheezes, Respiratory Distress - Cardiovascular Exam Cardiovascular Exam: RRR, +S1, +S2 - GI/Abdominal Exam GI & Abdominal Exam: Normal Bowel Sounds, Soft. absent: Distended, Firm, Guarding, Rebound, Rigid, Tenderness - Extremities Exam Extremities exam: Positive for: full ROM, normal capillary refill, normal inspection, pedal pulses present. Negative for: calf tenderness, joint swelling, pedal edema, tenderness - Back Exam Back exam: NORMAL INSPECTION - Neurological Exam Neurological exam: Alert, CN II-XII Intact, Normal Gait, Oriented x3, Reflexes Normal - Psychiatric Exam Psychiatric exam: Normal Affect, Normal Mood - Skin Skin Exam: Dry, Intact, Normal Color, Warm Results - Vital Signs Recent Vital Signs: Last Vital Signs Temp 98 F 04/15/19 19:01 Pulse 72 04/15/19 23:13 Resp 18 04/15/19 23:13 BP 104/51 L 04/15/19 23:13 Pulse Ox 99 04/15/19 23:13 - Labs Result Diagrams: 04/15/19 20:20 04/15/19 20:20 Labs: Laboratory Results - last 24 hr 04/15/19 04/15/19 04/15/19 20:20 20:20 20:20 WBC 10.4 D RBC 3.82 Hgb 12.2 Hct 36.6 MCV 95.8 MCH 31.9 MCHC 33.3 RDW 12.5 Plt Count 380 MPV 9.7 PT 12.1 INR 1.09 APTT 34.0 D-Dimer, Quantitative < 200 Sodium 137 Potassium 4.3 Chloride 102 Carbon Dioxide 25 Anion Gap 15 BUN 13 Creatinine 0.7 Est GFR ( Amer) > 60 Est GFR (Non-Af Amer) > 60 Random Glucose 77 Calcium 9.7 Total Bilirubin 0.8 AST 36 ALT 21 Alkaline Phosphatase 79 Lactate Dehydrogenase 522 Total Creatine Kinase 82 Troponin I < 0.01 Total Protein 8.3 Albumin 4.4 Globulin 3.9 Albumin/Globulin Ratio 1.1 Assessment & Plan - Assessment and Plan (Free Text) Assessment: Patient is a 43 year old female, whose past medical history includes HTN, depression, anxiety, alcohol abuse, Hypertriglyceridemia presents to the Emergency department complaining of intermittent palpitations earlier today. Plan: Palpitations - May be secondary to Anxiety - Initial trop negative x1; trend serial trops q6 - TSH - Lipid panel - Urine drug screen given social history - D-dimer negative - HR improved to 68-72 upon admission - EKG: sinus tachycardia, HR 119; QTc 464 - CXR: no active disease HTN - resume home med Lisinopril 5mg daily Anxiety/Depression/Insomnia - resume home med ativan 1mg TID prn - resume home med Prozac 40mg daily - resume home med Sonata 10mg PO HS Hypertriglyceridemia/Alcohol Abuse - EtOH level ordered - Lipid panel ppx: - ptx - scd Diet: HHD Dispo: Will observe patient on remote tele. Case was discussed and reviewed with Attending Physician, Dr. Yang <Adrianna Yang - Last Filed: 04/16/19 02:13> Results - Vital Signs Recent Vital Signs: Last Vital Signs Temp 98 F 04/15/19 19:01 Pulse 72 04/15/19 23:13 Resp 20 04/16/19 01:16 BP 104/51 L 04/15/19 23:13 Pulse Ox 99 04/15/19 23:13 - Labs Result Diagrams: 04/15/19 20:20 04/15/19 20:20 Labs: Laboratory Results - last 24 hr 04/15/19 04/15/19 04/15/19 20:20 20:20 20:20 WBC 10.4 D RBC 3.82 Hgb 12.2 Hct 36.6 MCV 95.8 MCH 31.9 MCHC 33.3 RDW 12.5 Plt Count 380 MPV 9.7 PT 12.1 INR 1.09 APTT 34.0 D-Dimer, Quantitative < 200 Sodium 137 Potassium 4.3 Chloride 102 Carbon Dioxide 25 Anion Gap 15 BUN 13 Creatinine 0.7 Est GFR ( Amer) > 60 Est GFR (Non-Af Amer) > 60 Random Glucose 77 Calcium 9.7 Total Bilirubin 0.8 AST 36 ALT 21 Alkaline Phosphatase 79 Lactate Dehydrogenase 522 Total Creatine Kinase 82 Troponin I < 0.01 Total Protein 8.3 Albumin 4.4 Globulin 3.9 Albumin/Globulin Ratio 1.1 Triglycerides Cholesterol LDL Cholesterol Direct HDL Cholesterol TSH 3rd Generation Urine HCG, Qual Urine Opiates Screen Urine Methadone Screen Ur Barbiturates Screen Ur Phencyclidine Scrn Ur Amphetamines Screen U Benzodiazepines Scrn U Oth Cocaine Metabols U Cannabinoids Screen Alcohol, Quantitative 04/15/19 04/15/19 04/15/19 20:20 20:20 20:20 WBC RBC Hgb Hct MCV MCH MCHC RDW Plt Count MPV PT INR APTT D-Dimer, Quantitative Sodium Potassium Chloride Carbon Dioxide Anion Gap BUN Creatinine Est GFR ( Amer) Est GFR (Non-Af Amer) Random Glucose Calcium Total Bilirubin AST ALT Alkaline Phosphatase Lactate Dehydrogenase Total Creatine Kinase Troponin I Total Protein Albumin Globulin Albumin/Globulin Ratio Triglycerides 71 Cholesterol 200 LDL Cholesterol Direct 66 HDL Cholesterol 95 H TSH 3rd Generation 1.16 Urine HCG, Qual Urine Opiates Screen Urine Methadone Screen Ur Barbiturates Screen Ur Phencyclidine Scrn Ur Amphetamines Screen U Benzodiazepines Scrn U Oth Cocaine Metabols U Cannabinoids Screen Alcohol, Quantitative < 10 04/15/19 04/15/19 23:42 23:42 WBC RBC Hgb Hct MCV MCH MCHC RDW Plt Count MPV PT INR APTT D-Dimer, Quantitative Sodium Potassium Chloride Carbon Dioxide Anion Gap BUN Creatinine Est GFR ( Amer) Est GFR (Non-Af Amer) Random Glucose Calcium Total Bilirubin AST ALT Alkaline Phosphatase Lactate Dehydrogenase Total Creatine Kinase Troponin I Total Protein Albumin Globulin Albumin/Globulin Ratio Triglycerides Cholesterol LDL Cholesterol Direct HDL Cholesterol TSH 3rd Generation Urine HCG, Qual Negative Urine Opiates Screen Negative Urine Methadone Screen Negative Ur Barbiturates Screen Negative Ur Phencyclidine Scrn Negative Ur Amphetamines Screen Negative U Benzodiazepines Scrn Negative U Oth Cocaine Metabols Negative U Cannabinoids Screen Negative Alcohol, Quantitative Attending/Attestation - Attestation I have personally seen and examined this patient.: Yes I have fully participated in the care of the patient.: Yes I have reviewed all pertinent clinical information: Yes Notes (Text): 04/16/19 02:08 Pt seen with the resident by the bedside. Case discussed in detail. Agree with documentation,assessment and plan of treatment.
[2019-04-16 00:45] LABS: HDL CHOLESTEROL 95 mg/dL (29-60)
[2019-04-16 00:55] LABS: LDL CHOLESTEROL 66 mg/dL (0-129)
[2019-04-16 01:26] VITALS: BMI 35.6
[2019-04-16 02:01] LABS: BARBITURATES, UR NEGATIVE (NEGATIVE); BENZODIAZEPINES, UR NEGATIVE (NEGATIVE); OPIATES, UR NEGATIVE (NEGATIVE); PHENCYCLIDINE, UR NEGATIVE (NEGATIVE)
[2019-04-16] MEDS ORDERED: Pantoprazole 20 mg EC Tab PO SCH (06:00)
[2019-04-16 06:49] LABS: HEMOGLOBIN 11.4 g/dL (12.0-16.0); MEAN CELL VOLUME 95.7 fl (80.0-105.0); MEAN CORPUSCULAR HEMOGLOBIN 30.9 pg (25.0-35.0); MEAN CORPUSCULAR HGB CONC 32.3 g/dl (31.0-37.0); MEAN PLATELET VOLUME 9.3 fl (7.0-11.0); RBC 3.69 10^6/uL (3.5-6.1); RED CELL DISTRIBUTION WIDTH 12.3 % (11.5-14.5); WHITE BLOOD COUNT 7.7 10^3/uL (4.5-11.0)
[2019-04-16] MEDS ORDERED: Multivitamin Therapeutic Tab PO SCH (08:00)
--- NOTE | 2019-04-16 08:14 | RAD ---
Date of service: 04/15/2019 HISTORY: palpitations COMPARISON: Portable chest 03/20/2019. TECHNIQUE: 1 view obtained. FINDINGS: LUNGS: No active pulmonary disease. PLEURA: No significant pleural effusion identified, no pneumothorax apparent. CARDIOVASCULAR: No aortic atherosclerotic calcification present. Normal cardiac size. No pulmonary vascular congestion. OSSEOUS STRUCTURES: No significant abnormalities. VISUALIZED UPPER ABDOMEN: Normal. OTHER FINDINGS: None. IMPRESSION: No interval acute cardiopulmonary disease appreciated.
[2019-04-16 08:23] VITALS: BP 122/79; RESP 18; TEMP 97.7
[2019-04-16 09:00] LABS: ALB/GLOB RATIO 1.1 (1.1-1.8); ALBUMIN 3.9 g/dL (3.0-4.8); ALT/SGPT 16 U/L (7-56); AST/SGOT 58 U/L (14-36); BLOOD UREA NITROGEN 11 mg/dL (7-21); GFR NON-AFRICAN AMERICAN > 60
--- NOTE | 2019-04-16 10:53 | CARD ---
APPROVED REPORT Date of service: 04/15/2019 EKG Measurement Heart [id number] <Conclusion> Sinus tachycardia Otherwise normal ECG
--- NOTE | 2019-04-16 14:46 | CON ---
DATE OF CONSULTATION: 04/16/2019 CARDIOLOGY CONSULTATION HISTORY: The patient is a 43-year-old woman, who presents with palpitations. The patient suffers from hypertension, history of depression, anxiety, as well as alcohol abuse. She denies excessive drinking now. She had one episode of palpitation, which is now resolved. Her chest pain is nonexistent. She denies smoking. No diabetes mellitus noted. No previous cardiac history is noted on social history, and the patient has a history of psychiatric disorder in the past. REVIEW OF SYSTEMS: Review of systems are all negative at this time. PHYSICAL EXAMINATION: VITAL SIGNS: Stable, heart rate is in the 80s, normal sinus rhythm. NECK: Negative JVD. LUNGS: Without rales. CARDIAC: Heart rate S1, S2. EXTREMITIES: Without edema. LABORATORY DATA: EKG shows no acute changes. Troponins are negative x3. Hemoglobin is 11.4. IMPRESSION: 1. Palpitations. 2. Hypertension. 3. Atypical chest pain. 4. History of psychiatric disorder with depression 5. Obesity. 6. History of alcohol abuse in the past. PLAN: Given these findings, the patient's cardiac status is stable. There is no evidence for acute coronary syndrome. Her heart rhythm is stable. From a cardiac perspective, the patient can be discharged. We will arrange for an outpatient workup. Hussain Moreno MD
--- NOTE | 2019-04-16 15:57 | CP.PCM.DIS ---
Provider - Provider Date of Admission: 04/15/19 23:15 Attending physician: Kalpana Caldwell MD Consults: 04/16/19 01:08 Social Work Referral Routine Comment: PROTOCOL Physician Instructions: Reason For Exam: DC PLANNING 04/16/19 11:56 Cardiology Consult Routine Comment: Consulting Provider: Hussain Moreno Consulting Physician: Hussain Moreno Reason for Consult: palpitations Hospital Course - Lab Results Lab Results: Most Recent Lab Values WBC 7.7 10^3/uL (4.5-11.0) D 04/16/19 06:00 RBC 3.69 10^6/uL (3.5-6.1) 04/16/19 06:00 Hgb 11.4 g/dL (12.0-16.0) L 04/16/19 06:00 Hct 35.3 % (36.0-48.0) L 04/16/19 06:00 MCV 95.7 fl (80.0-105.0) 04/16/19 06:00 MCH 30.9 pg (25.0-35.0) 04/16/19 06:00 MCHC 32.3 g/dl (31.0-37.0) 04/16/19 06:00 RDW 12.3 % (11.5-14.5) 04/16/19 06:00 Plt Count 322 10^3/uL (120.0-450.0) 04/16/19 06:00 MPV 9.3 fl (7.0-11.0) 04/16/19 06:00 PT 12.1 SECONDS (9.4-12.5) 04/15/19 20:20 INR 1.09 04/15/19 20:20 APTT 34.0 Seconds (26.9-38.3) 04/15/19 20:20 D-Dimer, Quantitative < 200 ng/mlDDU (0-243) 04/15/19 20:20 Sodium 136 mmol/L (132-148) 04/16/19 06:00 Potassium 3.8 mmol/L (3.6-5.0) 04/16/19 06:00 Chloride 103 mmol/L (98-107) 04/16/19 06:00 Carbon Dioxide 24 mmol/L (21-33) 04/16/19 06:00 Anion Gap 13 (10-20) 04/16/19 06:00 BUN 11 mg/dL (7-21) 04/16/19 06:00 Creatinine 0.6 mg/dl (0.7-1.2) L 04/16/19 06:00 Est GFR ( Amer) > 60 04/16/19 06:00 Est GFR (Non-Af Amer) > 60 04/16/19 06:00 Random Glucose 75 mg/dL (70-110) 04/16/19 06:00 Calcium 9.0 mg/dL (8.4-10.5) 04/16/19 06:00 Total Bilirubin 0.8 mg/dL (0.2-1.3) 04/16/19 06:00 AST 58 U/L (14-36) H D 04/16/19 06:00 ALT 16 U/L (7-56) 04/16/19 06:00 Alkaline Phosphatase 69 U/L (38-126) 04/16/19 06:00 Lactate Dehydrogenase 522 U/L (333-699) 04/15/19 20:20 Total Creatine Kinase 82 U/L (35-230) 04/15/19 20:20 Troponin I 0.01 ng/mL 04/16/19 08:00 Total Protein 7.4 g/dL (5.8-8.3) 04/16/19 06:00 Albumin 3.9 g/dL (3.0-4.8) 04/16/19 06:00 Globulin 3.5 gm/dL 04/16/19 06:00 Albumin/Globulin Ratio 1.1 (1.1-1.8) 04/16/19 06:00 Triglycerides 71 mg/dL (35-160) 04/15/19 20:20 Cholesterol 200 mg/dL (130-200) 04/15/19 20:20 LDL Cholesterol Direct 66 mg/dL (0-129) 04/15/19 20:20 HDL Cholesterol 95 mg/dL (29-60) H 04/15/19 20:20 TSH 3rd Generation 1.16 mIU/mL (0.46-4.68) 04/15/19 20:20 Urine HCG, Qual Negative (NEGATIVE) 04/15/19 23:42 Urine Opiates Screen Negative (NEGATIVE) 04/15/19 23:42 Urine Methadone Screen Negative (NEGATIVE) 04/15/19 23:42 Ur Barbiturates Screen Negative (NEGATIVE) 04/15/19 23:42 Ur Phencyclidine Scrn Negative (NEGATIVE) 04/15/19 23:42 Ur Amphetamines Screen Negative (NEGATIVE) 04/15/19 23:42 U Benzodiazepines Scrn Negative (NEGATIVE) 04/15/19 23:42 U Oth Cocaine Metabols Negative (NEGATIVE) 04/15/19 23:42 U Cannabinoids Screen Negative (NEGATIVE) 04/15/19 23:42 Alcohol, Quantitative < 10 mg/dL (0-10) 04/15/19 20:20 Discharge Exam - Head Exam Head Exam: ATRAUMATIC, NORMAL INSPECTION, NORMOCEPHALIC Discharge Plan - Discharge Medications Prescriptions: Metoprolol Tartrate [Lopressor] 12.5 mg PO BRKDIN 30 Days #60 tab - Follow Up Plan Condition: STABLE Disposition: HOME/ ROUTINE Instructions: Chest Pain (ED) Additional Instructions: Follow up with your primary care physician within 7-10 days upon discharge Follow up with [employer], Dr. Moreno within 10-14 days upon discharge Follow up with outpatient stress test on May 08 Take medications as prescribed to you -Stop taking Lisonpril 5mg PO Daily -Start taking Metoprolol 12.5 mg PO twice a day Return to the nearest emergency department if you begin experience chest pain, palpitations, unrelenting fever, focal weakness
[2019-04-16 16:12] VITALS: PULSE 80
--- NOTE | 2019-04-16 16:15 | CARD ---
APPROVED REPORT Date of service: 04/16/2019 EXAM: Two-dimensional and M-mode echocardiogram with Doppler and color Doppler. INDICATION LV Function:SystolicDiastolic Palpitations 2D DIMENSIONS Left Atrium (2D)3.3 (1.6-4.0cm)IVSd0.9 (0.7-1.1cm) LVDd4.3 (3.9-5.9cm)PWd1.0 (0.7-1.1cm) LVDs2.9 (2.5-4.0cm)FS (%) 33.3 % LVEF (%)62.2 (>50%) M-Mode DIMENSIONS Aortic Root2.30 (2.2-3.7cm)Aortic Cusp Exc.1.40 (1.5-2.0cm) Aortic Valve AoV Peak Qspsfadv525.0cm/Emili Peak GR.10mmHg Mitral Valve MV E Zangmkqf16.2cm/sMV A Ubmpibvz92.3cm/sE/A ratio1.2 TDI E/Lateral E'0.0E/Medial E'0.0 Tricuspid Valve TR Peak [id number]/sRAP [id number] Peak Gr.25mmHg [id number] LEFT VENTRICLE The left ventricle is normal size. There is normal left ventricular wall thickness. The left ventricular function is normal. The left ventricular ejection fraction is within the normal range. There is normal LV segmental wall motion. The left ventricular diastolic function is normal. RIGHT VENTRICLE The right ventricle is normal size. There is normal right ventricular wall thickness. The right ventricular systolic function is normal. ATRIA The left atrium size is normal. The right atrium size is normal. AORTIC VALVE The aortic valve is normal in structure. No aortic regurgitation is present. There is no aortic valvular stenosis. There is no aortic valvular vegetation. MITRAL VALVE The mitral valve is normal in structure. There is no mitral valve regurgitation noted. There is no mitral valve stenosis. There is no evidence of mitral valve prolapse. TRICUSPID VALVE The tricuspid valve is normal in structure. There is trace tricuspid regurgitation. There is mild pulmonary hypertension. PULMONIC VALVE The pulmonary valve is normal in structure. There is no pulmonic valvular regurgitation. GREAT VESSELS The aortic root is normal in size. The IVC is normal in size and collapses >50% with inspiration. PERICARDIAL EFFUSION There is no pericardial effusion. <Conclusion> There is normal left ventricular wall thickness. The left ventricular function is normal. The left ventricular ejection fraction is within the normal range. There is normal LV segmental wall motion. The left ventricular diastolic function is normal. There is mild pulmonary hypertension.
== END 2019-04-16 17:17 | disposition home or self-care (01) ==
LOC: ED 18:42 → ERH 23:15 → 3RSO 04-16 00:53
PROVIDERS: ADMIT Internal Medicine; ATTEND Internal Medicine
DX: R07.89 Other chest pain (principal); R00.2 Palpitations; I10 Essential (primary) hypertension; E66.9 Obesity, unspecified; F10.11 Alcohol abuse, in remission; E78.1 Pure hyperglyceridemia; F32.89 Other specified depressive episodes; I47.9 Paroxysmal tachycardia, unspecified; Z80.49 Family history of malignant neoplasm of other genital organs; Z83.3 Family history of diabetes mellitus; Z87.891 Personal history of nicotine dependence; Z98.51 Tubal ligation status; Z98.891 History of uterine scar from previous surgery; Z68.35 Body mass index [BMI] 35.0-35.9, adult
CPT/HCPCS: 36415; 71045; 80053; 80061; 80320; 80324; 80345; 80346; 80349; 80353; 80358; 80361; 81025; 82550; 83615; 83992; 84443; 84484; 84703; 85027; 85378; 85610; 85730; 93005; 93306; G0378; J7030